=== PATIENT | female | born 1995 | race Caucasian/White ===

== ENCOUNTER → 2021-12-09 | Outpatient (CLI) | payer OTHER, SELFPAY ==
--- NOTE | 2021-12-09 15:45 | SEP_PTH ---
PATIENT: AFSHIN CADET LOC: [facility] U#:[id number] AGE/SX: 26/F ROOM: RE12/09/[address]: Dr. Louis Akhtar MD : 1995 BED: DIS: 12/09/2021 SPEC #: [id number] RECD: 12/10/21 14:58 STATUS: TAQUERIA PRAVEEN #: [id number] BAKARI: 12/09/21 15:[address]: Louis Akhtar DEPT: SURGICAL PATHOLOGY RECD BY: Jignesh Hensley ENTERED: 12/11/21 08:29 SP TYPE: SEPTUM OTHR DR: ALEX Tissues: Nasal septum, NOS Procedures: Decalcification bone/plaque Surgery Specimen Level III HEADER OPERATION: Septoplasty PRE-OP DIAGNOSIS: Nasal congestion, deviated nasal septum TISSUE SUBMITTED: Septum MICROSCOPIC DIAGNOSIS Nasal septum, septoplasty: Fragments of hyaline cartilage and bone with reparative and reactive change (clinically deviated septum). AM:jair 12/16/2021 MICROSCOPIC DESCRIPTION Slides are reviewed. GROSS DESCRIPTION Received in fixative is one container labeled with the patient's name and designated septum. The specimen consists of multiple irregular fragments of cartilage and bone that in aggregate measure 2 x 2 x 0.3 cm. The specimen is totally submitted in one cassette after decalcification. / ADRIANA:jair 12/11/2021 TC:5 CPT: 98051, 89025
== END | disposition home or self-care (01) ==
LOC: LABSPEC 12-11 08:48
PROVIDERS: Visit Provider Otolaryngology
DX: R09.81 Nasal congestion (principal); J34.2 Deviated nasal septum
CPT/HCPCS: 88304; 88311

== ENCOUNTER 2024-04-02 13:11 | Emergency (ER) | payer OTHER, BC, SELFPAY ==
[2024-04-02 13:11] VITALS: BP 148/94; PULSE 76; RESP 16; TEMP 36.8; O2SAT 98; BMI 28.4
--- NOTE | 2024-04-02 13:48 | EDS_ITS ---
HPI <PAPO Sim - Last Filed: 04/02/24 15:02> History of Present Illness Chief Complaint: Palpitations Narrative Narrative: Patient presenting today with multiple vague complaints she has had over the past 2 to 3 weeks. She reports she stopped taking spironolactone for acne about 3 weeks ago. Since then she has had intermittent palpitations, brain fog, occasional blurred vision, dizziness, and elevated blood pressure. She does have a history of hypothyroidism and last had her thyroid checked in February and was told it was normal. She is taking her levothyroxine as prescribed. She denies any other chronic medical conditions. She has an IUD and last had her menstrual period about a month ago. She denies fevers, chills, chest pain, abdominal pain, nausea, and vomiting. 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 Seasonal allergies Home Medications ?Medication ?Instructions ?Recorded ?Last Taken ?Type spironolactone 100 mg tablet 100 mg PO QHS 09/05/21 Unknown History levothyroxine 112 mcg tablet 112 mcg PO .QD1/2 every Thursday #90 09/03/23 Unknown Rx tabs Allergy/AdvReac Type Severity Reaction Status Date / Time No Known Allergies Allergy Verified 04/02/24 13:13 Family History Mother Anxiety Depression Thyroid disorder Father Anxiety Alcoholism Depression Hypertension Thyroid disorder Sister Anxiety Depression Thyroid disorder Grandmother Thyroid disorder Grandfather Thyroid disorder Surgical History History of wisdom tooth extraction History of lateral meniscus repair of right knee History of repair of anterior cruciate ligament Social History adopted: No household members: spouse housing: house number of children: 0 current occupational status: employed current occupation: [employer] pets and animals: Yes sexually active: Yes Smoking Status: Never smoker alcohol intake: current alcohol intake frequency: a few times a month Alcohol type: beer substance use type: does not use diet: other well-balanced diet: daily or most days eating out: 1-3 times/week during the past year weight has: decreased > 10 lbs what type of physical activity do you participate in: running and weight training frequency: daily seatbelt use: always do you feel safe at home: Yes additional social history: - Carlos CARABALLO <PAPO Sim - Last Filed: 04/02/24 15:02> ROS ED Constitutional Constitutional ED: Denies chills or fever(s) Eyes Eyes: Reports blurry vision Cardiovascular Cardiovascular: Reports palpitations; Denies chest pain Respiratory/Chest Respiratory/Chest: Denies cough or dyspnea Gastrointestinal Gastrointestinal: Denies abdominal pain, nausea or vomiting Genitourinary Genitourinary ED: Denies dysuria, hematuria or urinary urgency Musculoskeletal Musculoskeletal: Denies arthralgias or myalgias Integumentary Denies rash Neurologic Neurologic: Denies weakness EXAM <PAPO Sim - Last Filed: 04/02/24 15:02> Physical Exam Const Vital Signs: 04/02/24 13:11 04/02/24 13:50 Temperature 98.2 F Temperature Source Oral Pulse Rate 76 Respiratory Rate 16 Respiratory Effort Normal Blood Pressure 148/94 H Blood Pressure Mean 112 Pulse Ox 98 Oxygen Delivery Method Room Air Positive well nourished, well developed and no apparent distress General Appearance ED: well developed HEENT Reports normocephalic, head/scalp atraumatic and TM's clear Tympanic Membrane ED: Yes TM's clear bilateral Mouth ED: Yes moist mucous membranes normal Eyes PERRL and EOMs intact bilaterally Neck full ROM and supple Chest Wall inspection of chest normal Resp normal respiratory effort and clear to auscultation bilaterally Cardio regular rate and regular rhythm Back/Spine normal ROM and normal to inspection Extremity normal to inspection and full ROM Neuro oriented x3, CN's II-XII intact bilaterally, moves all extremities, no focal motor deficits and no sensory deficits noted Sensorium / Orientation: awake and alert Motor Exam: strength 5/5 throughout Psych mental status grossly normal and thought process normal Skin no rashes or lesions noted and no wounds <Dr. Cristobal Ron MD - Last Filed: 04/02/24 14:06> Physical Exam Const Vital Signs: 04/02/24 13:11 04/02/24 13:50 Temperature 98.2 F Temperature Source Oral Pulse Rate 76 Respiratory Rate 16 Respiratory Effort Normal Blood Pressure 148/94 H Blood Pressure Mean 112 Pulse Ox 98 Oxygen Delivery Method Room Air [facility] <PAPO Sim - Last Filed: 04/02/24 15:02> [facility] Narrative Medical decision making narrative: Patient presenting today with multiple vague complaints. She reports palpitations, occasional blurred vision, brain fog, and elevated blood pressure since stopping her spironolactone 3 weeks ago. She was taking this for acne. She has an NIH of 0, her neurological exam here is normal. Labs obtained, her CBC and BMP are unremarkable. Chest x-ray negative for any acute cardiopulmonary abnormality. No arrhythmia observed, equipment monitor phototypesetting, her EKG here shows normal sinus rhythm. Her TSH is 5.64 which is increased from her previous labs according to the patient. I suspect that this is likely causing her symptoms. I did recommend that she call her coin machine assembler on Thursday and discuss possible medication changes, she is to continue taking her levothyroxine until then. Return instructions were discussed and patient discharged home in stable condition. I have personally performed a face to face assessment of the patient and have reviewed the PRITI Note. I performed a substantive portion of the visit including all aspects of the following. My thomas findings include: History is 28-year-old female history of hypothyroidism on thyroid medication. Abruptly stopped spironolactone which she was taking about 3 weeks ago for acne. Has had intermittent palpitations. Denies recent illness. Denies vomiting or diarrhea. Denies melena. Denies fever. No chest pain. No shortness of breath. Exam is [well-appearing 28-year-old female. Vital signs are stable afebrile. Pulse ox 98% on room air no hypoxia. H EENT exam normal. Moist weeks membranes. Neck nontender no JVD. No lymphadenopathy. Lungs clear to auscultation bilaterally. Heart regular rate and rhythm rate about 75 no murmur. Chest wall ribs nontender. Abdomen soft nontender. Moving all 4 extremities. Nontender no edema. 5 of 5 tankage supervisor strength. Dorsi plantarflexion intact. Calves are nontender without edema or cords. Neurologically she is awake alert no focal motor deficits. Back exam nontender. Skin no rashes. Benign exam.] Medical Decision Making [28-year-old with hypothyroidism with palpitations will undergo cardiac workup. And screening labs. She does not need a troponin.] Other additions or changes: [None] Lab Data Labs: Laboratory Results - last 24 hr 04/02/24 13:59 WBC 6.7 RBC 4.46 Hgb 13.5 Hct 38.9 MCV 87.2 MCH 30.3 MCHC 34.7 RDW Std Deviation 39.2 RDW Coeff of Andrae 12.2 Plt Count 311 MPV 9.4 Immature Gran % (Auto) 0.300 Neut % (Auto) 66.0 Lymph % (Auto) 25.7 [place] % (Auto) 6.7 Eos % (Auto) 0.7 Baso % (Auto) 0.6 Absolute Neuts (auto) 4.4 Absolute Lymphs (auto) 1.73 Nucleated RBC % 0 Sodium 138 Potassium 3.7 Chloride 106 Carbon Dioxide 28.0 Anion Gap 4 L BUN 9 Creatinine 0.96 Estim Creat Clear Calc 100.43 Est GFR (MDRD) Af Amer 89 Est GFR (MDRD) Non-Af 74 BUN/Creatinine Ratio 9.3 L Glucose 96 Calcium 9.3 TSH 5.640 H Serum , Qual NEGATIVE EKG Initial EKG: Comments: 71 bpm, normal sinus rhythm, no ST elevation, interpreted by attending ED physician <Dr. Cristobal Ron MD - Last Filed: 04/02/24 14:06> [facility] MDM Narrative Medical decision making narrative: I have personally performed a face to face assessment of the patient and have reviewed the PRITI Note. I performed a substantive portion of the visit including all aspects of the following. My thomas findings include: History is 28-year-old female history of hypothyroidism on thyroid medication. Abruptly stopped spironolactone which she was taking about 3 weeks ago for acne. Has had intermittent palpitations. Denies recent illness. Denies vomiting or diarrhea. Denies melena. Denies fever. No chest pain. No shortness of breath. Exam is [well-appearing 28-year-old female. Vital signs are stable afebrile. Pulse ox 98% on room air no hypoxia. H EENT exam normal. Moist weeks membranes. Neck nontender no JVD. No lymphadenopathy. Lungs clear to auscultation bilaterally. Heart regular rate and rhythm rate about 75 no murmur. Chest wall ribs nontender. Abdomen soft nontender. Moving all 4 extremities. Nontender no edema. 5 of 5 tankage supervisor strength. Dorsi plantarflexion intact. Calves are nontender without edema or cords. Neurologically she is awake alert no focal motor deficits. Back exam nontender. Skin no rashes. Benign exam.] Medical Decision Making [28-year-old with hypothyroidism with palpitations will undergo cardiac workup. And screening labs. She does not need a troponin.] Other additions or changes: [None] History & Record Review Discussion w/independent historian: Patient Lab Data Attestation: I reviewed the patient's lab results. Labs: Laboratory Results - last 24 hr 04/02/24 13:59 WBC 6.7 RBC 4.46 Hgb 13.5 Hct 38.9 MCV 87.2 MCH 30.3 MCHC 34.7 RDW Std Deviation 39.2 RDW Coeff of Andrae 12.2 Plt Count 311 MPV 9.4 Immature Gran % (Auto) 0.300 Neut % (Auto) 66.0 Lymph % (Auto) 25.7 [place] % (Auto) 6.7 Eos % (Auto) 0.7 Baso % (Auto) 0.6 Absolute Neuts (auto) 4.4 Absolute Lymphs (auto) 1.73 Nucleated RBC % 0 Sodium 138 Potassium 3.7 Chloride 106 Carbon Dioxide 28.0 Anion Gap 4 L BUN 9 Creatinine 0.96 Estim Creat Clear Calc 100.43 Est GFR (MDRD) Af Amer 89 Est GFR (MDRD) Non-Af 74 BUN/Creatinine Ratio 9.3 L Glucose 96 Calcium 9.3 TSH 5.640 H Serum , Qual NEGATIVE Discharge Plan Triage Chief Complaint: Palpitations ED Midlevel Provider: Pati Rosales ED Provider: Cristobal Ron Dx/Rx/DC Orders Clinical Impression: Heart palpitations, Hypothyroidism Instructions: ED Hypothyroidism, ED Palpitations Prescriptions: No Action spironolactone 100 mg tablet 100 mg PO QHS levothyroxine 112 mcg tablet 112 mcg PO .QD1/2 every Thursday Qty: 90 3RF Primary Care Provider: Aretha Jacobson Referrals: Aretha Jacobson MD [Primary Care Provider] - 3-5 Days Activity Restrictions/Additional Instructions: Follow-up with your PCP to have your thyroid levels rechecked and possible changes to thyroid medication. Your TSH here was 5.64. Print Language: Bulgarian Disposition Disposition: Home, Self Care
[2024-04-02 14:21] LABS: Absolute Lymphocyte Count 1.73 X10^3/uL (0.83-4.51); Absolute Neutrophil Count 4.4 X10^3/uL (2.0-7.7); Basophil# 0.04 X10^3/uL; Basophil% 0.6 % (0-1); Eosinophil# 0.05 X10^3/uL; Eosinophils% 0.7 % (0-5); Hematocrit 38.9 % (37-47); Hemoglobin 13.5 g/dL (12.0-15.0); Lymphocyte # 1.73 X10^3/ul (0.83-4.51); Lymphocyte % 25.7 % (19-41); Mean Corp Hgb Conc 34.7 g/dL (32-36); Mean Corpuscular Hgb 30.3 pg (27.0-32.0); Mean Corpuscular Volume 87.2 fL (81-99); Mean Platelet Vol. 9.4 fl (6.2-12.0); Monocyte# 0.45 X10^3/uL; Monocyte% 6.7 % (0-10); NRBC Flagged by Analyzer 0 % (0-5); Neutrophil # 4.44 X10^3/uL (2.7-7.7); Platelet Count 311 K/mm3 (150-450); RBC Distribution Width CV 12.2 % (11.6-14.6); RBC Distribution Width SD 39.2 fl (35.1-43.9); Red Blood Count 4.46 M/mm3 (4.2-5.4); White Blood Count 6.7 K/mm3 (4.4-11.0)
[2024-04-02 14:29] LABS: Internal QC Validated? YES +Cl - CLEAR BKGD; Pregnancy, Serum, hCG Quali. NEGATIVE Negative
--- NOTE | 2024-04-02 14:29 | RAD_ITS ---
STUDY: X-RAY CHEST REASON FOR EXAM: Female, 28 years old. Dizziness, palpitations TECHNIQUE: Frontal and lateral views of the chest. COMPARISON: None. FINDINGS: The lungs are clear and expanded. There is no demonstrated pleural abnormality. Normal size heart. Normal mediastinum and radha. Normal visualized pulmonary arteries. Normal visualized aortic arch and descending thoracic aorta. Normal visualized thoracic spine. Normal visualized ribs, clavicles, and shoulders. There is no demonstrated abnormality of the visualized soft tissue structures of the upper abdomen. RAD/Chest PA and Lateral IMPRESSION: Normal x-ray examination of the chest. Electronically Signed: Petey Bermudez MD at 15:16 EST ,
[2024-04-02 14:44] LABS: Anion Gap 4 (5-15); BUN 9 mg/dL (7-18); BUN/Creat Ratio 9.3 RATIO (10-20); Calcium,Total 9.3 mg/dL (8.5-10.1); Chloride 106 mmol/L (98-107); Creatinine, Serum 0.96 mg/dL (0.55-1.02); EST Glomerular Filtration Rate 74 mL/min (>60); Est Glom Filt Rate - Afr Amer 89 mL/min (>60); Estimated Creatinine Clearance 100.43 ml/min; Glucose 96 mg/dL (74-106); Potassium 3.7 mmol/L (3.5-5.1); Sodium Level 138 mmol/L (136-145)
[2024-04-02 15:00] VITALS: BP 118/76; PULSE 69; RESP 16; TEMP 36.6; O2SAT 98
== END 2024-04-02 15:01 | disposition home or self-care (01) ==
PROVIDERS: Physician Assistant; Emergency Provider Emergency Medicine; PCP Family Medicine; Visit Provider Emergency Medicine
DX: R00.2 Palpitations (principal); E03.9 Hypothyroidism, unspecified; Z79.890 Hormone replacement therapy
CPT/HCPCS: 71046; 80048; 84443; 84703; 85025; 93005; 99283; A4216

== ENCOUNTER → 2024-06-09 | Outpatient (CLI) | payer BC, SELFPAY ==
[2024-06-16 10:35] LABS: HPV Reflexed? NOT INDICATED
== END | disposition home or self-care (01) ==
LOC: LABSPEC 16:38
PROVIDERS: PCP Family Medicine; Referring Provider Advanced Practice Midwife; Visit Provider Advanced Practice Midwife
DX: Z12.4 Encounter for screening for malignant neoplasm of cervix (principal)
CPT/HCPCS: 88175; G0145

== ENCOUNTER 2024-08-18 09:25 | Emergency (ER) | payer BC, SELFPAY ==
[2024-08-18 09:27] VITALS: BP 141/80; PULSE 70; RESP 16; TEMP 36.7; O2SAT 100; BMI 28.4
--- NOTE | 2024-08-18 09:30 | ED.VIS.FEGU ---
HPI HPI - Female History of Present Illness Chief Complaint: Vag Bld, Preg Detail of Chief Complaint: Vaginal spotting and pelvic cramping Informant: patient Narrative Narrative: Patient presents to the emergency department with vaginal spotting that started yesterday. Patient states that she had a very active day working out. She had small amount of spotting yesterday. She has had some cramping throughout the night especially on the left side. She spoke with her SLOT MACHINE REPAIRER who advised her to come in and get a ultrasound and labs. Patient's last menstrual period was July 15. Had a positive test yesterday. She is G1, P0. Not anticoagulated. She has had no further vaginal bleeding today. She denies urinary symptoms. 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 Seasonal allergies Home Medications ?Medication ?Instructions ?Recorded ?Last Taken ?Type spironolactone 100 mg tablet 100 mg PO QHS 09/05/21 Unknown History levothyroxine 112 mcg tablet 112 mcg PO .QD1/2 every Thursday #90 09/03/23 Unknown Rx tabs Allergy/AdvReac Type Severity Reaction Status Date / Time No Known Allergies Allergy Verified 08/18/24 09:29 Family History Mother Anxiety Depression Thyroid disorder Father Anxiety Alcoholism Depression Hypertension Thyroid disorder Sister Anxiety Depression Thyroid disorder Grandmother Thyroid disorder Grandfather Thyroid disorder Surgical History History of wisdom tooth extraction History of lateral meniscus repair of right knee History of repair of anterior cruciate ligament Social History adopted: No household members: spouse housing: house number of children: 0 current occupational status: employed current occupation: [employer] pets and animals: Yes sexually active: Yes Smoking Status: Never smoker alcohol intake: current alcohol intake frequency: a few times a month Alcohol type: beer substance use type: does not use diet: other well-balanced diet: daily or most days eating out: 1-3 times/week during the past year weight has: decreased > 10 lbs what type of physical activity do you participate in: running and weight training frequency: daily seatbelt use: always do you feel safe at home: Yes additional social history: - Carlos ROS ROS ED Review of Systems ROS Unobtainable: other Constitutional Constitutional ED: Reports lethargy; Denies chills, fever(s), sweats or weight loss Eyes Eyes: Denies blurry vision, change in vision or diplopia ENT ENT ED: Denies rhinorrhea or sore throat Cardiovascular Cardiovascular: Denies chest pain, orthopnea or racing heartbeat Respiratory/Chest Respiratory/Chest: Denies cough, dyspnea, dyspnea on exertion, orthopnea or sputum Gastrointestinal Gastrointestinal: Denies abdominal pain, diarrhea, nausea or vomiting Genitourinary Genitourinary ED: Reports other Details: Vaginal bleeding, ; Denies dysuria, hematuria or urinary frequency Musculoskeletal Musculoskeletal: Denies arthralgias, back pain, myalgias or neck pain Integumentary Denies abscess, Abrasions or rash Neurologic Neurologic: Denies headache(s) or weakness Psychiatric Psychiatric: Denies anxiety, depression or suicidal thoughts Endocrine Endocrinology: Denies polydipsia, polyphagia or polyuria Hematologic/Lymphatic Hematologic/Lymphatic: Denies easy bleeding, easy bruising or lymphadenopathy Allergic/Immunologic Allergic/Immunologic ED: Denies mouth swelling, tongue swelling or urticaria EXAM Physical Exam Const Vital Signs: 08/18/24 09:27 Temperature 98.1 F Temperature Source Oral Pulse Rate 70 Respiratory Rate 16 Blood Pressure 141/80 H Blood Pressure Mean 100 Pulse Ox 100 Oxygen Delivery Method Room Air Positive well nourished and well developed General Appearance ED: well developed and NAD HEENT Reports TM's clear and moist mucous membranes normocephalic and atraumatic; Negative for trauma or tenderness Tympanic Membrane ED: Yes TM's clear Eyes PERRL and EOMs intact bilaterally General Eye ED: Negative for pale conjunctiva or scleral icterus Neck no lymphadenopathy, supple and no JVD General: Negative for tenderness Chest Wall inspection of chest normal and palpation of chest normal Chest: Negative for tenderness Resp normal respiratory effort and clear to auscultation bilaterally Effort and Inspection: Negative for respiratory distress or pain with movement Auscultation: Negative for rhonchi, wheezes or diminished lung sounds Cardio regular rate, regular rhythm, S1 normal heart sound, S2 normal heart sound and no murmurs Peripheral Pulses: pulses 2+ throughout GI normal to inspection, nondistended, normoactive bowel sounds, soft to palpation, non-tender, non-distended and no masses Back/Spine no CVA tenderness and no thoracic nor lumbar tenderness Extremity normal to inspection General Extremety ED: Negative for edema General Extremity: Negative for edema Neuro oriented x3, CN's II-XII intact bilaterally, no sensory deficits noted and gait normal Sensorium / Orientation: awake, alert, oriented to person, oriented to place and oriented to time Motor Exam: strength 5/5 throughout and strength abnormal Psych mental status grossly normal Skin no rashes or lesions noted and no wounds MDM MDM MDM Narrative Medical decision making narrative: Patient presents the emergency department with early diagnosis of yesterday on home test. Patient states she is no longer bleeding but still having some cramping more so on the left side. Clinically looks well. Vital stable. CBC with differential count of 8.6 with hemoglobin 13.6 and platelet count of 310. hCG quant was only 77. Urinalysis normal. Blood type B+. Pelvic ultrasound obtained showed no evidence of intrauterine or evidence of any ectopic. At this point I suspect likely just early . She will require follow-up quant and follow-up ultrasound. I did discuss case with Dr. Jean who is covering for Dr. Chase. She is advised to call the office for follow-up instructions. Lab Data Attestation: I reviewed the patient's lab results. Labs: Laboratory Results - last 24 hr 08/18/24 08/18/24 09:45 10:12 WBC 8.6 RBC 4.47 Hgb 13.6 Hct 39.4 MCV 88.1 MCH 30.4 MCHC 34.5 RDW Std Deviation 38.9 RDW Coeff of Andrae 12.0 Plt Count 310 MPV 9.4 Immature Gran % (Auto) 0.500 Neut % (Auto) 66.3 Lymph % (Auto) 25.6 [place] % (Auto) 6.2 Eos % (Auto) 0.9 Baso % (Auto) 0.5 Absolute Neuts (auto) 5.7 Absolute Lymphs (auto) 2.19 Nucleated RBC % 0 HCG, Quant 77 H Urine Color Yellow Urine Clarity Clear Urine pH 7.0 Ur Specific [place] 1.005 Urine Protein 15 H Urine Glucose (UA) Normal Urine Ketones Negative Urine Occult Blood Negative Urine Nitrite Negative Urine Bilirubin Negative Urine Urobilinogen Normal Ur Leukocyte Esterase Negative Urine RBC 0 SEEN Urine WBC 0-5 SEEN Ur Squamous Epith Cells 0-5 SEEN Urine Bacteria 0 SEEN Urine Mucus 0 SEEN Blood Type B POSITIVE Radiography Diagnostic Testing: Clinical Impression(s) from Imaging Studies Obstetrics Ultrasound 08/18/24 09:34 IMPRESSION: No intrauterine gestation is seen at this time. Clinical correlation recommended. Reading Location: [place] [id number] Discharge Plan Triage Chief Complaint: Vag Bld, Preg ED Provider: Preston Garrett Dx/Rx/DC Orders Clinical Impression: , threatened, First trimester Instructions: 1st Trimester, Miscarriage Threatened Prescriptions: No Action spironolactone 100 mg tablet 100 mg PO QHS levothyroxine 112 mcg tablet 112 mcg PO .QD1/2 every Thursday Qty: 90 3RF Primary Care Provider: Aretha Jacobson Referrals: Aretha Jacobson MD [Primary Care Provider] - Nina Rivera DO [Med Staff - Active Staff] - 2 Days Print Language: Cameroonian Disposition Disposition: Home, Self Care
--- NOTE | 2024-08-18 09:34 | US_ITS ---
PROCEDURE: TRANSVAGINAL W/PREG US N/A REASON FOR EXAM: CRAMPING, BLEEDING, 4W6D TECHNIQUE: Transvaginal COMPARISON: None LMP: July 15, 2024. FINDINGS: Comments: Number of Gestational Sacs: 0 Gestational Sac Shape: Not visualized Yolk Sac: Not visualized Placenta: Not visualized Uterine Abnormalities: Maternal uterus is unremarkable. Ovaries / Adnexa: Both maternal ovaries are visualized. There is evidence of a 2.6 cm x 2.6 cm x 2.1 cm corpus luteum cyst in the right ovary. US/Transvaginal w/Preg US IMPRESSION: No intrauterine gestation is seen at this time. Clinical correlation recommend ed. Reading Location: [facility]
[2024-08-18 09:56] LABS: Absolute Lymphocyte Count 2.19 X10^3/uL (0.83-4.51); Absolute Neutrophil Count 5.7 X10^3/uL (2.0-7.7); Basophil# 0.04 X10^3/uL; Basophil% 0.5 % (0-1); Eosinophil# 0.08 X10^3/uL; Eosinophils% 0.9 % (0-5); Hematocrit 39.4 % (37-47); Hemoglobin 13.6 g/dL (12.0-15.0); Lymphocyte # 2.19 X10^3/ul (0.83-4.51); Lymphocyte % 25.6 % (19-41); Mean Corp Hgb Conc 34.5 g/dL (32-36); Mean Corpuscular Hgb 30.4 pg (27.0-32.0); Mean Corpuscular Volume 88.1 fL (81-99); Mean Platelet Vol. 9.4 fl (6.2-12.0); Monocyte# 0.53 X10^3/uL; Monocyte% 6.2 % (0-10); NRBC Flagged by Analyzer 0 % (0-5); Neutrophil # 5.67 X10^3/uL (2.7-7.7); Neutrophil % 66.3 % (47-70); Platelet Count 310 K/mm3 (150-450); RBC Distribution Width SD 38.9 fl (35.1-43.9); Red Blood Count 4.47 M/mm3 (4.2-5.4); White Blood Count 8.6 K/mm3 (4.4-11.0)
[2024-08-18 10:20] LABS: Bacteria 0 SEEN /hpf (None Seen); Mucous, Urine 0 SEEN /hpf (<or=2+); Red Blood Cells-Urine 0 SEEN /hpf (0-5)
[2024-08-18 10:21] LABS: hCG Titer Quant., Serum 77 mIU/mL (<9 non-preg)
[2024-08-18 10:29] LABS: Color, Urine Yellow (Yellow); Glucose, Dipstick Normal (Normal); Ketone-Dipstick Negative (Negative); Leukocyte Esterase-Dipstick Negative /ul (Negative); Nitrite-Dipstick Negative (Negative); Occult Blood-Urine Negative /ul (Negative); Protein-Dipstick 15 mg/dl (Negative); Specific Gravity, Urine 1.005 (1.002-1.030); Urine Bilirubin Dipstick Negative (Negative); Urine Clarity Clear (Clear); Urine Urobilinogen Normal (Normal)
[2024-08-18 10:42] LABS: Squamous Epithelial Cells - UA 0-5 SEEN /hpf (5-10); White Blood Cells 0-5 SEEN /hpf (0-5)
== END 2024-08-18 11:52 | disposition home or self-care (01) ==
PROVIDERS: Emergency Provider Emergency Medicine; PCP Family Medicine; Visit Provider Emergency Medicine
DX: O20.0 Threatened abortion (principal); O26.891 Other specified pregnancy related conditions, first trimester; R10.2 Pelvic and perineal pain; O99.281 Endocrine, nutritional and metabolic diseases complicating pregnancy, first trimester; E03.8 Other specified hypothyroidism; Z79.890 Hormone replacement therapy; Z3A.00 Weeks of gestation of pregnancy not specified
CPT/HCPCS: 76817; 81001; 84702; 85025; 86900; 86901; 99283; A4216

== ENCOUNTER → 2024-08-20 | Outpatient (CLI) | payer BC, SELFPAY ==
[2024-08-20 09:24] LABS: hCG Titer Quant., Serum 120 mIU/mL (<9 non-preg)
== END | disposition home or self-care (01) ==
LOC: LAB 07:56
PROVIDERS: PCP Family Medicine; Referring Provider Registered Nurse; Visit Provider Registered Nurse
DX: O26.859 Spotting complicating pregnancy, unspecified trimester (principal); O20.0 Threatened abortion; Z3A.00 Weeks of gestation of pregnancy not specified
CPT/HCPCS: 36415; 84702

== ENCOUNTER → 2024-08-22 | Outpatient (CLI) | payer BC, SELFPAY ==
[2024-08-22 09:33] LABS: hCG Titer Quant., Serum 179 mIU/mL (<9 non-preg)
== END | disposition home or self-care (01) ==
PROVIDERS: PCP Family Medicine; Referring Provider Registered Nurse; Visit Provider Registered Nurse
DX: O26.859 Spotting complicating pregnancy, unspecified trimester (principal); O20.0 Threatened abortion; Z3A.00 Weeks of gestation of pregnancy not specified
CPT/HCPCS: 36415; 84702

== ENCOUNTER → 2024-08-25 | Outpatient (CLI) | payer BC, SELFPAY ==
--- NOTE | 2024-08-25 10:01 | US_ITS ---
PROCEDURE: TRANSVAGINAL W/PREG US 08/25/2024 REASON FOR EXAM: SPOTTING IN TECHNIQUE: Grayscale and color Doppler pelvic ultrasound, transabdominal and transvaginal COMPARISON: None FINDINGS The uterus measures 10.4 x 5.2 x 6.8 cm, endometrium = 1.14 cm. There is no uterine fibroid or mass. There is no visible intrauterine . The right ovary measures 4.78 x 2.58 x 3.14 cm, volume = 20.3 cc. The left ovary measures 3.36 x 1.71 x 2.62 cm, volume = 7.88 cc. The right ovary shows greater than 10 subcentimeter follicles, and meets the criteria for polycystic ovary syndrome. There is a 2.7 x 1.9 cm complex mixed echogenicity lesion in the right ovary, which does not have the typical features of a ectopic . US/Transvaginal w/Preg US IMPRESSION: The right ovary shows greater than 10 subcentimeter follicles, and meets the cr iteria for polycystic ovary syndrome. There is no visible intrauterine . There is a 2.7 x 1.9 cm complex mix ed echogenicity lesion in the right ovary, which does not have the typical features of a ectopic . Correlation with se rial quantitative beta HCG is recommended. Follow-up is recommended which could include MRI of the ovaries with and withou t contrast. Reading Location: [facility]
[2024-08-25 15:39] LABS: Absolute Lymphocyte Count 2.65 X10^3/uL (0.83-4.51); Absolute Neutrophil Count 9.1 X10^3/uL (2.0-7.7); Basophil# 0.06 X10^3/uL; Basophil% 0.5 % (0-1); Eosinophil# 0.07 X10^3/uL; Eosinophils% 0.5 % (0-5); Hemoglobin 14.4 g/dL (12.0-15.0); Lymphocyte # 2.65 X10^3/ul (0.83-4.51); Lymphocyte % 20.8 % (19-41); Mean Corp Hgb Conc 35.1 g/dL (32-36); Mean Corpuscular Hgb 30.6 pg (27.0-32.0); Mean Corpuscular Volume 87.2 fL (81-99); Mean Platelet Vol. 9.1 fl (6.2-12.0); Monocyte% 6.3 % (0-10); NRBC Flagged by Analyzer 0 % (0-5); Neutrophil # 9.11 X10^3/uL (2.7-7.7); Neutrophil % 71.4 % (47-70); Platelet Count 355 K/mm3 (150-450); RBC Distribution Width CV 11.8 % (11.6-14.6); RBC Distribution Width SD 38.2 fl (35.1-43.9); White Blood Count 12.8 K/mm3 (4.4-11.0)
[2024-08-25 16:03] LABS: ALB/GLOB Ratio 1.7 RATIO (0.9-2.4); AST(SGOT) 18 U/L (<=31); Alanine Aminotransfer ALT/SGPT 11 U/L (<=34); Albumin, Serum 4.7 g/dL (3.5-5.0); Alkaline Phosphatase 62 U/L (35-104); Anion Gap 11 (5-15); BUN 9 mg/dL (4-19); BUN/Creat Ratio 10.8 RATIO (10-20); Calcium,Total 9.4 mg/dL (7.6-11.0); Carbon Dioxide 22.1 mmol/L (21.0-32.0); Chloride 104 mmol/L (98-108); Creatinine, Serum 0.82 mg/dL (0.70-1.20); EST Glomerular Filtration Rate 99 (>60); Globulin 2.8 g/dL (2.2-4.2); Glucose 86 mg/dL (70-99); Protein, Total 7.4 g/dL (5.9-8.4); Sodium Level 137 mmol/L (133-145); Total Bilirubin 0.56 mg/dL (0.00-1.30)
[2024-08-25 16:08] LABS: hCG Titer Quant., Serum 448 mIU/mL (<9 non-preg)
== END | disposition home or self-care (01) ==
PROVIDERS: PCP Family Medicine; Referring Provider Obstetrics & Gynecology; Visit Provider Obstetrics & Gynecology
DX: O26.859 Spotting complicating pregnancy, unspecified trimester (principal); Z3A.00 Weeks of gestation of pregnancy not specified
CPT/HCPCS: 36415; 76817; 80053; 84702; 85025

== ENCOUNTER 2024-08-27 16:17 | Emergency (ER) | payer BC, SELFPAY ==
[2024-08-27 16:18] VITALS: BP 120/73; PULSE 69; RESP 16; TEMP 36.8; O2SAT 100; BMI 28.2
--- NOTE | 2024-08-27 16:49 | US_ITS ---
PROCEDURE: TRANSVAGINAL W/PREG US 08/27/2024 REASON FOR EXAM: POSSIBLE ECTOPIC TECHNIQUE: High resolution obstetric ultrasound performed using a 2D transducer. Standard views obtained, including biometry, anatomy survey, and Doppler studies. COMPARISON: None. FINDINGS Single live intrauterine . Small sac favoring a gestational sac measuring 5 weeks and 0 days. No visualized pole. No yolk sac visualized. Uterus measures 8.9 x 6.0 x 4.5 cm. Right ovary measures 5.1 x 2.6 x 2.6 cm and left ovary measures 4.1 x 3.2 x 2.9 cm both with preserved vascular flow. Right ovarian thick-walled lesion favoring a corpus luteum which measures 2.3 x 2.2 x 1.5 cm. Numerous bilateral ovarian follicles. US/Transvaginal w/Preg US IMPRESSION: Probable gestational sac without a visualized pole. Polycystic appearance of the ovaries. Possible right corpus luteum. Reading Location: [id number]
--- NOTE | 2024-08-27 16:58 | ED.VIS.FEGU ---
HPI HPI - Female History of Present Illness Chief Complaint: Informant: patient and spouse/S.O. Narrative Narrative: 29-year-old female presenting to the emergency room with a chief complaint of possible ectopic . Patient follows with Dr. Jeremi Chapman from [facility]. Patient has had positive outpatient test. On 524 her hCG level was 120. 526 her hCG level was 179. On 529 her hCG level jumped to 448 and her hCG level this morning at (5?31) was 493. She notes a pink-tinged mucousy discharge which she describes as being every other day. She denies any significant pain. She has been in contact with obstetrics who asked her to come to emergency for ultrasound. No reported fevers. This is her first . 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 Seasonal allergies Home Medications ?Medication ?Instructions ?Recorded ?Last Taken ?Type levothyroxine 112 mcg tablet 112 mcg PO .QD1/2 every Thursday #90 09/03/23 08/27/24 Rx tabs multivitamin no.47-iron fum 27 1 cap PO DAILY 08/25/24 08/27/24 History mg-folate no.1 1 mg-dha 300 mg capsule (PNV-DHA) Allergy/AdvReac Type Severity Reaction Status Date / Time No Known Allergies Allergy Verified 08/27/24 16:20 Family History Mother Anxiety Depression Thyroid disorder Father Anxiety Alcoholism Depression Hypertension Thyroid disorder Sister Anxiety Depression Thyroid disorder Grandmother Thyroid disorder Grandfather Thyroid disorder Surgical History History of wisdom tooth extraction History of lateral meniscus repair of right knee History of repair of anterior cruciate ligament Social History adopted: No household members: spouse housing: house number of children: 0 current occupational status: employed current occupation: [employer] pets and animals: Yes sexually active: Yes Smoking Status: Never smoker alcohol intake: current alcohol intake frequency: a few times a month Alcohol type: beer substance use type: does not use diet: other well-balanced diet: daily or most days eating out: 1-3 times/week during the past year weight has: decreased > 10 lbs what type of physical activity do you participate in: running and weight training frequency: daily seatbelt use: always do you feel safe at home: Yes additional social history: - Carlos ROS ROS ED Constitutional Constitutional ED: Denies chills, fever(s) or weight loss Eyes Eyes: Denies change in vision or diplopia ENT ENT ED: Denies ear pain, rhinorrhea or sore throat Cardiovascular Cardiovascular: Denies chest pain, orthopnea, palpitations or racing heartbeat Respiratory/Chest Respiratory/Chest: Denies cough, dyspnea or orthopnea Gastrointestinal Gastrointestinal: Denies abdominal pain, diarrhea, nausea or vomiting Genitourinary Genitourinary ED: Reports other Details: See history of present illness ; Denies dysuria, hematuria or urinary frequency Musculoskeletal Musculoskeletal: Denies arthralgias or myalgias Integumentary Denies abscess or rash Neurologic Neurologic: Denies headache(s) or weakness Psychiatric Psychiatric: Denies anxiety, depression, suicidal ideation or suicidal thoughts Endocrine Endocrinology: Denies polydipsia, polyphagia or polyuria Allergic/Immunologic Allergic/Immunologic ED: Denies mouth swelling, tongue swelling or urticaria EXAM Physical Exam Const Vital Signs: 08/27/24 16:18 08/27/24 18:17 Temperature 98.2 F Temperature Source Oral Pulse Rate 69 Respiratory Rate 16 Blood Pressure 120/73 105/64 Blood Pressure Mean 88 77 Pulse Ox 100 100 Oxygen Delivery Method Room Air Room Air Positive well nourished and well developed General Appearance ED: well developed HEENT Reports normocephalic, head/scalp atraumatic and moist mucous membranes Eyes PERRL and EOMs intact bilaterally Neck no lymphadenopathy, supple and no JVD Resp normal respiratory effort and clear to auscultation bilaterally Cardio regular rate, regular rhythm and no murmurs GI normal to inspection, nondistended, normoactive bowel sounds and non-tender Palpation: soft Back/Spine no CVA tenderness and normal ROM Extremity normal to inspection General Extremety ED: Negative for edema General Extremity: Negative for edema Neuro oriented x3 and CN's II-XII intact bilaterally Sensorium / Orientation: alert Motor Exam: strength 5/5 throughout Psych mental status grossly normal Mood & Affect: anxious and tearful Skin no rashes or lesions noted and no wounds MDM MDM MDM Narrative Medical decision making narrative: Differential diagnosis includes but not limited to ectopic blighted ovum miscarriage threatened miscarriage malignancy I reviewed the patient's chart as well as spoke with Dr. Jean statutes prior to the patient's arrival. I reviewed her blood work including CBC CMP 2 days ago as well as her hCG levels. Pelvic ultrasound was obtained I reviewed the images and reviewed the radiology report. I spoke with obstetrics and we reviewed. As there is now a gestational sac we will continue monitoring the patient. Dr. Jean spoke with the patient on the phone. Patient and her are comfortable with this plan. She clinically appears well. History & Record Review Discussion w/independent historian: Patient and Significant other Additional record(s) reviewed:: Prior outpatient record and Prior labs Radiography Diagnostic Testing: Clinical Impression(s) from Imaging Studies Obstetrics Ultrasound 08/27/24 16:49 IMPRESSION: Probable gestational sac without a visualized pole. Polycystic appearance of the ovaries. Possible right corpus luteum. Reading Location: [id number] Management Discussion w/another healthcare provider[facility] (Dr. Jean (obstetrics)) Discharge Plan Triage Chief Complaint: ED Provider: Porter Baeza Dx/Rx/DC Orders Clinical Impression: Spotting in early , Instructions: Bleeding During Early Prescriptions: No Action levothyroxine 112 mcg tablet 112 mcg PO .QD1/2 every Thursday Qty: 90 3RF PNV-DHA 27 mg iron-1 mg -300 mg capsule 1 cap PO DAILY Primary Care Provider: Aretha Jacobson Referrals: Aretha Jacobson MD [Primary Care Provider] - Sangita Jean MD [Med Staff - Active Staff] - (call office on Thursday to schedule follow up) Print Language: Serbian
[2024-08-27] MEDS: Acetaminophen 500 MG Tablet 1000 MG PO (17:53)
[2024-08-27 18:17] VITALS: BP 105/64; O2SAT 100
[2024-08-27 19:53] VITALS: BP 122/77; PULSE 68; RESP 16; TEMP 36.8; O2SAT 100
== END 2024-08-27 19:54 | disposition home or self-care (01) ==
LOC: ED 17:00
PROVIDERS: Emergency Provider Emergency Medicine; PCP Family Medicine; Visit Provider Emergency Medicine
DX: O26.851 Spotting complicating pregnancy, first trimester (principal); E03.8 Other specified hypothyroidism; Z79.890 Hormone replacement therapy; Z3A.00 Weeks of gestation of pregnancy not specified; O99.281 Endocrine, nutritional and metabolic diseases complicating pregnancy, first trimester
CPT/HCPCS: 76817; 99283; A4216

== ENCOUNTER → 2024-08-27 | Outpatient (CLI) | payer BC, SELFPAY ==
[2024-08-27 13:43] LABS: hCG Titer Quant., Serum 493 mIU/mL (<9 non-preg)
== END | disposition home or self-care (01) ==
PROVIDERS: PCP Family Medicine; Referring Provider Obstetrics & Gynecology; Visit Provider Obstetrics & Gynecology
DX: O26.859 Spotting complicating pregnancy, unspecified trimester (principal); O20.0 Threatened abortion; Z3A.00 Weeks of gestation of pregnancy not specified
CPT/HCPCS: 36415; 84702

== ENCOUNTER → 2024-08-29 | Outpatient (CLI) | payer BC, SELFPAY ==
[2024-08-29 15:41] LABS: hCG Titer Quant., Serum 510 mIU/mL (<9 non-preg)
== END | disposition home or self-care (01) ==
LOC: LAB 14:00
PROVIDERS: PCP Family Medicine; Referring Provider Obstetrics & Gynecology; Visit Provider Obstetrics & Gynecology
DX: O20.0 Threatened abortion (principal); O26.859 Spotting complicating pregnancy, unspecified trimester; Z3A.00 Weeks of gestation of pregnancy not specified
CPT/HCPCS: 36415; 84702

== ENCOUNTER → 2024-08-31 | Outpatient (CLI) | payer BC, SELFPAY ==
[2024-08-31 10:42] LABS: hCG Titer Quant., Serum 449 mIU/mL (<9 non-preg)
== END | disposition home or self-care (01) ==
LOC: LAB 08:54
PROVIDERS: PCP Family Medicine; Referring Provider Obstetrics & Gynecology; Visit Provider Obstetrics & Gynecology
DX: O20.0 Threatened abortion (principal); Z3A.00 Weeks of gestation of pregnancy not specified; O99.280 Endocrine, nutritional and metabolic diseases complicating pregnancy, unspecified trimester; E03.9 Hypothyroidism, unspecified
CPT/HCPCS: 36415; 84439; 84443; 84702

== ENCOUNTER → 2024-09-01 | Outpatient (CLI) | payer BC, SELFPAY ==
--- NOTE | 2024-09-01 10:43 | US_ITS ---
EXAM: US Pelvis Transabdominal and Transvaginal, Complete CLINICAL INDICATION: VIABILITY TECHNIQUE: Real-time complete transabdominal and transvaginal pelvic ultrasound with image documentation. Transvaginal imaging was used for better evaluation of the endometrium and adnexa. COMPARISON: No relevant prior studies available. FINDINGS: UTERUS/CERVIX: Multiple cystic lesions in the endometrial cavity. No definite residual reaction. No yolk sac. No CRL. These may be early . Repeat pelvic ultrasound in 10-14 days recommended as well as following serial beta HCG level. No myometrial mass. The uterus measures 11.3 x 6.7 x 5.7 cm. RIGHT OVARY: Unremarkable. Normal blood flow. The right ovary measures 5.0 x 2.4 x 2.5 cm. LEFT OVARY: Unremarkable. Normal blood flow. The left ovary measures 4.5 x 2.3 x 2.4 cm. FREE FLUID: No free fluid. BLADDER: Unremarkable as visualized. Wall is normal thickness for degree of distention. US/Transvaginal w/Preg US IMPRESSION: Multiple cystic lesions in the endometrial cavity. No definite residual reacti on. No yolk sac. No CRL. These may be early . Repeat pelvic ultrasound in 10-14 days recommended as well as follo wing serial beta HCG level. Reading Location: [id number]
--- OUTSIDE RECORDS SUMMARY | 2024-09-01 20:17 | XMS RPT_ITS | CCD ---
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 Palpitations; Translations: [Palpitations] Onset: 05-13-2024 04-10-2024 Episodic Other skin disorders (1 source) Localized swelling, mass and lump, neck; Translations: [Localized swelling, mass and lump, neck] Onset: 03-01-2024 Episodic Residual codes; unclassified (1 source) History of reconstruction of anterior cruciate ligament tear; Translations: [Other specified postprocedural states] Onset: 09-01-2016 09-01-2016 Episodic Sprains and strains (1 source) Complete tear, knee, anterior cruciate ligament; Translations: [Sprain of anterior cruciate ligament of right knee, initial encounter] Onset: 07-10-2016 07-10-2016 Episodic Unclassified (1 source) Problem Unclassified (1 source) Patient encounter status; Translations: [Well child visit] Unclassified (1 source) Well adult female - The patient feels well with no complaints, has good energy level and is sleeping well. The first day of the last menstrual period was : (this past week). The current method of contraception is: contraceptive implants. The patient has a balanced diet and takes supplemental vitamins. The patient exercises every other day. The patient sleeps 8 hours per night. Note for Well adult female: Patient reports that she is feeling well at this time.Continues to follow up with endocrine for hypothyroidism.Berhane girard reports that her anxiety is well controlled with current medication. 05-15-2022 Unclassified (1 source) Diarrhea - The onset of the diarrhea has been gradual and has been occurring in an intermittent pattern for 3 weeks. The course has been recurrent. The stools are watery, foul smelling, mixed with mucus and floating on water. The frequency of bowel movements has been 6 per day (atleast 6 a day). The volume of the stools is normal (varies per pt). The symptoms have been associated with nausea, vomiting (yesterday only) and weakness (muscle weakness), while the symptoms have not been associated with constipation or fever. Note for Diarrhea: fatigue, zoned out, brain fog, dizziness, headache, body aches, chills took Imodium last night and this am-- this did stop it- pt jesusita not had BM since pt had covid 3 weeks ago 09-23-2021 Unclassified (1 source) bloodwork - Pt presents to the office today with a request to have some BW done. She has restarted taking her Lexapro at this time and is going to take it for awhile then try to wean off of it later. She tried weaning off the medication, but her symptoms came back.She would like to have a Thyroid Panel done to check all her levels with it since it has been over a year. Patient was diagnosed with hypothyroidism was she was a teenager.Pt would like to see about getting referred over to an trolley cleaner for her thyroid since she had side effects of synthroid in the past. She reports that she felt her hypothyroid symptoms worsened when she was taking the medication.pt is not currently having any symptoms. she would also like to have her electrolyte levels checked and any vitamin levels that we can check as well. Patient is taking numerous OTC supplements at this time: B complex, iron, vitamin D, zinc, fish oil, cranberry supplement, apple cider vinegar, CBD oil 03-15-2021 Unclassified (1 source) String Check - IUD placed 12/2019. Here fro string check today. 11-28-2020 Unclassified (1 source) Rash - The onset of the rash has been gradual and has been occurring in an intermittent pattern for 2 months. The course has been recurrent. The rash is characterized as red, pustular and raised above the skin. There has been associated drainage and erythema, while there has been no associated itching, pain or edema. There has been no associated chills, fatigue, fever, itching or pain. Note for Rash: Rash is present in bilateral axilla, groin, and in between the patient's thighs. She denies any fever or chills. She reports that she has experienced similar rashes on and off for many years. The last time she had to be treated for it was 2 years ago. 11-21-2020 Unclassified (1 source) Recheck - 0Patient was initially seen 04/26/2020 for UTI symptoms. Had U/A, BV/Yeast/Trich, and Urine culture done--all negative results. Patient called in 05/03/2020 with symptoms and started on 3 day course of Bactrim. Her symptoms went away, but the patient then began to experience symptoms of vaginal and urethral irritation. States that when she urinates, feels like she does not emptying her bladder completely. Some urinary frequency and urgency. Has irritation and pain at the opening of urethra. She states that she will have burning with the start of urination that gets better as urination goes on. She also reports that she had some vaginal itching and irritation before her period started. She denies any discharge, but states that she did have pain with intercourse that felt similar to when she has had yeast infections in the past. She states that these symptoms have improved since her period started, but have not completely gone away.Started Menses about 4 days ago. She has Mirena. Last Menses was several months ago, current Menses is heavier and has clots--will notice when voiding or having bowel movement but otherwise will not have blood on the pad. Patient reports that she does have blood on her tampon when there is no blood on her pads. Is having cramps, at times will be a sharp pain. 05-07-2020 Unclassified (1 source) UTI - Symptoms include dysuria (some discomfort with urinating, been taking ibuprofen 800mg every 8 hours), but do not include urinary frequency, urinary urgency, hematuria, dark urine, malodorous urine, flank pain, abdominal pain or back pain. Onset was 6 day(s) ago (started with burning with urination, urinary frequency, hematuria with mucus on Thursday morning--these have resolved except for some discomfort with urinating. She works at [employer] and was prescribed Macrobid BID for 5 days, finished last night. Took Pyridium for 2 days. Did have nausea and body aches but these have resolved. She increased her fluid intake and taking cranberry capsules also.). The symptoms occur frequently. The patient describes this as improving. Associated symptoms do not include fever, chills, nausea, vomiting or vaginal discharge. Note for UTI: Has had 3 uti's in the past few years. Patient is concerned because she has had UTIs that have not responded to antibiotics in the past. 04-26-2020 Unclassified (1 source) IUD string check - No problems. Occasional spotting. 03-29-2020 Unclassified (1 source) Anxiety/Depression 02-17-2020 Unclassified (1 source) Mirena Insertion 02-15-2020 NEGATED: Highlighted row has not occurred!Residual codes; unclassified (17 sources) Disease Episodic Results Test Name Value Interpretation Reference Range Facility Thyroid Stim Hormone (TSH)on 08-31-2024 TSH 7.510 uIU/mL High 0.300-4.200 [facility] Comment on above: Order Comment: SEND TO Order Date: 08/23/24Order Info: 3016-3 - TSH Performed By: #### L 700.8000 #### [facility] [address] [place], [place], [address] hCG Titer Quant., Serumon HCG QUANT. 449 mIU/mL High <9 non-preg [facility] Comment on above: Result Comment: Gest ational Age 0.2-1 Week: 5-50 mIU/mL 1-2 Weeks: 50-500 mIU/mL 2-3 Weeks: 100-5000 mIU/mL 3-4 Weeks: 500-10,000 mIU/mL 4-5 Weeks:1000-50,000 mIU/mL 5-6 Weeks: 10,000-100,000 mIU/mL 6-8 Weeks: 15,000-200,000 mIU/mL 2-3 Months:10,000-100,000 mIU/mL Performed By: #### L 700.8000 #### [facility] [address] 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 Sangita valencia MD Age/Sex: 29/F Location: [facility] [place] Status: Signed Intake Vital Signs 08/25/24 15:16 08/27/24 16:18 06/02/25 15:51 Height 5 ft 8 in 5 ft 8 in 5 ft 8 in Weight: 186 lb 8 oz BMI 28.3 BP 130/77 H Intake Visit Reasons: ER FU per [employer] Required: No Is patient in pain?: No Allergies No Known Allergies Allergy (Verified 08/29/24 15:54) Medications ???Medication ???Instructions ???Recorded ???Confirmed ???Type levothyroxine 112 mcg tablet 112 mcg PO .QD1/2 every Thursday #90 09/03/23 08/29/24 Rx tabs multivitamin no.47-iron fum 27 1 cap PO DAILY 08/25/24 08/29/24 H istory mg-folate no.1 1 mg-dha 300 mg capsule (PNV-DHA) Is last menstrual period known: Yes Last Menstrual Period: 07/15/24 Post menopausal: No Patient : Yes : No PFSH Medical History Contraceptive management Deviated nasal septum 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 Seasonal allergies Surgical History History of wisdom tooth extraction History of lateral meniscus repair of right knee History of repair of anterior cruciate ligament Family History Mother Anxiety Depression Thyroid disorder Father Anxiety Alcoholism Depression Hypertension Thyroid disorder Sister Anxiety Depression Thyroid disorder Grandmother Thyroid disorder Grandfather Thyroid disorder Social History adopted: No household members: spouse housing: house number of children: 0 current occupational status: employed current occupation: [employer] pets and animals: Yes sexually active: Yes Smoking Status: Never smoker alcohol intake: current alcohol intake frequency: a few times a month Alcohol type: beer substance use type: does not use diet: other well-balanced diet: daily or most days eating out: 1-3 times/week during the past year weight has: decreased > 10 lbs what type of physical activity do you participate in: running and weight training frequency: daily seatbelt use: always do you feel safe at home: Yes additional social history: - [facility] ER FU per Details: XOCHILT CADET is a 29 year old who presents for early follow-up. Patient has had intermittent light bleeding in the beginning of and has had some small cramping but no severe pain. She was seen in the ER twice, has had quants that have been intermittently rising and the last 2 times have only risen a small amount and so there was some suspicion for an ectopic however now with small early gestational sac measuring 5 weeks was seen in the lining, 8 mm sac seen with no pole or yolk sac seen. Right ovarian collapsing cyst seen but no clear adnexal mass no free fluid in the cul-de-sac. Female Reproductive History Last Menstrual Period: 07/15/24 History 1 Elective abortions Hx Para 0 Spontaneous abortions Hx # Term Pregnancies Ectopic pregnancies Hx # Pregnancies Multiple births # of living children ROS Const Constitutional: Reports as per HPI; Denies fever(s) ENT ENT: Reports system reviewed and no additional complaints, except as documented Cardio Card: Reports system reviewed and no additional complaints, except as documented Resp Resp: Reports system reviewed and no additional complaints, except as documented GI GI: Reports as per HPI : Reports as per HPI Musc Musc: Reports system reviewed and no additional complaints, except as documented Skin Skin/Breast: Reports system reviewed and no additional complaints, except as documented Neuro Neuro: Reports system reviewed and no additional complaints, except as documented Endo Endo: Reports system reviewed and no additional complaints, except as documented Exam Const General: healthy appearing, comfortable and no acute distress HENMT Head: normal to inspection and normocephalic Neck Neck: no lymphadenopathy noted Thyroid: thyroid normal Chest Chest palpation inspection: normal inspection of the chest Resp Effort Inspection: normal respiratory effort Cardio Rate: regular rate Rhythm: regular rhythm GI Inspection: normal to inspection Palpation: soft and nontender External Female Exam: normal external appearance Speculum Exam - Vagina: normal appearance of the vagina and vaginal bleeding Bimanual Exam- Vagina U (more content not included)... Normal [facility] Serum human chorionic gonado tropin detection for pregnancyOrdered By: Sangita Jean on 08-29-2024 HCG ( test) Ql 510 mIU/mL High <9 [facility] Comment on above: Gestational Age0.2-1 Week: 5-50 mIU/mL1-2 Weeks: 50-500 mIU/mL2-3 Weeks: 100-5000 mIU/mL3-4 Weeks: 500-10,000 mIU/mL4-5 Weeks:1000-50,000 mIU/mL5-6 Weeks: 10,000-100,000 mIU/mL6-8 Weeks: 15,000-200,000 mIU/mL2-3 Months:10,000-100,000 mIU/mL hCG Titer Quant., Serumon HCG QUANT. 510 mIU/mL High <9 non-preg [facility] Comment on above: Result Comment: Gest ational Age 0.2-1 Week: 5-50 mIU/mL 1-2 Weeks: 50-500 mIU/mL 2-3 Weeks: 100-5000 mIU/mL 3-4 Weeks: 500-10,000 mIU/mL 4-5 Weeks:1000-50,000 mIU/mL 5-6 Weeks: 10,000-100,000 mIU/mL 6-8 Weeks: 15,000-200,000 mIU/mL 2-3 Months:10,000-100,000 mIU/mL Performed By: #### L 700.8000 #### [facility] [address] [place], [address] Emergency Department Summary on 08-27-2024 Emergency Department Summary [facility] Medical Records Department [address] [place] [address] Emergency Department Summary 08/27/24 MR#: [id number] Acct: [id number] Name: XOCHILT CADET Rep #: [id number] : 1995 29 From: Porter Baeza DO PCP: Dr. Aretha Best MD Status:DEP ER Location: ED HPI HPI - Female History of Present Illness Chief Complaint: Informant: patient and spouse/S.O. Narrative Narrative: 29-year-old female presenting to the emergency room with a chief complaint of possible ectopic . Patient follows with Dr. Jeremi Chapman from [facility]. Patient has had positive outpatient test. On 524 her hCG level was 120. 526 her hCG level was 179. On 529 her hCG level jumped to 448 and her hCG level this morning at (5???31) was 493. She notes a pink- tinged mucousy discharge which she describes as being every other day. She denies any significant pain. She has been in contact with obstetrics who asked her to come to emergency for ultrasound. No reported fevers. This is her first . 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 Seasonal allergies Home Medications ???Medication ???Instructions ???Recorded ???Last Taken ???Type levothyroxine 112 mcg tablet 112 mcg PO .QD1/2 every Thursday #90 09/03/23 08/27/24 Rx tabs multivitamin no.47-iron fum 27 1 cap PO DAILY 08/25/24 08/27/24 H istory mg-folate no.1 1 mg-dha 300 mg capsule (PNV-DHA) Allergy/AdvReac Type Severity Reaction Status Date / Time No Known Allergies Allergy Verified 08/27/24 16:20 Family History Mother Anxiety Depression Thyroid disorder Father Anxiety Alcoholism Depression Hypertension Thyroid disorder Sister Anxiety Depression Thyroid disorder Grandmother Thyroid disorder Grandfather Thyroid disorder Surgical History History of wisdom tooth extraction History of lateral meniscus repair of right knee History of repair of anterior cruciate ligament Social History adopted: No household members: spouse housing: house number of children: 0 current occupational status: employed current occupation: [employer] pets and animals: Yes sexually active: Yes Smoking Status: Never smoker alcohol intake: current alcohol intake frequency: a few times a month Alcohol type: beer substance use type: does not use diet: other well-balanced diet: daily or most days eating out: 1-3 times/week during the past year weight has: decreased > 10 lbs what type of physical activity do you participate in: running and weight training frequency: daily seatbelt use: always do you feel safe at home: Yes additional social history: - Carlos ROS ROS ED Constitutional Constitutional ED: Denies chills, fever(s) or weight loss Eyes Eyes: Denies change in vision or diplopia ENT ENT ED: Denies ear pain, rhinorrhea or sore throat Cardiovascular Cardiovascular: Denies chest pain, orthopnea, palpitations or racing heartbeat Respiratory/Chest Respiratory/Chest: Denies cough, dyspnea or orthopnea Gastrointestinal Gastrointestinal: Denies abdominal pain, diarrhea, nausea or vomiting Genitourinary Genitourinary ED: Reports other Details: See history of present illness ; Denies dysuria, hematuria or urinary frequency Musculoskeletal Musculoskeletal: Denies arthralgias or myalgias Integumentary Denies abscess or rash Neurologic Neurologic: Denies headache(s) or weakness Psychiatric Psychiatric: Denies anxiety, depression, suicidal ideation or suicidal thoughts Endocrine Endocrinology: Denies polydipsia, polyphagia or polyuria Allergic/Immunologi c Allergic/Immunologi c ED: Denies mouth swelling, tongue swelling or urticaria EXAM Physical Exam Const Vital Signs: 08/27/24 16:18 08/27/24 18:17 Temperature 98.2 F Temperature Source Oral Pulse Rate 69 Respiratory Rate 16 Blood Pressure 120/73 105/64 Blood Pressure Mean 88 77 Pulse Ox 100 100 Oxygen Delivery Method Room Air Room Air Positive well nourished and well developed General Appearance ED: well developed HEENT Reports normocephalic, head/scalp atraumatic and moist mucous membranes Eyes PERRL and EOMs intact bilaterally Neck no lymphadenopathy, supple and no JVD Resp normal respiratory effort and clear to auscultation bilaterally Cardio regular rate, regular rhythm and no murmurs GI normal to inspection, nondistended, normoactive bowel sounds and non-tender Palpation: soft Back/Spine no CVA tender (more content not included)... Normal [facility] Serum human chorionic gonado tropin detection for pregnancyOrdered By: Sangita Jean on 08-27-2024 HCG ( test) Ql 493 mIU/mL High <9 [facility] Comment on above: Gestational Age0.2-1 Week: 5-50 mIU/mL1-2 Weeks: 50-500 mIU/mL2-3 Weeks: 100-5000 mIU/mL3-4 Weeks: 500-10,000 mIU/mL4-5 Weeks:1000-50,000 mIU/mL5-6 Weeks: 10,000-100,000 mIU/mL6-8 Weeks: 15,000-200,000 mIU/mL2-3 Months:10,000-100,000 mIU/mL Transvaginal w/Preg USon Transvaginal w/Preg US [facility] Imaging Services [address] [place] [address] Transvaginal w/Preg US MR#: [id number] Acct: [id number] Name: XOCHILT CADET Rep #: [id number] : 1995 F 29 From: Rick Blake MD PCP: Dr. Aretha Best MD Status: REG ER Study: Transvaginal w/Preg US Date of Exam: 08/27/24 Exam# [id number] Ordering Dr: Porter Baeza DO PROCEDURE: TRANSVAGINAL W/PREG US 08/27/2024 REASON FOR EXAM: POSSIBLE ECTOPIC TECHNIQUE: High resolution obstetric ultrasound performed using a 2D transducer. Standard views obtained, including biometry, anatomy survey, and Doppler studies. COMPARISON: None. FINDINGS Single live intrauterine . Small sac favoring a gestational sac measuring 5 weeks and 0 days. No visualized pole. No yolk sac visualized. Uterus measures 8.9 x 6.0 x 4.5 cm. Right ovary measures 5.1 x 2.6 x 2.6 cm and left ovary measures 4.1 x 3.2 x 2.9 cm both with preserved vascular flow. Right ovarian thick-walled lesion favoring a corpus luteum which measures 2.3 x 2.2 x 1.5 cm. Numerous bilateral ovarian follicles. US/Transvaginal w/Preg US IMPRESSION: Probable gestational sac without a visualized pole. Polycystic appearance of the ovaries. Possible right corpus luteum. Reading Location: [id number] CC: Dr. Aretha Best MD; Dr. Porter Baeza DO Unit Nurse: Signed Normal [facility] hCG Titer Quant., Serumon HCG QUANT. 493 mIU/mL High <9 non-preg [facility] Comment on above: Result Comment: Gest ational Age 0.2-1 Week: 5-50 mIU/mL 1-2 Weeks: 50-500 mIU/mL 2-3 Weeks: 100-5000 mIU/mL 3-4 Weeks: 500-10,000 mIU/mL 4-5 Weeks:1000-50,000 mIU/mL 5-6 Weeks: 10,000-100,000 mIU/mL 6-8 Weeks: 15,000-200,000 mIU/mL 2-3 Months:10,000-100,000 mIU/mL Performed By: #### L 700.8000 #### [facility] [address] [place], [address] Absolute lymphocyte countOrd ered By: Sangita Jean on 08-25-2024 Lymphocytes Auto (Unsp spec) [#/Vol] 2.65 10*3/uL 0.83-4.51 [facility] Absolute neutrophil countOrd ered By: Sangita Jean on 08-25-2024 Neutrophils (Bld) [#/Vol] 9.1 10*3/uL High 2.0-7.7 [facility] Anion gap in Serum or Plasma Ordered By: Sangita Jean on 08-25-2024 Anion gap [Moles/Vol] 11 mmol/L 5-15 [facility] Automated lymphocyte count a s percentage of total leukocytesOrdered By: Sangita Jean on 08-25-2024 Lymphocytes/100 WBC Auto (Unsp spec) 20.8 % 19-41 [facility] BUN/creatinine ratioOrdered By: Sangita Jean on 08-25-2024 Urea nitrogen/Creatinine [Mass ratio] 10.8 mg/mg 10-20 [facility] Basophil percentageOrdered B y: Sangita Jean on 08-25-2024 Basophils/100 WBC (Bld) 0.5 % 0-1 [facility] Bilirubin, totalOrdered By: Sangita Jean on 08-25-2024 Bilirubin [Mass/Vol] 0.56 mg/dL 0.00-1.30 [facility] CBC W/Diff, Automatedon 07-29 Absolute Lymph 2.65 X10 3/uL Normal 0.83-4.51 [facility] Comment on above: Performed By: #### L 700.8000 #### [facility] [address] [place], [address] Absolute Neut 9.1 X10 3/uL High 2.0-7.7 [facility] Comment on above: Performed By: #### L 700.8000 #### [facility] [address] [place], [address] Basophils/100 WBC (Bld) 0.5 % Normal 0-1 [facility] Comment on above: Performed By: #### L 700.8000 #### [facility] [address] [place], [address] Eosinophils/100 WBC (Bld) 0.5 % Normal 0-5 [facility] Comment on above: Performed By: #### L 700.8000 #### [facility] [address] [place], [address] Erythrocyte distribution width (RBC) [Ratio] 11.8 % Normal 11.6-14.6 [facility] Comment on above: Performed By: #### L 700.8000 #### [facility] [address] [place], [address] Hematocrit (Bld) [Volume fraction] 41.0 % Normal 37-47 [facility] Comment on above: Performed By: #### L 700.8000 #### [facility] [address] [place], [address] Hemoglobin (Bld) [Mass/Vol] 14.4 g/dL Normal 12.0-15.0 [facility] Comment on above: Performed By: #### L 700.8000 #### [facility] [address] [place], [address] IG% 0.500 Normal 0.0-0.9 [facility] Comment on above: Result Comment: IG% - Immature Granulocytes (promyelocytes, myelocytes and metamyelocytes) > 1% indicates that a LEFT SHIFT is Present. Performed By: #### L 700.8000 #### [facility] [address] [place], [address] Lymphocytes/100 WBC (Bld) 20.8 % Normal 19-41 [facility] Comment on above: Performed By: #### L 700.8000 #### [facility] [address] [place], [address] MCH (RBC) [Entitic mass] 30.6 pg Normal 27.0-32.0 [facility] Comment on above: Performed By: #### L 700.8000 #### [facility] [place], [address] MCHC (RBC) [Mass/Vol] 35.1 g/dL Normal 32-36 [facility] Comment on above: Performed By: #### L [id number] #### [facility] [place], [address] MCV (RBC) [Entitic vol] 87.2 fL Normal 81-99 [facility] Comment on above: Performed By: #### L 700.8000 #### [facility] [address], [address] Monocytes/100 WBC (Bld) 6.3 % Normal 0-10 [facility] Comment on above: Performed By: #### L 700.8000 #### [facility] [address] [place], [address] Neutrophils/100 WBC (Bld) 71.4 % High 47-70 [facility] Comment on above: Performed By: #### L 700.8000 #### [facility] [place], [address] Nucleated RBC (Bld) [#/Vol] 0 10*3/uL Normal 0-5 [facility] Comment on above: Performed By: #### L 700.8000 #### [facility] [address] [place], [address] Platelet mean volume (Bld) [Entitic vol] 9.1 fL Normal 6.2-12.0 [facility] Comment on above: Performed By: #### L 700.8000 #### [facility] [address] [place], [address] Platelets (Bld) [#/Vol] 355 10*3/uL Normal 150-450 [facility] Comment on above: Performed By: #### L 700.8000 #### [facility] [address] [place], [address] RBC (Bld) [#/Vol] 4.70 10*6/uL Normal 4.2-5.4 [facility] Comment on above: Performed By: #### L 700.8000 #### [facility] [address] [place], [address] RDW SD 38.2 fl Normal 35.1-43.9 [facility] Comment on above: Performed By: #### L 700.8000 #### [facility] [address] [place], [address] WBC (Bld) [#/Vol] 12.8 10*3/uL High 4.4-11.0 [facility] Comment on above: Performed By: #### L 700.8000 #### [facility] [address] [place], [address] Carbon dioxide, total [Moles /volume] in Central venous bloodOrdered By: Sangita Jean on 08-25-2024 CO2 [Moles/Vol] 22.1 mmol/L 21.0-32.0 [facility] Chloride assayOrdered By: Manjinder Jean on 08-25-2024 Chloride [Moles/Vol] 104 mmol/L 98-108 [facility] Comprehensive Metabolic Prof ilon 08-25-2024 Albumin [Mass/Vol] 4.7 g/dL Normal 3.5-5.0 [facility] Comment on above: Performed By: #### L 700.8000 #### [facility] [address] [place], [address] Albumin/Globulin [Mass ratio] 1.7 {ratio} Normal 0.9-2.4 [facility] Comment on above: Performed By: #### L 700.8000 #### [facility] [address] [place], [address] ALK PHOS 62 U/L Normal 35-104 [facility] Comment on above: Performed By: #### L 700.8000 #### [facility] [address] [place], [address] ALT [Catalytic activity/Vol] 11 U/L Normal <=34 [facility] Comment on above: Performed By: #### L 700.8000 #### [facility] [address] [place], [address] AST [Catalytic activity/Vol] 18 U/L Normal <=31 [facility] Comment on above: Performed By: #### L 700.8000 #### [facility] [address] [place], [address] Bilirubin [Mass/Vol] 0.56 mg/dL Normal 0.00-1.30 [facility] Comment on above: Performed By: #### L 700.8000 #### [facility] [address] [place], [address] BUN/CRE 10.8 RATIO Normal 10-20 [facility] Comment on above: Performed By: #### L 700.8000 #### [facility] [address] [place], [address] Calcium [Mass/Vol] 9.4 mg/dL Normal 7.6-11.0 [facility] Comment on above: Performed By: #### L 700.8000 #### [facility] [address] [place], [address] Chloride [Moles/Vol] 104 mmol/L Normal 98-108 [facility] Comment on above: Performed By: #### L 700.8000 #### [facility] [address] [place], [address] CO2 [Moles/Vol] 22.1 mmol/L Normal 21.0-32.0 [facility] Comment on above: Performed By: #### L 700.8000 #### [facility] [address] [place], [address] Creatinine [Mass/Vol] 0.82 mg/dL Normal 0.70-1.20 [facility] Comment on above: Performed By: #### L 700.8000 #### [facility] [address] [place], [address] GAP 11 Normal 5-15 [facility] Comment on above: Performed By: #### L 700.8000 #### [facility] [address] [place], [address] GFR/1.73 sq M.predicted among non-blacks MDRD (S/P/Bld) [Vol rate/Area] 99 mL/min/{1.73_m2} Normal >60 [facility] Comment on above: Result Comment: mL/m in/1.73m2 CKD-EPI Creatinine Equation (2020) Performed By: #### L 700.8000 #### [facility] [address] [place], [address] Globulin (S) [Mass/Vol] 2.8 g/dL Normal 2.2-4.2 [facility] Comment on above: Performed By: #### L 700.8000 #### [facility] [address] [place], [address] Glucose [Mass/Vol] 86 mg/dL Normal 70-99 [facility] Comment on above: Performed By: #### L 700.8000 #### [facility] [address] [place], [address] Potassium [Moles/Vol] 4.0 mmol/L Normal 3.3-5.1 [facility] Comment on above: Performed By: #### L 700.8000 #### [facility] [address] [place], [address] Sodium [Moles/Vol] 137 mmol/L Normal 133-145 [facility] Comment on above: Performed By: #### L 700.8000 #### [facility] [address] [place], [address] T PROT 7.4 g/dL Normal 5.9-8.4 [facility] Comment on above: Performed By: #### L 700.8000 #### [facility] [address] [place], [address] Urea nitrogen [Mass/Vol] 9 mg/dL Normal 4-19 [facility] Comment on above: Performed By: #### L 700.8000 #### [facility] [address] [place], [address] Eosinophil percentageOrdered By: Sangita Jean on 08-25-2024 Eosinophils/100 WBC (Bld) 0.5 % 0-5 [facility] Erythrocyte distribution wid th ratioOrdered By: Sangita Jean on 08-25-2024 Erythrocyte distribution width (RBC) [Ratio] 11.8 % 11.6-14.6 [facility] Erythrocyte distribution wid th standard deviationOrdered By: Sangita Jean on 08-25-2024 Erythrocyte distribution width (RBC) [Ratio] 38.2 fl 35.1-43.9 [facility] Glomerular filtration rate ( GFR) estimation/1.73 sq m using serum, plasma, or whole bOrdered By: Sangita Jean on 08-25-2024 GFR/1.73 sq M.predicted among non-blacks MDRD (S/P/Bld) [Vol rate/Area] 99 mL/min/{1.73_m2} >60 [facility] Comment on above: mL/min/1.73m2 CKD-EP I Creatinine Equation (2020) Hematocrit Auto (Bld) [Volum e fraction]Ordered By: Sangita Jean on 08-25-2024 Hematocrit (Bld) [Volume fraction] 41.0 % 37-47 [facility] Hemoglobin measurementOrdere d By: Sangita Jean on 08-25-2024 Hemoglobin (Bld) [Mass/Vol] 14.4 g/dL 12.0-15.0 [facility] Immature granulocytes/100 WB C Auto (Bld)Ordered By: Sangita Jean on 08-25-2024 Immature granulocytes/100 WBC (Bld) 0.500 % 0.0-0.9 [facility] Comment on above: IG% - Immature Granu locytes (promyelocytes, myelocytes and metamyelocytes) > 1% indicates that a LEFT SHIFT is Present. Laboratory - Chemistry and C hemistry - challengeOrdered By: Sangita Jean on 08-25-2024 AST [Catalytic activity/Vol] 18 U/L <32 [facility] MCV (mean corpuscular volume ) determinationOrdered By: Sangita Jean on 08-25-2024 MCV (RBC) [Entitic vol] 87.2 fL 81-99 [facility] Mean corpuscular hemoglobin (MCH) determinationOrdered By: Sangita Jean on 08-25-2024 MCH (RBC) [Entitic mass] 30.6 pg 27.0-32.0 [facility] Mean corpuscular hemoglobin concentration (MCHC) determinationOrdered By: Sangita Jean on 08-25-2024 MCHC (RBC) [Mass/Vol] 35.1 g/dL 32-36 [facility] Mean platelet volume determi nationOrdered By: Sangita Jean on 08-25-2024 Platelet mean volume (Bld) [Entitic vol] 9.1 fL 6.2-12.0 [facility] Monocyte percentageOrdered B y: Sangita Jean on 08-25-2024 Monocytes/100 WBC (Bld) 6.3 % 0-10 [facility] Neutrophil percentageOrdered By: Sangita Jean on 08-25-2024 Neutrophils/100 WBC (Bld) 71.4 % High 47-70 [facility] Nucleated red blood cell per centageOrdered By: Sangita Jean on 08-25-2024 Nucleated RBC/100 WBC (Bld) [Ratio] 0 % 0-5 [facility] [employer] Visit Reporton 08-25-2024 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 Sangita valencia MD Age/Sex: 29/F Location: [facility] [place] Status: Signed Intake Vital Signs 08/18/24 09:27 08/25/24 15:16 Height 5 ft 8 in 5 ft 8 in Weight: 186 lb 4 oz BMI 28.3 BP 123/80 H Intake Visit Reasons: fu ER visit, US results [employer] Required: No Is patient in pain?: Yes (light cramping) Allergies No Known Allergies Allergy (Verified 08/25/24 15:30) Medications ???Medication ???Instructions ???Recorded ???Confirmed ???Type levothyroxine 112 mcg tablet 112 mcg PO .QD1/2 every Thursday #90 09/03/23 08/25/24 Rx tabs multivitamin no.47-iron fum 27 1 cap PO DAILY 08/25/24 08/25/24 H istory mg-folate no.1 1 mg-dha 300 mg capsule (PNV-DHA) Is last menstrual period known: Yes Last Menstrual Period: 07/15/24 Post menopausal: No Patient : Yes : No [facility] Medical History (Updated 08/27/24 @ 11:[address] 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 Seasonal allergies Surgical History History of wisdom tooth extraction History of lateral meniscus repair of right knee History of repair of anterior cruciate ligament Family History Mother Anxiety Depression Thyroid disorder Father Anxiety Alcoholism Depression Hypertension Thyroid disorder Sister Anxiety Depression Thyroid disorder Grandmother Thyroid disorder Grandfather Thyroid disorder Social History adopted: No household members: spouse housing: house number of children: 0 current occupational status: employed current occupation: [employer] pets and animals: Yes sexually active: Yes Smoking Status: Never smoker alcohol intake: current alcohol intake frequency: a few times a month Alcohol type: beer substance use type: does not use diet: other well-balanced diet: daily or most days eating out: 1-3 times/week during the past year weight has: decreased > 10 lbs what type of physical activity do you participate in: running and weight training frequency: daily seatbelt use: always do you feel safe at home: Yes additional social history: - [facility] fu ER visit, US results Details: XOCHILT CADET is a 29 year old who presents for early . she has been bleeding on and off for the last week but only light nothing heavy, no significant pain, ultrasound today showed right complext ovarian abnormality but not completley consistent with ectopic. 1 week ago she had a 2.7 cm corpus luteal cyst. Female Reproductive History Last Menstrual Period: 07/15/24 History 1 Elective abortions Hx Para 0 Spontaneous abortions Hx # Term Pregnancies Ectopic pregnancies Hx # Pregnancies Multiple births # of living children ROS Const Constitutional: Reports as per HPI; Denies fever(s) ENT ENT: Reports system reviewed and no additional complaints, except as documented Cardio Card: Reports system reviewed and no additional complaints, except as documented Resp Resp: Reports system reviewed and no additional complaints, except as documented GI GI: Reports as per HPI : Reports as per HPI Musc Musc: Reports system reviewed and no additional complaints, except as documented Skin Skin/Breast: Reports system reviewed and no additional complaints, except as documented Neuro Neuro: Reports system reviewed and no additional complaints, except as documented Endo Endo: Reports system reviewed and no additional complaints, except as documented Exam Const General: healthy appearing, comfortable and no acute distress HENMT Head: normal to inspection and normocephalic Neck Neck: no lymphadenopathy noted Thyroid: thyroid normal Chest Chest palpation inspection: normal inspection of the chest Resp Effort Inspection: normal respiratory effort Cardio Rate: regular rate Rhythm: regular rhythm GI Inspection: normal to inspection Palpation: soft and nontender External Female Exam: normal external appearance Speculum Exam - Vagina: normal appearance of the vagina and vaginal bleeding Bimanual Exam- Vagina Uterus: uterine shape normal and non-tender OB/External Speculum: vaginal bleeding Speculum Exam: vaginal bleeding Skin General: no rashes or lesions noted Neuro General: no focal motor deficits Extrem General: normal to inspection and no pedal edema Psych Appearance: (more content not included)... Normal [facility] Platelet countOrdered By: Manjinder Jean on 08-25-2024 Platelets (Bld) [#/Vol] 355 10*3/uL 150-450 [facility] Potassium measurement (mass/ volume)Ordered By: Sangita Jean on 08-25-2024 Potassium (Unsp spec) [Mass/Vol] 4.0 mmol/L 3.3-5.1 [facility] RBC Auto (Bld) [#/Vol]Ordere d By: Sangita Jean on 08-25-2024 RBC (Bld) [#/Vol] 4.70 10*6/uL 4.2-5.4 [facility] Serum creatinine measurement (mass/volume)Ordered By: Sangita Jean on 08-25-2024 Creatinine [Mass/Vol] 0.82 mg/dL 0.70-1.20 [facility] Serum globulin measurementOr dered By: Sangita Jean on 08-25-2024 Globulin (S) [Mass/Vol] 2.8 g/dL 2.2-4.2 [facility] Serum glucose measurement (m ass/volume)Ordered By: Sangita Jean on 08-25-2024 Glucose [Mass/Vol] 86 mg/dL 70-99 [facility] Serum human chorionic gonado tropin detection for pregnancyOrdered By: Sangita Jean on 08-25-2024 HCG ( test) Ql 448 mIU/mL High <9 [facility] Comment on above: Gestational Age0.2-1 Week: 5-50 mIU/mL1-2 Weeks: 50-500 mIU/mL2-3 Weeks: 100-5000 mIU/mL3-4 Weeks: 500-10,000 mIU/mL4-5 Weeks:1000-50,000 mIU/mL5-6 Weeks: 10,000-100,000 mIU/mL6-8 Weeks: 15,000-200,000 mIU/mL2-3 Months:10,000-100,000 mIU/mL Serum or plasma alanine vázquez otransferase (ALT) measurementOrdered By: Sangita Jean on 08-25-2024 ALT [Catalytic activity/Vol] 11 U/L <35 [facility] Serum or plasma albumin no urement (mass/volume)Ordered By: Sangita Jean on 08-25-2024 Albumin [Mass/Vol] 4.7 g/dL 3.5-5.0 [facility] Serum or plasma albumin/glob ulin mass ratioOrdered By: Sangita Jean on 08-25-2024 Albumin/Globulin [Mass ratio] 1.7 {ratio} 0.9-2.4 [facility] Serum or plasma alkaline deon sphatase measurementOrdered By: Sangita Jean on 08-25-2024 ALP [Catalytic activity/Vol] 62 U/L 35-104 [facility] Serum or plasma calcium no urement (mass/volume)Ordered By: Sangita Jean on 08-25-2024 Calcium [Mass/Vol] 9.4 mg/dL 7.6-11.0 [facility] Serum or plasma urea nitroge n measurement (mass/volume)Ordered By: Sangita Jean on 08-25-2024 Urea nitrogen [Mass/Vol] 9 mg/dL 4-19 [facility] Sodium levelOrdered By: Jamil Jean on 08-25-2024 Sodium [Moles/Vol] 137 mmol/L 133-145 [facility] Total proteinOrdered By: Dion Jean on 08-25-2024 Protein [Mass/Vol] 7.4 g/dL 5.9-8.4 [facility] Transvaginal w/Preg USon Transvaginal w/Preg US [facility] [address] [place], [place] [address] Transvaginal w/Preg MR#: [id number] Acct: [id number] Name: XOCHILT CADET Rep #: [id number] : 1995 F 29 From: Pan Johansen MD PCP: Dr. Aretha Best MD Status: REG CLI Study: Transvaginal w/Preg US Date of Exam: 08/25/24 Exam# [id number] Ordering Dr: Sangita Jean PROCEDURE: TRANSVAGINAL W/PREG US 08/25/2024 REASON FOR EXAM: SPOTTING IN TECHNIQUE: Grayscale and color Doppler pelvic ultrasound, transabdominal and transvaginal COMPARISON: None FINDINGS The uterus measures 10.4 x 5.2 x 6.8 cm, endometrium = 1.14 cm. There is no uterine fibroid or mass. There is no visible intrauterine . The right ovary measures 4.78 x 2.58 x 3.14 cm, volume = 20.3 cc. The left ovary measures 3.36 x 1.71 x 2.62 cm, volume = 7.88 cc. The right ovary shows greater than 10 subcentimeter follicles, and meets the criteria for polycystic ovary syndrome. There is a 2.7 x 1.9 cm complex mixed echogenicity lesion in the right ovary, which does not have the typical features of a ectopic . US/Transvaginal w/Preg US IMPRESSION: The right ovary shows greater than 10 subcentimeter follicles, and meets the criteria for polycystic ovary syndrome. There is no visible intrauterine . There is a 2.7 x 1.9 cm complex mixed echogenicity lesion in the right ovary, which does not have the typical features of a ectopic . Correlation with serial quantitative beta HCG is recommended. Follow-up is recommended which could include MRI of the ovaries with and without contrast. Reading Location: [facility] CC: Dr. Aretha Best MD; Dr. Sangita Jean MD Unit Nurse: Signed Normal [facility] White blood cell (WBC) count Ordered By: Sangita Jean on 08-25-2024 WBC (Bld) [#/Vol] 12.8 10*3/uL High 4.4-11.0 [facility] hCG Titer Quant., Serumon HCG QUANT. 448 mIU/mL High <9 non-preg [facility] Comment on above: Result Comment: Gest ational Age 0.2-1 Week: 5-50 mIU/mL 1-2 Weeks: 50-500 mIU/mL 2-3 Weeks: 100-5000 mIU/mL 3-4 Weeks: 500-10,000 mIU/mL 4-5 Weeks:1000-50,000 mIU/mL 5-6 Weeks: 10,000-100,000 mIU/mL 6-8 Weeks: 15,000-200,000 mIU/mL 2-3 Months:10,000-100,000 mIU/mL Performed By: #### L 700.8000 #### [facility] [address] [place], [address] Serum human chorionic gonado tropin detection for pregnancyOrdered By: Bess Andujar on 08-22-2024 HCG ( test) Ql 179 mIU/mL High <9 [facility] Comment on above: Gestational Age0.2-1 Week: 5-50 mIU/mL1-2 Weeks: 50-500 mIU/mL2-3 Weeks: 100-5000 mIU/mL3-4 Weeks: 500-10,000 mIU/mL4-5 Weeks:1000-50,000 mIU/mL5-6 Weeks: 10,000-100,000 mIU/mL6-8 Weeks: 15,000-200,000 mIU/mL2-3 Months:10,000-100,000 mIU/mL hCG Titer Quant., Serumon HCG QUANT. 179 mIU/mL High <9 non-preg [facility] Comment on above: Result Comment: Gest ational Age 0.2-1 Week: 5-50 mIU/mL 1-2 Weeks: 50-500 mIU/mL 2-3 Weeks: 100-5000 mIU/mL 3-4 Weeks: 500-10,000 mIU/mL 4-5 Weeks:1000-50,000 mIU/mL 5-6 Weeks: 10,000-100,000 mIU/mL 6-8 Weeks: 15,000-200,000 mIU/mL 2-3 Months:10,000-100,000 mIU/mL Performed By: #### L 700.8000 #### [facility] [address] [facility] [place], [address] Serum human chorionic gonado tropin detection for pregnancyOrdered By: Bess Andujar on 08-20-2024 HCG ( test) Ql 120 mIU/mL High <9 [facility] Comment on above: Gestational Age0.2-1 Week: 5-50 mIU/mL1-2 Weeks: 50-500 mIU/mL2-3 Weeks: 100-5000 mIU/mL3-4 Weeks: 500-10,000 mIU/mL4-5 Weeks:1000-50,000 mIU/mL5-6 Weeks: 10,000-100,000 mIU/mL6-8 Weeks: 15,000-200,000 mIU/mL2-3 Months:10,000-100,000 mIU/mL hCG Titer Quant., Serumon HCG QUANT. 120 mIU/mL High <9 non-preg [facility] Comment on above: Result Comment: Gest ational Age 0.2-1 Week: 5-50 mIU/mL 1-2 Weeks: 50-500 mIU/mL 2-3 Weeks: 100-5000 mIU/mL 3-4 Weeks: 500-10,000 mIU/mL 4-5 Weeks:1000-50,000 mIU/mL 5-6 Weeks: 10,000-100,000 mIU/mL 6-8 Weeks: 15,000-200,000 mIU/mL 2-3 Months:10,000-100,000 mIU/mL Performed By: #### L 700.8000, L100.0100, B882-1 #### [facility] [address] [place], [place], [address] Absolute lymphocyte countOrd ered By: Preston Garrett on 08-18-2024 Lymphocytes Auto (Unsp spec) [#/Vol] 2.19 10*3/uL 0.83-4.51 [facility] Absolute neutrophil countOrd ered By: Preston Garrett on 08-18-2024 Neutrophils (Bld) [#/Vol] 5.7 10*3/uL 2.0-7.7 [facility] Automated lymphocyte count a s percentage of total leukocytesOrdered By: Preston Garrett on 08-18-2024 Lymphocytes/100 WBC Auto (Unsp spec) 25.6 % 19-41 [facility] [id number] 08-18-2024 ABO and Rh group Nom (Bld) Blood group B Rh(D) positive Normal [facility] Comment on above: Performed By: #### L 700.8000, L100.0100, B882-1 #### [facility] [address] [place], [address] Basophil percentageOrdered B y: Preston Garrett on 08-18-2024 Basophils/100 WBC (Bld) 0.5 % 0-1 [facility] Bilirubin Test strip Ql (U)O rdered By: Preston Garrett on 08-18-2024 Bilirubin Ql (U) Negative Negative [facility] CBC W/Diff, Automatedon 07-29 Absolute Lymph 2.19 X10 3/uL Normal 0.83-4.51 [facility] Comment on above: Performed By: #### L 700.8000, L100.0100, B882-1 #### [facility] [address] [place], [address] Absolute Neut 5.7 X10 3/uL Normal 2.0-7.7 [facility] Comment on above: Performed By: #### L 700.8000, L100.0100, B882-1 #### [facility] [address] [place], [address] Basophils/100 WBC (Bld) 0.5 % Normal 0-1 [facility] Comment on above: Performed By: #### L 700.8000, L100.0100, B882-1 #### [facility] [address] [place], [address] Eosinophils/100 WBC (Bld) 0.9 % Normal 0-5 [facility] Comment on above: Performed By: #### L 700.8000, L100.0100, B882-1 #### [facility] [address] [place], [address] Erythrocyte distribution width (RBC) [Ratio] 12.0 % Normal 11.6-14.6 [facility] Comment on above: Performed By: #### L 700.8000, L100.0100, B882-1 #### [facility] [address] [place], [address] Hematocrit (Bld) [Volume fraction] 39.4 % Normal 37-47 [facility] Comment on above: Performed By: #### L 700.8000, L100.0100, B882-1 #### [facility] [address] [place], [address] Hemoglobin (Bld) [Mass/Vol] 13.6 g/dL Normal 12.0-15.0 [facility] Comment on above: Performed By: #### L 700.8000, L100.0100, B882-1 #### [facility] [address] [place], [address] IG% 0.500 Normal 0.0-0.9 [facility] Comment on above: Result Comment: IG% - Immature Granulocytes (promyelocytes, myelocytes and metamyelocytes) > 1% indicates that a LEFT SHIFT is Present. Performed By: #### L 700.8000, L100.0100, B882-1 #### [facility] [address] [place], [address] Lymphocytes/100 WBC (Bld) 25.6 % Normal 19-41 [facility] Comment on above: Performed By: #### L 700.8000, L100.0100, B882-1 #### [facility] [address] [place], [address] MCH (RBC) [Entitic mass] 30.4 pg Normal 27.0-32.0 [facility] Comment on above: Performed By: #### L 700.8000, L100.0100, B882-1 #### [facility] [address] [place], [address] MCHC (RBC) [Mass/Vol] 34.5 g/dL Normal 32-36 [facility] Comment on above: Performed By: #### L 700.8000, L100.0100, B882-1 #### [facility] [address] [place], [address] MCV (RBC) [Entitic vol] 88.1 fL Normal 81-99 [facility] Comment on above: Performed By: #### L 700.8000, L100.0100, B882-1 #### [facility] [address] [place], [address] Monocytes/100 WBC (Bld) 6.2 % Normal 0-10 [facility] Comment on above: Performed By: #### L 700.8000, L100.0100, B882-1 #### [facility] [address] [place], [address] Neutrophils/100 WBC (Bld) 66.3 % Normal 47-70 [facility] Comment on above: Performed By: #### L 700.8000, L100.0100, B882-1 #### [facility] [address] [place], [address] Nucleated RBC (Bld) [#/Vol] 0 10*3/uL Normal 0-5 [facility] Comment on above: Performed By: #### L 700.8000, L100.0100, B882-1 #### [facility] [address] [place], [address] Platelet mean volume (Bld) [Entitic vol] 9.4 fL Normal 6.2-12.0 [facility] Comment on above: Performed By: #### L 700.8000, L100.0100, B882-1 #### [facility] [address] [place], [address] Platelets (Bld) [#/Vol] 310 10*3/uL Normal 150-450 [facility] Comment on above: Performed By: #### L 700.8000, L100.0100, B882-1 #### [facility] [address] [place], [address] RBC (Bld) [#/Vol] 4.47 10*6/uL Normal 4.2-5.4 [facility] Comment on above: Performed By: #### L 700.8000, L100.0100, B882-1 #### [facility] [address] [place], [address] RDW SD 38.9 fl Normal 35.1-43.9 [facility] Comment on above: Performed By: #### L 700.8000, L100.0100, B882-1 #### [facility] [address] [place], [address] WBC (Bld) [#/Vol] 8.6 10*3/uL Normal 4.4-11.0 [facility] Comment on above: Performed By: #### L 700.8000, L100.0100, B882-1 #### [facility] [address] [place], [address] Emergency Department Summary on 08-18-2024 Emergency Department Summary [facility] Medical Records Department [address] [place] [address] Emergency Department Summary 08/18/24 MR#: [id number] Acct: [id number] Name: XOCHILT CADET Rep #: [id number] : 1995 29 From: Preston Garrett DO PCP: Dr. Aretha Best MD Status:DEP ER Location: ED HPI HPI - Female History of Present Illness Chief Complaint: Vag Bld, Preg Detail of Chief Complaint: Vaginal spotting and pelvic cramping Informant: patient Narrative Narrative: Patient presents to the emergency department with vaginal spotting that started yesterday. Patient states that she had a very active day working out. She had small amount of spotting yesterday. She has had some cramping throughout the night especially on the left side. She spoke with her FINANCIAL OPERATIONS ANALYST who advised her to come in and get a ultrasound and labs. Patient's last menstrual period was July 15. Had a positive test yesterday. She is G1, P0. Not anticoagulated. She has had no further vaginal bleeding today. She denies urinary symptoms. 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 Seasonal allergies Home Medications ???Medication ???Instructions ???Recorded ???Last Taken ???Type spironolactone 100 mg tablet 100 mg PO QHS 09/05/21 Unknown His tory levothyroxine 112 mcg tablet 112 mcg PO .QD1/2 every Thursday #90 09/03/23 Unknown Rx tabs Allergy/AdvReac Type Severity Reaction Status Date / Time No Known Allergies Allergy Verified 08/18/24 09:29 Family History Mother Anxiety Depression Thyroid disorder Father Anxiety Alcoholism Depression Hypertension Thyroid disorder Sister Anxiety Depression Thyroid disorder Grandmother Thyroid disorder Grandfather Thyroid disorder Surgical History History of wisdom tooth extraction History of lateral meniscus repair of right knee History of repair of anterior cruciate ligament Social History adopted: No household members: spouse housing: house number of children: 0 current occupational status: employed 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 [employer] pets and animals: Yes sexually active: Yes Smoking Status: Never smoker alcohol intake: current alcohol intake frequency: a few times a month Alcohol type: beer substance use type: does not use diet: other well-balanced diet: daily or most days eating out: 1-3 times/week during the past year weight has: decreased > 10 lbs what type of physical activity do you participate in: running and weight training frequency: daily seatbelt use: always do you feel safe at home: Yes additional social history: - Carlos ROS ROS ED Review of Systems ROS Unobtainable: other Constitutional Constitutional ED: Reports lethargy; Denies chills, fever(s), sweats or weight loss Eyes Eyes: Denies blurry vision, change in vision or diplopia ENT ENT ED: Denies rhinorrhea or sore throat Cardiovascular Cardiovascular: Denies chest pain, orthopnea or racing heartbeat Respiratory/Chest Respiratory/Chest: Denies cough, dyspnea, dyspnea on exertion, orthopnea or sputum Gastrointestinal Gastrointestinal: Denies abdominal pain, diarrhea, nausea or vomiting Genitourinary Genitourinary ED: Reports other Details: Vaginal bleeding, ; Denies dysuria, hematuria or urinary frequency Musculoskeletal Musculoskeletal: Denies arthralgias, back pain, myalgias or neck pain Integumentary Denies abscess, Abrasions or rash Neurologic Neurologic: Denies headache(s) or weakness Psychiatric Psychiatric: Denies anxiety, depression or suicidal thoughts Endocrine Endocrinology: Denies polydipsia, polyphagia or polyuria Hematologic/Lymphat ic Hematologic/Lymphat ic: Denies easy bleeding, easy bruising or lymphadenopathy Allergic/Immunologi c Allergic/Immunologi c ED: Denies mouth swelling, tongue swelling or urticaria EXAM Physical Exam Const Vital Signs: 08/18/24 09:27 Temperature 98.1 F Temperature Source Oral Pulse Rate 70 Respiratory Rate 16 Blood Pressure 141/80 H Blood Pressure Mean 100 Pulse Ox 100 Oxygen Delivery Method Room Air Positive well nourished and well developed General Appearance ED: well developed and NAD HEENT Reports TM's clear and moist mucous membranes normocephalic and atraumatic; Negative for trauma or tenderness Tympanic Membrane ED: Yes TM's clear Eyes PERRL and EOMs intact bilaterally General Eye ED: Negative for pale conjunctiva or scleral icterus Neck no lymphadenopathy, supple and no JVD General: Negative for tenderness Chest Wall inspection of (more content not included)... Normal [facility] Eosinophil percentageOrdered By: Preston Garrett on 08-18-2024 Eosinophils/100 WBC (Bld) 0.9 % 0-5 [facility] Erythrocyte distribution wid th ratioOrdered By: Preston Garrett on 08-18-2024 Erythrocyte distribution width (RBC) [Ratio] 12.0 % 11.6-14.6 [facility] Erythrocyte distribution wid th standard deviationOrdered By: Preston Garrett on 08-18-2024 Erythrocyte distribution width (RBC) [Ratio] 38.9 fl 35.1-43.9 [facility] Hematocrit Auto (Bld) [Volum e fraction]Ordered By: Preston Garrett on 08-18-2024 Hematocrit (Bld) [Volume fraction] 39.4 % 37-47 [facility] Hemoglobin measurementOrdere d By: Preston Garrett on 08-18-2024 Hemoglobin (Bld) [Mass/Vol] 13.6 g/dL 12.0-15.0 [facility] Immature granulocytes/100 WB C Auto (Bld)Ordered By: Preston Garrett 08-18-2024 Immature granulocytes/100 WBC (Bld) 0.500 % 0.0-0.9 [facility] Comment on above: IG% - Immature Granu locytes (promyelocytes, myelocytes and metamyelocytes) > 1% indicates that a LEFT SHIFT is Present. Ketones Test strip Ql (U)Ord ered By: Preston Garrett on 08-18-2024 Ketones Ql (U) Negative Negative [facility] MCV (mean corpuscular volume ) determinationOrdered By: Preston Garrett 08-18-2024 MCV (RBC) [Entitic vol] 88.1 fL 81-99 [facility] Mean corpuscular hemoglobin (MCH) determinationOrdered By: Preston Garrett 08-18-2024 MCH (RBC) [Entitic mass] 30.4 pg 27.0-32.0 [facility] Mean corpuscular hemoglobin concentration (MCHC) determinationOrdered By: Preston Garrett 08-18-2024 MCHC (RBC) [Mass/Vol] 34.5 g/dL 32-36 [facility] Mean platelet volume determi nationOrdered By: Preston Garrett 08-18-2024 Platelet mean volume (Bld) [Entitic vol] 9.4 fL 6.2-12.0 [facility] Microscopic analysis of urin e for red blood cells (RBC)Ordered By: Preston Garrett on 08-18-2024 Microscopic analysis of urine for red blood cells (RBC) 0 SEEN /hpf 0-5 [facility] Monocyte percentageOrdered B y: Preston Garrett on 08-18-2024 Monocytes/100 WBC (Bld) 6.2 % 0-10 [facility] Mucus LM Ql (Urine sed)Order ed By: Preston Garrett on 08-18-2024 Mucus Ql (Urine sed) 0 SEEN /hpf [facility] Neutrophil percentageOrdered By: Preston Garrett on 08-18-2024 Neutrophils/100 WBC (Bld) 66.3 % 47-70 [facility] Nitrite Test strip Ql (U)Ord ered By: Preston Garrett on 08-18-2024 Nitrite Ql (U) Negative Negative [facility] Nucleated red blood cell per centageOrdered By: Preston Garrett on 08-18-2024 Nucleated RBC/100 WBC (Bld) [Ratio] 0 % 0-5 [facility] Platelet countOrdered By: Acacia Garrett on 08-18-2024 Platelets (Bld) [#/Vol] 310 10*3/uL 150-450 [facility] Protein Test strip Ql (U)Ord ered By: Preston Garrett on 08-18-2024 Protein Ql (U) 15 mg/dl High Negative [facility] RBC Auto (Bld) [#/Vol]Ordere d By: Preston Garrett on 08-18-2024 RBC (Bld) [#/Vol] 4.47 10*6/uL 4.2-5.4 [facility] Serum human chorionic gonado tropin detection for pregnancyOrdered By: Preston Garrett on 08-18-2024 HCG ( test) Ql 77 mIU/mL High <9 [facility] Comment on above: Gestational Age0.2-1 Week: 5-50 mIU/mL1-2 Weeks: 50-500 mIU/mL2-3 Weeks: 100-5000 mIU/mL3-4 Weeks: 500-10,000 mIU/mL4-5 Weeks:1000-50,000 mIU/mL5-6 Weeks: 10,000-100,000 mIU/mL6-8 Weeks: 15,000-200,000 mIU/mL2-3 Months:10,000-100,000 mIU/mL Squamous epithelial cells de tection in urine sediment by light microscopyOrdered By: Preston Garrett on 08-18-2024 Epithelial cells.squamous LM Ql (Urine sed) 0-5 SEEN /hpf 5-10 [facility] Transvaginal w/Preg USon Transvaginal w/Preg US [facility] Imaging Services [address] [place] [address] Transvaginal w/Preg US MR#: [id number] Acct: [id number] Name: XOCHILT CADET Rep #: [id number] : 1995 F 29 From: Sergei langford MD PCP: Dr. Aretha Best MD Status: REG ER Study: Transvaginal w/Preg US Date of Exam: 08/18/24 Exam# [id number] Ordering Dr: Preston Garrett DO PROCEDURE: TRANSVAGINAL W/PREG US N/A REASON FOR EXAM: CRAMPING, BLEEDING, 4W6D TECHNIQUE: Transvaginal COMPARISON: None LMP: July 15, 2024. FINDINGS: Comments: Number of Gestational Sacs: 0 Gestational Sac Shape: Not visualized Yolk Sac: Not visualized Placenta: Not visualized Uterine Abnormalities: Maternal uterus is unremarkable. Ovaries / Adnexa: Both maternal ovaries are visualized. There is evidence of a 2.6 cm x 2.6 cm x 2.1 cm corpus luteum cyst in the right ovary. US/Transvaginal w/Preg US IMPRESSION: No intrauterine gestation is seen at this time. Clinical correlation recommended. Reading Location: [facility] CC: Dr. Aretha Best MD; Dr. Preston Garrett DO Unit Nurse: Signed Normal [facility] Urinalysis, Completeon 08-18 EPI,SQUAMOUS 0-5 SEEN Normal 5-10 [facility] Comment on above: Order Comment: CLEAN CATCH Performed By: #### L 700.8000 #### [facility] [address] [place], [address] WBC 0-5 SEEN Normal 0-5 [facility] Comment on above: Order Comment: CLEAN CATCH Performed By: #### L 700.8000 #### [facility] [address] [place], [address] BACTERIA 0 SEEN Normal None Seen [facility] Comment on above: Order Comment: CLEAN CATCH Performed By: #### L 700.8000 #### [facility] [address] [place], [address] Mucus Ql (Urine sed) 0 SEEN Normal [facility] Comment on above: Order Comment: CLEAN CATCH Performed By: #### L 700.8000 #### [facility] [address] [place], [address] RBC 0 SEEN Normal 0-5 [facility] Comment on above: Order Comment: CLEAN CATCH Performed By: #### L 700.8000 #### [facility] [address] [place], [address] Urine clarityOrdered By: Luma Garrett on 08-18-2024 Clarity (U) Clear Clear [facility] Urine color determinationOrd ered By: Preston Garrett on 08-18-2024 Color (U) Yellow Yellow [facility] Urine glucose detectionOrder ed By: Preston Garrett on 08-18-2024 Glucose Ql (U) Normal mg/dl Normal [facility] Urine leukocyte esterase det ection by dipstickOrdered By: Preston Garrett on 08-18-2024 Leukocyte esterase Test strip Ql (U) Negative Negative [facility] Urine pHOrdered By: Preston minor on 08-18-2024 pH (U) 7.0 [pH] 5.0 - 8.0 [facility] Urine sediment bacteria coun t by microscopy (number/high power field)Ordered By: Preston Garrett on 08-18-2024 Bacteria LM.HPF (Urine sed) [#/Area] 0 /[HPF] None Seen [facility] Urine specific gravity measu rementOrdered By: Preston Garrett on 08-18-2024 Specific gravity (U) [Rel density] 1.005 1.002-1.030 [facility] Urine urobilinogen measureme ntOrdered By: Preston Garrett on 08-18-2024 Urobilinogen Ql (U) Normal mg/dl Normal [facility] White blood cell (WBC) count Ordered By: Preston Garrett on 08-18-2024 WBC (Bld) [#/Vol] 8.6 10*3/uL 4.4-11.0 [facility] White blood cell countOrdere d By: Preston Garrett on 08-18-2024 White blood cell count 0-5 SEEN /hpf 0-5 [facility] hCG Titer Quant., Serumon HCG QUANT. 77 mIU/mL High <9 non-preg [facility] Comment on above: Result Comment: Gest ational Age 0.2-1 Week: 5-50 mIU/mL 1-2 Weeks: 50-500 mIU/mL 2-3 Weeks: 100-5000 mIU/mL 3-4 Weeks: 500-10,000 mIU/mL 4-5 Weeks:1000-50,000 mIU/mL 5-6 Weeks: 10,000-100,000 mIU/mL 6-8 Weeks: 15,000-200,000 mIU/mL 2-3 Months:10,000-100,000 mIU/mL Performed By: #### L 700.8000, L100.0100, B882-1 #### [facility] [address] [place], [place], [id number] BREAST BILAT COMPLETEon 0 06-23-2024 BREAST BILAT COMPLETE [place] [address] Patient: XOCHILT CADET Phone#: : 1995 Age: 28 Gender: F Pt. Type: Out Account: [id number] Location: Ordering: NICHOLAS POLLARD Exam Date: 06/23/2024/15:07 Family Phys: Charge Code: [id number] Physician: Beltrami Order #: [id number] Dose#: PROCEDURE: ULTRASOUND BREAST BILAT COMPARISON: None. INDICATIONS: Left breast lump TECHNIQUE: Breast ultrasound was performed, with evaluation focusing on all four quadrants. FINDINGS: DIAGNOSTIC CATEGORY 3--PROBABLY BENIGN: FINDING(S) HAS A HIGH PROBABILITY OF A BENIGN; RIGHT BREAST: No significant suspicious finding. RIGHT BREAST: Typical-appearing lymph node at the 10 o'clock position. LEFT BREAST: Solid appearing mass with likely benign morphology, hypoechoic echotexture, anterior depth, 6 o'clock position, and 5x4x6 mm size. The finding correlates with the palpable finding. Masses immediately adjacent to the skin. No tract to the skin surface identified. There is a small amount of blood flow seen within the lesion. RECOMMENDATIONS: SHORT TERM FOLLOW-UP ULTRASOUND LEFT BREAST IN 6 MONTHS. PLEASE NOTE: A NORMAL MAMMOGRAM DOES NOT EXCLUDE THE POSSIBILITY OF BREAST CANCER. A CLINICALLY SUSPICIOUS PALPABLE LUMP SHOULD BE BIOPSIED. Dictated by: Ara Ochoa MD on 06/23/2024 at 19:48 Approved by: Ara Ochoa MD on 06/23/2024 at 19:51 Normal [facility] FT4on 06-20-2024 Free T4 [Mass/Vol] 1.50 ng/dL Normal 0.89-1.76 [facility] Comment on above: Result Comment: No te - New Reference Range in effect 19 Performed By: #### F T4 #### [address] [address] #### TSH #### [address] [address] TSHon 06-20-2024 TSH Qn 3.30 m[IU]/L Normal 0.36-3.74 [facility] Comment on above: Performed By: #### F T4 #### [address] [address] #### TSH #### [address] [address] PAP I-G w/rfx hrHPV-Aptimaon 06-14-2024 ADEQ Comment Normal . [facility] Comment on above: Order Comment: Speci men Comment: [id number] Specimen Comment: Source.............Cervix;Endocervix Specimen Comment: No. of containers..01 ThinPrep Vial Result Comment: Sati sfactory for evaluation. Endocervical and/or squamous metaplastic cells (endocervical component) are present. Performed By: #### L 7400.0353 #### [facility] [address] [place], [place], [id number] COMM . Normal . [facility] Comment on above: Order Comment: Speci men Comment: [id number] Specimen Comment: Source.............Cervix;Endocervix Specimen Comment: No. of containers..01 ThinPrep Vial Performed By: #### L 7400.0353 #### [facility] [address] [place], [place], [address] COMMENT Comment Normal . [facility] Comment on above: Order Comment: Speci men Comment: [id number] Specimen Comment: Source.............Cervix;Endocervix Specimen Comment: No. of containers..01 ThinPrep Vial Result Comment: This liquid based ThinPrep(R) pap test was screened with the use of an image guided system. Performed By: #### L 7400.0353 #### [facility] [address] [place], [place], [address] DIAG Comment Normal . [facility] Comment on above: Order Comment: Speci men Comment: [id number] Specimen Comment: Source.............Cervix;Endocervix Specimen Comment: No. of containers..01 ThinPrep Vial Result Comment: NEGA TIVE FOR INTRAEPITHELIAL LESION OR MALIGNANCY. Performed By: #### L 7400.0353 #### [facility] [address] [place], [place], [address] HPV RFLX Comment Normal . [facility] Comment on above: Order Comment: Speci men Comment: [id number] Specimen Comment: Source.............Cervix;Endocervix Specimen Comment: No. of containers..01 ThinPrep Vial Result Comment: The HPV DNA reflex criteria were not met with this specimen result therefore, no HPV testing was performed. Performed at: [address] [id number] [place]: Zuleyma Damon MD, Phone: [phone] Performed By: #### L 7400.0353 #### [facility] [address] [place], [address] PAPSMR Comment Normal . [facility] Comment on above: Order Comment: Speci men Comment: [id number] Specimen Comment: Source.............Cervix;Endocervix Specimen Comment: No. of containers..01 ThinPrep Vial Result Comment: The Pap smear is a screening test designed to aid in the detection of premalignant and malignant conditions of the uterine cervix. It is not a diagnostic procedure and should not be used as the sole means of detecting cervical cancer. Both false-positive and false-negative reports do occur. Performed By: #### L 7400.0353 #### [facility] [address] [place], [place], [address] PERFORM Comment Normal . [facility] Comment on above: Order Comment: Speci men Comment: [id number] Specimen Comment: Source.............Cervix;Endocervix Specimen Comment: No. of containers..01 ThinPrep Vial Result Comment: Michelle Fairbanks, Compliance Counsel (ASCP) Performed By: #### L 7400.0353 #### [facility] [address] [place], [address] Cervical or vagninal specime n microscopic examination by cytology stain (reported asOrdered By: Jeny Garcia on 06-09-2024 Cytology report Cyto stain Doc (Cvx/Vag) Comment . [facility] Comment on above: The Pap smear is a s creening test designed to aid in thedetection of premalignant and malignant conditions of theuterine cervix. It is not a diagnostic procedure andshould not be used as the sole means of detecting cervicalcancer. Both false-positive and false-negative reports dooccur. Extern Cyto stain Nom (C vx/Vag) [ID]Ordered By: Jeny Garcia on 06-09-2024 Pap Smear Performed By Comment . [facility] Comment on above: Michelle Fairbanks, Cyto technologist (ASCP) Cytology report Cyto stain D oc (Cvx/Vag)Ordered By: Jeny Garcia on 06-09-2024 Thin Prep Pap Smear Comment . [facility] Comment on above: The Pap smear is a s creening test designed to aid in thedetection of premalignant and malignant conditions of theuterine cervix. It is not a diagnostic procedure andshould not be used as the sole means of detecting cervicalcancer. Both false-positive and false-negative reports dooccur. Image-guided ThinPrep PapOrd ered By: Jeny Garcia on 06-09-2024 Pap Smear Note Comment . [facility] Comment on above: This liquid based Th inPrep(R) pap test was screened withthe use of an image guided system. Image-guided liquid-based Pa pOrdered By: Jeny Garcia on 06-09-2024 Pap Smear Diagnosis Comment . [facility] Comment on above: NEGATIVE FOR INTRAEP ITHELIAL LESION OR MALIGNANCY. Image-guided liquid-based ce rvical Pap w high-risk HPV+reflex to HPV 16+18Ordered By: Jeny Garcia on 06-09-2024 Human Papillomavirus Screen Comment . [facility] Comment on above: The HPV DNA reflex alissa ro were not met with this specimenresult therefore, no HPV testing was performed.Performed at: [facility] [id number] Director: Zuleyma Damon MD, Phone: [phone] Laboratory - CytologyOrdered By: Jeny Garcia on 06-09-2024 Extern Cyto stain Nom (Cvx/Vag) [ID] Comment . [facility] Comment on above: Michelle Fairbanks, Cyto technologist (ASCP) Laboratory - Miscellaneous t estsOrdered By: Jeny Garcia on 06-09-2024 Service comment (Unsp spec) [Interp] . . [facility] No Panel InformationOrdered By: Jeny Garcia on 06-09-2024 Pap Smear Specimen Adequacy Comment . [facility] Comment on above: Satisfactory for ara luation. Endocervical and/or squamous metaplasticcells (endocervical component) are present. Electrician Sound Office Visit Reporton 06-09-2024 Electrician Sound Office Visit Report [facility] [address], [address] [place] [address] OFFICE VISIT Date of Service: 06/09/24 MR#: [id number] Acct: [id number] Name: XOCHILT CADET Rep #: [id number] : 1995 Provider: IRIS Martin ams Age/Sex: 28/F Location: [facility] [place] Status: Signed with Addenda ADDENDUM by IRIS Garcia on 06/15/24 at 0918 Assessment and Plan Assessment and Plan Orders: Orders IUD Removal 06/09/24 Z30.432 - Encounter for removal of intrauterine contraceptive device PAP I-G w/rfx hrHPV-Aptima 06/09/24 Z12.4 - Encounter for screening for malignant neoplasm of cervix CGM Procedure CGM Procedure Informed Consent Signed: Yes Removal: IUD removed without difficulty and patient tolerated procedure well. Contraception plans: none If desiring conception-reviewed pre-conception guidelines including folic acid supplementation, optimal timing of intercourse, avoidance of smoking, alcohol, exposure to environmental chemicals and need for evaluation if not within 12 months. 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 Is patient in pain?: No Allergies No Known Allergies Allergy (Verified 06/09/24 15:44) Medications ???Medication ???Instructions ???Recorded ???Confirmed ???Type spironolactone 100 mg tablet 100 mg PO QHS 09/05/21 06/09/24 Hi story levothyroxine 112 mcg tablet 112 mcg PO .QD1/2 every Thursday #90 09/03/23 06/09/24 Rx tabs Is last menstrual period known: No Post menopausal: No Patient : No : No PFSH Medical History Contraceptive management Deviated nasal septum 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 Seasonal allergies Surgical History History of wisdom tooth extraction History of lateral meniscus repair of right knee History of repair of anterior cruciate ligament Family History Mother Anxiety Depression Thyroid disorder Father Anxiety Alcoholism Depression Hypertension Thyroid disorder Sister Anxiety Depression Thyroid disorder Grandmother Thyroid disorder Grandfather Thyroid disorder Social History adopted: No household members: spouse housing: house number of children: 0 current occupational status: employed current occupation: [employer] pets and animals: Yes sexually active: Yes Smoking Status: Never smoker alcohol intake: current alcohol intake frequency: a few times a month Alcohol type: beer substance use type: does not use diet: other well-balanced diet: daily or most days eating out: 1-3 times/week during the past year weight has: decreased > 10 lbs what type of physical activity do you participate in: running and weight training frequency: daily seatbelt use: always do you feel safe at home: Yes additional social history: - Carlos [facility] Encounter for routine gynecological examination Details: XOCHILT CADET is a 28 year old who presents for annual exam. Requesting IUD to be removed would like to TTC Last PAP: 2020 History of abnormal PAP: no Last mammogram: Age 41 History of abnormal mammogram: na Colon cancer screening: age 46 Other preventative health care screenings: PCP ROS Const Constitutional: Reports system reviewed and no additional complaints, except as documented Cardio Card: Reports system reviewed and no additional complaints, except as documented Resp Resp: Reports system reviewed and no additional complaints, except as documented GI GI: Reports system reviewed and no additional complaints, except as documented : Reports system reviewed and no additional complaints, except as documented; Denies difficulty voiding, dysuria or urinary frequency Skin Skin/Breast: Reports system reviewed and no additional complaints, except as documented Neuro Neuro: Reports system reviewed and no additional complaints, except as documented Psych Psych: Reports system reviewed and no additional complaints, except as documented; Denies anhedonia, anxiety or depression Exam Const General: cooperative, healthy appearing, comfortable and no acute distress Orientation: alert, awake and oriented x3 Neck Neck: normal visual inspection and full ROM Thyroid: thyroid normal Chest Breast inspection: normal inspection of the breasts and normal inspection of the axillae (more content not included)... Normal [facility] Service comment (Unsp spec) [Interp]Ordered By: Jeny Garcia on 06-09-2024 Pap Smear Comment (3) . . [facility] FT4on 05-13-2024 Free T4 [Mass/Vol] 1.26 ng/dL Normal 0.76-1.46 [facility] Comment on above: Performed By: #### F T4 #### [facility] [address] [place] [address] #### TSH #### [address] [address] LABORATORYOrdered By: SYSTEM SYSTEM on 05-13-2024 Free T4 [Mass/Vol] 1.26 ng/dL Normal 0.76 - 1. 46 ng/dL AO ADM SS T4 [Mass/Vol] 9.6 ug/dL Normal 4.5 - 10.9 mcg/dL ADM SS Comment on above: Interpretive Data: * *Note - New Reference Range in effect 19 TSH Qn 0.74 m[IU]/L Normal 0.36 - 3.74 mcIU/mL AO ADM SS T4on 05-13-2024 T4 [Mass/Vol] 9.6 ug/dL Normal 4.5-10.9 [facility] Comment on above: Result Comment: No te - New Reference Range in effect 19 Performed By: #### F T4 #### [address] [address] #### TSH #### [address] [place], [place] [address] TSHon 05-13-2024 TSH Qn 0.74 m[IU]/L Normal 0.36-3.74 [facility] Comment on above: Performed By: #### F T4 #### [address] [address] #### TSH #### [address] [place], [place] [address] Absolute neutrophil countOrd ered By: Pati Rosales on 04-02-2024 Neutrophils (Bld) [#/Vol] 4.4 10*3/uL 2.0-7.7 [facility] Basic Metabolic Profile (BMP )on 04-02-2024 BUN/CRE 9.3 RATIO Low 10-20 [facility] Comment on above: Performed By: #### L 500.2500, L700.6800, L501.9520, L100.0100 #### [facility] [address] [place], [address] CA,Total 9.3 mg/dL Normal 8.5-10.1 [facility] Comment on above: Performed By: #### L 500.2500, L700.6800, L501.9520, L100.0100 #### [facility] [address] [place], [address] Chloride [Moles/Vol] 106 mmol/L Normal 98-107 [facility] Comment on above: Performed By: #### L 500.2500, L700.6800, L501.9520, L100.0100 #### [facility] [address] [place], [address] CO2 [Moles/Vol] 28.0 mmol/L Normal 21.0-32.0 [facility] Comment on above: Performed By: #### L 500.2500, L700.6800, L501.9520, L100.0100 #### [facility] [address] [place], [address] Creatinine [Mass/Vol] 0.96 mg/dL Normal 0.55-1.02 [facility] Comment on above: Result Comment: The validity of the calculated GFR GFRAA in patients over 70 years has not been determined. Clinical correlation is essential. Performed By: #### L 500.2500, L700.6800, L501.9520, L100.0100 #### [facility] [address] [place], [address] ECRCL 100.43 ml/min Normal [facility] Comment on above: Performed By: #### L 500.2500, L700.6800, L501.9520, L100.0100 #### [facility] [address] [place], [address] EST GFR - AA 89 mL/min Normal >60 [facility] Comment on above: Result Comment: Afri can [place] GFR Calc Performed By: #### L 500.2500, L700.6800, L501.9520, L100.0100 #### [facility] [address] [place], [address] GAP 4 Low 5-15 [facility] Comment on above: Performed By: #### L 500.2500, L700.6800, L501.9520, L100.0100 #### [facility] [address] [place], [address] GFR/1.73 sq M.predicted among non-blacks MDRD (S/P/Bld) [Vol rate/Area] 74 mL/min/{1.73_m2} Normal >60 [facility] Comment on above: Result Comment: Non- GFR Calc Performed By: #### L 500.2500, L700.6800, L501.9520, L100.0100 #### [facility] [address] [place], [address] Glucose [Mass/Vol] 96 mg/dL Normal 74-106 [facility] Comment on above: Performed By: #### L 500.2500, L700.6800, L501.9520, L100.0100 #### [facility] [address] [place], [address] Potassium [Moles/Vol] 3.7 mmol/L Normal 3.5-5.1 [facility] Comment on above: Performed By: #### L 500.2500, L700.6800, L501.9520, L100.0100 #### [facility] [address] [place], [address] Sodium [Moles/Vol] 138 mmol/L Normal 136-145 [facility] Comment on above: Performed By: #### L 500.2500, L700.6800, L501.9520, L100.0100 #### [facility] [address] [place], [address] Urea nitrogen [Mass/Vol] 9 mg/dL Normal 7-18 [facility] Comment on above: Performed By: #### L 500.2500, L700.6800, L501.9520, L100.0100 #### [facility] [address] [place], [address] Basophil percentageOrdered B y: Pati Rosales on 04-02-2024 Basophils/100 WBC (Bld) 0.6 % 0-1 [facility] Beta HCG ( test) Ql Ordered By: Pati Rosales on 04-02-2024 Serum Test, Qualitative Negative [facility] Blood urea nitrogen (BUN)/cr eatinine ratioOrdered By: Pati Rosales on 04-02-2024 Urea nitrogen/Creatinine [Mass ratio] 9.3 mg/mg Low 10-20 [facility] CBC W/Diff, Automatedon 01-0 4-2024 Absolute Lymph 1.73 X10 3/uL Normal 0.83-4.51 [facility] Comment on above: Performed By: #### L 500.2500, L700.6800, L501.9520, L100.0100 #### [facility] [address] [place], [address] Absolute Neut 4.4 X10 3/uL Normal 2.0-7.7 [facility] Comment on above: Performed By: #### L 500.2500, L700.6800, L501.9520, L100.0100 #### [facility] [address] [place], [address] Basophils/100 WBC (Bld) 0.6 % Normal 0-1 [facility] Comment on above: Performed By: #### L 500.2500, L700.6800, L501.9520, L100.0100 #### [facility] [address] [place], [address] Eosinophils/100 WBC (Bld) 0.7 % Normal 0-5 [facility] Comment on above: Performed By: #### L 500.2500, L700.6800, L501.9520, L100.0100 #### [facility] [address] [place], [address] Erythrocyte distribution width (RBC) [Ratio] 12.2 % Normal 11.6-14.6 [facility] Comment on above: Performed By: #### L 500.2500, L700.6800, L501.9520, L100.0100 #### [facility] [address] [place], [address] Hematocrit (Bld) [Volume fraction] 38.9 % Normal 37-47 [facility] Comment on above: Performed By: #### L 500.2500, L700.6800, L501.9520, L100.0100 #### [facility] [address] [place], [address] Hemoglobin (Bld) [Mass/Vol] 13.5 g/dL Normal 12.0-15.0 [facility] Comment on above: Performed By: #### L 500.2500, L700.6800, L501.9520, L100.0100 #### [facility] [address] [place], [address] IG% 0.300 Normal 0.0-0.9 [facility] Comment on above: Result Comment: IG% - Immature Granulocytes (promyelocytes, myelocytes and metamyelocytes) > 1% indicates that a LEFT SHIFT is Present. Performed By: #### L 500.2500, L700.6800, L501.9520, L100.0100 #### [facility] [address] [place], [address] Lymphocytes/100 WBC (Bld) 25.7 % Normal 19-41 [facility] Comment on above: Performed By: #### L 500.2500, L700.6800, L501.9520, L100.0100 #### [facility] [address] [place], [address] MCH (RBC) [Entitic mass] 30.3 pg Normal 27.0-32.0 [facility] Comment on above: Performed By: #### L 500.2500, L700.6800, L501.9520, L100.0100 #### [facility] [address] [place], [address] MCHC (RBC) [Mass/Vol] 34.7 g/dL Normal 32-36 [facility] Comment on above: Performed By: #### L 500.2500, L700.6800, L501.9520, L100.0100 #### [facility] [address] [place], [address] MCV (RBC) [Entitic vol] 87.2 fL Normal 81-99 [facility] Comment on above: Performed By: #### L 500.2500, L700.6800, L501.9520, L100.0100 #### [facility] [address] [place], [address] Monocytes/100 WBC (Bld) 6.7 % Normal 0-10 [facility] Comment on above: Performed By: #### L 500.2500, L700.6800, L501.9520, L100.0100 #### [facility] [address] [place], [address] Neutrophils/100 WBC (Bld) 66.0 % Normal 47-70 [facility] Comment on above: Performed By: #### L 500.2500, L700.6800, L501.9520, L100.0100 #### [facility] [address] [place], [address] Nucleated RBC (Bld) [#/Vol] 0 10*3/uL Normal 0-5 [facility] Comment on above: Performed By: #### L 500.2500, L700.6800, L501.9520, L100.0100 #### [facility] [address] [place], [address] Platelet mean volume (Bld) [Entitic vol] 9.4 fL Normal 6.2-12.0 [facility] Comment on above: Performed By: #### L 500.2500, L700.6800, L501.9520, L100.0100 #### [facility] [address] [place], [address] Platelets (Bld) [#/Vol] 311 10*3/uL Normal 150-450 [facility] Comment on above: Performed By: #### L 500.2500, L700.6800, L501.9520, L100.0100 #### [facility] [address] [place], [address] RBC (Bld) [#/Vol] 4.46 10*6/uL Normal 4.2-5.4 [facility] Comment on above: Performed By: #### L 500.2500, L700.6800, L501.9520, L100.0100 #### [facility] [address] [place], [address] RDW SD 39.2 fl Normal 35.1-43.9 [facility] Comment on above: Performed By: #### L 500.2500, L700.6800, L501.9520, L100.0100 #### [facility] [address] [place], [address] WBC (Bld) [#/Vol] 6.7 10*3/uL Normal 4.4-11.0 [facility] Comment on above: Performed By: #### L 500.2500, L700.6800, L501.9520, L100.0100 #### [facility] [address] [place], [address] Carbon dioxide measurementOr dered By: Pati Rosales on 04-02-2024 CO2 [Moles/Vol] 28.0 mmol/L 21.0-32.0 [facility] Chest PA and Lateralon 04-02 Chest PA and Lateral [facility] Imaging Services [address] [address] Chest PA and Lateral MR#: [id number] Acct: [id number] Name: XOCHILT CADET Rep #: [id number] : 1995 F 28 From: Petey Bermudez MD PCP: Dr. Aretha Best MD Status: DEP ER Study: Chest PA and Lateral Date of Exam: 04/02/24 Exam# [id number] Ordering Dr: Pati Rosales -[id number] STUDY: X-RAY CHEST REASON FOR EXAM: Female, 28 years old. Dizziness, palpitations TECHNIQUE: Frontal and lateral views of the chest. COMPARISON: None. FINDINGS: The lungs are clear and expanded. There is no demonstrated pleural abnormality. Normal size heart. Normal mediastinum and radha. Normal visualized pulmonary arteries. Normal visualized aortic arch and descending thoracic aorta. Normal visualized thoracic spine. Normal visualized ribs, clavicles, and shoulders. There is no demonstrated abnormality of the visualized soft tissue structures of the upper abdomen. RAD/Chest PA and Lateral IMPRESSION: Normal x-ray examination of the chest. Electronically Signed: Petey Bermudez MD at 15:16 EST , CC: Dr. Aretha Best MD; PAPO Sim Unit Nurse: Signed Normal [facility] Chloride measurementOrdered By: Pati Rosales on 04-02-2024 Chloride [Moles/Vol] 106 mmol/L 98-107 [facility] Emergency Department Summary on 04-02-2024 Emergency Department Summary [facility] Medical Records Department [address] [place] [address] Emergency Department Summary 04/02/24 MR#: [id number] Acct: [id number] Name: XOCHILT CADET Rep #: [id number] : 1995 28 From: Cristobal Ron MD PCP: Dr. Aretha Best MD Status:DEP ER Location: ED HPI History of Present Illness Chief Complaint: Palpitations Narrative Narrative: Patient presenting today with multiple vague complaints she has had over the past 2 to 3 weeks. She reports she stopped taking spironolactone for acne about 3 weeks ago. Since then she has had intermittent palpitations, brain fog, occasional blurred vision, dizziness, and elevated blood pressure. She does have a history of hypothyroidism and last had her thyroid checked in February and was told it was normal. She is taking her levothyroxine as prescribed. She denies any other chronic medical conditions. She has an IUD and last had her menstrual period about a month ago. She denies fevers, chills, chest pain, abdominal pain, nausea, and vomiting. 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 Seasonal allergies Home Medications ???Medication ???Instructions ???Recorded ???Last Taken ???Type spironolactone 100 mg tablet 100 mg PO QHS 09/05/21 Unknown History levothyroxine 112 mcg tablet 112 mcg PO .QD1/2 every Thursday #90 09/03/23 Unknown Rx tabs Allergy/AdvReac Type Severity Reaction Status Date / Time No Known Allergies Allergy Verified 04/02/24 13:13 Family History Mother Anxiety Depression Thyroid disorder Father Anxiety Alcoholism Depression Hypertension Thyroid disorder Sister Anxiety Depression Thyroid disorder Grandmother Thyroid disorder Grandfather Thyroid disorder Surgical History History of wisdom tooth extraction History of lateral meniscus repair of right knee History of repair of anterior cruciate ligament Social History adopted: No household members: spouse housing: house number of children: 0 current occupational status: employed current occupation: [employer] pets and animals: Yes sexually active: Yes Smoking Status: Never smoker alcohol intake: current alcohol intake frequency: a few times a month Alcohol type: beer substance use type: does not use diet: other well-balanced diet: daily or most days eating out: 1-3 times/week during the past year weight has: decreased > 10 lbs what type of physical activity do you participate in: running and weight training frequency: daily seatbelt use: always do you feel safe at home: Yes additional social history: - Carlos CARABALLO ROS ED Constitutional Constitutional ED: Denies chills or fever(s) Eyes Eyes: Reports blurry vision Cardiovascular Cardiovascular: Reports palpitations; Denies chest pain Respiratory/Chest Respiratory/Chest: Denies cough or dyspnea Gastrointestinal Gastrointestinal: Denies abdominal pain, nausea or vomiting Genitourinary Genitourinary ED: Denies dysuria, hematuria or urinary urgency Musculoskeletal Musculoskeletal: Denies arthralgias or myalgias Integumentary Denies rash Neurologic Neurologic: Denies weakness EXAM Physical Exam Const Vital Signs: 04/02/24 13:11 04/02/24 13:50 Temperature 98.2 F Temperature Source Oral Pulse Rate 76 Respiratory Rate 16 Respiratory Effort Normal Blood Pressure 148/94 H Blood Pressure Mean 112 Pulse Ox 98 Oxygen Delivery Method Room Air Positive well nourished, well developed and no apparent distress General Appearance ED: well developed HEENT Reports normocephalic, head/scalp atraumatic and TM's clear Tympanic Membrane ED: Yes TM's clear bilateral Mouth ED: Yes moist mucous membranes normal Eyes PERRL and EOMs intact bilaterally Neck full ROM and supple Chest Wall inspection of chest normal Resp normal respiratory effort and clear to auscultation bilaterally Cardio regular rate and regular rhythm Back/Spine normal ROM and normal to inspection Extremity normal to inspection and full ROM Neuro oriented x3, CN's II-XII intact bilaterally, moves all extremities, no focal motor deficits and no sensory deficits noted Sensorium / Orientation: awake and alert Motor Exam: strength 5/5 throughout Psych mental status grossly normal and thought process normal Skin no rashes or lesions noted and no wounds Physical Exam Const Vital Signs: 04/02/24 13:11 04/02/24 13:50 Temperature 98.2 F Temperature Source Oral (more content not included)... Normal [facility] Eosinophil percentageOrdered By: Pati Rosales on 04-02-2024 Eosinophils/100 WBC (Bld) 0.7 % 0-5 [facility] Erythrocyte distribution wid th ratioOrdered By: Pati Rosales on 04-02-2024 Erythrocyte distribution width (RBC) [Ratio] 12.2 % 11.6-14.6 [facility] Erythrocyte distribution wid th standard deviationOrdered By: Pati Rosales on 04-02-2024 Erythrocyte distribution width (RBC) [Entitic vol] 39.2 fL 35.1-43.9 [facility] Estimated glomerular filtrat ion rate (GFR) AmericanOrdered By: Pati Rosales on 04-02-2024 Estimated GFR (MDRD) Amer 89 mL/min >60 [facility] Comment on above: GFR Calc Estimation of creatinine anaya aranceOrdered By: Pati Rosales on 04-02-2024 Estimated Creatinine Clearance Calc 100.43 ml/min [facility] Glomerular filtration rate ( GFR) estimationOrdered By: Pati Rosaels on 04-02-2024 Estimated GFR (MDRD) Non-Af Amer 74 mL/min >60 [facility] Comment on above: Non- GFR Calc Glucose measurementOrdered B y: Pati Rosales on 04-02-2024 Glucose [Mass/Vol] 96 mg/dL 74-106 [facility] Hematocrit Auto (Bld) [Volum e fraction]Ordered By: Pati Rosales on 04-02-2024 Hematocrit (Bld) [Volume fraction] 38.9 % 37-47 [facility] Hemoglobin measurementOrdere d By: Pati Rosales on 04-02-2024 Hemoglobin (Bld) [Mass/Vol] 13.5 g/dL 12.0-15.0 [facility] Immature granulocytes/100 WB C Auto (Bld)Ordered By: Pati Rosales on 04-02-2024 Immature granulocytes/100 WBC (Bld) 0.300 % 0.0-0.9 [facility] Comment on above: IG% - Immature Granu locytes (promyelocytes, myelocytes and metamyelocytes) > 1% indicates that a LEFT SHIFT is Present. Lymphocytes Auto (Unsp spec) [#/Vol]Ordered By: Pati Rosales on 04-02-2024 Lymphocytes (Bld) [#/Vol] 1.73 10*3/uL 0.83-4.51 [facility] Lymphocytes/100 WBC Auto (Un sp spec)Ordered By: Pati Rosales on 04-02-2024 Lymphocytes/100 WBC (Bld) 25.7 % 19-41 [facility] MCV (mean corpuscular volume ) determinationOrdered By: Pati Rosales on 04-02-2024 MCV (RBC) [Entitic vol] 87.2 fL 81-99 [facility] Mean corpuscular hemoglobin (MCH) determinationOrdered By: Pati Rosales on 04-02-2024 MCH (RBC) [Entitic mass] 30.3 pg 27.0-32.0 [facility] Mean corpuscular hemoglobin concentration (MCHC) determinationOrdered By: Pati Rosales on 04-02-2024 MCHC (RBC) [Mass/Vol] 34.7 g/dL 32-36 [facility] Mean platelet volume determi nationOrdered By: Pati Rosales on 04-02-2024 Platelet mean volume (Bld) [Entitic vol] 9.4 fL 6.2-12.0 [facility] Monocyte percentageOrdered B y: Pati Rosales on 04-02-2024 Monocytes/100 WBC (Bld) 6.7 % 0-10 [facility] Neutrophil percentageOrdered By: Pati Rosales on 04-02-2024 Neutrophils/100 WBC (Bld) 66.0 % 47-70 [facility] Nucleated red blood cell per centageOrdered By: Pati Rosales on 04-02-2024 Nucleated RBC/100 WBC (Bld) [Ratio] 0 % 0-5 [facility] Platelet countOrdered By: Maria Elena Rosales on 04-02-2024 Platelets (Bld) [#/Vol] 311 10*3/uL 150-450 [facility] Potassium measurementOrdered By: Pati Rosales on 04-02-2024 Potassium [Moles/Vol] 3.7 mmol/L 3.5-5.1 [facility] ,Serum,hCG Quali.on 04-02-2024 HCG, SERUM QUAL Negative Normal [facility] Comment on above: Performed By: #### L 500.2500, L700.6800, L501.9520, L100.0100 #### [facility] [address] [place], [address] RBC Auto (Bld) [#/Vol]Ordere d By: Pati Rosales on 04-02-2024 RBC (Bld) [#/Vol] 4.46 10*6/uL 4.2-5.4 [facility] Serum anion gap measurementO rdered By: Pati Rosales on 04-02-2024 Anion gap [Moles/Vol] 4 mmol/L Low 5-15 [facility] Serum or plasma calcium no urement (mass/volume)Ordered By: Pati Rosales on 04-02-2024 Calcium [Mass/Vol] 9.3 mg/dL 8.5-10.1 [facility] Serum or plasma creatinine m easurement (mass/volume)Ordered By: Pati Rosales on 04-02-2024 Creatinine [Mass/Vol] 0.96 mg/dL 0.55-1.02 [facility] Comment on above: The validity of the calculated GFR & GFRAA in patients over 70 years has not been determined. Clinical correlation is essential. Serum or plasma urea nitroge n measurement (mass/volume)Ordered By: Pati Rosales on 04-02-2024 Urea nitrogen [Mass/Vol] 9 mg/dL 7-18 [facility] Sodium levelOrdered By: Maik Rosales on 04-02-2024 Sodium [Moles/Vol] 138 mmol/L 136-145 [facility] TSH QnOrdered By: Pati Rosales on 04-02-2024 Thyroid Stimulating Hormone (TSH) 5.640 uIU/mL High 0.358-3.740 [facility] Thyroid Stim Hormone (TSH)on 04-02-2024 TSH 5.640 uIU/mL High 0.358-3.740 [facility] Comment on above: Performed By: #### L 500.2500, L700.6800, L501.9520, L100.0100 #### [facility] [address] [place], [place], [id number] White blood cell (WBC) count Ordered By: Pati Rosales on 04-02-2024 WBC (Bld) [#/Vol] 6.7 10*3/uL 4.4-11.0 [facility] .Auto Diffon 03-07-2024 Basophil, Absolute 0.0 10 3/mcL Normal 0.0-0.2 [facility] Comment on above: Performed By: #### G FR, VIDH, ADIFF, CBC, ANEU, TSH, CMP #### [address] [address] Basophils/100 WBC (Bld) 0.6 % Normal 0.0-2.5 [facility] Comment on above: Performed By: #### G FR, VIDH, ADIFF, CBC, ANEU, TSH, CMP #### [address] [address] Eosinophil, Absolute 0.1 10 3/mcL Normal 0.0-0.7 [facility] Comment on above: Performed By: #### G FR, VIDH, ADIFF, CBC, ANEU, TSH, CMP #### [address] [address] Eosinophils/100 WBC (Bld) 0.8 % Normal 0.0-7.0 [facility] Comment on above: Performed By: #### G FR, VIDH, ADIFF, CBC, ANEU, TSH, CMP #### [address] [address] Lymphocyte, Absolute 2.7 10 3/mcL Normal 0.9-4.3 [facility] Comment on above: Performed By: #### G FR, VIDH, ADIFF, CBC, ANEU, TSH, CMP #### [address] [address] Lymphocytes/100 WBC (Bld) 36.8 % Normal 20.0-40.0 [facility] Comment on above: Performed By: #### G FR, VIDH, ADIFF, CBC, ANEU, TSH, CMP #### [address] [address] Monocyte, Absolute 0.5 10 3/mcL Normal 0.1-1.4 [facility] Comment on above: Performed By: #### G FR, VIDH, ADIFF, CBC, ANEU, TSH, CMP #### [address] [address] Monocytes/100 WBC (Bld) 6.7 % Normal 2.0-13.0 [facility] Comment on above: Performed By: #### G FR, VIDH, ADIFF, CBC, ANEU, TSH, CMP #### [address] [place], [place] [address] Neutrophils/100 WBC (Bld) 55.1 % Normal 50.0-75.0 [facility] Comment on above: Performed By: #### G FR, VIDH, ADIFF, CBC, ANEU, TSH, CMP #### [address] [place], [place] [address] .GFRon 03-07-2024 GFR 87 ml/min/1.73sqm Normal [facility] Comment on above: Result Comment: GFR Population mean for , Non- Americans Ages 20-29 = 116 mL/min/1.73 sq.m. Ages 30-39 = 107 mL/min/1.73 sq.m. Ages 40-49 = 99 mL/min/1.73 sq.m. Ages 50-59 = 93 mL/min/1.73 sq.m. Ages 60-69 = 85 mL/min/1.73 sq.m. Ages 70+ = 75 mL/min/1.73 sq.m. Chronic Kidney Disease: Less than 60 mL/min/1.73 square meters End Stage Renal Disease: Less than 15 mL/min/1.73 square meters Performed By: #### G FR, VIDH, ADIFF, CBC, ANEU, TSH, CMP #### [address] [place], [place] [address] GFR Non- 71 ml/min/1.73sqm Normal [facility] Comment on above: Result Comment: GFR Population mean for , Non- Americans Ages 20-29 = 116 mL/min/1.73 sq.m. Ages 30-39 = 107 mL/min/1.73 sq.m. Ages 40-49 = 99 mL/min/1.73 sq.m. Ages 50-59 = 93 mL/min/1.73 sq.m. Ages 60-69 = 85 mL/min/1.73 sq.m. Ages 70+ = 75 mL/min/1.73 sq.m. Chronic Kidney Disease: Less than 60 mL/min/1.73 square meters End Stage Renal Disease: Less than 15 mL/min/1.73 square meters Performed By: #### G FR, VIDH, ADIFF, CBC, ANEU, TSH, CMP #### [address] [address] .NEUABSon 03-07-2024 Neutrophil, Absolute 4.1 10 3/mcL Normal 2.3-8.1 [facility] Comment on above: Performed By: #### G FR, VIDH, ADIFF, CBC, ANEU, TSH, CMP #### [place] [address] CBCon 03-07-2024 Erythrocyte distribution width (RBC) [Ratio] 12.7 % Normal 11.5-15.5 [facility] Comment on above: Performed By: #### G FR, VIDH, ADIFF, CBC, ANEU, TSH, CMP #### [address] [address] Hematocrit (Bld) [Volume fraction] 38.5 % Normal 34.0-46.0 [facility] Comment on above: Performed By: #### G FR, VIDH, ADIFF, CBC, ANEU, TSH, CMP #### [address] [address] Hgb 13.1 G/dL Normal 12.0-16.0 [facility] Comment on above: Performed By: #### G FR, VIDH, ADIFF, CBC, ANEU, TSH, CMP #### [address] [address] MCH (RBC) [Entitic mass] 31.0 pg Normal 27.0-33.0 [facility] Comment on above: Performed By: #### G FR, VIDH, ADIFF, CBC, ANEU, TSH, CMP #### [address] [address] MCHC 34.1 G/dL Normal 32.0-36.0 [facility] Comment on above: Performed By: #### G FR, VIDH, ADIFF, CBC, ANEU, TSH, CMP #### [address] [address] MCV (RBC) [Entitic vol] 90.8 fL Normal 80.0-99.0 [facility] Comment on above: Performed By: #### G FR, VIDH, ADIFF, CBC, ANEU, TSH, CMP #### [address] [address] Platelet 326 10 3/mcL Normal 150-450 [facility] Comment on above: Performed By: #### G FR, VIDH, ADIFF, CBC, ANEU, TSH, CMP #### [address] [address] Platelet mean volume (Bld) [Entitic vol] 7.7 fL Normal 6.6-10.5 [facility] Comment on above: Performed By: #### G FR, VIDH, ADIFF, CBC, ANEU, TSH, CMP #### [address] [address] RBC 4.23 10 6/mcL Normal 4.10-5.30 [facility] Comment on above: Performed By: #### G FR, VIDH, ADIFF, CBC, ANEU, TSH, CMP #### [address] [address] WBC 7.4 10 3/mcL Normal 4.5-10.8 [facility] Comment on above: Performed By: #### G FR, VIDH, ADIFF, CBC, ANEU, TSH, CMP #### [address] [address] CMPon 03-07-2024 Albumin Level 4.2 G/dL Normal 3.5-5.0 [facility] Comment on above: Performed By: #### G FR, VIDH, ADIFF, CBC, ANEU, TSH, CMP #### [address] [address] Albumin/Globulin [Mass ratio] 1.4 {ratio} Normal 1.1-2.5 [facility] Comment on above: Performed By: #### G FR, VIDH, ADIFF, CBC, ANEU, TSH, CMP #### [place] [address] ALP [Catalytic activity/Vol] 61 U/L Normal 40-135 [facility] Comment on above: Performed By: #### G FR, VIDH, ADIFF, CBC, ANEU, TSH, CMP #### [place] [address] ALT [Catalytic activity/Vol] 18 U/L Normal 14-59 [facility] Comment on above: Performed By: #### G FR, VIDH, ADIFF, CBC, ANEU, TSH, CMP #### [place] [address] AST [Catalytic activity/Vol] 14 U/L Normal 10-40 [facility] Comment on above: Performed By: #### G FR, VIDH, ADIFF, CBC, ANEU, TSH, CMP #### [place] [address] Bili Total 0.6 mg/dL Normal 0.2-1.0 [facility] Comment on above: Result Comment: Use of this assay is not recommended for patients undergoing treatment with eltrombopag due to the potential for falsely elevated results. Performed By: #### G FR, VIDH, ADIFF, CBC, ANEU, TSH, CMP #### [place] [address] BUN/Creatinine Ratio 7 ratio Normal 7-27 [facility] Comment on above: Performed By: #### G FR, VIDH, ADIFF, CBC, ANEU, TSH, CMP #### [place] [address] Calcium [Mass/Vol] 9.3 mg/dL Normal 8.4-10.2 [facility] Comment on above: Performed By: #### G FR, VIDH, ADIFF, CBC, ANEU, TSH, CMP #### [address] [address] Chloride [Moles/Vol] 101 mmol/L Normal 98-107 [facility] Comment on above: Performed By: #### G FR, VIDH, ADIFF, CBC, ANEU, TSH, CMP #### [place] [address] CO2 [Moles/Vol] 25 mmol/L Normal 22-29 [facility] Comment on above: Performed By: #### G FR, VIDH, ADIFF, CBC, ANEU, TSH, CMP #### [address] [address] Creatinine [Mass/Vol] 0.94 mg/dL Normal 0.55-1.02 [facility] Comment on above: Result Comment: Test ing performed on [employer] Dimension EXL analyzer using a modified kinetic Sarah technique. Performed By: #### G FR, VIDH, ADIFF, CBC, ANEU, TSH, CMP #### [place] [address] Electrolyte Balance 10.0 mEq/L Normal 4.0-15.0 [facility] Comment on above: Performed By: #### G FR, VIDH, ADIFF, CBC, ANEU, TSH, CMP #### [place] [address] Globulin 2.9 G/dL Normal [facility] Comment on above: Performed By: #### G FR, VIDH, ADIFF, CBC, ANEU, TSH, CMP #### [address] [address] Glucose [Mass/Vol] 88 mg/dL Normal 70-105 [facility] Comment on above: Performed By: #### G FR, VIDH, ADIFF, CBC, ANEU, TSH, CMP #### [place] [id number] Potassium [Moles/Vol] 4.0 mmol/L Normal 3.5-5.1 [facility] Comment on above: Performed By: #### G FR, VIDH, ADIFF, CBC, ANEU, TSH, CMP #### [place] [address] [place], [place] [address] Sodium [Moles/Vol] 136 mmol/L Normal 136-145 [facility] Comment on above: Performed By: #### G FR, VIDH, ADIFF, CBC, ANEU, TSH, CMP #### [place] [address] [place], [place] [address] Total Protein 7.1 G/dL Normal 6.4-8.2 [facility] Comment on above: Performed By: #### G FR, VIDH, ADIFF, CBC, ANEU, TSH, CMP #### [place] [address] [place], [place] [address] Urea nitrogen [Mass/Vol] 7 mg/dL Normal 7-18 [facility] Comment on above: Performed By: #### G FR, VIDH, ADIFF, CBC, ANEU, TSH, CMP #### [address] [address] LABORATORYOrdered By: SYSTEM SYSTEM on 03-07-2024 25-hydroxyvitamin D3 [Mass/Vol] 40.7 ng/mL Invalid Interpretation Code AO ADM SS Comment on above: Interpretive Data: I nterpretive Values Based on Total 25(OH) Vitamin D: Deficient <20 ng/mL Insufficient 20 - <30 ng/mL Sufficient 30-100 ng/mL Albumin BCP dye [Mass/Vol] 4.2 G/dL Normal 3.5 - 5.0 G/dL AO ADM SS Albumin/Globulin [Mass ratio] 1.4 {ratio} Normal 1.1 - 2.5 ratio AO ADM SS ALP [Catalytic activity/Vol] 61 U/L Normal 40 - 135 U/L AO ADM SS ALT With P-5'-P [Catalytic activity/Vol] 18 U/L Normal 14 - 59 U/L AO ADM SS AST With P-5'-P [Catalytic activity/Vol] 14 U/L Normal 10 - 40 U/L AO ADM SS Basophils (Bld) [#/Vol] 0.0 103/mcL Normal 0.0 - 0.2 10^3/mcL AO Workflow SS Basophils/100 WBC (Bld) 0.6 % Normal 0.0 - 2.5 % AO Workflow SS Bilirubin [Mass/Vol] 0.6 mg/dL Normal 0.2 - 1 .0 mg/dL AO ADM SS Comment on above: Interpretive Data: U se of this assay is not recommended for patients undergoing treatment with eltrombopag due to the potential for falsely elevated results. Calcium [Mass/Vol] 9.3 mg/dL Normal 8.4 - 10. 2 mg/dL AO ADM SS Chloride [Moles/Vol] 101 mmol/L Normal 98 - 10 7 mmol/L AO ADM SS CO2 [Moles/Vol] 25 mmol/L Normal 22 - 29 mmol/L AO ADM SS Creatinine [Mass/Vol] 0.94 mg/dL Normal 0.55 - 1.02 mg/dL AO ADM SS Comment on above: Interpretive Data: T esting performed on [employer] Dimension EXL analyzer using a modified kinetic Sarah technique. Electrolyte Balance 10.0 mEq/L Normal 4.0 - 15 .0 mEq/L AO ADM SS Eosinophil, Absolute 0.1 103/mcL Normal 0.0 - 0 .7 10^3/mcL AO Workflow SS Eosinophils/100 WBC (Bld) 0.8 % Normal 0.0 - 7.0 % AO Workflow SS Erythrocyte distribution width (RBC) [Ratio] 12.7 % Normal 11.5 - 15.5 % AO Workflow SS GFR/1.73 sq M.predicted among blacks MDRD (S/P/Bld) [Vol rate/Area] 87 ml/min/1.73sqm Invalid Interpretation Code AO Chemistry S Comment on above: Interpretive Data: GFR Population mean for , Non- Americans Ages 20-29 = 116 mL/min/1.73 sq.m. Ages 30-39 = 107 mL/min/1.73 sq.m. Ages 40-49 = 99 mL/min/1.73 sq.m. Ages 50-59 = 93 mL/min/1.73 sq.m. Ages 60-69 = 85 mL/min/1.73 sq.m. Ages 70+ = 75 mL/min/1.73 sq.m. Chronic Kidney Disease: Less than 60 mL/min/1.73 square meters End Stage Renal Disease: Less than 15 mL/min/1.73 square meters GFR/1.73 sq M.predicted among non-blacks MDRD (S/P/Bld) [Vol rate/Area] 71 ml/min/1.73sqm Invalid Interpretation Code AO Chemistry S Comment on above: Interpretive Data: GFR Population mean for , Non- Americans Ages 20-29 = 116 mL/min/1.73 sq.m. Ages 30-39 = 107 mL/min/1.73 sq.m. Ages 40-49 = 99 mL/min/1.73 sq.m. Ages 50-59 = 93 mL/min/1.73 sq.m. Ages 60-69 = 85 mL/min/1.73 sq.m. Ages 70+ = 75 mL/min/1.73 sq.m. Chronic Kidney Disease: Less than 60 mL/min/1.73 square meters End Stage Renal Disease: Less than 15 mL/min/1.73 square meters Globulin 2.9 G/dL Invalid Interpretation Code AO ADM SS Glucose [Mass/Vol] 88 mg/dL Normal 70 - 105 mg/dL AO ADM SS Hematocrit (Bld) [Volume fraction] 38.5 % Normal 34.0 - 46.0 % AO Workflow SS Hemoglobin (Bld) [Mass/Vol] 13.1 G/dL Normal 12.0 - 16.0 G/dL AO Workflow SS Lymphocytes (Bld) [#/Vol] 2.7 103/mcL Normal 0.9 - 4.3 10^3/mcL AO Workflow SS Lymphocytes/100 WBC (Bld) 36.8 % Normal 20.0 - 40.0 % AO Workflow SS MCH (RBC) [Entitic mass] 31.0 pg Normal 27.0 - 33.0 pg AO Workflow SS MCHC 34.1 G/dL Normal 32.0 - 36.0 G/dL AO Workflow SS MCV (RBC) [Entitic vol] 90.8 fL Normal 80.0 - 99.0 fL AO Workflow SS Monocytes (Bld) [#/Vol] 0.5 103/mcL Normal 0.1 - 1.4 10^3/mcL AO Workflow SS Monocytes/100 WBC (Bld) 6.7 % Normal 2.0 - 13.0 % AO Workflow SS Neutrophils (Bld) [#/Vol] 4.1 103/mcL Normal 2.3 - 8.1 10^3/mcL AO Workflow SS Neutrophils/100 WBC (Bld) 55.1 % Normal 50.0 - 75.0 % AO Workflow SS Platelet mean volume (Bld) [Entitic vol] 7.7 fL Normal 6.6 - 10.5 fL AO Workflow SS Platelets (Bld) [#/Vol] 326 103/mcL Normal 150 - 450 10^3/mcL AO Workflow SS Potassium [Moles/Vol] 4.0 mmol/L Normal 3.5 - 5.1 mmol/L AO ADM SS Protein [Mass/Vol] 7.1 G/dL Normal 6.4 - 8.2 G/dL AO ADM SS RBC (Bld) [#/Vol] 4.23 106/mcL Normal 4.10 - 5.3 0 10^6/mcL AO Workflow SS Sodium [Moles/Vol] 136 mmol/L Normal 136 - 145 mmol/L AO ADM SS TSH Qn 1.84 m[IU]/L Normal 0.36 - 3.74 mcIU/mL AO ADM SS Urea nitrogen [Mass/Vol] 7 mg/dL Normal 7 - 18 mg/dL AO ADM SS Urea nitrogen/Creatinine [Mass ratio] 7 ratio Normal 7 - 27 ratio AO ADM SS WBC (Bld) [#/Vol] 7.4 103/mcL Normal 4.5 - 10.8 10^3/mcL AO Workflow SS TSHon 03-07-2024 TSH Qn 1.84 m[IU]/L Normal 0.36-3.74 [facility] Comment on above: Performed By: #### G FR, VIDH, ADIFF, CBC, ANEU, TSH, CMP #### [address] [address] VIon 03-07-2024 Vit. D 25-Hydroxy 40.7 ng/mL Normal [facility] Comment on above: Result Comment: Inte rpretive Values Based on Total 25(OH) Vitamin D: Deficient <20 ng/mL Insufficient 20 - <30 ng/mL Sufficient 30-100 ng/mL Performed By: #### G FR, VIDH, ADIFF, CBC, ANEU, TSH, CMP #### [address] [address] [address] SOFT TISSUE NECK W/ CONTR Gr[employer] 03-04-2024 CT SOFT TISSUE NECK W/ CONTRAST ORIGINAL EXAMINATION: CT OF THE NECK SOFT TISSUE WITH CONTRAST 03/03/2024 TECHNIQUE: CT of the neck was performed with the administration of intravenous contrast. Multiplanar reformatted images are provided for review. Automated exposure control, iterative reconstruction, and/or weight based adjustment of the mA/kV was utilized to reduce the radiation dose to as low as reasonably achievable. COMPARISON: Ultrasound neck 02/01/2024. HISTORY: ORDERING SYSTEM PROVIDED HISTORY: Reason for Exam: LUMP ON NECK 90 sec after injection completed FINDINGS: PHARYNX/LARYNX: The tonsillar pillars are normal in appearance. The tongue is normal in appearance. The valleculae, epiglottis, aryepiglottic folds and pyriform sinuses appear unremarkable. The true and false vocal cords are normal in appearance. No mass or abscess is seen. SALIVARY GLANDS/THYROID: The parotid and submandibular glands appear unremarkable. The thyroid gland appears unremarkable. LYMPH NODES: Small bilateral submandibular lymph nodes are present as well as borderline lymph nodes along the internal jugular chains left greater than right. There is an 8 mm x 14 mm left jugulodigastric lymph node. SOFT TISSUES: No appreciable soft tissue swelling or mass is seen. BRAIN/ORBITS/SINUSE S: The visualized portion of the intracranial contents appear unremarkable. The visualized portion of the orbits, paranasal sinuses and mastoid air cells demonstrate no acute abnormality. LUNG APICES/SUPERIOR MEDIASTINUM: No focal consolidation is seen within the visualized lung apices. No superior mediastinal lymphadenopathy or mass. The visualized portion of the trachea appears unremarkable. BONES: No aggressive appearing lytic or blastic bony lesion. IMPRESSION: Mild lymphadenopathy. No evidence of abscess or mass. Interpreted by: Elia Dash Preliminary Report By: Elia Dash Electronically signed By Elia Dash Dictated Date: 03/04/2024 6:26:20 AM Prelim Date: 03/04/2024 6:29:16 AM Sign Date: 03/04/2024 6:29:16 AM Ordering Provider: ARETHA Sebastian [facility] US SOFT TISSUE MASS OF NECKo n 02-03-2024 US SOFT TISSUE MASS OF NECK ORIGINAL EXAMINATION: ULTRASOUND OF THE SOFT TISSUES OF THE HEAD AND NECK02/01/2024 9:04 pm COMPARISON: None TECHNIQUE: 2 areas of concern and palpable abnormality is scanned in the left submandibular region and posterior neck slightly to the right of midline HISTORY: ORDERING SYSTEM PROVIDED HISTORY: Reason for Exam: LUMP ON NECK, patient complains of 2 lumps in the neck. FINDINGS: Scanning of the left submandibular region shows normal appearing submandibular gland. There are multiple lymph nodes in this region that are subcentimeter short axis with a prominent fatty hilum therefore believed to be benign/reactive. The largest of these are 9 x 4 x 8 mm and 9 x 4 x 9 mm. Comparison images of the right side show no similar abnormality. A 2nd lump is scanned in the posterior neck close to the hairline. This is an ovoid hypoechoic presumably solid nodule of 14 x 3 x 8 mm. There is no significant vascularity within this. Some images suggest an echogenic hilum within the nodule. IMPRESSION: Left submandibular palpable abnormality seems to be from benign reactive lymph nodes. The palpable lump in the posterior neck region may be a benign reactive lymph node also. Interpreted by: Finesse Velez MD Preliminary Report By: Finesse Velez MD Electronically signed By Finesse Velez MD Dictated Date: 02/03/2024 8:59:48 AM Prelim Date: 02/03/2024 9:03:41 AM Sign Date: 02/03/2024 9:03:41 AM Ordering Provider: ARETHA Sebastian [facility] FT4on 12-02-2023 Free T4 [Mass/Vol] 1.23 ng/dL Normal 0.76-1.46 [facility] ([place]) Comment on above: Performed By: #### F T4, TSH #### [address] [address] TSHon 12-02-2023 TSH Qn 3.54 m[IU]/L Normal 0.36-3.74 [facility] ([place]) Comment on above: Performed By: #### F T4, TSH #### [facility] [address] [place], [place] [address] GLUon 10-08-2023 Glucose [Mass/Vol] 85 mg/dL Normal 70-110 [facility] ([place] Comment on above: Performed By: #### G TEN, LIPID #### [facility] [address] [place] [address] LIPIDon 10-08-2023 Cholesterol [Mass/Vol] 192 mg/dL Normal 50-199 [facility] ([place]) Comment on above: Result Comment: Chol esterol Reference Interval: Less than 200 Desirable 200-239 Borderline high risk 240 and above High risk Performed By: #### Nadine CAAL, LIPID #### [address] [address] Cholesterol in HDL [Mass/Vol] 74 mg/dL High 40-59 [facility] ([place]) Comment on above: Performed By: #### Nadine CAAL, LIPID #### [address] [address] Cholesterol in LDL [Mass/Vol] 106 mg/dL Normal 0-129 [facility] ([place]) Comment on above: Performed By: #### Nadine CAAL, LIPID #### [address] [address] Triglyceride [Mass/Vol] 58 mg/dL Normal 3-149 A [facility] ([place]) Comment on above: Performed By: #### Nadine CAAL, LIPID #### [address] [address] FT4on 09-07-2023 Free T4 [Mass/Vol] 1.23 ng/dL Normal 0.76-1.46 [facility] ([place]) Comment on above: Performed By: #### T MANJINDER, FT4 #### [place] [address] [address] LABORATORYOrdered By: SYSTEM SYSTEM on 09-07-2023 Free T4 [Mass/Vol] 1.23 ng/dL Normal 0.76 - 1. 46 ng/dL AO ADM SS TSH Qn 0.07 m[IU]/L Low 0.36 - 3.74 mcIU/mL AO ADM SS TSHon 09-07-2023 TSH Qn 0.07 m[IU]/L Low 0.36-3.74 [facility] ([place]) Comment on above: Performed By: #### T MANJINDER, FT4 #### [place] [address] [place], [place] [address] Endocrinology Visit Reporton 09-03-2023 Endocrinology Visit Report [facility] [address] [place] [address]. [address] [place], [place] [address] OFFICE VISIT Date of Service: 09/03/23 MR#: [id number] Acct: [id number] Name: XOCHILT CADET Rep #: [id number] : 1995 Provider: Angus Trevino Age/Sex: 28/F [place] [facility] [place]: Signed Intake Vital Signs 09/04/22 14:40 06/08/23 10:09 09/03/23 08:14 Height 5 ft 8.5 in 5 ft 8.5 in 5 ft 8 in Weight: 181 lb 4 oz BMI 27.5 BP 100/69 Blood Pressure Location Rt brachial Position Sitting Pulse 69 Pulse Source Monitor Temp 97.2 F L Temp Source Temporal Pulse Oximetry (%) 96 Oxygen Delivery Method room air Intake Visit Reasons: 1 Y FU Chief Complaint: Hypothyroidism [employer] Required: No Accompanied by: Self Is patient in pain?: No Allergies No Known Allergies Allergy (Verified 09/03/23 08:14) PFSH Medical History Contraceptive management Deviated nasal septum 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 Seasonal allergies Surgical History History of wisdom tooth extraction History of lateral meniscus repair of right knee History of repair of anterior cruciate ligament Family History Mother Anxiety Depression Thyroid disorder Father Anxiety Alcoholism Depression Hypertension Thyroid disorder Sister Anxiety Depression Thyroid disorder Grandmother Thyroid disorder Grandfather Thyroid disorder Social History adopted: No household members: spouse housing: house number of children: 0 current occupational status: employed current occupation: [employer] pets and animals: Yes sexually active: Yes Smoking Status: Never smoker alcohol intake: current alcohol intake frequency: a few times a month Alcohol type: beer substance use type: does not use diet: other well-balanced diet: daily or most days eating out: 1-3 times/week during the past year weight has: decreased > 10 lbs what type of physical activity do you participate in: running and weight training frequency: daily seatbelt use: always do you feel safe at home: Yes additional social history: - Carlos HPI HPI Chief Complaint: Hypothyroidism Details: XOCHILT CADET, is a 28 F who presents to the office today for follow up. She has hypothyroidism and is taking levothyroxine 112 mcg 1/2 on Sundays. Exam Const General: cooperative, healthy appearing, comfortable, no acute distress, well developed and not cushingoid Nutritional Appearance: well nourished Orientation: alert, awake and oriented x3 HENMT Head: normal to inspection Ears: hearing grossly normal bilaterally Nose: external nose normal Mouth: oral mucosae normal Eyes General: appearance normal, both eyes and all related structures Alignment and Position: alignment normal Periorbital: periorbital findings normal Eyelids: eyelids normal Conjunctivae: conjunctivae normal Neck Neck: normal visual inspection Neck mass: No Thyroid: thyroid normal Lymphatic: no lymphadenopathy noted Chest Chest palpation inspection: normal inspection of the chest Resp Effort Inspection: normal respiratory effort, able to speak in complete sentences, symmetric chest movement, no audible wheezes and no cough Auscultation: Bilateral: Clear to Auscultation Cardio Rate: regular rate Rhythm: regular rhythm GI Inspection: normal to inspection Skin General: no rashes or lesions noted Neuro General: patient alert, patient awake and patient oriented x3 Cranial Nerves: CN's II-XI intact bilaterally Cognition: normal cognition Speech: speech normal Gait: normal gait Motor: muscle tone normal throughout Extrem General: no edema Psych Appearance: grossly normal Mental Status: mental status grossly normal Mood: congruent mood Affect: normal affect Speech and Movement: speech and movement normal Attitude: cooperative Thought Process: normal Thought Content: normal Judgment: judgment good Coding Level of Care Code Off vis,est,level 3 Diagnoses 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 Then wait 30-60 minutes before consuming any other food or beverage, especially coffee. Separate levothyroxine from vitamins by at least 4 hours. Stop taking any biotin supplement 4 days prior to having labs drawn. Check levels. Orders: Orders T4 Free Direct 09/03/23 E03.8 - Other specified hypothy (more content not included)... Normal [facility] LABORATORYOrdered By: SYSTEM SYSTEM on 02-06-2023 T4 [Mass/Vol] 12.5 ug/dL Invalid Interpretation Code 4.5 - 10.9 mcg/dL AH ADM SS Comment on above: Interpretive Data: * *Note - New Reference Range in effect 19 TSH Qn 0.23 m[IU]/L Invalid Interpretation Code 0.36 - 3.74 mcIU/mL AO ADM SS T4on 02-06-2023 T4 [Mass/Vol] 12.5 ug/dL High 4.5-10.9 [facility] ([place]) Comment on above: Result Comment: No te - New Reference Range in effect 19 Performed By: #### T SH #### [address] [address] #### T4 #### [address] [address] TSHon 02-06-2023 TSH Qn 0.23 m[IU]/L Low 0.36-3.74 [facility] ([place]) Comment on above: Performed By: #### T SH #### [address] [address] #### T4 #### [place] [address] HIV 1+2 Ab IA Qlon 3 HIV 1 and 2 Ab IA.rapid Nom Normal [facility] Comment on above: Order Comment: Speci men Type: BLOOD SPECIMEN Ordering Facility: [facility] Address: [address] [place] [address] Result Comment: Test not indicated. Performed By: #### 3 1201-7 #### [facility] CLIA [id number] [address] [place] [address] [place] HIV 1+2 Ab+HIV1 p24 Ag IA Ql Non-Reactive Normal Nonreactive [facility] Comment on above: Order Comment: Speci men Type: BLOOD SPECIMEN Ordering Facility: [facility] Address: [address] [place] [address] Performed By: #### 3 1201-7 #### [facility] CLIA [id number] [address] [place] [address] [place] HIVINT Normal [facility] Comment on above: Order Comment: Specbree patel Type: BLOOD SPECIMEN Ordering Facility: [facility] Address: [address] [place] [address] Result Comment: No e vidence of HIV-1 or HIV-2 infection. Should recent infection be suspected, repeat testing may be considered 2-3 weeks after this draw. [place] Rev. Code 3701.243(E): This information has been disclosed to you from confidential records protected from disclosure by state law. ???You shall make no further disclosure of this information without the specific, written, and informed release of the individual to whom it pertains or as otherwise permitted by state law. A general authorization for the release of medical or other information is not sufficient for the purpose of the release of HIV test results or diagnoses. Performed By: #### 3 1201-7 #### [facility] CLIA [id number] [address] [place] [address] [place] HBV surface Ab Ql (S)on HBV surface Ab Qn (S) 191.08 mIU/mL Normal >=12.00 [facility] Comment on above: Order Comment: Marcos patel Type: BLOOD SPECIMEN Ordering Facility: [facility] Address: [address] [place] [address] Performed By: #### 5 195-3, 24944-2, 24740-6 #### [facility] CLIA [id number] [address] [place] [address] [place] HBV surface Ab Ser Qlon HBV surface Ab Ql (S) Positive Normal Positive [facility] Comment on above: Order Comment: Marcos patel Type: BLOOD SPECIMEN Ordering Facility: [facility] Address: [address] [place] [address] Result Comment: Thes e results are consistent with previous exposure and/or immunity to the hepatitis B virus antigen. Performed By: #### 5 195-3, 31359-0, 86047-2 #### [facility] CLIA [id number] [facility] [place] [address] [place] HBV surface Ag Ser Qlon 05-0 HBV surface Ag Ql (S) Negative Normal Negative [facility] Comment on above: Order Comment: Speci men Type: BLOOD SPECIMEN Ordering Facility: [facility] Address: [address] [place] [address] Performed By: #### 5 195-3, 28334-9, 76612-3 #### [facility] CLIA [id number] [address] [place] [address] [place] HCV Ab Ser Qlon 07-28-2022 HCV Ab Ql (S) Negative Normal Negative [facility] Comment on above: Order Comment: Speci men Type: BLOOD SPECIMEN Ordering Facility: [facility] Address: [address] [place] [address] Result Comment: The result suggests no evidence of active infection with Hepatitis C virus. Should recent infection be suspected, repeat testing may be considered 4-6 weeks after this draw. Performed By: #### 5 195-3, 82784-9, 81750-0 #### [facility] CLIA [id number] [address] [place] [address] [place] HBV surface Ab IA Ql (S)on 0 10-16-2021 HBV surface Ag Ql (S) Negative Normal Negative [facility] Comment on above: Order Comment: Speci men Type: BLOOD SPECIMEN Ordering Facility: [facility] Address: [address] [place] [address] Performed By: #### 1 6935-9, 59472-1, 50243-3 #### [facility] CLIA [id number] [address] [place] [address] [place] HBV surface Ab Ser-aCncon HBV surface Ab Qn (S) 166.68 mIU/mL Normal >=12.00 [facility] Comment on above: Order Comment: Speci men Type: BLOOD SPECIMEN Ordering Facility: [facility] Address: [address] [place] [address], [place] [id number] Result Comment: Thes e results are consistent with previous exposure and/or immunity to the hepatitis B virus antigen. Performed By: #### 1 6935-9, 01273-7, 48118-4 #### [facility] CLIA [id number] [address] [place] [address] [place] HCV Ab Ser Qlon 10-16-2021 HCV Ab Ql (S) Negative Normal Negative [facility] Comment on above: Order Comment: Speci men Type: BLOOD SPECIMEN Ordering Facility: [facility] Address: [address] [place] [address] Result Comment: The result suggests no evidence of active infection with Hepatitis C virus. Should recent infection be suspected, repeat testing may be considered 4-6 weeks after this draw. Performed By: #### 1 6935-9, 25594-5, 64272-1 #### [facility] CLIA [id number] [address] [place] [address] [place] CBC (INCLUDES DIFF/PLT)on Basophils (Bld) [#/Vol] 0.031 10*3/uL Normal 0-200 [facility] Comment on above: Performed By: #### 6 399, 17530 #### [facility] [address], [address] [place], [place] [id number] Swatch Checker: Sreekanth Kunz MD Basophils/100 WBC (Bld) 0.4 % Normal [facility] Comment on above: Performed By: #### 6 399, 99732 #### [facility] [address] , [address] [place], [place] [address] Swatch Checker: Sreekanth Kunz MD Eosinophils (Bld) [#/Vol] 0.133 10*3/uL Normal 15-500 [facility] Comment on above: Performed By: #### 6 399, 35185 #### [facility] [address], [address] [place], [place] [address] Swatch Checker: Sreekanth Kunz MD Eosinophils/100 WBC (Bld) 1.7 % Normal [facility] Comment on above: Performed By: #### 6 399, 90775 #### [facility] of [place] [address] Swatch Checker: Sreekanth Kunz MD Erythrocyte distribution width (RBC) [Ratio] 11.8 % Normal 11.0-15.0 [facility] Comment on above: Performed By: #### 6 399, 31728 #### [facility] of [place] [address] Swatch Checker: Sreekanth Kunz MD Hematocrit (Bld) [Volume fraction] 38.5 % Normal 35.0-45.0 [facility] Comment on above: Performed By: #### 6 399, 76719 #### [facility] of [place] [address] Swatch Checker: Sreekanth Kunz MD Hemoglobin (Bld) [Mass/Vol] 12.9 g/dL Normal 11.7-15.5 [facility] Comment on above: Performed By: #### 6 399, 35951 #### [facility] of [place] [address] Swatch Checker: Sreekanth Kunz MD Lymphocytes (Bld) [#/Vol] 2.457 10*3/uL Normal 850-3900 [facility] Comment on above: Performed By: #### 6 399, 76821 #### [facility] of [place] [address] Swatch Checker: Sreekanth Kunz MD Lymphocytes/100 WBC (Bld) 31.5 % Normal [facility] Comment on above: Performed By: #### 6 399, 58937 #### [facility] of [place] [address] Swatch Checker: Sreekanth Kunz MD MCH (RBC) [Entitic mass] 30.2 pg Normal 27.0-33.0 [facility] Comment on above: Performed By: #### 6 399, 88435 #### [facility] of [address], [address] [place] [address] Swatch Checker: Sreekanth Kunz MD MCHC (RBC) [Mass/Vol] 33.5 g/dL Normal 32.0-36.[address] [facility] Comment on above: Performed By: #### 6 399, 41691 #### [facility] of [place] [address] Swatch Checker: Sreekanth Kunz MD MCV (RBC) [Entitic vol] 90.2 fL Normal 80.0-100.0 [facility] Comment on above: Performed By: #### 6 399, 45664 #### [facility] of [place] [address] Swatch Checker: Sreekanth Kunz MD Monocytes (Bld) [#/Vol] 0.476 10*3/uL Normal 200-950 [facility] Comment on above: Performed By: #### 6 399, 43981 #### [facility] of [address], [address] [place] [address] Swatch Checker: Sreekanth Kunz MD Monocytes/100 WBC (Bld) 6.1 % Normal [facility] Comment on above: Performed By: #### 6 399, 95824 #### [facility] of [place] [address] Swatch Checker: Sreekanth Kunz MD Neutrophils (Bld) [#/Vol] 4.703 10*3/uL Normal 4931-0495 [facility] Comment on above: Performed By: #### 6 399, 08420 #### [facility] of [place] [address] Swatch Checker: Sreekanth Kunz MD Neutrophils/100 WBC (Bld) 60.3 % Normal [facility] Comment on above: Performed By: #### 6 399, 00611 #### [facility] of [place] [address] Swatch Checker: Sreekanth Kunz MD Platelet mean volume (Bld) [Entitic vol] 9.9 fL Normal 7.5-12.5 [facility] Comment on above: Performed By: #### 6 399, 83184 #### [facility] of [place] [address] Swatch Checker: Sreekanth Kunz MD Platelets (Bld) [#/Vol] 359 10*3/uL Normal 140-400 [facility] Comment on above: Performed By: #### 6 399, 60773 #### [facility] of [place] [address] Swatch Checker: Sreekanth Kunz MD RBC (Bld) [#/Vol] 4.27 10*6/uL Normal 3.80-5.10 [facility] Comment on above: Performed By: #### 6 399, 53986 #### [facility] of [place] [address] Swatch Checker: Sreekanth Kunz MD WBC (Bld) [#/Vol] 7.8 10*3/uL Normal 3.8-10.8 [facility] Comment on above: Performed By: #### 6 399, 49477 #### [facility] of [place] [address] Swatch Checker: Sreekanth Kunz MD [facility]ABOL[facility] 09-24-2021 Albumin [Mass/Vol] 4.1 g/dL Normal 3.6-5.1 [facility] Comment on above: Performed By: #### 6 399, 61793 #### [facility] of [place] [address] Swatch Checker: Sreekanth Kunz MD Albumin/Globulin [Mass ratio] 1.7 {ratio} Normal 1.0-2.5 [facility] Comment on above: Performed By: #### 6 399, 21883 #### [facility] of [place] [address] Swatch Checker: Sreekanth Kunz MD ALP [Catalytic activity/Vol] 56 U/L Normal 31-125 [facility] Comment on above: Performed By: #### 6 399, 81171 #### [facility] of [address], [address] [place] [address] Swatch Checker: Sreekanth Kunz MD ALT [Catalytic activity/Vol] 12 U/L Normal 6-29 [facility] Comment on above: Performed By: #### 6 399, 70613 #### [facility] of [address], [address] [place] [address] Swatch Checker: Sreekanth Kunz MD AST [Catalytic activity/Vol] 17 U/L Normal 10-30 [facility] Comment on above: Performed By: #### 6 399, 87316 #### [facility] of [place] [address] Swatch Checker: Sreekanth Kunz MD Bilirubin [Mass/Vol] 0.6 mg/dL Normal 0.2-1.2 [facility] Comment on above: Performed By: #### 6 399, 33846 #### [facility] of [place] [address] Swatch Checker: Sreekanth Kunz MD BUN/CREATININE RATIO NOT APPLICABLE Normal 6-22 [facility] Comment on above: Performed By: #### 6 399, 85895 #### [facility] of [place] [address] Swatch Checker: Sreekanth Kunz MD Calcium [Mass/Vol] 9.2 mg/dL Normal 8.6-10.2 [facility] Comment on above: Performed By: #### 6 399, 60695 #### [facility] of [place] [address] Swatch Checker: Sreekanth Kunz MD Chloride [Moles/Vol] 104 mmol/L Normal 98-110 [facility] Comment on above: Performed By: #### 6 399, 97271 #### [facility] of [place] [address] Swatch Checker: Sreekanth Kunz MD CO2 [Moles/Vol] 29 mmol/L Normal 20-32 [facility] Comment on above: Performed By: #### 6 399, 95001 #### [facility] [address], [address] [place] [address] Swatch Checker: Sreekanth Kunz MD Creatinine [Mass/Vol] 0.93 mg/dL Normal 0.50-1.[address] [facility] Comment on above: Performed By: #### 6 399, 96172 #### [facility] [place] [address] Swatch Checker: Sreekanth Kunz MD eGFR NON-AFR. MALDIVIAN 85 mL/min/1.73m2 Normal > OR = 60 [facility] Comment on above: Performed By: #### 6 399, 34699 #### [facility] [place] [address] Swatch Checker: Sreekanth Kunz MD GFR/1.73 sq M.predicted among blacks MDRD (S/P/Bld) [Vol rate/Area] 99 mL/min/{1.73_m2} Normal > OR = 60 [facility] Comment on above: Performed By: #### 6 399, 06528 #### [facility] [place] [address] Swatch Checker: Sreekanth Kunz MD Globulin (S) [Mass/Vol] 2.4 g/dL Normal 1.9-3.7 [facility] Comment on above: Performed By: #### 6 399, 94479 #### [facility] [place] [address] Swatch Checker: Sreekanth Kunz MD Glucose [Mass/Vol] 87 mg/dL Normal 65-99 [facility] Comment on above: Result Comment: Fasting reference interval Performed By: #### 6 399, 77249 #### [facility] [place] [address] Swatch Checker: Sreekanth Kunz MD Potassium [Moles/Vol] 4.5 mmol/L Normal 3.5-5.[address] [facility] Comment on above: Performed By: #### 6 399, 48073 #### [facility] of [address], [address] [place] [address] Swatch Checker: Sreekanth Kunz MD Protein [Mass/Vol] 6.5 g/dL Normal 6.1-8.1 [facility] Comment on above: Performed By: #### 6 399, 85798 #### [facility] of [address], [address] [place] [address] Swatch Checker: Sreekanth Kunz MD Sodium [Moles/Vol] 138 mmol/L Normal 135-146 [facility] Comment on above: Performed By: #### 6 399, 05601 #### [facility] of [address], [address] [place] [address] Swatch Checker: Sreekanth Kunz MD Urea nitrogen [Mass/Vol] 8 mg/dL Normal 7-25 [facility] Comment on above: Performed By: #### 6 399, 51023 #### [facility] of [address], [address] [place] [address] Swatch Checker: Sreekanth Kunz MD T3Free [facility] 09-25-19 22 Free T3 [Mass/Vol] 5.2 pg/mL High 2.3-4.1 [facility] Comment on above: Order Comment: Speci men Type: BLOOD SPECIMEN Ordering Facility: [facility]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 for: abdominal pain, constipation, diarrhea, nausea and vomiting; change in bowel habits, hematochezia, melena, rectal pain and stool incontinence GENITOURINARY: Negative for: cloudy urine, dysuria, frequency, hematuria, strong smelling urine, urgency, vaginal bleeding and vaginal discharge; amenorrhea, dyspareunia, urine output decreased and urine output increased MUSCULOSKELETAL: Negative for: back pain, joint pain, neck pain, pain, sensory deficits, stiffness and weakness INTEGUMENTARY: Negative for: abrasions, dryness, hives, itching, jaundice, lesions and lumps; mole changes, petechiae, pruritus, rash and thin skin NEUROLOGICAL: Negative for: altered mental status, dizziness, gait abnormality, headache, loss of consciousness, loss of function and low extremity numbness; memory impairment, neck stiffness, sensory deficits, upper extremity numbness and vertigo PSYCHIATRIC: Negative for: anxiety, depression, hallucinations, insomnia, memory changes and mood swings ENDOCRINE: Negative for: change in weight, cold/heat tolerance, diabetes, hot flashes, polydipsia, polyuria and thyroid trouble HEME/LYMPH: Negative for: anemia, easy bleeding, easy bruising, jaundice, night sweats, past transfusion and swollen lymph nodes ALLERGIC/IMMUNOLOGI C: Negative for: rash PHYSICAL EXAM CONSTITUTIONAL: Well appearing, well nourished, awake, alert, oriented to person, place, time/situation and in no apparent distress. HENMT: Airway patent, ears with clear tympanic membranes bilaterally. Nasal mucosa clear. Mouth with normal mucosa. Throat has no vesicles, no oropharyngeal exudates and uvula is midline. Face with no lymph node enlargement. EYES: Clear bilaterally, pupils equal, round and reactive to light. CARDIOVASCULAR: Normal rate, regular rhythm. Heart sounds S1, S2. No murmurs, rubs or gallops. PMI non-displaced. RESPIRATORY: Breath sounds clear and equal bilaterally. GASTROINTESTINAL: Abdomen soft, non-distended, no rebound, no guarding. Bowel sounds normal in all 4 quadrants. MUSCULOSKELETAL: Spine appears normal, range of motion is not limited, no muscle or joint tenderness. NEUROLOGICAL: Alert and oriented, no focal deficits, no motor or sensory deficits. SKIN: Skin normal color for race, warm, dry and intact. No evidence of trauma. PSYCHIATRIC: Alert and oriented to person, place, time/situation. normal mood and affect. No apparent risk to self or others. HEME/LYMPH: No adenopathy or splenomegaly. No cervical, supraclavicular or inguinal lymphadenopathy. RESULTS/VITAL SIGNS VITAL SIGNS: T PRBP SpO2O2(LPM) %FiO2 Method 20-Feb-2019 19:59:[id number] 96 room air, no respiratory support MEDICAL DECISION MAKING/ED COURSE MDM/ED COURSE: upon assessment patient was a healthy non-toxic appearing female in no apparent distress. Her assessment was completely benign. I noted no trauma to her right ring finger. I noted no drainage, excessive warmth or redness. Physical exam concerning for needlestick injury. Due to prior history and current physical exam, I deemed no basic laboratory or radiologic studies are necessary at this time. Patient was offered no medication while in the ED. Patient was educated on prophylactic postexposure treatment and ultimately refused at this time due to the side effects. She was given needlestick paperwork by the RN. Patient remained hemodynamically stable throughout ED visit. Previous consult/ED visit notes were reviewed. Findings were discussed with patient and patient agreeable for plan to discharge home with primary care provider as needed and to follow-up with [facility] for further management. Return precautions discussed and patient acknowledged understanding. All questions and concerns answered prior to discharge. This patient was staffed with ED Attending Dr. Shahid to review the plan of care during ED course. *Please note that portions of this note may have been completed with a voice recognition program. Efforts were made to edit the dictations but occasionally, words are mis-transcribed. Discussed Findings with: patient Data Reviewed: old records, vital signs and nurses notes CLINICAL IMPRESSION Diagnosis/Annotatio n: ED Dx Name:Hypodermic needlestick injury of finger Code:S61.239A Name:Exposure to blood or body fluid Code:Z77.21 Dispostion: discharged Type: home ATTESTATION Attestation: This is a shared visit. I have reviewed the LIPs encounter note, approve the LIPs documentation and provide the following additional information from my personal encounter. Shared Visit Documentation: See comments/additional findings below Comments/Additional Findings: I have personally performed a face to face diagnostic evaluation on this patient. I have reviewed and agree with the care plan. History and Exam by me shows: 23 yo F with no known PMHx presents to the ED for needle stick and exposure to sputum while at work. 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 While working with a different patient the patient was exposed to trach sputum that landed in her oral cavity. She denies any other symptoms. No bleeding from puncture site. On exam vitals stable. NAD. EOMI. Cardiac exam showed S1 and S2 without rubs or murmurs. Lungs were clear bilaterally without wheezing or rales. Abdomen was soft, without rebound or guarding. Moves all extremities. No rash. There is a small puncture wound on the R 4th finger that is hemostatic. CRITICAL CARE TIME Is this a critically ill patient: no Electronic Signatures: Ivory Kenney (PASSENGER INTERLINE CLERK-MACHINE PACKAGING TECHNICIAN) (Signed 20-Feb-2019 20:51) Authored: Provider Note - ED v2 Tamara Shahid) (Signed 23-Feb-2019 00:22) Authored: Provider Note - ED v2 Co-Signer: Provider Note - ED v2 Last Updated: 23-Feb-2019 00:22 by Tamara Shahid) References: 1. Data Referenced From Triage - ED 20-Feb-2019 19:[address] [facility] Triage - EDon 02-20-2019 Triage - ED Quick Triage: The patient and/or guardian verbally acknowledges placement for services into the following (when Urgent Care Service hours are operating):urgent care services Are You no Have You Given In The Last 6 Weeksno Are You Currently Breastfeedingno Chart Review: CHIEF COMPLAINT XOCHILT CORONA is a Female patient with a chief complaint of needle stick. Other Complaints: pt reports was stuck in R ring finger with heparin needle as well as had trach spit land on lip Triage Date/Time: 20-Feb-2019 19:59 Pain Rating (0-10): 0 = None Vital Signs: Temperature: 97.1F ( 36.2C) taken temporal Blood Pressure: 118/77 Mean: Heart Rate: 89 Respiratory Rate: 20 Pulse Oximetry: 96% on room air, no respiratory support. Height: 5 feet 9.00 inches. 175.2 CM Weight: 180.0 pounds. Calculated 81.6 kg. (stated) Calculated BMI (kg/m2): 26.584 Calculated BSA (m2) 1.99 Christian Coma Scale: Best Eye Response: (E4) spontaneous Best Motor Response: (M6) obeys commands Best Verbal Response: (V5) oriented Randolph Score: 15 Cough lasting greater than 3 weeks: no Travel outside of [facility]: no Allergies: no Patient has homicidal thoughts: no ESTEFANIA: 3V Symptoms Are Negative For: abdominal pain, body aches, chills, cough, diaphoresis, diarrhea, fever, headache, rash and vomiting. Risk Screens Suicide Risk Screen In the Past Month: Have you wished you were or wished you could go to sleep and not wake up no In the Past Month: Have you had any actual thoughts of killing yourself no In Your Lifetime: Have you ever done anything, started to do anything, or prepared to do anything to end your life no Cruz Fall Scale Screening Has the patient fallen before (or is the patient in the ED as a result of a fall) has not had a fall Does the patient have an impaired gait does not have impaired gait Is the patient cognitively impaired not cognitively impaired PAIN Pain Scale Used: DEBORA Pain Rating (0-10): 0 = None Past Medical History: Past Medical History Reviewedyes Electronic Signatures: Carole Rhoades (MADY) (Signed 20-Feb-2019 20:02) Authored: Triage, Past Medical History Last Updated: 20-Feb-2019 20:02 by Carole Rhoades (MADY) Normal [facility] Complete Urinalysison 2018 Bacteria LM.HPF (Urine sed) [#/Area] Many (51-100) Normal Negative [facility] Comment on above: Performed By: #### C UA2, HCGUR #### [address] [address] Non-Squamous Epithelial Negative Normal Negative [facility] Comment on above: Performed By: #### C UA2, HCGUR #### [id number] [place] [address] RBC LM.HPF (Urine sed) [#/Area] /[HPF] Normal 0-2 [facility] Comment on above: Performed By: #### C UA2, HCGUR #### [address] [place] [address] Squamous Epithelial 6 - 10 Normal 3-5 [facility] Comment on above: Performed By: #### C UA2, HCGUR #### [address] [place] [address] WBC LM.HPF (Urine sed) [#/Area] /[HPF] Normal 0-5 [facility] Comment on above: Performed By: #### C UA2, HCGUR #### [address] [place] [address] Yeast LM Ql (Urine sed) Few (1-5) Normal Negative S [facility] Comment on above: Performed By: #### C UA2, HCGUR #### [address] [place] [address] Appearance (U) Turbid Normal Clear [facility] Comment on above: Performed By: #### C UA2, HCGUR #### [address] [place] [address] Bilirubin,Urine Negative Normal Negative [facility] Comment on above: Performed By: #### C UA2, HCGUR #### [address] [place] [address] Color (U) LIGHT ORANGE Normal Lt. Yellow [facility] Comment on above: Performed By: #### C UA2, HCGUR #### [address] [place] [address] Glucose Ql (U) Normal Normal Normal (<70) [facility] Comment on above: Performed By: #### C UA2, HCGUR #### [address] [place] [address] Ketone,Urine 10 mg/dL Normal Negative [facility] Comment on above: Performed By: #### C UA2, HCGUR #### [address] [place] [address] Leukocytes,Urine 500 Chalo/uL Normal Negative [facility] Comment on above: Performed By: #### C UA2, HCGUR #### [address] [place] [address] Nitrites,Urine Negative Normal Negative [facility] Comment on above: Performed By: #### C UA2, HCGUR #### [address] [address] Occult Blood,Urine 1.0 mg/dL Normal Negative [facility] Comment on above: Performed By: #### C UA2, HCGUR #### [address] [address] pH (U) 6.0 Normal 5.0-8.0 [facility] Comment on above: Performed By: #### C UA2, HCGUR #### [address] [address] Protein (U) [Mass/Vol] 300 mg/dL Normal Negative [facility] Comment on above: Performed By: #### C UA2, HCGUR #### [address] [address] Specific [place],Urine > 1.030 Normal 1.005-1.030 [facility] Comment on above: Performed By: #### C UA2, HCGUR #### [address] [address] Urobilinogen,Urine Normal Normal Normal (0-1) [facility] Comment on above: Performed By: #### C UA2, HCGUR #### [address] [address] HCG,Urine Qualon 02-19-2019 Beta HCG ( test) Ql (U) Negative Normal Negative [facility] Comment on above: Result Comment: Preg jaye is the most common reason for HCG in urine, although choriocarcinoma, hydatidiform mole, and certain nontropho- blastic malignancies also result in detectable urinary HCG levels. Sensitivity = 20mIU/mL. Performed By: #### C UA2, HCGUR #### [address] [address] HGC Urine Qual [place] 2018 Beta HCG ( test) Ql (U) Negative Negative [facility], [place] Comment on above: is the mos t common reason for HCG in urine, although choriocarcinoma, hydatidiform mole, and certain nontropho- blastic malignancies also result in detectable urinary HCG levels. Sensitivity = 20mIU/mL. Test Performed by [facility], [address] [place] [id number] [place], [place] Urinalysison 02-18-2019 Appearance (U) Turbid Clear NA [place], [place] Bacteria, UA Many (51-100) Negative /[HPF] [place], [place] Bilirubin Urine Negative Negative mg/dL [place], [place] Color (U) LIGHT ORANGE Lt. Yellow NA [place], [place] Glucose, Ur Normal Normal (<70) mg/dL [place] Ketones Ql (U) 10 mg/dL Negative [place], [place] LEUKOCYTES, UA 500 Negative Chalo/uL [place] Nitrite, Urine Negative Negative [place] Non-Squamous Epithelial Negative Nega tive /[HPF] [place], [place] Occult Blood,Urine 1.0 mg/dL Negative [place], [place] pH (U) 6.0 [pH] [place], [place] Protein (U) [Mass/Vol] 300 mg/dL Negative [place], [place] RBC (U) [#/Vol] /uL 0 - 2 /[HPF] [place], [place] Specific [place], Urine >1.030 M [place], [place] Squam Epithel, UA 6-10 3 - 5 /[HPF] [place], [place] Urobilinogen, Urine Normal Normal ( 0-1) mg/dL [place], [place] WBC, UA >100 0 - 5 /[HPF] [place], [place] Yeast, Urine Few (1-5) Negative /[HPF] [place], [place] Test Performed by [facility], [address] [place] [id number] [place], [place] Provider Note - ED v2on 12-28 Provider Note - ED v2 Provider Note - ED v2: Chart Review: ED NOTES ED NOTES: Source of information: Patient, Review of nursing notes History limitation: none Chief concern: blood exposure History of present illness: 23-year-old female with no prior medical history presenting to the ED after blood pathogen exposure. 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 She notes she's had an open wound on her right thumb for a few days and when they were switching over the chest tube collection system, she felt like there were bodily fluids that may have gotten onto her hands. She did not notice any actual blood on her hands. She states that the patient does not have any known HIV or hepatitis. She is nervous about the exposure. She is currently asymptomatic. 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 Neuro: Normal speech and comprehension. Moving all 4 extremities. No focal deificits Extremities: no musculoskeletal deformities. Skin: Warm, dry, no cyanosis, no rash. There is a small, 1mm old appearing laceration over her R thumb, just medial to her nail that is healing well Psych: Appropriate affect, fluent/organized speech, well groomed Hospital Course/Medical decision makin-year-old healthy female presenting after exposure to patient's bodily fluids while she was working in the setting of a small open wound on her right hand. She did not actually see any blood. She was not injecting anything did not get stuck with any needles. The exposure was overall very low risk. We discussed the possibility of post exposure prophylaxis and this is not recommended at this time. The patient is comfortable with that. Paperwork was done with nursing. She will be discharged home with the plan to follow up with the lab tomorrow. Patient was informed to come back with any concerns or worsening of condition and was agreeable to the plan as discussed above. Diagnoses: Bodily fluids exposure Disposition: Home, self-care in stable condition D/w Dr. Vida Thompson MD Emergency Medicine - PGY3 HISTORY OF PRESENTING ILLNESS XOCHILT is a 23 year old Female and was seen by me at 07-Jan-2019 00:29. Triage Information: Most recent Vital Sign Value Date Temp (F): 96.8 01-07-2019 00:21 Temp (C): 36 01-07-2019 00:21 Heart Rate (beats/min): 84 01-07-2019 00:21 Respirations (breaths/min): 16 01-07-2019 00:21 SpO2 (%): 99 01-07-2019 00:21 BP Systolic (mm Hg): 130 01-07-2019 00:21 BP Diastolic (mm Hg): 86 01-07-2019 00:21 PAST MEDICAL HISTORY ATTESTATION: I have reviewed and confirmed nurse's/medic's notes for patient's medications, allergies, medical history, and surgical history ALLERGIES/INTOLERAN HÉCTOR: Allergy Allergen: doxycycline Type: Drug Reaction: Hives/Urticaria Intolerance Allergen: codeine Type: Drug Reaction: GI Upset HEALTH HISTORY: No documented data. OUTPATIENT MEDICATIONS: Home Medications Review Status for Reconciliation: N/A Med Status: Patient Currently Takes Medications Drug Name: Synthroid Instructions: orally Drug Name: spironolactone Instructions: orally Drug Name: Sprintec 0.25 mg-35 mcg oral tablet Instructions: 1 tab(s) orally once a day Drug Name: oxyCODONE-acetamino phen 5 mg-325 mg oral tablet Instructions: 1 tab(s) orally every 4 hours as needed for pain SIGNIFICANT EVENTS: Clinical Events Description:Surgica l Procedure Additional Notes:tonsillectomy Past Medical History Description:Hypothy roid Description:torn ACL right side Past Surgical History Description:wisdom teeth pulled. 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 I personally obtained the thomas and critical portions of the history and physical exam or was physically present for thomas and critical portions performed by the resident/fellow. I reviewed the resident/fellows documentation and discussed the patient with the resident/fellow. I agree with the resident/fellows medical decision making as documented in the residents note CRITICAL CARE TIME Is this a critically ill patient: no Electronic Signatures: Luz Thompson ( (Resident)) (Signed 08-Jan-2019 00:00) Authored: Provider Note - ED v2 Dyllan Mcpherson (DO) (Signed 13-Jan-2019 16:13) Authored: Provider Note - ED v2 Co-Signer: Provider Note - ED v2 Last Updated: 13-Jan-2019 16:13 by Dyllan Mcpherson () Normal [facility] Triage - EDon 01-07-2019 Triage - ED Quick Triage: Are You no Have You Given In The Last 6 Weeksno Are You Currently Breastfeedingno Chart Review: CHIEF COMPLAINT XOCHILT CORONA is a Female patient with a chief complaint of blood borne pathogen exposure. Other Complaints: changing a chest tube and got fluid with blood in it on her hand. Patient has a cut on her hand. patient washed the effected area at the time of exposure. Patient states exposure happened last night. Triage Date/Time: 07-Jan-2019 00:21 Pain Rating (0-10): 0 = None Vital Signs: Temperature: 96.8F ( 36.0C) taken temporal Blood Pressure: 130/86 Mean: Heart Rate: 84 Respiratory Rate: 16 Pulse Oximetry: 99% on room air, no respiratory support. Height: 5 feet 9.00 inches. 175.2 CM Weight: 185.0 pounds. Calculated 83.9 kg. Calculated BMI (kg/m2): 27.333 Calculated BSA (m2) 2.02 Christian Coma Scale: Best Eye Response: (E4) spontaneous Best Motor Response: (M6) obeys commands Best Verbal Response: (V5) oriented Christian Score: 15 Allergies: yes Last menstrual period: 17-Dec-2018 Patient has homicidal thoughts: no ESTEFANIA: 3V Symptoms Are Negative For: abdominal pain, body aches, chills, cough, diaphoresis, diarrhea, fever, headache, rash and vomiting. Risk Screens Suicide Risk Screen In the Past Month: Have you wished you were or wished you could go to sleep and not wake up no In the Past Month: Have you had any actual thoughts of killing yourself no In Your Lifetime: Have you ever done anything, started to do anything, or prepared to do anything to end your life no Cruz Fall Scale Screening Has the patient fallen before (or is the patient in the ED as a result of a fall) has not had a fall Does the patient have an impaired gait does not have impaired gait Is the patient cognitively impaired not cognitively impaired PAIN Pain Scale Used: DEBORA Pain Rating (0-10): 0 = None Past Medical History: Past Medical History Reviewedyes Electronic Signatures: Pamella Johnson (MADY) (Signed 07-Jan-2019 00:23) Authored: Triage, Past Medical History Last Updated: 07-Jan-2019 00:23 by Pamella Johnson (MADY) Normal [facility] BREAST ULTRASOUNDon 12-01-19 19 BREAST ULTRASOUND Patient Name: XOCHILT CORONA STUDY: BREAST ULTRASOUND; 11/30/2018 11:15 am ACCESSION NUMBER(S): [id number] ORDERING CLINICIAN: MICHELLE PRIETO INDICATION: nodule under left nipple. Palpable left breast lump for 2 years without associated pain. There is intermittent left nipple inversion. COMPARISON: None. FINDINGS: A targeted ultrasound was performed the site of the left palpable lump at 6 o'clock subareolar region. There is a 6 x 4 x 6 mm simple cyst located very superficially, just deep to the dermis. The adjacent nipple in remaining subareolar tissues are unremarkable. IMPRESSION: 6 mm simple cyst corresponding to the palpable lump. Clinical follow-up is recommended. BI-RADS CATEGORY: Category: 2 - Benign. Recommendation: Clinical follow-up For any future breast imaging appointments, please call [phone] ([phone]). Electronically signed by: CHADD PATIÑO MD Normal [facility] Clinical Summary: HMSPatient IDon 11-26-2018 [facility] Work Phone: 19-49 Yearson 11-24-2018 19-49 Years Diagnoses/Problems Health Maintenance/Risks Encounter for preventive health examination (V70.0) (Z00.00) Assessed Hypothyroidism (244.9) (E03.9) Added by Problem List Migration; 2013-03-06 Lump, breast (611.72) (N63.0)1 1 Amended By: Michelle Prieto; Nov 24 2018 10:38 AM ESTOrders Health Maintenance 1 1 Hypothyroidism Renew: Synthroid 175 MCG Oral Tablet (Levothyroxine Sodium); TAKE 1 TABLET EVERY DAY Rx By: Michelle Prieto; Dispense: 0 Days ; #:90 Tablet; Refill: 1;For: Hypothyroidism; EFREM = Y; Verified Transmission to [facility][id number]; Last Updated By: [email or web address]; 11/24/2018 10:24:56 AM1 Lump, breast Mamm - Ultrasound of Breast; Status:Hold For - Scheduling; Requested for:[id number]; 1 Perform:[facility]; Due:22Feb2019;Order ed; For:Lump, breast; Ordered By:Michelle Prieto M1 Radiologist to Determine Optimal Study : Y What are the patient's signs and symptoms? : nodule under left nipple1 Menstrual irregularity Renew: Sprintec 28 0.25-35 MG-MCG Oral Tablet; TAKE 1 TABLET BY MOUTH EVERY DAY Rx By: Michelle Prieto; Dispense: 84 Days ; #:84 Tablet; Refill: 3;For: Menstrual irregularity; EFREM = N; Verified Transmission to [facility][id number]; Last Updated By: [email or web address]; 11/24/2018 10:25:03 AM1 Unlinked Stop: Finacea 15 % External Foam Dispense: 30 Days ; #:50; Refill: 0; EFREM = N; Record; Last Updated By: Michelle Prieto; 11/24/2018 10:23:59 AM1 1 Amended By: Michelle Prieto; Nov 24 2018 10:38 AM ESTProvider Impressions call w issues diet and exercise and fu [address] Baker for tingle in leg check US call w issues1 1 Amended By: Michelle Prieto; Nov 24 2018 10:38 AM ESTChief Complaint Yearly CPE and PAP History of Present Illness The last health maintenance visit was year(s) ago. The patient's health since the last visit is described as good. There are no interval changes in the patient's PMH, PSH, and current medications. She has regular dental visits. She denies hearing loss. Immunizations status:. glasses. Lifestyle: She consumes a diverse and healthy diet. She has weight concerns. She exercises regularly. She does not use tobacco. She denies alcohol use. harder to lose weight. Reproductive health: the patient is premenopausal. reg. History: 0. tingle in right leg sp knee surgery tingle in leg now and tngkes when runs Review of Systems Constitutional: feeling tired, but no chills, no fever and no night sweats . tired a lot. Eyes: no blurred vision and no eyesight problems. ENT: no hearing loss, no nasal congestion, no nasal discharge, no hoarseness and no sore throat. Cardiovascular: no chest pain, no intermittent leg claudication, no lower extremity edema, no palpitations and no syncope. Respiratory: no cough, no shortness of breath during exertion, no shortness of breath at rest and no wheezing. Gastrointestinal: no abdominal pain, no blood in stools, no constipation, no diarrhea, no melena, no nausea, no rectal pain and no vomiting. Genitourinary: no dysuria, no change in urinary frequency, no urinary hesitancy, no feelings of urinary urgency and no vaginal discharge. Musculoskeletal: limb pain, but no arthralgias, no back pain, no localized joint pain, no joint redness, no joint stiffness, no joint swelling and no myalgias. Integumentary: no new skin lesions and no rashes. Neurological: no difficulty walking, no headache, no limb weakness, no numbness and no tingling. Psychiatric: no anxiety, no depression, no anhedonia and no substance use disorders. Endocrine: no recent weight gain and no recent weight loss. Hematologic/Lymphat ic: no tendency for easy bruising and no swollen glands. All other systems have been reviewed and are negative for complaint. 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 5 oz. born by secondary to breech position following a normal . History of concussion (V15.52) (Z87.820) 08/23/[address] Muhammad's care Left otitis media (382.9) (H66.92) Resolved Date: 03 Aug 2016 History of Left ulnar fracture (813.82) (S52.202A) April 2011 History of Nasal fracture (802.0) (S02.2XXA) 2 instances of nasal fracture 2011 and 2012 History of Septic joint of right ankle and foot (711.07) (M00.9) Right septic ankle July [address] Nicholas Santos History of Sore throat (462) (J02.9) Resolved Date: 06 Nov 2015 Strep throat (034.0) (J02.0) Resolved Date: 04 Nov 2014 History of Thyroid trouble (246.9) (E07.9) History of Walking pneumonia (486) (J18.9) Resolved Date: 06 Nov 2015 Surgical History Problems History of Ankle Surgery History of Oral Surgery Gum graft 2015Wisdom teeth 2013 Family History Mother Family history of hypothyroidism (V18.19) (Z83.49) Family history of migraine headaches (V17.2) (Z82.0) Family history of thyroid disease (V18.19) (Z83.49) FHx: allergies (V19.6) (Z84.89) Family history of Seasonal allergies Father Family history of hypothyroidism (V18.19) (Z83.49) Family history of migraine headaches (V17.2) (Z82.0) Family history of thyroid disease (V18.19) (Z83.49) Sister Family history of hypothyroidism (V18.19) (Z83.49) FHx: allergies (V19.6) (Z84.89) Family history of Seasonal allergies Grandparent Family history of thyroid disease (V18.19) (Z83.49) Grandmother Family history of migraine headaches (V17.2) (Z82.0) Maternal Grandmother Family history of migraine headaches (V17.2) (Z82.0) 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 Lives with parents (domestic partners,) Never smoker Pets/Animals: Dog Sibling Christina ( sister) Erlinda ( sister) Younger siblings Allergies Medication Doxycycline Monohydrate CAPS Recorded By: Carine Starr; 06/04/2015 10:22:36 AM NonMedication No Known Environmental Allergies Recorded By: Janny Lemus; 03/18/2016 10:16:01 AM Current Meds Medication NameInstruction Finacea 15 % External Foam NuvaRing 0.12-0.015 MG/24HR Vaginal RingINSERT 1 RING VAGINALLY EVERY MONTH, LEAVE IN PLACE FOR 3 WEEKS, REMOVE FOR 1 WEEK Sprintec 28 0.25-35 MG-MCG Oral TabletTAKE 1 TABLET BY MOUTH EVERY DAY Synthroid 175 MCG Oral TabletTAKE 1 TABLET EVERY DAY Vitals Vital Signs Recorded: [id number] 10:04AM Hxvijkegyrv27.7 F Heart Rate63 Wibjgdhr608 Japdafszh88 Height5 ft 9 in Quoxvq486 lb BMI Vblawypvgx15.65 BSA Calculated2.04 O2 Znbxacxxzl39 Physical Exam Constitutional: Alert and in no acute distress. Well developed, well nourished. Eyes: Normal external exam. Pupils were equal in size, round, reactive to light (PERRL) with normal accommodation and extraocular movements intact (EOMI). Ears, Nose, Mouth, and Throat: External inspection of ears and nose: Normal. Hearing: Normal. Nasal mucosa, septum, and turbinates: Normal. Lips, teeth, and gums: Normal. Oropharynx: Normal. Neck: No neck mass was observed. Supple. Thyroid not enlarged and there were no palpable thyroid nodules. Cardiovascular: Heart rate and rhythm were normal, normal S1 and S2, no gallops, no murmurs and no pericardial rub. Pedal pulses: Normal. No peripheral edema. Pulmonary: No respiratory distress. Clear bilateral breath sounds. Chest:1 1,2 . Breasts: Abnormal. 2 . Cyst left near nipple2 . Chest: Normal.1 . Abdomen: Soft nontender; no abdominal mass palpated. No organomegaly. Genitourinary:1 . External genitalia and vagina: Normal.1 . Cervix: Normal.1 . Uterus: Normal.1 . Adnexa/parametria: Normal.1 . Musculoskeletal: No joint swelling seen, normal movements of all extremities. Range of motion: Normal. Muscle strength/tone: Normal. Skin: Normal skin color and pigmentation, normal skin turgor, and no rash. Psychiatric: Judgment and insight: Intact. Mood and affect: Normal. Lymphatic: No cervical lymphadenopathy. Constitutional - Well developed, well nourished, well hydrated and no acute distress. Vital signs reviewed. Head and Face - Normocephalic, atraumatic. Eyes - No redness, edema or visible abnormality of conjunctiva or lids. Neck - Full range of motion. No significant adenopathy. Pulmonary - Lungs clear. No rales or wheezing. Good air exchange. Cardiovascular - Regular rate and rhythm. No significant murmur. Skin - No significant rash or lesions. Psychiatric - Judgment and insight: Intact. Mood and affect: Normal. 1 Amended By: Michelle Prieto; Nov 24 2018 10:24 AM EST 2 Amended By: Michelle Prieto; Nov 24 2018 10:38 AM ESTSignatures Electronically signed by : Michelle Prieto MD; Nov 24 2018 10:24AM EST (Author) Normal [employer] THYROXINE,FREEon 11-23-2018 THYROXINE,FREE 1.32 ng/dL Normal 0.78 - 1.48 [facility] Comment on above: Result Comment: Thyr oxine Free testing is performed using different testing methodology at [facility] than at other [facility]. Direct result comparisons should only be made within the same method. . Patients receiving more than 5 mg/day of biotin may have interference in test results. A sample should be taken no sooner than eight hours after previous dose. Contact [phone] for additional information. Performed By: #### T 4FRE #### [facility] [address] [place] [address] TRIIODOTHYRONINEon 9 TRIIODOTHYRONINE 97 ng/dL Normal 60 - 200 [facility] Comment on above: Performed By: #### T 3 #### [facility] [address] [place] [id number] TSHon 11-23-2018 TSH Qn 1.52 m[IU]/L Normal 0.44 - 3.98 [facility] Comment on above: Result Comment: TSH testing is performed using different testing methodology at [facility] than at other [facility]. Direct result comparisons should only be made within the same method. . Patients receiving more than 5 mg/day of biotin may have interference in test results. A sample should be taken no sooner than eight hours after previous dose. Contact [phone] for additional information. Performed By: #### T SH2 #### [facility] [address] [place] [address] Vital Signs Date Time Vital Sign Value Performing Clinician Facility 08-29-2024 15:51-0400 Body height 172.72 cm Aretha Best MD Work Phone: [facility] 08-29-2024 15:51-0400 Body mass index (BMI) [Ratio] 28.3 kg/m2 Aretha Best MD Work Phone: [facility] 08-29-2024 15:51-0400 Body weight 84.59 kg Aretha Best MD Work Phone: [facility] 08-29-2024 15:51-0400 Diastolic blood pressure 77 mm[Hg] Aretha Best MD Work Phone: [facility] 08-29-2024 15:51-0400 Systolic blood pressure 130 mm[Hg] Aretha Best MD Work Phone: [facility] 08-27-2024 19:53-0400 Body temperature 98.3 [degF] Aretha Best MD Work Phone: [facility] 08-27-2024 19:53-0400 Diastolic blood pressure 77 mm[Hg] Aretha Best MD Work Phone: [facility] 08-27-2024 19:53-0400 Heart rate 68 /min Aretha Best MD Work Phone: [facility] 08-27-2024 19:53-0400 Respiratory rate 16 /min Aretha Best MD Work Phone: [facility] 08-27-2024 19:53-0400 SaO2% (BldA) [Mass fraction] 100 % Aretha Best MD Work Phone: [facility] 08-27-2024 19:53-0400 Systolic blood pressure 122 mm[Hg] Aretha Best MD Work Phone: [facility] 08-27-2024 16:18-0400 Body height 172.72 cm Aretha Best MD Work Phone: [facility] 08-27-2024 16:18-0400 Body mass index (BMI) [Ratio] 28.2 kg/m2 Aretha Best MD Work Phone: [facility] 08-27-2024 16:18-0400 Body weight 84.18 kg Aretha Best MD Work Phone: [facility] 08-25-2024 15:16-0400 Body height 172.72 cm Aretha Best MD Work Phone: [facility] 08-25-2024 15:16-0400 Body mass index (BMI) [Ratio] 28.3 kg/m2 Aretha Best MD Work Phone: [facility] 08-25-2024 15:16-0400 Body weight 84.48 kg Aretha Best MD Work Phone: [facility] 08-25-2024 15:16-0400 Diastolic blood pressure 80 mm[Hg] Aretha Best MD Work Phone: [facility] 08-25-2024 15:16-0400 Systolic blood pressure 123 mm[Hg] Aretha Best MD Work Phone: [facility] 08-18-2024 09:27-0400 Body height 172.72 cm Aretha Best MD Work Phone: [facility] 08-18-2024 09:27-0400 Body mass index (BMI) [Ratio] 28.4 kg/m2 Aretha Best MD Work Phone: [facility] 08-18-2024 09:27-0400 Body temperature 98.1 [degF] Aretha Best MD Work Phone: 4(116)284-016323 [place] [address] 08-18-2024 09:27-0400 Body weight 84.91 kg Aretha Best MD Work Phone: [facility] 08-18-2024 09:27-0400 Diastolic blood pressure 80 mm[Hg] Aretha Best MD Work Phone: 8(732)779-441749 [address] 08-18-2024 09:27-0400 Heart rate 70 /min Aretha Best MD Work Phone: 2(229)425-563111 [place] [address] 08-18-2024 09:27-0400 Respiratory rate 16 /min Aretha Best MD Work Phone: 2(388)041-663849 [address] 08-18-2024 09:27-0400 SaO2% (BldA) [Mass fraction] 100 % Aretha Best MD Work Phone: [facility] 08-18-2024 09:27-0400 Systolic blood pressure 141 mm[Hg] Aretha Best MD Work Phone: 4(075)329-909011 [place] [address] 06-09-2024 15:49-0400 Body height 172.72 cm Aretha Best MD Work Phone: 4(265)031-977623 [place] [address] 06-09-2024 15:47-0400 Body mass index (BMI) [Ratio] 28 kg/m2 Aretha Best MD Work Phone: 2(921)918-497423 [place] [address] 06-09-2024 15:47-0400 Body weight 83.63 kg Aretha Best MD Work Phone: [facility] 06-09-2024 15:47-0400 Diastolic blood pressure 77 mm[Hg] Aretha Best MD Work Phone: [facility] 06-09-2024 15:47-0400 Systolic blood pressure 113 mm[Hg] Aretha Best MD Work Phone: [facility] 04-02-2024 15:00-0500 Body temperature 97.8 [degF] Aretha Best MD Work Phone: [facility] 04-02-2024 15:00-0500 Diastolic blood pressure 76 mm[Hg] Aretha Best MD Work Phone: [facility] 04-02-2024 15:00-0500 Heart rate 69 /min Aretha Best MD Work Phone: [facility] 04-02-2024 15:00-0500 Respiratory rate 16 /min Aretha Best MD Work Phone: [facility] 04-02-2024 15:00-0500 SaO2% (BldA) [Mass fraction] 98 % Aretha Best MD Work Phone: [facility] 04-02-2024 15:00-0500 Systolic blood pressure 118 mm[Hg] Aretha Best MD Work Phone: [facility] 04-02-2024 13:11-0500 Body mass index (BMI) [Ratio] 28.4 kg/m2 Aertha Best MD Work Phone: [facility] 04-02-2024 13:11-0500 Body weight 84.82 kg Aretha Bets MD Work Phone: [facility] 03-11-2023 13:09-0500 Body height 175.26 cm Ya Sheth MA [facility], [facility]. 03-11-2023 13:09-0500 Body mass index (BMI) [Ratio] 26.73 kg/m2 Ya Sheth MA [facility], [facility]. 03-11-2023 13:09-0500 Body surface area Derived from formula 1.98 m2 Ya Sheth MA [facility], [facility].; [facility], [facility]. 03-11-2023 13:09-0500 Body weight 82.1 kg Ya Sheth [facility] [employer]. 03-11-2023 13:09-0500 Diastolic blood pressure 80 mm[Hg] Ya Sheth [facility] [employer]. Comment on above: Patient Position: Si tting; Cuff Location: Left Arm; Cuff Size: Standard 03-11-2023 13:09-0500 Heart rate 65 /min Ya Sheth MA [facility] [employer]. Comment on above: Pattern: Regular 03-11-2023 13:09-0500 Systolic blood pressure 125 mm[Hg] Ya Sheth MA [employer]. Comment on above: Patient Position: Si tting; Cuff Location: Left Arm; Cuff Size: Standard 05-15-2022 14:06-0500 Body height 175.26 cm Ya Sheth MA [facility] [employer]. 05-15-2022 14:06-0500 Body mass index (BMI) [Ratio] 31.01 kg/m2 Ya Sheth MA [facility].; [employer], [employer]. 05-15-2022 14:06-0500 Body surface area Derived from formula 2.11 m2 Ya [facility]th [facility].; [employer], [employer]. 05-15-2022 14:06-0500 Body weight 95.26 kg Ya Sheth MA [facility].; [employer]. 05-15-2022 14:06-0500 Diastolic blood pressure 68 mm[Hg] Ya Sheth MA [employer] [facility].; [employer]. Comment on above: Patient Position: Si tting; Cuff Location: Left Arm; Cuff Size: Standard 05-15-2022 14:06-0500 Heart rate 66 /min Ya Sheth MA [employer].; [employer]. Comment on above: Pattern: Regular 05-15-2022 14:06-0500 Systolic blood pressure 103 mm[Hg] Ya Sheth MA [employer].; [employer]. Comment on above: Patient Position: Si tting; Cuff Location: Left Arm; Cuff Size: Standard 02-10-2022 12:27-0500 Body height 175.26 cm Janny Zuñiga RN [facility].; [employer]. 02-10-2022 12:27-0500 Body mass index (BMI) [Ratio] 30.27 kg/m2 Janny Zuñiga RN [facility] [employer]. 02-10-2022 12:27-0500 Body surface area Derived from formula 2.09 m2 Janny Zuñiga RN [employer].; [employer]. 02-10-2022 12:27-0500 Body weight 92.99 kg Janny Zuñiga RN [employer].; [employer]. 02-10-2022 12:27-0500 Diastolic blood pressure 61 mm[Hg] Janny Zuñiga RN [employer].; [employer]. Comment on above: Patient Position: Si tting; Cuff Location: Left Arm; Cuff Size: Standard 02-10-2022 12:27-0500 Heart rate 64 /min Janny Zuñiga RN [employer].; [employer]. Comment on above: Pattern: Regular 02-10-2022 12:27-0500 Systolic blood pressure 94 mm[Hg] Janny Zuñiga RN [facility].; [employer]. Comment on above: Patient Position: Si tting; Cuff Location: Left Arm; Cuff Size: Standard 09-23-2021 14:58-0400 Body height 175.26 cm Tamara Phipps LPN [facility].; [employer]. 09-23-2021 14:58-0400 Body mass index (BMI) [Ratio] 29.98 kg/m2 Tamara Phipps LPN [facility].; [employer]. 09-23-2021 14:58-0400 Body surface area Derived from formula 2.08 m2 Tamara Phipps LPN [employer].; [employer]. 09-23-2021 14:58-0400 Body temperature 98.5 [degF] Tamara Phipps LPN [facility].; [facility]. Comment on above: Method: Tympanic 09-23-2021 14:58-0400 Body weight 92.08 kg Tamara Phipps LPN [facility], [facility].; [facility]. 09-23-2021 14:58-0400 Diastolic blood pressure 66 mm[Hg] Tamara Phipps LPN [facility].; [facility]. Comment on above: Patient Position: Si tting; Cuff Location: Left Arm; Cuff Size: Standard 09-23-2021 14:58-0400 Heart rate 78 /min Tamara Phipps LPN [facility].; [facility]. Comment on above: Pattern: Regular 09-23-2021 14:58-0400 Systolic blood pressure 99 mm[Hg] Tamara Phipps LPN [facility].; [facility]. Comment on above: Patient Position: Si tting; Cuff Location: Left Arm; Cuff Size: Standard 09-05-2021 15:18-0400 Body height 173.[address] Baldomero Troncoso Work Phone: [facility] Work Phone: 09-05-2021 15:18-0400 Body mass index (BMI) [Ratio] 30.4 kg/m2 Dr. Baldomero Troncoso Work Phone: [facility] Work Phone: 09-05-2021 15:18-0400 Body temperature 98 [degF] Dr. Baldomero Troncoso Work Phone: [facility] Work Phone: 09-05-2021 15:18-0400 Body weight 92.[address] Baldomero Troncoso Work Phone: [facility] Work Phone: 09-05-2021 15:18-0400 Diastolic blood pressure 62 mm[Hg] Dr. Baldomero Troncoso Work Phone: [facility] Work Phone: 09-05-2021 15:18-0400 Heart rate 78 /min Dr. Baldomero Troncoso Work Phone: [facility] Work Phone: 09-05-2021 15:18-0400 Respiratory rate 16 /min Dr. Baldomero Troncoso Work Phone: [facility] Work Phone: 09-05-2021 15:18-0400 SaO2% (BldA) [Mass fraction] 99 % Dr. Baldomero Troncoso Work Phone: [facility] Work Phone: 09-05-2021 15:18-0400 Systolic blood pressure 106 mm[Hg] Dr. Baldomero Troncoso Work Phone: [facility] Work Phone: 03-15-2021 09:02-0500 Body height 175.26 cm [facility], [facility].; [employer] [facility]. 03-15-2021 09:02-0500 Body mass index (BMI) [Ratio] 30.13 kg/m2 Lisandra Olson [facility], [facility].; [employer] [facility]. 03-15-2021 09:02-0500 Body surface area Derived from formula 2.08 m2 Lisandra Olson [employer] [facility], [facility].; [facility]. 03-15-2021 09:02-0500 Body weight 92.53 kg Lisandra Olson [facility], [facility].; [employer]. 03-15-2021 09:02-0500 Diastolic blood pressure 64 mm[Hg] Lisandra Olson [facility], [facility].; [employer]. Comment on above: Patient Position: Si tting; Cuff Location: Left Arm; Cuff Size: Standard 03-15-2021 09:02-0500 Heart rate 68 /min Lisandra Olson LPN [facility], [facility].; [employer] [facility]. Comment on above: Pattern: Regular 03-15-2021 09:02-0500 Systolic blood pressure 104 mm[Hg] Lisandra Olson LPN [facility], [facility].; [facility], [facility]. Comment on above: Patient Position: Si tting; Cuff Location: Left Arm; Cuff Size: Standard 11-28-2020 16:41-0400 Body height 175.26 cm Karla Burns LPN [facility], [facility].; [facility], [facility]. 11-28-2020 16:41-0400 Body mass index (BMI) [Ratio] 28.94 kg/m2 Karla Katy [facility].; [facility]. 11-28-2020 16:41-0400 Body surface area Derived from formula 2.05 m2 Karla Burns [facility], [facility].; [facility], [facility]. 11-28-2020 16:41-0400 Body weight 88.91 kg Karla Burns LPN [facility], [facility].; [facility]. 11-28-2020 16:41-0400 Diastolic blood pressure 77 mm[Hg] Karla Katy [facility].; [facility], [facility]. Comment on above: Patient Position: Si tting; Cuff Location: Left Arm; Cuff Size: Standard 11-28-2020 16:41-0400 Heart rate 70 /min Karla Katy ZAMBRANO [facility], [facility].; [facility], [employer]. Comment on above: Pattern: Regular 11-28-2020 16:41-0400 Systolic blood pressure 119 mm[Hg] Karla Katy ZAMBRANO [facility], [facility].; [facility], [facility]. Comment on above: Patient Position: Si tting; Cuff Location: Left Arm; Cuff Size: Standard 11-21-2020 15:130400 Body height 175.26 cm Lisandra Olson LPN [facility], [facility].; [facility], [facility]. 11-21-2020 15:13-0400 Body mass index (BMI) [Ratio] 29.53 kg/m2 Lisandra Olson LPN [facility], [facility].; [facility], [facility]. 11-21-2020 15:130400 Body surface area Derived from formula 2.07 m2 Lisandra Olson LPN [facility], [facility].; [employer] [facility]. 11-21-2020 15:130400 Body weight 90.72 kg Lisandra Olson LPN [facility], [facility].; [facility] [facility], [facility]. 11-21-2020 15:13-0400 Diastolic blood pressure 77 mm[Hg] Lisandra Olson LPN [facility], [facility].; [employer] [facility], [employer]. Comment on above: Patient Position: Si tting; Cuff Location: Right Arm; Cuff Size: Standard 11-21-2020 15:13-0400 Heart rate 78 /min Lisandra Olson LPN [facility], [facility].; [employer] [facility], [employer]. Comment on above: Pattern: Regular 11-21-2020 15:13-0400 Systolic blood pressure 110 mm[Hg] Lisandra Olson LPN [facility], [facility].; [employer]. Comment on above: Patient Position: Si tting; Cuff Location: Right Arm; Cuff Size: Standard 05-07-2020 10:57-0500 Body height 175.26 cm Janny Zuñiga RN [facility], [facility].; [employer] [facility]. 05-07-2020 10:57-0500 Body mass index (BMI) [Ratio] 29.53 kg/m2 Janny Zuñiga RN [facility], [facility].; [employer], [employer]. 05-07-2020 10:57-0500 Body surface area Derived from formula 2.07 m2 Janny Zuñiga RN [facility], [facility].; [employer] [facility]. 05-07-2020 10:57-0500 Body temperature 99.1 [degF] Janny Zuñiga RN [facility].; [employer]. Comment on above: Method: Tympanic 05-07-2020 10:57-0500 Body weight 90.72 kg Janny Zuñiga RN [facility], [facility].; [employer]. 05-07-2020 10:57-0500 Diastolic blood pressure 64 mm[Hg] Janny Zuñiga RN [facility].; [employer]. Comment on above: Patient Position: Si tting; Cuff Location: Left Arm; Cuff Size: Standard 05-07-2020 10:57-0500 Heart rate 67 /min Janny Zuñiga RN [facility].; [facility] [employer]. Comment on above: Pattern: Regular 05-07-2020 10:57-0500 Systolic blood pressure 98 mm[Hg] Janny Zuñiga RN [facility] [employer].; [employer]. Comment on above: Patient Position: Si tting; Cuff Location: Left Arm; Cuff Size: Standard 04-26-2020 08:33-0500 Body temperature 97.7 [degF] Erlinda Mike Lopez PA-C Work Phone: [facility] [employer].; [employer]. Comment on above: Method: Tympanic 04-26-2020 08:33-0500 Body weight 92.53 kg Erlinda J Lopez PA-C Work Phone: [facility] [employer].; [employer]. 04-26-2020 08:33-0500 Diastolic blood pressure 64 mm[Hg] Erlinda J Lopez PA-C Work Phone: [employer].; [employer]. Comment on above: Patient Position: Si tting; Cuff Location: Left Arm; Cuff Size: Standard 04-26-2020 08:33-0500 Heart rate 77 /min Erlinda Mike Lopez PA-C Work Phone: [facility] [employer].; [employer]. Comment on above: Pattern: Regular 04-26-2020 08:33-0500 Systolic blood pressure 111 mm[Hg] Erlinda J Lopez PA-C Work Phone: [employer].; [employer]. Comment on above: Patient Position: Si tting; Cuff Location: Left Arm; Cuff Size: Standard 03-29-2020 13:43-0500 Body height 175.26 cm [facility] Work Phone: [employer]; [employer] Work Phone: 03-29-2020 13:43-0500 Body mass index (BMI) [Ratio] 29.09 kg/m2 Ni Erazo [employer] Work Phone: [facility].; [employer]. Work Phone: 03-29-2020 13:43-0500 Body surface area Derived from formula 2.05 m2 Ni Erazo [facility] Work Phone: [facility] [employer].; [employer]. Work Phone: 03-29-2020 13:43-0500 Body weight 89.36 kg Ni Erazo [employer] Work Phone: [facility] [employer].; [employer]. Work Phone: 03-29-2020 13:43-0500 Diastolic blood pressure 74 mm[Hg] Ni Erazo [employer] Work Phone: [employer].; [employer]. Work Phone: Comment on above: Patient Position: Si tting; Cuff Location: Left Arm; Cuff Size: Standard 03-29-2020 13:43-0500 Heart rate 79 /min Ni Erazo [employer] Work Phone: [employer].; [employer]. Work Phone: Comment on above: Pattern: Regular 03-29-2020 13:43-0500 Systolic blood pressure 110 mm[Hg] Ni Erazo LPN Work Phone: [employer].; [employer]. Work Phone: Comment on above: Patient Position: Si tting; Cuff Location: Left Arm; Cuff Size: Standard 03-02-2020 13:10-0500 Body weight 89.36 kg Karla Zaugg [employer].; [employer] 03-02-2020 13:10-0500 Diastolic blood pressure 76 mm[Hg] Karla Zaugg [employer] [facility].; [facility]. Comment on above: Patient Position: Si tting; Cuff Location: Left Arm; Cuff Size: Standard 03-02-2020 13:10-0500 Heart rate 73 /min Karla Burns JUAN MANUEL [facility].; [facility] [employer] [facility], [facility]. Comment on above: Pattern: Regular 03-02-2020 13:10-0500 Systolic blood pressure 115 mm[Hg] Karla [facility], [facility]. Comment on above: Patient Position: Si tting; Cuff Location: Left Arm; Cuff Size: Standard 02-15-2020 14:51-0500 Body height 175.26 cm Erlinda Lopez PA-C Work Phone: [facility].; [employer]. 02-15-2020 14:51-0500 Body mass index (BMI) [Ratio] 28.8 kg/m2 Erlinda Lopez PA-C Work Phone: [facility] [place] [facility], [facility]. 02-15-2020 14:51-0500 Body surface area Derived from formula 2.04 m2 Erlinda Lopez PA-C Work Phone: [facility], [employer] [place] [employer] [facility], [facility]. 02-15-2020 14:51-0500 Body weight 88.45 kg Erlinda Lopez PA-C Work Phone: [facility] [place] [facility]. 02-15-2020 14:51-0500 Diastolic blood pressure 82 mm[Hg] Erlinda Lopez PA-C Work Phone: [facility].; [employer]. Comment on above: Patient Position: Si tting; Cuff Location: Left Arm; Cuff Size: Standard 02-15-2020 14:51-0500 Heart rate 82 /min Erlinda Lopez PA-C Work Phone: [facility] [employer]. Comment on above: Pattern: Regular 02-15-2020 14:51-0500 Systolic blood pressure 121 mm[Hg] Erlinda Lopez PA-C Work Phone: [facility] [employer]. Comment on above: Patient Position: Si tting; Cuff Location: Left Arm; Cuff Size: Standard 11-15-2019 08:28-0400 Body height 175.26 cm Janny Zuñiga RN [facility] [employer] [facility] 11-15-2019 08:28-0400 Body mass index (BMI) [Ratio] 28.8 kg/m2 Janny Zuñiga RN [place] [facility] [employer]. 11-15-2019 08:28-0400 Body surface area Derived from formula 2.04 m2 Janny Zuñiga RN [place] [facility] [employer]. 11-15-2019 08:28-0400 Body weight 88.45 kg Janny Zuñiga RN [place] [facility] [employer]. 11-15-2019 08:28-0400 Diastolic blood pressure 75 mm[Hg] Janny Zuñiga RN [employer] [facility] [employer]. Comment on above: Patient Position: Si tting; Cuff Location: Right Arm; Cuff Size: Standard 11-15-2019 08:28-0400 Heart rate 70 /min Janny Zuñiga RN [place] [employer] [employer]. Comment on above: Pattern: Regular 11-15-2019 08:28-0400 Systolic blood pressure 108 mm[Hg] Janny Zuñiga RN [employer]. Comment on above: Patient Position: Si tting; Cuff Location: Right Arm; Cuff Size: Standard 06-22-2019 13:01-0400 Body Temperature 98.6 [degF] [facility] Work Phone: 06-22-2019 13:01-0400 Body weight 83.92 kg [facility] Work Phone: 06-22-2019 13:01-0400 BP Diastolic 70 mm[Hg] [facility] Work Phone: 06-22-2019 13:01-0400 BP Systolic 102 mm[Hg] [facility] Work Phone: 06-22-2019 13:01-0400 Pulse (Heart Rate) 68 /min [facility] Work Phone: 03-03-2019 22:49-0500 BMI (Body Mass Index) 26.58 kg/m2 [facility], [place] 03-03-2019 22:49-0500 Body Temperature 98.29 [degF] [facility], [place] 03-03-2019 22:49-0500 Body weight 81.65 kg [facility] , [place] 03-03-2019 22:49-0500 BP Diastolic 81 mm[Hg] [facility] , [place] 03-03-2019 22:49-0500 BP Systolic 134 mm[Hg] [facility] , [place] 03-03-2019 22:49-0500 Height 175.3 cm [facility] , [place] 03-03-2019 22:49-0500 Pulse (Heart Rate) 81 /min [facility], [place] 03-03-2019 22:49-0500 Pulse Oximetry 97 % [facility] , [place] 03-03-2019 22:49-0500 Respiratory Rate 18 /min [facility] 02-18-2019 23:06-0500 BP Diastolic 78 mm[Hg] [facility] , [place] 02-18-2019 23:06-0500 BP Systolic 127 mm[Hg] [facility] , [place] 02-18-2019 23:06-0500 Pulse (Heart Rate) 83 /min [facility], [place] 02-18-2019 23:06-0500 Pulse Oximetry 100 % [facility] , [place] 02-18-2019 23:06-0500 Respiratory Rate 16 /min [facility], [place] 02-18-2019 22:00-0500 BMI (Body Mass Index) 26.58 kg/m2 [facility], [place] 02-18-2019 22:00-0500 Body Temperature 98.6 [degF] [facility] [place] 02-18-2019 22:00-0500 Body weight 81.65 kg C[facility]ar [facility] , [place] 02-18-2019 22:00-0500 Height 175.3 cm C[facility]ar [facility] , [place] NEGATED: Highlighted [id number] 10:52-0400 BMI (Body Mass Index) 28.9 kg/m2 Isabella Julissa At [facility] Work Phone: NEGATED: Highlighted [id number] 10:52-0400 Body weight 88.45 kg Isabella Julissa At [facility] Work Phone: NEGATED: Highlighted [id number] 10:52-0400 Body weight 89 kg Isabella Julissa At [facility] Work Phone: NEGATED: Highlighted [id number] 10:52-0400 BP Diastolic 70 mm[Hg] Isabella Julissa At [facility] Work Phone: NEGATED: Highlighted [id number] 10:52-0400 BP Systolic 102 mm[Hg] Isabella Julissa At [facility] Work Phone: NEGATED: Highlighted [id number] 10:52-0400 Heart rate 2+ Isabella Julissa At [facility] Work Phone: NEGATED: Highlighted [id number] 10:52-0400 Height 175.26 cm Isabella Julissa At [facility] Work Phone: NEGATED: Highlighted [id number] 10:52-0400 Height 175 cm Isabella Julissa At [facility] Work Phone: NEGATED: Highlighted [id number] 10:52-0400 Pulse (Heart Rate) 73 /min Isabella Costa At [facility] Work Phone: Encounters Encounter Date Encounter Type Care Provider Facility Start: 09-01-2024 [facility] Start: 08-31-2024 ambulatory Sangita Fox lity:[facility] Start: 08-29-2024 End: 08-29-[address] Sangita Jean MD -[facility] Work Phone: Start: 08-29-2024 End: 08-29-2024 ambulatory Aretha Best MD Work Phone: [place] [employer] Work Phone: Start: 08-29-[address] Sangita Jean MD -Laboratory Work Phone: Start: 08-29-2024 [facility] Start: 08-27-2024 End: 08-27-2024 Emergency department patient visit Aretha Best MD Work Phone: -Emergency Department Work Phone: Start: 08-27-[address] Sangita Jean MD -Laboratory Work Phone: Start: 08-27-2024 [facility] Start: 08-25-2024 End: 08-25-[address] Sangita Jean MD -[facility] Work Phone: Start: 08-25-2024 End: 08-25-2024 ambulatory Aretha Best MD Work Phone: [place] [employer] Work Phone: Start: 08-25-[address] Sangita Jean MD -Ultrasound [facility] Work Phone: Start: 08-25-2024 End: 08-25-2024 ambulatory Aretha Best Facility:[facility] Start: 08-22-2024 End: 08-22-2024 ambulatory Aretha Best MD Work Phone: [facility] Work Phone: Start: 08-22-2024 End: 08-22-2024 Patient encounter procedure Bess Andujar CNM -Laboratory Work Phone: Start: 08-22-2024 End: 08-22-2024 ambulatory Aretha Best Facility:[facility] Start: 08-20-2024 End: 08-20-2024 ambulatory Aretha Best MD Work Phone: [facility] Work Phone: Start: 08-20-2024 End: 08-20-2024 Patient encounter procedure Bess Andujar CNM -Laboratory Work Phone: Start: 08-20-2024 End: 08-20-2024 ambulatory Aretha Best Facility:[facility] Start: 08-18-2024 End: 08-18-2024 Emergency department patient visit Dr. Preston Garrett DO -Emergency Department Work Phone: Start: 06-23-2024 End: 06-23-2024 ambulatory NICHOLAS POLLARD [facility] Start: 06-20-2024 End: 06-20-2024 ambulatory ARETHA BEST MD Facility:[facility] Start: 06-17-2024 ambulatory Aretha Best Facility:[facility] Start: 06-09-2024 End: 06-09-2024 ambulatory Aretha Best MD Work Phone: [facility] Work Phone: Start: 06-09-2024 End: 06-09-2024 Patient encounter procedure Jney Garcia CNM -Laboratory, Specimen Work Phone: Start: 06-09-2024 Encounter for gynecological examination (general) (routine) without abnormal findings Jeny Garcia [facility] Start: 06-09-2024 End: 06-09-2024 Patient encounter procedure Jeny Garcia CNM -[facility] Work Phone: Start: 06-09-2024 End: 06-09-2024 Patient encounter status Jeny Jose CNAngus [facility] Start: 06-09-2024 End: 06-09-2024 ambulatory Aretha Best Facility:[facility] Start: 06-09-2024 End: 06-09-2024 ambulatory Aretha Best Facility:[facility] Start: 05-13-2024 End: 05-13-2024 ambulatory BALDOMERO TRONCOSO MD [facility] Start: 05-13-2024 End: 05-13-2024 Patient encounter procedure BALDOMERO TRONCOSO MD [facility] Start: 04-02-2024 End: 04-02-2024 Emergency department patient visit Dr. Cristobal Ron MD -Emergency Department Work Phone: Start: 03-19-2024 ambulatory Aretha Best Facility:[facility] Start: 03-07-2024 End: 03-07-2024 ambulatory ARETHA BEST MD [facility] Start: 03-07-2024 End: 03-07-2024 Patient encounter procedure ARETHA BEST MD [facility] Start: 03-03-2024 End: 03-03-2024 ambulatory ARETHA BEST MD [facility] Start: 03-03-2024 End: 03-03-2024 Patient encounter procedure ARETHA BEST MD [facility] Start: 03-01-2024 ambulatory ARETHA BEST MD Facility :D Start: 02-01-2024 End: 02-01-2024 ambulatory ARETHA BEST MD [facility] Start: 02-01-2024 End: 02-01-2024 Patient encounter procedure ARETHA BEST MD [facility] Start: 12-01-2023 End: 12-01-2023 ambulatory BALDOMERO TRONCOSO MD Facility:[facility] Start: 12-01-2023 End: 12-01-2023 Patient encounter procedure BALDOMERO TRONCOSO MD [facility] Start: 09-07-2023 End: 09-07-2023 ambulatory ERLINDA J LOPEZ PA-C Facility:[facility] Start: 09-07-2023 End: 09-07-2023 Patient encounter procedure BALDOMERO TRONCOSO MD [facility] Start: 09-03-2023 End: 09-03-2023 ambulatory Melissa Angus Oliver Facility:[facility] Start: 06-16-2023 Patient encounter procedure Aretha Best MD Work Phone: [facility] Start: 03-11-2023 End: 03-11-2023 Office outpatient visit 15 minutes Erlinda Lopez PA-C Work Phone: [employer] Start: 02-06-2023 End: 02-06-2023 ambulatory STACEY DAVIS V BLOCK SAW OPERATOR-C Facility:[facility] Start: 02-06-2023 End: 02-06-2023 Patient encounter procedure STACEY DAVIS V BLOCK SAW OPERATOR-C [facility] Start: 05-15-2022 End: 05-15-2022 Periodic preventive med est patient 18-39 yrs Erlinda Lopez PA-C Work Phone: [employer]. Start: 05-15-2022 End: 05-15-2022 Physical examination Erlinda Lopez PA-C Work Phone: [employer]; [employer]. Start: 02-10-2022 End: 02-10-2022 Office outpatient visit 15 minutes Erlinda Lopez PA-C Work Phone: [employer]. Start: 12-09-2021 End: 12-09-[address] Baldomero Troncoso Work Phone: [facility] Work Phone: Start: 12-09-2021 End: 12-09-[address] Baldomero Troncoso Work Phone: [facility]-Laboratory, Specimen Start: 09-23-2021 End: 09-23-2021 Office outpatient visit 15 minutes Erlinda Lopez PA-C Work Phone: [employer] Start: 09-05-2021 End: 09-05-[address] Baldomero Troncoso Work Phone: [facility] Start: 08-14-2021 End: 08-14-2021 Orders Erlinda Lopez PA-C Work Phone: [employer] Start: 07-18-2021 End: 07-18-2021 Medication Erlinda Lopez PA-C Work Phone: [employer] Start: 07-03-2021 End: 07-03-2021 Medication Erlinda Lopez PA-C Work Phone: [employer] Start: 07-01-2021 End: 07-01-2021 Patient encounter procedure Erlinda Lopez PA-C Work Phone: [employer] Start: 06-12-2021 End: 06-12-2021 Medication Erlinda Lopez PA-C Work Phone: [employer] Start: 03-15-2021 End: 03-15-2021 Office outpatient visit 25 minutes Erlinda Lopez PA-C Work Phone: [employer] Start: 12-05-2020 End: 12-05-2020 Orders Erlinda Lopez PA-C Work Phone: [employer] Start: 11-28-2020 End: 11-28-2020 Office outpatient visit 5 minutes Erlinda Lopez PA-C Work Phone: [employer] Start: 11-21-2020 End: 11-21-2020 Office outpatient visit 15 minutes Erlinda Lopez PA-C Work Phone: [employer] Start: 05-07-2020 End: 05-07-2020 Office outpatient visit 15 minutes Erlinda Lopez PA-C Work Phone: [employer]. Start: 05-03-2020 End: 05-03-2020 Medication Erlinda Lopez PA-C Work Phone: [employer]. Start: 04-26-2020 End: 04-26-2020 Office outpatient visit 15 minutes Erlinda Lopez PA-C Work Phone: [employer] Start: 04-17-2020 End: 04-17-2020 Medication Erlinda Lopez PA-C Work Phone: [employer] Start: 03-29-2020 End: 03-29-2020 Patient encounter procedure Erlinda Lopez PA-C Work Phone: [employer] Start: 03-28-2020 End: 03-28-2020 Historical Summary Erlinda Lopez PA-C Work Phone: [employer] Start: 03-02-2020 End: 03-02-2020 Office outpatient visit 15 minutes Erlinda Lopez PA-C Work Phone: [employer] Start: 02-17-2020 End: 02-17-2020 Medication Erlinda Loepz PA-C Work Phone: [employer]. Start: 02-15-2020 End: 02-15-2020 Procedure Erlinda Lopez PA-C Work Phone: [employer] Start: 12-02-2019 End: 12-02-2019 Medication Erlinda Lopez PA-C Work Phone: [employer] Start: 11-18-2019 End: 11-18-2019 Orders Erlinda Lopez PA-C Work Phone: [employer] Start: 11-15-2019 End: 11-15-2019 Initial preventive medicine new pt age 18-39yrs Erlinda Lopez PA-C Work Phone: [employer] Start: 11-15-2019 End: 11-15-2019 Patient encounter status Erlinda Lopez PA-C Work Phone: [employer] Start: 09-05-2019 Patient encounter procedure Michelle Prieto MD -[facility] Work Phone: Start: 06-22-2019 Patient encounter procedure [facility] Work Phone: Start: 06-02-2019 Patient encounter procedure [facility] [employer] Work Phone: Start: 05-10-2019 Patient encounter procedure [facility] [employer] [facility] Work Phone: Start: 05-06-2019 Patient encounter procedure [facility] [employer] Work Phone: Start: 04-08-2019 Patient encounter procedure [facility] [employer] Work Phone: Start: 03-03-2019 End: 03-03-2019 Emergency department patient visit [facility] [place] Work Phone: [facility] Comment on above: Acute cystitis with hematuria (Primary Dx) Start: 03-01-2019 Patient encounter procedure [facility] [employer] Work Phone: Start: 02-18-2019 End: 02-18-2019 Emergency department patient visit [facility] [place] Work Phone: [facility] Comment on above: UTI (urinary tract i nfection), uncomplicated (Primary Dx) Start: 11-26-2018 End: 11-26-2018 Patient encounter procedure Jeremi Baker MD Work Phone: [facility] Work Phone: Start: 11-24-2018 Patient encounter procedure [facility] Work Phone: Start: 10-09-2017 Patient encounter procedure [facility] Work Phone: Start: 08-12-2017 Patient encounter procedure [facility] Work Phone: Patient encounter status Michelle Prieto MD [facility] Work Phone: Physical examination Ya Sheth MA [facility] Procedures Date Procedure Procedure Detail Performing Clinician Start: 08-27-2024 Transvaginal obstetr ic ultrasonography Aretha Best MD Work Phone: Start: 08-25-2024 Transvaginal obstetr ic ultrasonography Aretha Best MD Work Phone: Start: 08-18-2024 Urnls dip stick/tabl et reagent auto microscopy Aretha Best MD Work Phone: Start: 08-18-2024 Transvaginal obstetr ic ultrasonography Aretha Best MD Work Phone: Start: 06-09-2024 Liquid based cervica l cytology screening Aretha Best MD Work Phone: Comment on above: NEGATIVE FOR INTRAEP ITHELIAL LESION OR MALIGNANCY. This liquid based Th inPrep(R) pap test was screened withthe use of an image guided system. The HPV DNA reflex c riteria were not met with this specimenresult therefore, no HPV testing was performed.Performed at: [address] [id number] Director: Zuleyma Damon MD, Phone: [phone] Start: 04-02-2024 X-ray of chest, PA a nd lateral views Aretha Best MD Work Phone: Start: 12-05-2020 End: 12-07-2020 Us pelvic nonobstetric image dcmtn limited/f/u Crystal K Uptain [facility]Angus Work Phone: Comment on above: ensure IUD in place Start: 02-15-2020 End: 02-15-2020 Insertion intrauterine device iud Crystal K Uptain [facility] Work Phone: Start: 11-15-2019 End: 11-15-2019 Depression screening Erlinda Lopez PA-C Work Phone: Start: 11-15-2019 End: 11-15-2019 Scr dep neg, no plan reqd Erlinda Lopez PA-C Work Phone: Start: 09-05-2019 Follow-up visit Start: 06-22-2019 Follow-up visit Start: 06-02-2019 Follow-up visit Start: 05-10-2019 Follow-up visit Start: 05-06-2019 Follow-up visit Start: 03-03-2019 Urine test visual color cmprsn meths César A [facility] Work Phone: Start: 03-03-2019 Urnls dip stick/tabl et rgnt auto w/o microscopy César A [employer] Work Phone: Start: 02-18-2019 Urine test visual color cmprsn meths César A [employer] Work Phone: Start: 02-18-2019 Urnls dip stick/tabl et rgnt auto w/o microscopy César A [employer] Work Phone: Start: 11-26-2018 End: 11-26-2018 Blood pressure within normal parameters - no follow-up required Jeremi Bkaer MD Work Phone: Start: 11-26-2018 End: 11-26-2018 BMI documented as above normal parameters - follow-up documented Jeremi Baker MD Work Phone: Start: 11-26-2018 End: 11-26-2018 Documentation of current medications Jeremi Baker MD Work Phone: Start: 11-26-2018 End: 11-26-2018 Pain assessment documented as positive - follow-up documented Jeremi Baker MD Work Phone: Start: 11-26-2018 End: 11-26-2018 Tobacco non-user Jeremi Baker MD Work Phone: Start: 03-30-2016 End: 03-30-2016 ACL repair Ya Sheth MA Comment on above: [facility] Start: 03-30-2016 End: 03-30-2016 Tonsillectomy Ya Sheth MA Comment on above: [facility] Ya Manzano Comment on above: Septic Ankle Drained -[facility] 2003 History of Ankle Surgery Juvenal Prieto History of Oral Surgery Hailey Prieto Oral Surgery Ya Sheth MA Comment on above: Gum Graft 2015, Wisd om Teeth 2013 NEGATED: Highlighted rowStart: 11-26-2018 End: 11-26-2018 Documentation of current medications Isabella Costa At Plan of Treatment Date Care Activity Detail Author Start: 08-27-2024 [facility] Start: 04-02-2024 End: 04-02-2024 [facility] Start: 05-15-2022 Lipid panel LIPID PANEL ([id number]) Start: 15-May-2022 14:16-05:00 Request [employer]; [employer] Start: 05-15-2022 Comprehensive metabo lic panel CMP w/ GFR* ([id number]) Start: 15-May-2022 14:15-05:00 Request [employer]; [employer] Start: 09-23-2021 Ova&parasites direct smears concentration & id OVA & PARASITES ([id number]) Start: 23-Sep-2021 15:14-04:00 Request [employer]; [employer] Work Phone: Start: 09-23-2021 Iaad ia mult step me thod nos each organism Clostridium difficile Toxin/GDH with Reflex to PCR ([id number]) Start: 23-Sep-2021 15:13-04:00 Request [employer]; [employer] Start: 09-23-2021 Cul bact stool aerob ic addl pathogens&id ea Yersina Culture Start: 23-Sep-2021 15:13-04:00 Request [employer]; [employer] Start: 09-23-2021 Cul bact stool aerob ic isol salmonella&shigell [facility] CULTURE-STOOL Start: 23-Sep-2021 15:13-04:00 Request [employer]; [employer] Start: 09-23-2021 Iaad ia giardia Giardia Antige n Start: 23-Sep-2021 15:13-04:00 [facility] Start: 11-28-2018 Influenza vaccination Flu vaccine (# 1) [place], [place] Start: 11-26-2018 End: 11-26-2018 Appointment Appointment [facility] Work Phone: Start: 1996 Creatinine monitoring Creatinine mon itoring [place], [place] Start: 1996 Potassium monitoring Potassium monit oring [place], [place] End: 03-03-2019 Bacteria identified Cx Nom (U) Urine Culture Microbiology STAT One Time for 1 Occurrences starting 03/03/2019 until 03/03/2019 [place], [place] Comment on above: One Time for 1 Occur rences starting 03/03/2019 until 03/03/2019 Bacteria identified Cx Nom (U) Urine Culture Microbiology STAT 03/03/2019 10:57 PM EST [place], [place] Choriogonadotropin ( test) [Presence] in Serum or Plasma [facility] Choriogonadotropin ( test) [Presence] in Serum or Plasma [facility] Patient Education [facility] Work Phone: Patient referral [facility] Work Phone: T4 free measurement [facility] Work Phone: Thyroid stimulating hormone measurement [facility] Work Phone: Transvaginal obstetr ic ultrasonography [facility] Triiodothyronine, fr ee measurement [facility] Work Phone: [facility] Immunizations Immunization Date Immunization Notes Care Provider Fa windyty 12-28-2021 influenza, injectabl e, quadrivalent, contains preservative Erlinda Lopez PA-C Work Phone: [facility] Comment on above: given at workplace 10-18-2014 meningococcal polysaccharide (groups A, C, Y and W-135) diphtheria toxoid conjugate vaccine (MCV4P); Translations: [Meningo (Menactra)] [facility]; [facility] 01-20-2014 influenza virus vacc ine, live, attenuated, for intranasal use; Translations: [FluMist LIQD] [facility] Work Phone: 08-31-2013 tetanus toxoid, redu rajiv diphtheria toxoid, and acellular pertussis vaccine, adsorbed [facility] 08-31-2013 typhoid vaccine, lv e, oral Erlinda Ariel PA-C Work Phone: [facility]; [facility] 08-31-2013 typhoid capsular polysaccharide vaccine [facility] Work Phone: 01-01-2013 influenza, live, intranasal, quadrivalent [facility] Work Phone: 02-06-2012 influenza, live, intranasal, quadrivalent [facility] Work Phone: 12-14-2010 influenza, live, intranasal, quadrivalent [facility] Work Phone: 03-01-2010 influenza, live, intranasal, quadrivalent [facility] Work Phone: 12-30-2008 influenza, live, intranasal, quadrivalent [facility] Work Phone: 05-12-2008 hepatitis A vaccine, pediatric/adolescent dosage, 2 dose schedule [facility]; [facility] 05-12-2008 human papilloma viru s vaccine, quadrivalent [facility] Work Phone: 05-12-2008 Human Papillomavirus 9-valent vaccine Erlinda Lopez PA-C Work Phone: [facility] 05-12-2008 varicella virus vaccine [facility]; [facility] 01-05-2008 human papilloma viru s vaccine, quadrivalent [facility] Work Phone: 01-05-2008 Human Papillomavirus 9-valent vaccine Erlinda Lopez PA-C Work Phone: [facility]; [facility] 10-14-2007 hepatitis A vaccine, pediatric/adolescent dosage, 2 dose schedule [facility]; [facility] 10-14-2007 human papilloma viru s vaccine, quadrivalent [facility] Work Phone: 10-14-2007 Human Papillomavirus 9-valent vaccine Erlinda Lopez PA-C Work Phone: [facility]; [facility] 10-14-2007 meningococcal polysaccharide (groups A, C, Y and W-135) diphtheria toxoid conjugate vaccine (MCV4P) [facility]; [facility] 10-14-2007 tetanus toxoid, redu rajiv diphtheria toxoid, and acellular pertussis vaccine, adsorbed [facility]; [facility] 08-11-2001 measles, mumps and rubella virus vaccine [facility].; [facility] 08-11-2001 poliovirus vaccine, inactivated [facility]; [facility] 08-08-2001 diphtheria, tetanus toxoids and acellular pertussis vaccine Erlinda Lopez PA-C Work Phone: [facility]; [facility] 08-08-2001 diphtheria, tetanus toxoids and pertussis vaccine [facility] Work Phone: 02-09-1998 diphtheria, tetanus toxoids and acellular pertussis vaccine Erlinda Lopez PA-C Work Phone: [facility]; [facility] 02-09-1998 diphtheria, tetanus toxoids and pertussis vaccine [facility] Work Phone: 11-10-1997 measles, mumps and rubella virus vaccine [facility].; [facility] 08-09-1997 poliovirus vaccine, inactivated [facility].; [facility] 08-09-1997 varicella virus vaccine [facility] 05-23-1997 hepatitis B vaccine, pediatric or pediatric/adolescent dosage [facility].; [facility] 03-06-1997 diphtheria, tetanus toxoids and acellular pertussis vaccine Erlinda Lopez PA-C Work Phone: [facility]; [facility] 03-06-1997 diphtheria, tetanus toxoids and pertussis vaccine [facility] [employer] Work Phone: 01-02-1997 diphtheria, tetanus toxoids and acellular pertussis vaccine Erlinda Lopez PA-C Work Phone: [facility]; [facility] 01-02-1997 diphtheria, tetanus toxoids and pertussis vaccine [facility] Work Phone: 01-02-1997 poliovirus vaccine, inactivated [facility].; [facility] 1996 diphtheria, tetanus toxoids and acellular pertussis vaccine Erlinda Lopez PA-C Work Phone: [facility] 1996 diphtheria, tetanus toxoids and pertussis vaccine [facility] Work Phone: 1996 poliovirus vaccine, inactivated [facility] 1996 hepatitis B vaccine, pediatric or pediatric/adolescent dosage [facility].; [facility] 1996 hepatitis B vaccine, pediatric or pediatric/adolescent dosage [facility].; [facility] Payers Date Payer Category Payer Unknown [id number] 2024 Unknown [id number] 2023 Self-pay [id number] 2022 Unknown [id number] 1996 Unknown [id number] 2.16.8 40.1.381057.3.579.2. 1996 Unknown [id number] 2.16.8 40.1.785546.3.579.2. 1996 Unknown [id number] 2.16.8 40.1.381977.3.579.2. 1996 Unknown [id number] 2.16.8 40.1.067279.3.579.2. 1996 Unknown [id number] 2.16.8 40.1.123676.3.579.2. 1996 Unknown [id number] 2.16.8 40.1.888630.3.579.2. 1996 Unknown [id number] 2.16.8 40.1.028620.3.579.2. 1996 Unknown [id number] 2.16.8 40.1.711410.3.579.2. 1996 Unknown [id number] 2.16.8 40.1.887756.3.579.2. 1996 Unknown [id number] 2.16.8 40.1.399232.3.579.2. 1996 Unknown [id number] 2.16.8 40.1.385344.3.579.2.651 Private Health Insurance [id number] Unknown [employer] Unknown [id number] 2.16.8 40.1.221461.3.579.2.462 Unknown [id number] 2.16.8 40.1.817682.3.579.2.462 Unknown [id number] 2.16.8 40.1.770114.3.579.2.462 Unknown [id number] 2.16.8 40.1.863584.3.579.2.462 Unknown [id number] 2.16.8 40.1.985408.3.579.2.462 Unknown [id number] 2.16.8 40.1.353485.3.579.2.462 Unknown [id number] 2.16.8 40.1.864184.3.579.2.462 Unknown [id number] 2.16.8 40.1.493322.3.579.2.462 Unknown [id number] 2.16.8 40.1.287808.3.579.2.462 Unknown [id number] 2.16.8 40.1.542203.3.579.2.462 Unknown [id number] 2.16.8 40.1.915349.3.579.2.462 Unknown [id number] 2.16.8 40.1.653128.3.579.2.462 Unknown [id number] 2.16.8 40.1.337851.3.579.2.462 Unknown [id number] 2.16.8 40.1.093867.3.579.2.462 Unknown [id number] 2.16.8 40.1.881766.3.579.2.462 Unknown [id number] 2.16.8 40.1.392819.3.579.2.462 Unknown [id number] 2.16.8 40.1.801219.3.579.2.462 Social History Date Type Detail Facility Start: 02-18-2019 End: 08-27-2024 Tobacco smoking status NCIS Never smoker [facility] Sex Assigned At Not on file [place], [place] Start: 11-26-2018 End: 11-26-2018 Assertion Unknown if ever smoked [facility] Work Phone: Start: 1995 Sex Assigned At Female [facility] Tobacco smoking status [facility] Alcohol Use Alcohol Use [facility].; [facility] Tobacco Use: Tobacco Use: ; N ever smoker. [facility].; [facility] Start: 02-06-2023 End: 06-20-2024 Sex Female (finding) [facility] Patient currentl y [facility] NEGATED: Highlighted rowStart: 11-26-2018 End: 11-26-2018 How many days of moderate to strenuous exercise, like a brisk walk, did you do in the last 7 days? How many days of moderate to strenuous exercise, like a brisk walk, did you do in the last 7 days? [facility] Work Phone: NEGATED: Highlighted row - - [facility] [employer] [facility] Work Phone: Functional Status Date Assessment Result Facility NEGATED: Highlighted row Functional performance Functional status health issues are not documented Disease [facility] Work Phone: Mental Status Date Assessment Result Facility 04-02-2024 Cognitive function Voice/Name [facility] Work Phone: NEGATED: Highlighted row Cognitive function [Interpretation] Cognitive status health issues are not documented Disease [facility] Work Phone: Clinical Notes 12-01-2023 to 08-27-2024 Note Date & Type Note Facility 08-27-2024 Radiology Diagnostic study note [facility] Imaging Services [address] [place], [place] [address] Transvaginal w/Preg US MR#: [id number] Acct: [id number] Name: XOCHILT CADET Rep #: [id number] 130 : 1995 F 29 From: Tom Blake MD PCP: Dr. Aretha Best MD Status: REG ER Study:Transvaginal w/Preg US Date of Exam: 08/27/24 Exam# [id number] Ordering Dr: Anuja Baeza DO PROCEDURE: TRANSVAGINAL W/PREG US 08/27/2024 REASON FOR EXAM: POSSIBLE ECTOPIC TECHNIQUE: High resolution obstetric ultrasound performed using a 2D transducer. Standard views obtained, including biometry, anatomy survey, and Doppler studies. COMPARISON: None. FINDINGS Single live intrauterine . Small sac favoring a gestational sac measuring 5 weeks and 0 days. No visualized pole. No yolk sac visualized. Uterus measures 8.9 x 6.0 x 4.5 cm. Right ovary measures 5.1 x 2.6 x 2.6 cm and left ovary measures 4.1 x 3.2 x 2.9 cm both with preserved vascular flow. Right ovarian thick-walled lesion favoring a corpus luteum which measures 2.3 x 2.2 x 1.5 cm. Numerous bilateral ovarian follicles. US/Transvaginal w/Preg US IMPRESSION: Probable gestational sac without a visualized pole. Polycystic appearance of the ovaries. Possible right corpus luteum. Reading Location: [id number] CC: Dr. Aretha Best MD; Dr. Porter Baeza DO ~ Unit Nurse: Signed [facility] 06-09-2024 Note [facility] Pap Smear Specimen Adequacy June 09, 2024 11:59pm Comment . Satisfactory for evaluation. Endocervical and/or squamous metaplasticcells (endocervical component) are present. Comment on above: Satisfactory for ara luation. Endocervical and/or squamous metaplasticcells (endocervical component) are present. 06-09-2024 Evaluation note Diagnosis Onset Date Resolution Encounter for routine gynecological examination noneactive June 09, 2024 3:37pm [facility] Work Phone: 1(436) 145-842003-13-2025 Evaluation note* Diagnosis Onset Date Resolution Status Admit Date Encounter for routine gynecological examination noneactive June 09, 2024 3:37pm , threatened acute August 25, 2024 3:14pm [facility] Work Phone: 1(924) 685-964209-03-2024 Evaluation + Plan note Diagnostic Tests Pending * Free T4 12/01/23 * Thyroid Stimulating Hormone 12/01/23 [facility] Evaluation + Plan note No data available for this section [facility] Evaluation note* Diagnosis Onset Date Resolution Status 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 [facility] Work Phone: Hospital Discharge instructions No data available for this section [facility] Instructions* Name Dates Details Instructions not documented -[facility] Work Phone: Progress note No data available for this section [facility] Reason for referral (narrative)No reason for referral information [facility] Work Phone: Summary Purpose Family History No Family History Records Found Grandmother Name Dates Details Family history of migraine h eadaches(V17.2, Z82.0) Status:Active Grandparent Name Dates Details Family history of thyroid di sease(V18.19, Z83.49) Status:Active Grandmother Name Dates Details Family history of migraine h eadaches(V17.2, Z82.0) Status:Active Mother Name Dates Details FHx: allergies(V19.6, Z84.89 ) Status:Active Family history of thyroid di sease(V18.19, Z83.49) Status:Active Family history of hypothyroi dism(V18.19, Z83.49) Status:Active Family history of migraine h eadaches(V17.2, Z82.0) Status:Active Family history of Seasonal a llergies(477.9, J30.2) Status:Active Father Name Dates Details Family history of thyroid di sease(V18.19, Z83.49) Status:Active Family history of hypothyroi dism(V18.19, Z83.49) Status:Active Family history of migraine h eadaches(V17.2, Z82.0) Status:Active Sister Name Dates Details FHx: allergies(V19.6, Z84.89 ) Status:Active Family history of hypothyroi dism(V18.19, Z83.49) Status:Active Family history of Seasonal a llergies(477.9, J30.2) Status:Active Grandmother Name Dates Details Family history of migraine h eadaches(V17.2, Z82.0) Status:Active Grandparent Name Dates Details Family history of thyroid di sease(V18.19, Z83.49) Status:Active Grandmother Name Dates Details Family history of migraine h eadaches(V17.2, Z82.0) Status:Active Mother Name Dates Details FHx: allergies(V19.6, Z84.89 ) Status:Active Family history of thyroid di sease(V18.19, Z83.49) Status:Active Family history of migraine h eadaches(V17.2, Z82.0) Status:Active Family history of hypothyroi dism(V18.19, Z83.49) Status:Active Family history of Seasonal a llergies(477.9, J30.2) Status:Active Father Name Dates Details Family history of thyroid di sease(V18.19, Z83.49) Status:Active Family history of migraine h eadaches(V17.2, Z82.0) Status:Active Family history of hypothyroi dism(V18.19, Z83.49) Status:Active Sister Name Dates Details FHx: allergies(V19.6, Z84.89 ) Status:Active Family history of hypothyroi dism(V18.19, Z83.49) Status:Active Family history of Seasonal a llergies(477.9, J30.2) Status:Active Relationship Condition Age at Onset Recorded Date/T christiano mother Anxiety Unknown Depression Unknown Disorder of thyroid Unknown father Anxiety Unknown Alcoholism Unknown Hypertension Unknown sister Anxiety Unknown grandmother Disorder of thyroid Unknown grandfather Disorder of thyroid Unknown Heart Disease Status:Active Comments:Grandfa ther Hypothyroidism Status:Active Comments:Mother. Father. Grandparents Advance Directives No Advanced Directives Records Found Advance Directive Response Recorded Date/ Time Living Will No April 02 2:50pm Do you have a Healthcare Power of City Administrator? No April 02, 2024 2:50pm Advance Directive Response Recorded Date/ Time Do you have a Healthcare Power of City Administrator? No August 18, 2024 9:32am Advance Directive Response Recorded Date/ Time Do you have a Healthcare Power of City Administrator? No August 18, 2024 9:32am Do you have a Healthcare Power of City Administrator? No August 27, 2024 4:30pm Hospital Course * Marilin Curry RN - 02/18/2019 11:06 PM EST Dc instructions and Rx given. Side effects of meds explained to pt. She verbalized comprehension. She ambulated out of the ed with no distress noted, accompanied by her mother. documented in this encounter Discharge Instructions * Attachments The following attachments cannot be sent through Care Everywhere. * UTI (Urinary Tract Infection): Female ([place]) documented in this encounter* Attachments The following attachments cannot be sent through Care Everywhere. * UTI (Urinary Tract Infection): Female ([place]itt[place]) documented in this encounter Assessments Diagnosis UTI (urinary tract infection), uncomplicated- Primary Urinary tract infection, site not specified Diagnosis Acute cystitis with hematuria- Primary Acute cystitis Chief Complaint Chief Complaint Description Start Date right knee pain Preliminary chief co mplaint data, not yet signed by the author as of Instructions Instruction Description Start Date CompletedPatient advised to follow-up with Primary Care Physician for BMI management. Name Dates Details Instructions not documented Review of System There may be information available, but it has not been provided by the sender. History of Present Illness There may be information available, but it has not been provided by the sender. 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, 2024 3:3 7pm vag August 18, 2024 9:25a m INT LAB ORDERS August 20, 2024 7:55a m E ORDER August 22, 2024 8:11a m SPOTTING IN EARLY August 25 9:55am fu ER visit, US results August 25, 2024 3 :14pm Chief Complaint Admit Date 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, 2024 3:3 7pm vag August 18, 2024 9:25a m INT LAB ORDERS August 20, 2024 7:55a m E ORDER August 22, 2024 8:11a m SPOTTING IN EARLY August 25 9:55am fu ER visit, US results August 25, 2024 3 :14pm HCG LEVEL August 27, 2024 12:31 pm August 27, 2024 4:17p m Reason for Visit Admit Date Encounter for routine gynecological exam ination June 09, 2024 3:37pm , threatened August 25, 2024 3:14 pm Chief Complaint Admit Date 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 DATE CREATED AUTHOR AUTHOR'S ORGANIZ ATION 03/07/2019 [facility] DATE CREATED AUTHOR AUTHOR'S ORGANIZ ATION 09/05/2019 [facility] DATE CREATED AUTHOR AUTHOR'S ORGANIZ ATION 09/05/2019 [employer] DATE CREATED AUTHOR AUTHOR'S ORGANIZ ATION 02/28/2020 [facility] DATE CREATED AUTHOR AUTHOR'S ORGANIZ ATION 05/11/2020 [facility] DATE CREATED AUTHOR AUTHOR'S ORGANIZ ATION 09/24/2021 [facility] DATE CREATED AUTHOR AUTHOR'S ORGANIZ ATION 09/21/2022 [facility] DATE CREATED AUTHOR AUTHOR'S ORGANIZ ATION 12/03/2023 [facility] ([place]) DATE CREATED AUTHOR AUTHOR'S ORGANIZ ATION 03/03/2024 [facility] DATE CREATED AUTHOR AUTHOR'S ORGANIZ ATION 06/21/2024 [facility] DATE CREATED AUTHOR AUTHOR'S ORGANIZ ATION 06/25/2024 [facility] DATE CREATED AUTHOR AUTHOR'S ORGANIZ ATION 08/31/2024 [facility] Reason for Visit (unrecogniz ed section and content) Reason Comments Dysuria Urinary Frequency Urinary Tract Infection Reason Comments Urinary Tract Infection Reason For Visit Description Start Date Follow-up by complaint Preliminary reason f or visit data, not yet signed by the author as of right knee pain Goals (unrecognized section and content) Goals may be documented in a n alternate section No data available for this section No data available for this section No data available for this section No data available for this section No data available for this section No data available for this section No data available for this sectionGoals may be documented in an alternate sectionGoals may be documented in an alternate sectionGoals may be documented in an alternate sectionGoals may be documented in an alternate sectionGoals may be documented in an alternate sectionGoals may be documented in an alternate section Patient Care team informatio n (unrecognized section and content) Team Status: Active Member Role Status Jasvir Best MD Primary Care Provider Active Team Status: Inactive Member Role Status Dates Aretha Best MD Primary Care Provider Active St art: April 02, 2024 End: April 02, 2024 Dr. Cristobal Ron MD Attending Provider Active S tart: April 02, 2024 End: April 02, 2024 Dr. Cristobal Ron MD Emergency Provider Active S tart: April 02, 2024 End: April 02, 2024 Team Status: Inactive Member Role Status Jasvir Garcia CNM Attending Provider Active S tart: June 09, 2024 End: June 09, 2024 Aretha Best MD Primary Care Provider Active St art: June 09, 2024 End: June 09, 2024 Aretha Best MD Referring Provider Active Start : June 09, 2024 End: June 09, 2024 Team Status: Inactive Member Role Status Jasvir Best MD Primary Care Provider Active St art: June 09, 2024 End: June 09, 2024 Jeny Garcia CNM Attending Provider Active S tart: June 09, 2024 End: June 09, 2024 Jeny Garcia CNM Referring Provider Active S tart: June 09, 2024 End: June 09, 2024 Team Status: Inactive Member Role Status Jasvir Best MD Primary Care Provider Active St art: August 18, 2024 End: August 18, 2024 Dr. Preston Garrett , Attending Provider Active S tart: August 18, 2024 End: August 18, 2024 Dr. Preston Garrett , Emergency Provider Active S tart: August 18, 2024 End: August 18, 2024 Team Status: Inactive Member Role Status Jasvir Best MD Primary Care Provider Active St art: August 20, 2024 End: August 20, 2024 Bess Andujar CNM Attending Provider Active Start: August 20, 2024 End: August 20, 2024 Bess Andujar CNM Referring Provider Active Start: August 20, 2024 End: August 20, 2024 Team Status: Active Member Role Status Jasvir Best MD Primary Care Provider Active St art: August 22, 2024 Bess Andujar CNM Attending Provider Active Start: August 22, 2024 Bess Andujar CNM Referring Provider Active Start: August 22, 2024 Team Status: Inactive Member Role Status Jasvir Best MD Primary Care Provider Active St art: August 22, 2024 End: August 22, 2024 Bess Andujar CNM Attending Provider Active Start: August 22, 2024 End: August 22, 2024 Bess Andujar CNM Referring Provider Active Start: August 22, 2024 End: August 22, 2024 Team Status: Active Member Role Status Jasvir Best MD Primary Care Provider Active St art: August 25, 2024 Dr. Sangita Jean MD Attending Provider Active Start: August 25, 2024 Dr. Sangita Jean MD Referring Provider Active Start: August 25, 2024 Team Status: Inactive Member Role Status Jasvir Best MD Primary Care Provider Active St art: August 25, 2024 End: August 25, 2024 Aretha Best MD Referring Provider Active Start : August 25, 2024 End: August 25, 2024 Dr. Sangita Jean MD Attending Provider Active Start: August 25, 2024 End: August 25, 2024 Team Status: Active Member Role Status Jasvir Best MD Primary Care Provider Active St art: August 27, 2024 Dr. Sangita Jean MD Attending Provider Active Start: August 27, 2024 Dr. Sangita Jean MD Referring Provider Active Start: August 27, 2024 Team Status: Inactive Member Role Status Jasvir Best MD Primary Care Provider Active St art: August 27, 2024 End: August 27, 2024 Dr. Porter Baeza DO Emergency Provider Active Start: August 27, 2024 End: August 27, 2024 Team Status: Active Member Role Status Jasvir Best MD Primary Care Provider Active St art: August 29, 2024 Dr. Sangita Jean MD Attending Provider Active Start: August 29, 2024 Dr. Sangita Jean MD Referring Provider Active Start: August 29, 2024 Team Status: Inactive Member Role Status Jasvir Best MD Primary Care Provider Active St art: August 29, 2024 End: August 29, 2024 Aretha Best MD Referring Provider Active Start : August 29, 2024 End: August 29, 2024 Dr. Sangita Jean MD Attending Provider Active Start: August 29, 2024 End: August 29, 2024 FOR RECORDS PERTAINING TO PATIENTS WHO ARE OR HAVE BEEN ENROLLED IN A CHEMICAL DEPENDENCY/SUBSTANCEABUSE PROGRAM, SOME INFORMATION MAY BE OMITTED. This clinical summary was aggregated from multiple sources. Caution should be exercised in using it in the provision of clinical care. This summary normalizes information from multiple sources, and as a consequence, information in this document may materially change the coding, format and clinical context of patient data. In addition, data may be omitted in some cases. CLINICAL DECISIONS SHOULD BE BASED ON THE PRIMARY CLINICAL RECORDS. [facility] [employer] [facility]. provides no warranty or guarantee of the accuracy or completeness of information in this document.
== END | disposition home or self-care (01) ==
PROVIDERS: PCP Family Medicine; Referring Provider Obstetrics & Gynecology; Visit Provider Obstetrics & Gynecology
DX: O20.0 Threatened abortion (principal); Z3A.00 Weeks of gestation of pregnancy not specified
CPT/HCPCS: 76817

== ENCOUNTER → 2024-09-12 | Outpatient (CLI) | payer BC, SELFPAY ==
[2024-09-12 16:13] LABS: hCG Titer Quant., Serum 5 mIU/mL (<9 non-preg)
== END | disposition home or self-care (01) ==
PROVIDERS: PCP Family Medicine; Referring Provider Obstetrics & Gynecology; Visit Provider Obstetrics & Gynecology
DX: O02.1 Missed abortion (principal)
CPT/HCPCS: 36415; 84702

== ENCOUNTER → 2024-10-03 | Outpatient (CLI) | payer BC, SELFPAY | END | disposition home or self-care (01) | PROVIDERS: PCP Family Medicine; Referring Provider Obstetrics & Gynecology; Visit Provider Obstetrics & Gynecology | DX: O03.9 Complete or unspecified spontaneous abortion without complication (principal); E03.9 Hypothyroidism, unspecified | CPT/HCPCS: 36415; 82627; 83498; 84402; 84403; 84443; 82626 ==

== ENCOUNTER → 2024-11-08 | Outpatient (CLI) | payer BC, SELFPAY | END | disposition home or self-care (01) | LOC: LAB 08:36 | PROVIDERS: PCP Family Medicine; Referring Provider Family Medicine; Visit Provider Family Medicine | DX: E03.9 Hypothyroidism, unspecified (principal) | CPT/HCPCS: 36415; 84443 ==

== ENCOUNTER → 2024-12-06 | Outpatient (CLI) | payer BC, SELFPAY ==
[2024-12-06 13:11] LABS: hCG Titer Quant., Serum 814 mIU/mL (<9 non-preg)
== END | disposition home or self-care (01) ==
PROVIDERS: PCP Family Medicine; Referring Provider Obstetrics & Gynecology; Visit Provider Obstetrics & Gynecology
DX: O26.859 Spotting complicating pregnancy, unspecified trimester (principal); Z3A.00 Weeks of gestation of pregnancy not specified
CPT/HCPCS: 36415; 84702

== ENCOUNTER → 2024-12-08 | Outpatient (CLI) | payer BC, SELFPAY ==
[2024-12-08 11:30] LABS: hCG Titer Quant., Serum 1658 mIU/mL (<9 non-preg)
== END | disposition home or self-care (01) ==
LOC: BWCLAB 09:07
PROVIDERS: PCP Family Medicine; Referring Provider Obstetrics & Gynecology; Visit Provider Obstetrics & Gynecology
DX: O26.859 Spotting complicating pregnancy, unspecified trimester (principal); E03.9 Hypothyroidism, unspecified; Z3A.00 Weeks of gestation of pregnancy not specified; O99.280 Endocrine, nutritional and metabolic diseases complicating pregnancy, unspecified trimester
CPT/HCPCS: 36415; 84439; 84443; 84702

== ENCOUNTER → 2024-12-19 | Outpatient (CLI) | payer BC, SELFPAY ==
--- OUTSIDE RECORDS SUMMARY | 2024-12-19 18:21 | XMS RPT_ITS | CCD ---
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 COMPLETED ON A PREVIOUS DATE Performed By: #### L 500.4050, L100.0100 ####[facility] [address] [place], [address] WBC Normal 4.4-11.0 [facility] Comment on above: Order Comment: Order Date: 03/04/24Order Info: 0184-1 - CBCD Result Comment: PT A LREADY HAD COMPLETED ON A PREVIOUS DATE Performed By: #### L 500.4050, L100.0100 ####[facility] [address] [place], [address] Comprehensive Metabolic Prof ilon 10-03-2024 ALB Normal 3.5-5.0 [facility] Comment on above: Order Comment: Order Date: 03/04/24Order Info: 785-1 - CMPOrder Info: 3016-3 - TSH Result Comment: PT A LREADY HAD COMPLETED ON A PREVIOUS DATE Performed By: #### L 500.4050, L100.0100 ####[facility] [address] [place], [address] ALK PHOS Normal 35-104 [facility] Comment on above: Order Comment: Order Date: 03/04/24Order Info: 86-1 - CMPOrder Info: 3016-3 - TSH Result Comment: PT A LREADY HAD COMPLETED ON A PREVIOUS DATE Performed By: #### L 500.4050, L100.0100 ####[facility] [address] [place], [address] ALT Normal <=34 [facility] Comment on above: Order Comment: Order Date: 03/04/24Order Info: 785-1 - CMPOrder Info: 3016-3 - TSH Result Comment: PT A LREADY HAD COMPLETED ON A PREVIOUS DATE Performed By: #### L 500.4050, L100.0100 ####[facility] [address] [place], [address] AST Normal <=31 [facility] Comment on above: Order Comment: Order Date: 03/04/24Order Info: 785-1 - CMPOrder Info: 3016-3 - TSH Result Comment: PT A LREADY HAD COMPLETED ON A PREVIOUS DATE Performed By: #### L 500.4050, L100.0100 ####[facility] [address] [place], [address] BUN Normal 4-19 [facility] Comment on above: Order Comment: Order Date: 03/04/24Order Info: 785-1 - CMPOrder Info: 3016-3 - TSH Result Comment: PT A LREADY HAD COMPLETED ON A PREVIOUS DATE Performed By: #### L 500.4050, L100.0100 ####[facility] [address] [place], [address] BUN/CRE Normal 10-20 [facility] Comment on above: Order Comment: Order Date: 03/04/24Order Info: 0786-1 - CMPOrder Info: 3016-3 - TSH Result Comment: PT A LREADY HAD COMPLETED ON A PREVIOUS DATE Performed By: #### L 500.4050, L100.0100 ####[facility] [address] [place], [address] Calcium Normal 7.6-11.0 [facility] Comment on above: Order Comment: Order Date: 03/04/24Order Info: 86-1 - CMPOrder Info: 3016-3 - TSH Result Comment: PT A LREADY HAD COMPLETED ON A PREVIOUS DATE Performed By: #### L 500.4050, L100.0100 ####[facility] [address] [place], [address] CL Normal 98-108 [facility] Comment on above: Order Comment: Order Date: 03/04/24Order Info: 785-1 - CMPOrder Info: 3016-3 - TSH Result Comment: PT A LREADY HAD COMPLETED ON A PREVIOUS DATE Performed By: #### L 500.4050, L100.0100 ####[facility] [address] [place], [address] CO2 Normal 21.0-32.0 [facility] Comment on above: Order Comment: Order Date: 03/04/24Order Info: 86-1 - CMPOrder Info: 3016-3 - TSH Result Comment: PT A LREADY HAD COMPLETED ON A PREVIOUS DATE Performed By: #### L 500.4050, L100.0100 ####[facility] [address] [place], [address] CREAT,SERUM Normal 0.70-1.20 [facility] Comment on above: Order Comment: Order Date: 03/04/24Order Info: 86-1 - CMPOrder Info: 3016-3 - TSH Result Comment: PT A LREADY HAD COMPLETED ON A PREVIOUS DATE Performed By: #### L 500.4050, L100.0100 ####[facility] [address] [place], [address] eGFR Normal >60 [facility] Comment on above: Order Comment: Order Date: 03/04/24Order Info: 86-1 - CMPOrder Info: 3016-3 - TSH Result Comment: PT A LREADY HAD COMPLETED ON A PREVIOUS DATE Performed By: #### L 500.4050, L100.0100 ####[facility] [address] [place], [address] GAP Normal 5-15 [facility] Comment on above: Order Comment: Order Date: 03/04/24Order Info: 785-1 - CMPOrder Info: 3016-3 - TSH Result Comment: PT A LREADY HAD COMPLETED ON A PREVIOUS DATE Performed By: #### L 500.4050, L100.0100 ####[facility] [address] [place], [address] GLU Normal 70-99 [facility] Comment on above: Order Comment: Order Date: 03/04/24Order Info: 785-1 - CMPOrder Info: 3016-3 - TSH Result Comment: PT A LREADY HAD COMPLETED ON A PREVIOUS DATE Performed By: #### L 500.4050, L100.0100 ####[facility] [address] [place], [address] Potassium Normal 3.3-5.1 [facility] Comment on above: Order Comment: Order Date: 03/04/24Order Info: 07-1 - CMPOrder Info: 3016-3 - TSH Result Comment: PT A LREADY HAD COMPLETED ON A PREVIOUS DATE Performed By: #### L 500.4050, L100.0100 ####[facility] [address] [place], [address] T BILI Normal 0.00-1.30 [facility] Comment on above: Order Comment: Order Date: 03/04/24Order Info: 0786-1 - CMPOrder Info: 3016-3 - TSH Result Comment: PT A LREADY HAD COMPLETED ON A PREVIOUS DATE Performed By: #### L 500.4050, L100.0100 ####[facility] [address] [place], [address] T PROT Normal 5.9-8.4 [facility] Comment on above: Order Comment: Order Date: 03/04/24Order Info: 0786-1 - CMPOrder Info: 3016-3 - TSH Result Comment: PT A LREADY HAD COMPLETED ON A PREVIOUS DATE Performed By: #### L 500.4050, L100.0100 ####[facility] [address] [place], [address] Comprehensive Metabolic Profil Normal 133-145 [facility] Comment on above: Order Comment: Order Date: 03/04/24Order Info: 0786-1 - CMPOrder Info: 3016-3 - TSH Result Comment: PT A LREADY HAD COMPLETED ON A PREVIOUS DATE Performed By: #### L 500.4050, L100.0100 ####[facility] [address] [place], [address] L509.3001on 10-03-2024 Testosterone [Mass/Vol] 13.00 ng/dL Normal [facility] Comment on above: Performed By: #### L 3400.4800, L3100.9000, L509.3001, L3300.1500 ####[facility] [address] [place], [address] Laboratory - Chemistry and C hemistry - challengeOrdered By: Sangita Jean on 10-03-2024 Testosterone [Mass/Vol] 13.00 ng/dL [facility] Serum or plasma 17-hydroxypr ogesterone measurement (mass/volume)Ordered By: Sangita Jean on 10-03-2024 17-Hydroxyprogesteron e [Mass/Vol] 19 ng/dL . [facility] Comment on above: Adult Female Follicu lar 15 - 70 Luteal 35 - 290Performed at: [facility] [id number] Director: Lauri Nance MD, Phone: [phone] Serum or plasma free testost erone measurement (mass/volume)Ordered By: Sangita Jean on 10-03-2024 Testosterone Free [Mass/Vol] 1.1 pg/mL 0.0-4.2 [facility] Comment on above: Performed at: [address] [id number] Director: Erik Holm PhD, Phone: [phone] at: [facility] [address] [id number] Director: Lauri Nance MD, Phone: [phone] TSH DL <= 0.005 mIU/L QnOrde red By: Aretha Best on 10-03-2024 TSH Qn 0.905 uIU/mL 0.300-4.200 [facility] Thyroid Stim Hormone (TSH)on 10-03-2024 TSH 0.905 uIU/mL Normal 0.300-4.200 [facility] Comment on above: Order Comment: Order Date: 05/31/24Order Info: 3016-3 - TSH Performed By: #### L 501.9520 ####[facility] [address] [place], [address] Resource Conservation Manager Office Visit Reporton 09-12-2024 Resource Conservation Manager Office Visit Report [facility] [address], [address] [place] [address] OFFICE VISIT Date of Service: 09/12/24 MR#: [id number] Acct: [id number] Name: XOCHILT CADET Rep #: [id number] : 1995 Provider: Dr. Sangita valencia MD Age/Sex: 29/F Location: [facility] Status: Signed Intake Vital Signs 09/01/24 11:40 09/12/24 13:02 Height 5 ft 8 in 5 ft 8 in Weight: 181 lb BMI 27.5 BP 120/72 Intake Visit Reasons: 1 wk F/U Hotel Service Supervisor Required: No Is patient in pain?: No Allergies No Known Allergies Allergy (Verified 09/12/24 13:05) Medications ???Medication ???Instructions ???Recorded ???Confirmed ???Type multivitamin no.47-iron fum 27 1 cap PO DAILY 08/25/24 09/12/24 H istory mg-folate no.1 1 mg-dha 300 mg capsule (PNV-DHA) levothyroxine 137 mcg capsule 137 mcg PO QDAY 09/12/24 09/12/24 History Post menopausal: No Patient : No : [...] Yes additional social history: - Carlos HPI 1 wk F/U Details: XOCHILT CADET is a 29 year old who presents for follow up of early miscarriage. repeat ulrasound today shows a 3 mm lining with no retained POC and adnexa appear WNL no significnat changes, just polycystic appearance. thyroid medication was adjusted by pcp. patient had heavy bleeding after cytotec and then it slowed down. History 1 Elective abortions Hx Para 0 Spontaneous abortions 1 Hx # Term Pregnancies Ectopic pregnancies Hx # Pregnancies Multiple births # of living children Past Pregnancies Del. Date Name GA/Weeks Outcome Route Bth Weight Gen Labor Lgth Anesthesia Del [facility] Provider FOB 09/01/24 spontaneous ROS Const Constitutional: Denies fatigue, fever(s), headache(s), increased appetite, poor appetite, weight gain or weight loss Cardio Card: Denies chest pain Resp Resp: Denies cough or dyspnea GI GI: Reports as per HPI; Denies abdominal pain, constipation, nausea or vomiting : Reports as per HPI; Denies difficulty voiding, dysuria, nipple discharge, urinary frequency, urinary incontinence, urinary hesitancy, urinary urgency, vaginal discharge, vaginal dryness, vaginal odor or vaginal pruritus Skin Skin/Breast: Denies change in hair, breast mass, breast pain, breast skin changes or nipple discharge Exam Const General: cooperative, healthy appearing, comfortable, no acute distress and well developed Nutritional Appearance: average body habitus Orientation: alert HENMT Head: normal to inspection and normocephalic Neck Neck: normal visual inspection and trachea midline Thyroid: thyroid normal Resp Effort Inspection: normal respiratory effort GI Inspection: normal to inspection and non-distended Palpation: soft and no hepatosplenomegaly General: bladder normal to palpation External Female Exam: normal external appearance and normal appearance of the urethra Urethra: normal appearance of the urethra, normal palpation and no discharge Speculum Exam - Vagina: normal appearance of the vagina and normal vaginal discharge Speculum Exam - Cervix: normal appearance of the cervix and nontender Bimanual Exam- Vagina Uterus: normal bimanual exam, uterine size normal, bladder normal to palpation, uterine shape normal, No tender, uterine mobility normal, consistency normal, normal palpation and non-tender (more content not included)... Normal [facility] Serum human chorionic gonado tropin detection for pregnancyOrdered By: Sangita Jean on 09-12-2024 HCG ( test) Ql 5 mIU/mL <9 [facility] Comment on above: Gestational Age0.2-1 Week: 5-50 mIU/mL1-2 Weeks: 50-500 mIU/mL2-3 Weeks: 100-5000 mIU/mL3-4 Weeks: 500-10,000 mIU/mL4-5 Weeks:1000-50,000 mIU/mL5-6 Weeks: 10,000-100,000 mIU/mL6-8 Weeks: 15,000-200,000 mIU/mL2-3 Months:10,000-100,000 mIU/mL hCG Titer Quant., Serumon HCG QUANT. 5 mIU/mL Normal <9 non-preg [facility] Comment on above: Result Comment: Gest ational Age 0.2-1 Week: 5-50 mIU/mL 1-2 Weeks: 50-500 mIU/mL 2-3 Weeks: 100-5000 mIU/mL 3-4 Weeks: 500-10,000 mIU/mL 4-5 Weeks:1000-50,000 mIU/mL 5-6 Weeks: 10,000-100,000 mIU/mL 6-8 Weeks: 15,000-200,000 mIU/mL 2-3 Months:10,000-100,000 mIU/mL Performed By: #### L 700.8000 ####[facility] [address] [place], [address] Resource Conservation Manager Office Visit Reporton 09-01-2024 Resource Conservation Manager Office Visit Report [facility] [address], [address] [place] [address] OFFICE VISIT Date of Service: 09/01/24 MR#: [id number] Acct: [id number] Name: XOCHILT CADET Rep #: [id number] : 1995 Provider: Dr. Sangita valencia MD Age/Sex: 29/F Location: [facility] Status: Signed Intake Vital Signs 08/29/24 15:51 09/01/24 11:38 09/01/24 11:40 Height 5 ft 8 in 5 ft 8 in 5 ft 8 in Weight: 186 lb 8 oz 187 lb 4 oz BMI 28.3 28.4 BP 130/77 H 114/74 Intake Visit Reasons: f/u on US, HCG level per Hotel Service Supervisor Required: No Is patient in pain?: No Allergies No Known Allergies Allergy (Verified 09/01/24 11:38) Medications ???Medication ???Instructions ???Recorded ???Confirmed ???Type levothyroxine 112 mcg tablet 112 mcg PO .QD1/2 every Thursday #90 09/03/23 09/01/24 Rx tabs multivitamin no.47-iron fum 27 1 cap PO DAILY 08/25/24 09/01/24 H istory mg-folate no.1 1 mg-dha 300 mg capsule (PNV-DHA) misoprostol 200 mcg tablet 800 mcg (4 x 200 mcg) PO .complex 09/01/24 09/01/24 Rx (Cytotec) #8 tabs naproxen 500 mg tablet 500 mg PO BID PRN pain #30 tabs 09/01/24 Rx oxycodone-acetaminophen 5 mg-325 1 tab PO Q6H 7 days #10 tabs 09/0109/01/24 Rx mg tablet (Percocet) Post menopausal: No Patient : No : No [facility] Medical History (Updated 09/01/24 @ 15:[address] Sangita Jean MD) Contraceptive management [...] Yes additional social history: - Carlos HPI f/u on US, HCG level per SM Details: XOCHILT CADET is a 29 year old who presents for follow up of early . quants are now dropping after rising abnormally and repeat US shows small GS martinez tis not increasing in size cor rectly and no yolk sac or pole is seen. still having some spotting and crmaping no significant pain or fevers. History 1 Elective abortions Hx Para 0 Spontaneous abortions 1 Hx # Term Pregnancies Ectopic pregnancies Hx # Pregnancies Multiple births # of living children ROS Const Constitutional: Denies fatigue, fever(s), headache(s), increased appetite, poor appetite, weight gain or weight loss GI GI: Reports as per HPI; Denies abdominal pain, constipation, nausea or vomiting : Reports as per HPI; Denies difficulty voiding, dysuria, hematuria, pelvic pain, urinary frequency, urinary incontinence, urinary hesitancy, urinary urgency, vaginal discharge, vaginal dryness, vaginal odor, vaginal pruritus or other Exam Const General: cooperative, healthy appearing, comfortable, no acute distress and well developed Orientation: alert HENKY Head: normal to inspection and normocephalic Ears: hearing grossly normal bilaterally and external ears normal Nose: external nose normal and nares normal Face and sinus: normal facial exam Neck Neck: normal visual inspection, no lymphadenopathy and trachea midline Thyroid: thyroid normal Resp Effort Inspection: normal respiratory effort Musc Other: gross motor intact no deficits, full bilateral strength Skin General: no rashes or lesions noted Neuro Motor: muscle tone normal throughout Coding Level of Care Code Off vis,est,level 3 Diagnoses Missed O02.1 Assessment and Plan Assessment and Plan (1) Missed : Status: Acute Comment: dropping quants, GS with no yolk sac seen, reviewed precautions and options, plan cytotec now and repeat scan in a little over a week (more content not included)... Normal [facility] T4 Free Directon 09-01-2024 T4 FREE DIRECT 1.40 ng/dL Normal 0.76-1.46 [facility] Comment on above: Order Comment: ADD O N TO 08/31/24 BLOODWORK Performed By: #### L 506.0400 ####[facility] [address] [place], [address] Transvaginal w/Preg USon Transvaginal w/Preg US [facility] Services [address] [place], [place] [id number] Transvaginal w/Preg US MR#: [id number] Acct: [id number] Name: XOCHILT CADET Rep #: [id number] : 1995 F 29 From: Jeremi Tipton MD PCP: Dr. Aretha Best MD Status: REG CLI Study: Transvaginal w/Preg US Date of Exam: 09/01/24 Exam# [id number] Ordering Dr: Sangita Jean EXAM: US Pelvis Transabdominal and Transvaginal, Complete CLINICAL INDICATION: VIABILITY TECHNIQUE: Real-time complete transabdominal and transvaginal pelvic ultrasound with image documentation. Transvaginal imaging was used for better evaluation of the endometrium and adnexa. COMPARISON: No relevant prior studies available. FINDINGS: UTERUS/CERVIX: Multiple cystic lesions in the endometrial cavity. No definite residual reaction. No yolk sac. No CRL. These may be early . Repeat pelvic ultrasound in 10-14 days recommended as well as following serial beta HCG level. No myometrial mass. The uterus measures 11.3 x 6.7 x 5.7 cm. RIGHT OVARY: Unremarkable. Normal blood flow. The right ovary measures 5.0 x 2.4 x 2.5 cm. LEFT OVARY: Unremarkable. Normal blood flow. The left ovary measures 4.5 x 2.3 x 2.4 cm. FREE FLUID: No free fluid. BLADDER: Unremarkable as visualized. Wall is normal thickness for degree of distention. US/Transvaginal w/Preg US IMPRESSION: Multiple cystic lesions in the endometrial cavity. No definite residual reaction. No yolk sac. No CRL. These may be early . Repeat pelvic ultrasound in 10-14 days recommended as well as following serial beta HCG level. Reading Location: [facility] CC: Dr. Aretha Best MD; Dr. Sangiat Jean MD Supervising Broker: Signed Normal [facility] Serum human chorionic gonado tropin detection for pregnancyOrdered By: Sangita Jean on 08-31-2024 HCG ( test) Ql 449 mIU/mL High <9 [facility] Comment on above: Gestational Age0.2-1 Week: 5-50 mIU/mL1-2 Weeks: 50-500 mIU/mL2-3 Weeks: 100-5000 mIU/mL3-4 Weeks: 500-10,000 mIU/mL4-5 Weeks:1000-50,000 mIU/mL5-6 Weeks: 10,000-100,000 mIU/mL6-8 Weeks: 15,000-200,000 mIU/mL2-3 Months:10,000-100,000 mIU/mL T4 freeOrdered By: Aretha simms on 08-31-2024 Free T4 [Mass/Vol] 1.40 ng/dL 0.76-1.46 [facility] TSH DL <= 0.005 mIU/L QnOrde red By: Aretha Best on 08-31-2024 TSH Qn 7.510 uIU/mL High 0.300-4.200 [facility] Thyroid Stim Hormone (TSH)on 08-31-2024 TSH 7.510 uIU/mL High 0.300-4.200 [facility] Comment on above: Order Comment: SEND TO Order Date: 08/23/24Order Info: 3016-3 - TSH Performed By: #### L 501.9520 ####[facility] [address] [place], [address] hCG Titer Quant., Serumon HCG QUANT. 449 mIU/mL High <9 non-preg [facility] Comment on above: Result Comment: Gest ational Age 0.2-1 Week: 5-50 mIU/mL 1-2 Weeks: 50-500 mIU/mL 2-3 Weeks: 100-5000 mIU/mL 3-4 Weeks: 500-10,000 mIU/mL 4-5 Weeks:1000-50,000 mIU/mL 5-6 Weeks: 10,000-100,000 mIU/mL 6-8 Weeks: 15,000-200,000 mIU/mL 2-3 Months:10,000-100,000 mIU/mL Performed By: #### L 700.8000 ####[facility] [address] [place], [address] Resource Conservation Manager Office Visit Reporton 08-29-2024 Resource Conservation Manager Office Visit Report [facility] [address], [address] [place] [address] OFFICE VISIT Date of Service: 08/29/24 MR#: [id number] Acct: [id number] Name: XOCHILT CADET Rep #: [id number] : 1995 Provider: Dr. Sangita valencia MD Age/Sex: 29/F Location: [facility] Status: Signed Intake Vital Signs 08/25/24 15:16 08/27/24 16:18 08/29/24 15:51 Height 5 ft 8 in 5 ft 8 in 5 ft 8 in Weight: 186 lb 8 oz BMI 28.3 BP 130/77 H Intake Visit Reasons: ER FU per Hotel Service Supervisor Required: No Is patient in pain?: No [...] home: Yes additional social history: - Carlos [facility] ER FU per Details: XOCHILT CADET is [...] Vagina U (more content not included)... Normal [facility] Serum human chorionic gonado tropin detection for pregnancyOrdered By: Sangita Jean on 08-29-2024 HCG ( test) Ql 510 mIU/mL High <9 [facility] Comment on above: Gestational Age0.2-1 Week: 5-50 mIU/mL1-2 Weeks: 50-500 mIU/mL2-3 Weeks: 100-5000 mIU/mL3-4 Weeks: 500-10,000 mIU/mL4-5 Weeks:1000-50,000 mIU/mL5-6 Weeks: 10,000-100,000 mIU/mL6-8 Weeks: 15,000-200,000 mIU/mL2-3 Months:10,000-100,000 mIU/mL hCG Titer Quant., Serumon HCG QUANT. 510 mIU/mL High <9 non-preg [facility] Comment on above: Result Comment: Gest ational Age 0.2-1 Week: 5-50 mIU/mL 1-2 Weeks: 50-500 mIU/mL 2-3 Weeks: 100-5000 mIU/mL 3-4 Weeks: 500-10,000 mIU/mL 4-5 Weeks:1000-50,000 mIU/mL 5-6 Weeks: 10,000-100,000 mIU/mL 6-8 Weeks: 15,000-200,000 mIU/mL 2-3 Months:10,000-100,000 mIU/mL Performed By: #### L 700.8000 ####[facility] [address] [place], [address] Emergency Department Summary on 08-27-2024 Emergency Department Summary [facility] Medical Records Department [address] [place] [address] Emergency Department Summary 08/27/24 MR#: [id number] Acct: [id number] Name: XOCHILT CADET Rep #: [id number] : 1995 29 From: Porter Baeza DO PCP: Dr. Aretha Best MD Status:DEP ER Location: ED HPI HPI - Female History of Present Illness Chief Complaint: Informant: patient and spouse/S.O. Narrative Narrative: 29-year-old female presenting to the emergency room with a chief complaint of possible ectopic . Patient follows with Dr. Jeremi Chapman from [facility]. Patient has had positive outpatient test. [...] reported fevers. This is her first . [facility] Medical History Contraceptive management Deviated nasal septum [...] Endocrine Endocrinology: Denies polydipsia, polyphagia or polyuria Allergic/Immunologic Allergic/Immunologic ED: Denies mouth swelling, tongue swelling or [...] CVA tender (more content not included)... Normal [facility] Serum human chorionic gonado tropin detection for pregnancyOrdered By: Sangita Jean on 08-27-2024 HCG ( test) Ql 493 mIU/mL High <9 [facility] Comment on above: Gestational Age0.2-1 Week: 5-50 mIU/mL1-2 Weeks: 50-500 mIU/mL2-3 Weeks: 100-5000 mIU/mL3-4 Weeks: 500-10,000 mIU/mL4-5 Weeks:1000-50,000 mIU/mL5-6 Weeks: 10,000-100,000 mIU/mL6-8 Weeks: 15,000-200,000 mIU/mL2-3 Months:10,000-100,000 mIU/mL Transvaginal w/Preg USon Transvaginal w/Preg US [facility] [address] [place], [place] [address] Transvaginal w/Preg US MR#: [id number] Acct: [id number] Name: XOCHILT CADET Rep #: [id number] : 1995 F 29 From: Rick Blake MD PCP: Dr. Aretha Best MD Status: [facility] Study: Transvaginal w/Preg US Date of Exam: 08/27/24 Exam# [id number] Ordering Dr: Porter Baeza DO PROCEDURE: TRANSVAGINAL [...] ovaries. Possible right corpus luteum. Reading Location: [place] [address] CC: Dr. Aretha Best MD; Dr. Porter Baeza DO Supervising Broker: Signed Normal [facility] hCG Titer Quant., Serumon HCG QUANT. 493 mIU/mL High <9 non-preg [facility] Comment on above: Result Comment: Gest ational Age 0.2-1 Week: 5-50 mIU/mL 1-2 Weeks: 50-500 mIU/mL 2-3 Weeks: 100-5000 mIU/mL 3-4 Weeks: 500-10,000 mIU/mL 4-5 Weeks:1000-50,000 mIU/mL 5-6 Weeks: 10,000-100,000 mIU/mL 6-8 Weeks: 15,000-200,000 mIU/mL 2-3 Months:10,000-100,000 mIU/mL Performed By: #### L 700.8000 ####[facility] [address] [place], [place], [address] Absolute lymphocyte countOrd ered By: Sangita Jean on 08-25-2024 Lymphocytes Auto (Unsp spec) [#/Vol] 2.65 10*3/uL 0.83-4.51 [facility] Absolute neutrophil countOrd ered By: Sangita Jean on 08-25-2024 Neutrophils (Bld) [#/Vol] 9.1 10*3/uL High 2.0-7.7 [facility] Anion gap in Serum or Plasma Ordered By: Sangita Jean on 08-25-2024 Anion gap [Moles/Vol] 11 mmol/L 5-15 [facility] Automated lymphocyte count a s percentage of total leukocytesOrdered By: Sangita Jean on 08-25-2024 Lymphocytes/100 WBC Auto (Unsp spec) 20.8 % 19-41 [facility] BUN/creatinine ratioOrdered By: Sangita Jean on 08-25-2024 Urea nitrogen/Creatinine [Mass ratio] 10.8 mg/mg 10-20 [facility] Basophil percentageOrdered B y: Sangita Jean on 08-25-2024 Basophils/100 WBC (Bld) 0.5 % 0-1 [facility] Bilirubin, totalOrdered By: Sangita Jean on 08-25-2024 Bilirubin [Mass/Vol] 0.56 mg/dL 0.00-1.30 [facility] CBC W/Diff, Automatedon 07-29 Absolute Lymph 2.65 X10 3/uL Normal 0.83-4.51 [facility] Comment on above: Performed By: #### L 100.0100, L500.4050, L700.8000 ####[facility] [address] [place], [address] Absolute Neut 9.1 X10 3/uL High 2.0-7.7 [facility] Comment on above: Performed By: #### L 100.0100, L500.4050, L700.8000 ####[facility] [address] [place], [address] Basophils/100 WBC (Bld) 0.5 % Normal 0-1 [facility] Comment on above: Performed By: #### L 100.0100, L500.4050, L700.8000 ####[facility] [address] [place], [address] Eosinophils/100 WBC (Bld) 0.5 % Normal 0-5 [facility] Comment on above: Performed By: #### L 100.0100, L500.4050, L700.8000 ####[facility] [address] [place], [address] Erythrocyte distribution width (RBC) [Ratio] 11.8 % Normal 11.6-14.6 [facility] Comment on above: Performed By: #### L 100.0100, L500.4050, L700.8000 ####[facility] [address] [place], [address] Hematocrit (Bld) [Volume fraction] 41.0 % Normal 37-47 [facility] Comment on above: Performed By: #### L 100.0100, L500.4050, L700.8000 ####[facility] [address] [place], [address] Hemoglobin (Bld) [Mass/Vol] 14.4 g/dL Normal 12.0-15.0 [facility] Comment on above: Performed By: #### L 100.0100, L500.4050, L700.8000 ####[facility] [address] [place], [address] IG% 0.500 Normal 0.0-0.9 [facility] Comment on above: Result Comment: IG% - Immature Granulocytes (promyelocytes, myelocytes and metamyelocytes) > 1% indicates that a LEFT SHIFT is Present. Performed By: #### L 100.0100, L500.4050, L700.8000 ####[facility] [address] [place], [address] Lymphocytes/100 WBC (Bld) 20.8 % Normal 19-41 [facility] Comment on above: Performed By: #### L 100.0100, L500.4050, L700.8000 ####[facility] [address] [place], [address] MCH (RBC) [Entitic mass] 30.6 pg Normal 27.0-32.0 [facility] Comment on above: Performed By: #### L 100.0100, L500.4050, L700.8000 ####[facility] [address] [place], [address] MCHC (RBC) [Mass/Vol] 35.1 g/dL Normal 32-36 [facility] Comment on above: Performed By: #### L 100.0100, L500.4050, L700.8000 ####[facility] [address] [place], [address] MCV (RBC) [Entitic vol] 87.2 fL Normal 81-99 [facility] Comment on above: Performed By: #### L 100.0100, L500.4050, L700.8000 ####[facility] [address] [place], [address] Monocytes/100 WBC (Bld) 6.3 % Normal 0-10 [facility] Comment on above: Performed By: #### L 100.0100, L500.4050, L700.8000 ####[facility] [address] [place], [address] Neutrophils/100 WBC (Bld) 71.4 % High 47-70 [facility] Comment on above: Performed By: #### L 100.0100, L500.4050, L700.8000 ####[facility] [address] [place], [address] Nucleated RBC (Bld) [#/Vol] 0 10*3/uL Normal 0-5 [facility] Comment on above: Performed By: #### L 100.0100, L500.4050, L700.8000 ####[facility] [address] [place], [address] Platelet mean volume (Bld) [Entitic vol] 9.1 fL Normal 6.2-12.0 [facility] Comment on above: Performed By: #### L 100.0100, L500.4050, L700.8000 ####[facility] [address] [place], [address] Platelets (Bld) [#/Vol] 355 10*3/uL Normal 150-450 [facility] Comment on above: Performed By: #### L 100.0100, L500.4050, L700.8000 ####[facility] [address] [place], [address] RBC (Bld) [#/Vol] 4.70 10*6/uL Normal 4.2-5.4 [facility] Comment on above: Performed By: #### L 100.0100, L500.4050, L700.8000 ####[facility] [address] [place], [address] RDW SD 38.2 fl Normal 35.1-43.9 [facility] Comment on above: Performed By: #### L 100.0100, L500.4050, L700.8000 ####[facility] [address] [place], [address] WBC (Bld) [#/Vol] 12.8 10*3/uL High 4.4-11.0 [facility] Comment on above: Performed By: #### L 100.0100, L500.4050, L700.8000 ####[facility] [address] [place], [address] Carbon dioxide, total [Moles /volume] in Central venous bloodOrdered By: Sangita Jean on 08-25-2024 CO2 [Moles/Vol] 22.1 mmol/L 21.0-32.0 [facility] Chloride assayOrdered By: Manjinder Jean on 08-25-2024 Chloride [Moles/Vol] 104 mmol/L 98-108 [facility] Comprehensive Metabolic Prof ilon 08-25-2024 Albumin [Mass/Vol] 4.7 g/dL Normal 3.5-5.0 [facility] Comment on above: Performed By: #### L 100.0100, L500.4050, L700.8000 ####[facility] [address] [place], [address] Albumin/Globulin [Mass ratio] 1.7 {ratio} Normal 0.9-2.4 [facility] Comment on above: Performed By: #### L 100.0100, L500.4050, L700.8000 ####[facility] [address] [place], [address] ALK PHOS 62 U/L Normal 35-104 [facility] Comment on above: Performed By: #### L 100.0100, L500.4050, L700.8000 ####[facility] [address] [place], [address] ALT [Catalytic activity/Vol] 11 U/L Normal <=34 [facility] Comment on above: Performed By: #### L 100.0100, L500.4050, L700.8000 ####[facility] [address] [place], [address] AST [Catalytic activity/Vol] 18 U/L Normal <=31 [facility] Comment on above: Performed By: #### L 100.0100, L500.4050, L700.8000 ####[facility] [address] [place], [address] Bilirubin [Mass/Vol] 0.56 mg/dL Normal 0.00-1.30 [facility] Comment on above: Performed By: #### L 100.0100, L500.4050, L700.8000 ####[facility] [address] [place], [address] BUN/CRE 10.8 RATIO Normal 10-20 [facility] Comment on above: Performed By: #### L 100.0100, L500.4050, L700.8000 ####[facility] [address] [place], [address] Calcium [Mass/Vol] 9.4 mg/dL Normal 7.6-11.0 [facility] Comment on above: Performed By: #### L 100.0100, L500.4050, L700.8000 ####[facility] [address] [place], [address] Chloride [Moles/Vol] 104 mmol/L Normal 98-108 [facility] Comment on above: Performed By: #### L 100.0100, L500.4050, L700.8000 ####[facility] [address] [place], [address] CO2 [Moles/Vol] 22.1 mmol/L Normal 21.0-32.0 [facility] Comment on above: Performed By: #### L 100.0100, L500.4050, L700.8000 ####[facility] [address] [place], [address] Creatinine [Mass/Vol] 0.82 mg/dL Normal 0.70-1.20 [facility] Comment on above: Performed By: #### L 100.0100, L500.4050, L700.8000 ####[facility] [address] [place], [address] GAP 11 Normal 5-15 [facility] Comment on above: Performed By: #### L 100.0100, L500.4050, L700.8000 ####[facility] [address] [place], [address] GFR/1.73 sq M.predicted among non-blacks MDRD (S/P/Bld) [Vol rate/Area] 99 mL/min/{1.73_m2} Normal >60 [facility] Comment on above: Result Comment: mL/m in/1.73m2 CKD-EPI Creatinine Equation (2020) Performed By: #### L 100.0100, L500.4050, L700.8000 ####[facility] [address] [place], [address] Globulin (S) [Mass/Vol] 2.8 g/dL Normal 2.2-4.2 [facility] Comment on above: Performed By: #### L 100.0100, L500.4050, L700.8000 ####[facility] [address] [place], [address] Glucose [Mass/Vol] 86 mg/dL Normal 70-99 [facility] Comment on above: Performed By: #### L 100.0100, L500.4050, L700.8000 ####[facility] [address] [place], [address] Potassium [Moles/Vol] 4.0 mmol/L Normal 3.3-5.1 [facility] Comment on above: Performed By: #### L 100.0100, L500.4050, L700.8000 ####[facility] [address] [place], [address] Sodium [Moles/Vol] 137 mmol/L Normal 133-145 [facility] Comment on above: Performed By: #### L 100.0100, L500.4050, L700.8000 ####[facility] [address] [place], [address] T PROT 7.4 g/dL Normal 5.9-8.4 [facility] Comment on above: Performed By: #### L 100.0100, L500.4050, L700.8000 ####[facility] [address] [place], [address] Urea nitrogen [Mass/Vol] 9 mg/dL Normal 4-19 [facility] Comment on above: Performed By: #### L 100.0100, L500.4050, L700.8000 ####[facility] [address] [place], [address] Eosinophil percentageOrdered By: Sangita Jean on 08-25-2024 Eosinophils/100 WBC (Bld) 0.5 % 0-5 [facility] Erythrocyte distribution wid th ratioOrdered By: Sangita Jean on 08-25-2024 Erythrocyte distribution width (RBC) [Ratio] 11.8 % 11.6-14.6 [facility] Erythrocyte distribution wid th standard deviationOrdered By: Sangita Jean on 08-25-2024 Erythrocyte distribution width (RBC) [Ratio] 38.2 fl 35.1-43.9 [facility] Glomerular filtration rate ( GFR) estimation/1.73 sq m using serum, plasma, or whole bOrdered By: Sangita Jean on 08-25-2024 GFR/1.73 sq M.predicted among non-blacks MDRD (S/P/Bld) [Vol rate/Area] 99 mL/min/{1.73_m2} >60 [facility] Comment on above: mL/min/1.73m2 CKD-EP I Creatinine Equation (2020) Hematocrit Auto (Bld) [Volum e fraction]Ordered By: Sangita Jean on 08-25-2024 Hematocrit (Bld) [Volume fraction] 41.0 % 37-47 [facility] Hemoglobin measurementOrdere d By: Sangita Jean on 08-25-2024 Hemoglobin (Bld) [Mass/Vol] 14.4 g/dL 12.0-15.0 [facility] Immature granulocytes/100 WB C Auto (Bld)Ordered By: Sangita Jean on 08-25-2024 Immature granulocytes/100 WBC (Bld) 0.500 % 0.0-0.9 [facility] Comment on above: IG% - Immature Granu locytes (promyelocytes, myelocytes and metamyelocytes) > 1% indicates that a LEFT SHIFT is Present. Laboratory - Chemistry and C hemistry - challengeOrdered By: Sangita Jean on 08-25-2024 AST [Catalytic activity/Vol] 18 U/L <32 [facility] MCV (mean corpuscular volume ) determinationOrdered By: Sangita Jean on 08-25-2024 MCV (RBC) [Entitic vol] 87.2 fL 81-99 [facility] Mean corpuscular hemoglobin (MCH) determinationOrdered By: Sangita Jean on 08-25-2024 MCH (RBC) [Entitic mass] 30.6 pg 27.0-32.0 [facility] Mean corpuscular hemoglobin concentration (MCHC) determinationOrdered By: Sangita Jean on 08-25-2024 MCHC (RBC) [Mass/Vol] 35.1 g/dL 32-36 [facility] Mean platelet volume determi nationOrdered By: Sangita Jean on 08-25-2024 Platelet mean volume (Bld) [Entitic vol] 9.1 fL 6.2-12.0 [facility] Monocyte percentageOrdered B y: Sangita Jean on 08-25-2024 Monocytes/100 WBC (Bld) 6.3 % 0-10 [facility] Neutrophil percentageOrdered By: Sangita Jean on 08-25-2024 Neutrophils/100 WBC (Bld) 71.4 % High 47-70 [facility] Nucleated red blood cell per centageOrdered By: Sangita Jean on 08-25-2024 Nucleated RBC/100 WBC (Bld) [Ratio] 0 % 0-5 [facility] Resource Conservation Manager Office Visit Reporton 08-25-2024 Resource Conservation Manager Office Visit Report [facility] [address], [address] [place] [address] OFFICE VISIT Date of Service: 08/25/24 MR#: [id number] Acct: [id number] Name: XOCHILT CADET Rep #: [id number] : 1995 Provider: Dr. Sangita valencia MD Age/Sex: 29/F Location: [facility] Status: Signed Intake Vital Signs 08/18/24 09:27 08/25/24 15:16 Height 5 ft 8 in 5 ft 8 in Weight: 186 lb 4 oz BMI 28.3 BP 123/80 H Intake Visit Reasons: fu ER visit, [place] results Hotel Service Supervisor Required: No Is patient in pain?: Yes [...] menopausal: No Patient : Yes : No [facility] Medical History (Updated 08/27/24 @ 11:10 by [...] home: Yes additional social history: - [facility] ER visit, [place] results Details: XOCHILT CADET [...] Psych Appearance: (more content not included)... Normal [facility] Platelet countOrdered By: Manjinder Jean on 08-25-2024 Platelets (Bld) [#/Vol] 355 10*3/uL 150-450 [facility] Potassium measurement (mass/ volume)Ordered By: Sangita Jean on 08-25-2024 Potassium (Unsp spec) [Mass/Vol] 4.0 mmol/L 3.3-5.1 [facility] RBC Auto (Bld) [#/Vol]Ordere d By: Sangita Jean on 08-25-2024 RBC (Bld) [#/Vol] 4.70 10*6/uL 4.2-5.4 [facility] Serum creatinine measurement (mass/volume)Ordered By: Sangita Jean on 08-25-2024 Creatinine [Mass/Vol] 0.82 mg/dL 0.70-1.20 [facility] Serum globulin measurementOr dered By: Sangita Jean on 08-25-2024 Globulin (S) [Mass/Vol] 2.8 g/dL 2.2-4.2 [facility] Serum glucose measurement (m ass/volume)Ordered By: Sangita Jean on 08-25-2024 Glucose [Mass/Vol] 86 mg/dL 70-99 [facility] Serum human chorionic gonado tropin detection for pregnancyOrdered By: Sangita Jean on 08-25-2024 HCG ( test) Ql 448 mIU/mL High <9 [facility] Comment on above: Gestational Age0.2-1 Week: 5-50 mIU/mL1-2 Weeks: 50-500 mIU/mL2-3 Weeks: 100-5000 mIU/mL3-4 Weeks: 500-10,000 mIU/mL4-5 Weeks:1000-50,000 mIU/mL5-6 Weeks: 10,000-100,000 mIU/mL6-8 Weeks: 15,000-200,000 mIU/mL2-3 Months:10,000-100,000 mIU/mL Serum or plasma alanine vázquez otransferase (ALT) measurementOrdered By: Sangita Jaen on 08-25-2024 ALT [Catalytic activity/Vol] 11 U/L <35 [facility] Serum or plasma albumin no urement (mass/volume)Ordered By: Sangita Jean on 08-25-2024 Albumin [Mass/Vol] 4.7 g/dL 3.5-5.0 [facility] Serum or plasma albumin/glob ulin mass ratioOrdered By: Sangita Jean on 08-25-2024 Albumin/Globulin [Mass ratio] 1.7 {ratio} 0.9-2.4 [facility] Serum or plasma alkaline deon sphatase measurementOrdered By: Sangita Jean on 08-25-2024 ALP [Catalytic activity/Vol] 62 U/L 35-104 [facility] Serum or plasma calcium no urement (mass/volume)Ordered By: Sangita Jean on 08-25-2024 Calcium [Mass/Vol] 9.4 mg/dL 7.6-11.0 [facility] Serum or plasma urea nitroge n measurement (mass/volume)Ordered By: Sangita Jean on 08-25-2024 Urea nitrogen [Mass/Vol] 9 mg/dL 4-19 [facility] Sodium levelOrdered By: Jamil mackey Ted on 08-25-2024 Sodium [Moles/Vol] 137 mmol/L 133-145 [facility] Total proteinOrdered By: Dion julianna Ted on 08-25-2024 Protein [Mass/Vol] 7.4 g/dL 5.9-8.4 [facility] Transvaginal w/Preg USon Transvaginal w/Preg US [facility] [address] [place], [place] [id number] Transvaginal w/Preg US MR#: [id number] Acct: [id number] Name: XOCHILT CADET Rep #: [id number] : 1995 F 29 From: Pan Johansen MD PCP: Dr. Aretha Best MD Status: [facility] CLI Study: Transvaginal w/Preg US Date of Exam: 08/25/24 Exam# [id number] Ordering Dr: Sangita Jean PROCEDURE: TRANSVAGINAL W/PREG [...] Aretha Best MD; Dr. Sangita Jean MD Supervising Broker: Signed Normal [facility] White blood cell (WBC) count Ordered By: Sangita Jean on 08-25-2024 WBC (Bld) [#/Vol] 12.8 10*3/uL High 4.4-11.0 [facility] hCG Titer Quant., Serumon HCG QUANT. 448 mIU/mL High <9 non-preg [facility] Comment on above: Result Comment: Gest ational Age 0.2-1 Week: 5-50 mIU/mL 1-2 Weeks: 50-500 mIU/mL 2-3 Weeks: 100-5000 mIU/mL 3-4 Weeks: 500-10,000 mIU/mL 4-5 Weeks:1000-50,000 mIU/mL 5-6 Weeks: 10,000-100,000 mIU/mL 6-8 Weeks: 15,000-200,000 mIU/mL 2-3 Months:10,000-100,000 mIU/mL Performed By: #### L 100.0100, L500.4050, L700.8000 ####[facility] [address] [place], [place], [address] Serum human chorionic gonado tropin detection for pregnancyOrdered By: Bess Andujar on 08-22-2024 HCG ( test) Ql 179 mIU/mL High <9 [facility] Comment on above: Gestational Age0.2-1 Week: 5-50 mIU/mL1-2 Weeks: 50-500 mIU/mL2-3 Weeks: 100-5000 mIU/mL3-4 Weeks: 500-10,000 mIU/mL4-5 Weeks:1000-50,000 mIU/mL5-6 Weeks: 10,000-100,000 mIU/mL6-8 Weeks: 15,000-200,000 mIU/mL2-3 Months:10,000-100,000 mIU/mL hCG Titer Quant., Serumon HCG QUANT. 179 mIU/mL High <9 non-preg [facility] Comment on above: Result Comment: Gest ational Age 0.2-1 Week: 5-50 mIU/mL 1-2 Weeks: 50-500 mIU/mL 2-3 Weeks: 100-5000 mIU/mL 3-4 Weeks: 500-10,000 mIU/mL 4-5 Weeks:1000-50,000 mIU/mL 5-6 Weeks: 10,000-100,000 mIU/mL 6-8 Weeks: 15,000-200,000 mIU/mL 2-3 Months:10,000-100,000 mIU/mL Performed By: #### L 700.8000 ####[facility] [address] [place], [address] Serum human chorionic gonado tropin detection for pregnancyOrdered By: Bess Andujar on 08-20-2024 HCG ( test) Ql 120 mIU/mL High <9 [facility] Comment on above: Gestational Age0.2-1 Week: 5-50 mIU/mL1-2 Weeks: 50-500 mIU/mL2-3 Weeks: 100-5000 mIU/mL3-4 Weeks: 500-10,000 mIU/mL4-5 Weeks:1000-50,000 mIU/mL5-6 Weeks: 10,000-100,000 mIU/mL6-8 Weeks: 15,000-200,000 mIU/mL2-3 Months:10,000-100,000 mIU/mL hCG Titer Quant., Serumon HCG QUANT. 120 mIU/mL High <9 non-preg [facility] Comment on above: Result Comment: Gest ational Age 0.2-1 Week: 5-50 mIU/mL 1-2 Weeks: 50-500 mIU/mL 2-3 Weeks: 100-5000 mIU/mL 3-4 Weeks: 500-10,000 mIU/mL 4-5 Weeks:1000-50,000 mIU/mL 5-6 Weeks: 10,000-100,000 mIU/mL 6-8 Weeks: 15,000-200,000 mIU/mL 2-3 Months:10,000-100,000 mIU/mL Performed By: #### L 700.8000 ####[facility] [address] [place], [place], [address] Absolute lymphocyte countOrd ered By: Preston Garrett on 08-18-2024 Lymphocytes Auto (Unsp spec) [#/Vol] 2.19 10*3/uL 0.83-4.51 [facility] Absolute neutrophil countOrd ered By: Preston Garrett on 08-18-2024 Neutrophils (Bld) [#/Vol] 5.7 10*3/uL 2.0-7.7 [facility] Automated lymphocyte count a s percentage of total leukocytesOrdered By: Preston Garrett on 08-18-2024 Lymphocytes/100 WBC Auto (Unsp spec) 25.6 % 19-41 [facility] [id number] 08-18-2024 ABO and Rh group Nom (Bld) Blood group B Rh(D) positive Normal [facility] Comment on above: Performed By: #### B 882-1, L100.0100, L700.8000 ####[facility] [address] [place], [place], [address] Basophil percentageOrdered B y: Preston Garrett on 08-18-2024 Basophils/100 WBC (Bld) 0.5 % 0-1 [facility] Bilirubin Test strip Ql (U)O rdered By: Preston Garrett on 08-18-2024 Bilirubin Ql (U) Negative Negative [facility] CBC W/Diff, Automatedon 07-29 Absolute Lymph 2.19 X10 3/uL Normal 0.83-4.51 [facility] Comment on above: Performed By: #### B 882-1, L100.0100, L700.8000 ####[facility] [address] [place], [address] Absolute Neut 5.7 X10 3/uL Normal 2.0-7.7 [facility] Comment on above: Performed By: #### Elsa 882-1, L100.0100, L700.8000 ####[facility] [address] [place], [address] Basophils/100 WBC (Bld) 0.5 % Normal 0-1 [facility] Comment on above: Performed By: #### Elsa 882-1, L100.0100, L700.8000 ####[facility] [address] [place], [address] Eosinophils/100 WBC (Bld) 0.9 % Normal 0-5 [facility] Comment on above: Performed By: #### Elsa 882-1, L100.0100, L700.8000 ####[facility] [address] [place], [address] Erythrocyte distribution width (RBC) [Ratio] 12.0 % Normal 11.6-14.6 [facility] Comment on above: Performed By: #### Elsa 882-1, L100.0100, L700.8000 ####[facility] [address] [place], [address] Hematocrit (Bld) [Volume fraction] 39.4 % Normal 37-47 [facility] Comment on above: Performed By: #### Elsa 882-1, L100.0100, L700.8000 ####[facility] [address] [place], [address] Hemoglobin (Bld) [Mass/Vol] 13.6 g/dL Normal 12.0-15.0 [facility] Comment on above: Performed By: #### Elsa 882-1, L100.0100, L700.8000 ####[facility] [address] [place], [address] IG% 0.500 Normal 0.0-0.9 [facility] Comment on above: Result Comment: IG% - Immature Granulocytes (promyelocytes, myelocytes and metamyelocytes) > 1% indicates that a LEFT SHIFT is Present. Performed By: #### Elsa 882-1, L100.0100, L700.8000 ####[facility] [address] [place], [address] Lymphocytes/100 WBC (Bld) 25.6 % Normal 19-41 [facility] Comment on above: Performed By: #### Elsa 882-1, L100.0100, L700.8000 ####[facility] [address] [place], [address] MCH (RBC) [Entitic mass] 30.4 pg Normal 27.0-32.0 [facility] Comment on above: Performed By: #### Elsa 882-1, L100.0100, L700.8000 ####[facility] [address] [place], [address] MCHC (RBC) [Mass/Vol] 34.5 g/dL Normal 32-36 [facility] Comment on above: Performed By: #### Elsa 882-1, L100.0100, L700.8000 ####[facility] [address] [place], [address] MCV (RBC) [Entitic vol] 88.1 fL Normal 81-99 [facility] Comment on above: Performed By: #### Elsa 882-1, L100.0100, L700.8000 ####[facility] [address] [place], [address] Monocytes/100 WBC (Bld) 6.2 % Normal 0-10 [facility] Comment on above: Performed By: #### Elsa 882-1, L100.0100, L700.8000 ####[facility] [address] [place], [address] Neutrophils/100 WBC (Bld) 66.3 % Normal 47-70 [facility] Comment on above: Performed By: #### Elsa 882-1, L100.0100, L700.8000 ####[facility] [address] [place], [address] Nucleated RBC (Bld) [#/Vol] 0 10*3/uL Normal 0-5 [facility] Comment on above: Performed By: #### Elsa 882-1, L100.0100, L700.8000 ####[facility] [address] [place], [address] Platelet mean volume (Bld) [Entitic vol] 9.4 fL Normal 6.2-12.0 [facility] Comment on above: Performed By: #### Elsa 882-1, L100.0100, L700.8000 ####[facility] [address] [place], [address] Platelets (Bld) [#/Vol] 310 10*3/uL Normal 150-450 [facility] Comment on above: Performed By: #### Elsa 882-1, L100.0100, L700.8000 ####[facility] [id number] [place], [address] RBC (Bld) [#/Vol] 4.47 10*6/uL Normal 4.2-5.4 [facility] Comment on above: Performed By: #### Elsa 882-1, L100.0100, L700.8000 ####[facility] [id number] [place], [address] RDW SD 38.9 fl Normal 35.1-43.9 [facility] Comment on above: Performed By: #### Elsa 882-1, L100.0100, L700.8000 ####[facility] [address] [place], [address] WBC (Bld) [#/Vol] 8.6 10*3/uL Normal 4.4-11.0 [facility] Comment on above: Performed By: #### B 882-1, L100.0100, L700.8000 ####[facility] [address] [place], [address] Emergency Department Summary on 08-18-2024 Emergency Department Summary [facility] Medical Records Department [address] [place] [address] Emergency Department Summary 08/18/24 MR#: [id number] Acct: [id number] Name: XOCHILT CADET Rep #: [id number] : 1995 29 From: Preston Garrett DO PCP: Dr. Aretha Bets MD Status:DEP ER Location: ED HPI HPI [...] the left side. She spoke with her PRINCIPAL JAVA SOFTWARE ENGINEER who advised her to come in and get a ultrasound and labs. Patient's last menstrual period was July 15. Had a positive test yesterday. She is G1, P0. Not anticoagulated. She has had no further vaginal bleeding today. She denies urinary symptoms. [facility] Medical History Contraceptive management Deviated nasal septum [...] Endocrine Endocrinology: Denies polydipsia, polyphagia or polyuria Hematologic/Lymphatic Hematologic/Lymphatic: Denies easy bleeding, easy bruising or lymphadenopathy Allergic/Immunologic Allergic/Immunologic ED: Denies mouth swelling, tongue swelling or [...] inspection of (more content not included)... Normal [facility] Eosinophil percentageOrdered By: Preston Garrett on 08-18-2024 Eosinophils/100 WBC (Bld) 0.9 % 0-5 [facility] Erythrocyte distribution wid th ratioOrdered By: Preston Garrett on 08-18-2024 Erythrocyte distribution width (RBC) [Ratio] 12.0 % 11.6-14.6 [facility] Erythrocyte distribution wid th standard deviationOrdered By: Preston Garrett on 08-18-2024 Erythrocyte distribution width (RBC) [Ratio] 38.9 fl 35.1-43.9 [facility] Hematocrit Auto (Bld) [Volum e fraction]Ordered By: Preston Garrett on 08-18-2024 Hematocrit (Bld) [Volume fraction] 39.4 % 37-47 [facility] Hemoglobin measurementOrdere d By: Preston Garrett on 08-18-2024 Hemoglobin (Bld) [Mass/Vol] 13.6 g/dL 12.0-15.0 [facility] Immature granulocytes/100 WB C Auto (Bld)Ordered By: [facility] on 08-18-2024 Immature granulocytes/100 WBC (Bld) 0.500 % 0.0-0.9 [facility] Comment on above: IG% - Immature Granu locytes (promyelocytes, myelocytes and metamyelocytes) > 1% indicates that a LEFT SHIFT is Present. Ketones Test strip Ql (U)Ord ered By: Preston Garrett on 08-18-2024 Ketones Ql (U) Negative Negative [facility] MCV (mean corpuscular volume ) determinationOrdered By: Preston Garrett on 08-18-2024 MCV (RBC) [Entitic vol] 88.1 fL 81-99 [facility] Mean corpuscular hemoglobin (MCH) determinationOrdered By: Preston Garrett on 08-18-2024 MCH (RBC) [Entitic mass] 30.4 pg 27.0-32.0 [facility] Mean corpuscular hemoglobin concentration (MCHC) determinationOrdered By: Preston Garrett on 08-18-2024 MCHC (RBC) [Mass/Vol] 34.5 g/dL 32-36 [facility] Mean platelet volume determi nationOrdered By: Preston Garrett on 08-18-2024 Platelet mean volume (Bld) [Entitic vol] 9.4 fL 6.2-12.0 [facility] Microscopic analysis of urin e for red blood cells (RBC)Ordered By: Preston Garrett on 08-18-2024 Microscopic analysis of urine for red blood cells (RBC) 0 SEEN /hpf 0-5 [facility] Monocyte percentageOrdered B y: Preston Garrett on 08-18-2024 Monocytes/100 WBC (Bld) 6.2 % 0-10 [facility] Mucus LM Ql (Urine sed)Order ed By: Preston Garrett on 08-18-2024 Mucus Ql (Urine sed) 0 SEEN /hpf [facility] Neutrophil percentageOrdered By: Preston Garrett on 08-18-2024 Neutrophils/100 WBC (Bld) 66.3 % 47-70 [facility] Nitrite Test strip Ql (U)Ord ered By: Preston Garrett on 08-18-2024 Nitrite Ql (U) Negative Negative [facility] Nucleated red blood cell per centageOrdered By: Preston Garrett on 08-18-2024 Nucleated RBC/100 WBC (Bld) [Ratio] 0 % 0-5 [facility] Platelet countOrdered By: Acacia Garrett on 08-18-2024 Platelets (Bld) [#/Vol] 310 10*3/uL 150-450 [facility] Protein Test strip Ql (U)Ord ered By: Preston Garrett on 08-18-2024 Protein Ql (U) 15 mg/dl High Negative [facility] RBC Auto (Bld) [#/Vol]Ordere d By: Preston Garrett on 08-18-2024 RBC (Bld) [#/Vol] 4.47 10*6/uL 4.2-5.4 [facility] Serum human chorionic gonado tropin detection for pregnancyOrdered By: Preston Garrett on 08-18-2024 HCG ( test) Ql 77 mIU/mL High <9 [facility] Comment on above: Gestational Age0.2-1 Week: 5-50 mIU/mL1-2 Weeks: 50-500 mIU/mL2-3 Weeks: 100-5000 mIU/mL3-4 Weeks: 500-10,000 mIU/mL4-5 Weeks:1000-50,000 mIU/mL5-6 Weeks: 10,000-100,000 mIU/mL6-8 Weeks: 15,000-200,000 mIU/mL2-3 Months:10,000-100,000 mIU/mL Squamous epithelial cells de tection in urine sediment by light microscopyOrdered By: Preston Garrett on 08-18-2024 Epithelial cells.squamous LM Ql (Urine sed) 0-5 SEEN /hpf 5-10 [facility] Transvaginal w/Preg USon Transvaginal w/Preg US [facility] Services [address] [place] [id number] Transvaginal w/Preg US MR#: [id number] Acct: [id number] Name: XOCHILT CADET Rep #: [id number] : 1995 F 29 From: Sergei langford MD PCP: Dr. Aretha Best MD Status: [facility] ER Study: Transvaginal w/Preg US Date of Exam: 08/18/24 Exam# [id number] Ordering Dr: Preston Garrett DO PROCEDURE: TRANSVAGINAL [...] this time. Clinical correlation recommended. Reading Location: [facility] CC: Dr. Aretha Best MD; Dr. Preston Garrett DO Supervising Broker: Signed Normal [facility] Urinalysis, Completeon 08-18 EPI,SQUAMOUS 0-5 SEEN Normal 5-10 [facility] Comment on above: Order Comment: CLEAN CATCH Performed By: #### L 400.0001 ####[facility] [address] [place], [address] WBC 0-5 SEEN Normal 0-5 [facility] Comment on above: Order Comment: CLEAN CATCH Performed By: #### L 400.0001 ####[facility] [address] [place], [address] BACTERIA 0 SEEN Normal None Seen [facility] Comment on above: Order Comment: CLEAN CATCH Performed By: #### L 400.0001 ####[facility] [address] [place], [address] Mucus Ql (Urine sed) 0 SEEN Normal [facility] Comment on above: Order Comment: CLEAN CATCH Performed By: #### L 400.0001 ####[facility] [address] [place], [address] RBC 0 SEEN Normal 0-5 [facility] Comment on above: Order Comment: CLEAN CATCH Performed By: #### L 400.0001 ####[facility] [address] [place], [address] Urine clarityOrdered By: Luma Garrett on 08-18-2024 Clarity (U) Clear Clear [facility] Urine color determinationOrd ered By: Preston Garrett on 08-18-2024 Color (U) Yellow Yellow [facility] Urine glucose detectionOrder ed By: Preston Garrett on 08-18-2024 Glucose Ql (U) Normal mg/dl Normal [facility] Urine leukocyte esterase det ection by dipstickOrdered By: Preston Garrett on 08-18-2024 Leukocyte esterase Test strip Ql (U) Negative Negative [facility] Urine pHOrdered By: Preston Un gur on 08-18-2024 pH (U) 7.0 [pH] 5.0 - 8.0 [facility] Urine sediment bacteria coun t by microscopy (number/high power field)Ordered By: Preston Garrett on 08-18-2024 Bacteria LM.HPF (Urine sed) [#/Area] 0 /[HPF] None Seen [facility] Urine specific gravity measu rementOrdered By: Preston Garrett on 08-18-2024 Specific gravity (U) [Rel density] 1.005 1.002-1.030 [facility] Urine urobilinogen measureme ntOrdered By: Preston Garrett on 08-18-2024 Urobilinogen Ql (U) Normal mg/dl Normal [facility] White blood cell (WBC) count Ordered By: Preston Garrett on 08-18-2024 WBC (Bld) [#/Vol] 8.6 10*3/uL 4.4-11.0 [facility] White blood cell countOrdere d By: Preston Garrett on 08-18-2024 White blood cell count 0-5 SEEN /hpf 0-5 [facility] hCG Titer Quant., Serumon HCG QUANT. 77 mIU/mL High <9 non-preg [facility] Comment on above: Result Comment: Gest ational Age 0.2-1 Week: 5-50 mIU/mL 1-2 Weeks: 50-500 mIU/mL 2-3 Weeks: 100-5000 mIU/mL 3-4 Weeks: 500-10,000 mIU/mL 4-5 Weeks:1000-50,000 mIU/mL 5-6 Weeks: 10,000-100,000 mIU/mL 6-8 Weeks: 15,000-200,000 mIU/mL 2-3 Months:10,000-100,000 mIU/mL Performed By: #### B 882-1, L100.0100, L700.8000 ####[facility] [address] [place], [address] US BREAST BILAT COMPLETEon 0 06-23-2024 US BREAST BILAT COMPLETE [address] [place], [place] [address] Patient: XOCHILT CADET Phone#: : 1995 Age: 28 Gender: F Pt. Type: Out Account: [id number] Location: Ordering: NICHOLAS POLLARD Exam Date: 06/23/2024/15:07 Family Phys: Charge Code: [id number] Physician: [place] Order #: [id number] Dose#: PROCEDURE: ULTRASOUND BREAST BILAT COMPARISON: None. [...] Ochoa MD on 06/23/2024 at 19:51 Normal [facility] FT4on 06-20-2024 Free T4 [Mass/Vol] 1.50 ng/dL Normal 0.89-1.76 [facility] Comment on above: Result Comment: No te - New Reference Range in effect 19 Performed By: #### F T4 #### [address] [address] #### TSH #### [address] [address] TSHon 06-20-2024 TSH Qn 3.30 m[IU]/L Normal 0.36-3.74 [facility] Comment on above: Performed By: #### F T4 #### [address] [address] #### TSH #### [address] [address] PAP I-G w/rfx hrHPV-Aptimaon 06-14-2024 ADEQ Comment Normal . [facility] Comment on above: Order Comment: Speci men Comment: [id number] Comment: Source.............Cervix;EndocervixSpecimen Comment: No. of containers..01 ThinPrep Vial Result Comment: Sati sfactory for evaluation. Endocervical and/or squamous metaplastic cells (endocervical component) are present. Performed By: #### L 7400.0353 ####[facility] [address] [place], [address] COMM [address] Normal [address] [facility] Comment on above: Order Comment: Speci men Comment: [id number] Comment: Source.............Cervix;EndocervixSpecimen Comment: No. of containers..01 ThinPrep Vial Performed By: #### L 7400.0353 ####[facility] [address] [place], [place], [address] COMMENT Comment Normal . [facility] Comment on above: Order Comment: Speci men Comment: [id number] Comment: Source.............Cervix;EndocervixSpecimen Comment: No. of containers..01 ThinPrep Vial Result Comment: This liquid based ThinPrep(R) pap test was screened with the use of an image guided system. Performed By: #### L 7400.0353 ####[facility] [address] [place], [place], [address] DIAG Comment Normal . [facility] Comment on above: Order Comment: Speci men Comment: [id number] Comment: Source.............Cervix;EndocervixSpecimen Comment: No. of containers..01 ThinPrep Vial Result Comment: NEGA TIVE FOR INTRAEPITHELIAL LESION OR MALIGNANCY. Performed By: #### L 7400.0353 ####[facility] [address] [place], [place], [address] HPV RFLX Comment Normal . [facility] Comment on above: Order Comment: Speci men Comment: [id number] Comment: Source.............Cervix;EndocervixSpecimen Comment: No. of containers..01 ThinPrep Vial Result Comment: The HPV DNA reflex criteria were not met with this specimen result therefore, no HPV testing was performed. Performed at: [address] [id number] Legal Associate: Zuleyma Damon MD, Phone: [phone] Performed By: #### L 7400.0353 ####[facility] [address] [place], [place], [address] PAPSMR Comment Normal . [facility] Comment on above: Order Comment: Speci men Comment: [id number] Comment: Source.............Cervix;EndocervixSpecimen Comment: No. of containers..01 ThinPrep Vial Result Comment: The Pap smear is a screening test designed to aid in the detection of premalignant and malignant conditions of the uterine cervix. It is not a diagnostic procedure and should not be used as the sole means of detecting cervical cancer. Both false-positive and false-negative reports do occur. Performed By: #### L 7400.0353 ####[facility] [address] [place], [place], [address] PERFORM Comment Normal . [facility] Comment on above: Order Comment: Speci men Comment: [id number] Comment: Source.............Cervix;EndocervixSpecimen Comment: No. of containers..01 ThinPrep Vial Result Comment: Michelle Fairbanks, Milk Hauler (ASCP) Performed By: #### L 7400.0353 ####[facility] [address] [place], [place], [address] Cervical or vagninal specime n microscopic examination by cytology stain (reported asOrdered By: Jeny Garcia on 06-09-2024 Cytology report Cyto stain Doc (Cvx/Vag) Comment . [facility] Comment on above: The Pap smear is a s creening test designed to aid in thedetection of premalignant and malignant conditions of theuterine cervix. It is not a diagnostic procedure andshould not be used as the sole means of detecting cervicalcancer. Both false-positive and false-negative reports dooccur. Radiological Engineer Cyto stain Nom (C vx/Vag) [ID]Ordered By: Jeny Garcia on 06-09-2024 Pap Smear Performed By Comment . [facility] Comment on above: Michelle Fairbanks, Cyto technologist (ASCP) Cytology report Cyto stain D oc (Cvx/Vag)Ordered By: Jeny Garcia on 06-09-2024 Thin Prep Pap Smear Comment . [facility] Comment on above: The Pap smear is a s creening test designed to aid in thedetection of premalignant and malignant conditions of theuterine cervix. It is not a diagnostic procedure andshould not be used as the sole means of detecting cervicalcancer. Both false-positive and false-negative reports dooccur. Image-guided ThinPrep PapOrd ered By: Jeny Garcia on 06-09-2024 Pap Smear Note Comment . [facility] Comment on above: This liquid based Th inPrep(R) pap test was screened withthe use of an image guided system. Image-guided liquid-based Pa pOrdered By: Jeny Garcia on 06-09-2024 Pap Smear Diagnosis Comment . [facility] Comment on above: NEGATIVE FOR INTRAEP ITHELIAL LESION OR MALIGNANCY. Image-guided liquid-based ce rvical Pap w high-risk HPV+reflex to HPV 16+18Ordered By: Jeny Garcia on 06-09-2024 Human Papillomavirus Screen Comment . [facility] Comment on above: The HPV DNA reflex c riteria were not met with this specimenresult therefore, no HPV testing was performed.Performed at: [address] [id number] Director: Zuleyma Damon MD, Phone: [phone] Laboratory - CytologyOrdered By: Jeny Garcia on 06-09-2024 Radiological Engineer Cyto stain Nom (Cvx/Vag) [ID] Comment . [facility] Comment on above: Michelle Fairbanks, Cyto technologist (ASCP) Laboratory - Miscellaneous t estsOrdered By: Jeny Garcia on 06-09-2024 Service comment (Unsp spec) [Interp] . . [facility] No Panel InformationOrdered By: Jeny Garcia on 06-09-2024 Pap Smear Specimen Adequacy Comment . [facility] Comment on above: Satisfactory for ara luation. Endocervical and/or squamous metaplasticcells (endocervical component) are present. Resource Conservation Manager Office Visit Reporton 06-09-2024 Resource Conservation Manager Office Visit Report [facility] [address], [address] [place] [address] OFFICE VISIT Date of Service: 06/09/24 MR#: [id number] Acct: [id number] Name: XOCHILT CADET Rep #: [id number] : 1995 Provider: IRIS Martin [facility] [address] Age/Sex: 28/F Location: [facility] Status: Signed with Addenda ADDENDUM by IRIS [...] for evaluation if not within 12 months. 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 Normal [facility] Service comment (Unsp spec) [Interp]Ordered By: Jeny Garcia on 06-09-2024 Pap Smear Comment (3) . . [facility] FT4on 05-13-2024 Free T4 [Mass/Vol] 1.26 ng/dL Normal 0.76-1.46 [facility] Comment on above: Performed By: #### F T4 #### [address] [address] #### TSH #### [address] [address] LABORATORYOrdered By: SYSTEM SYSTEM on 05-13-2024 Free T4 [Mass/Vol] 1.26 ng/dL Normal 0.76 - 1. 46 ng/dL AO ADM SS T4 [Mass/Vol] 9.6 ug/dL Normal 4.5 - 10.9 mcg/dL AH ADM SS Comment on above: Interpretive Data: * *Note - New Reference Range in effect 19 TSH Qn 0.74 m[IU]/L Normal 0.36 - 3.74 mcIU/mL AO ADM SS T4on 05-13-2024 T4 [Mass/Vol] 9.6 ug/dL Normal 4.5-10.9 [facility] Comment on above: Result Comment: No te - New Reference Range in effect 19 Performed By: #### F T4 #### [address] [address] #### TSH #### [address] [address] TSHon 05-13-2024 TSH Qn 0.74 m[IU]/L Normal 0.36-3.74 [facility] Comment on above: Performed By: #### F T4 #### [address] [address] #### TSH #### [address] [address] Absolute neutrophil countOrd ered By: Pati Rosales on 04-02-2024 Neutrophils (Bld) [#/Vol] 4.4 10*3/uL 2.0-7.7 [facility] Basic Metabolic Profile (BMP )on 04-02-2024 BUN/CRE 9.3 RATIO Low 01-16 [facility] Comment on above: Performed By: #### L 100.0100, L700.6800, L500.2500, L501.9520 ####[facility] [address] [place], [address] CA,Total 9.3 mg/dL Normal 8.5-10.1 [facility] Comment on above: Performed By: #### L 100.0100, L700.6800, L500.2500, L501.9520 ####[facility] [address] [place], [address] Chloride [Moles/Vol] 106 mmol/L Normal 98-107 [facility] Comment on above: Performed By: #### L 100.0100, L700.6800, L500.2500, L501.9520 ####[facility] [address] [place], [address] CO2 [Moles/Vol] 28.0 mmol/L Normal 21.0-32.0 [facility] Comment on above: Performed By: #### L 100.0100, L700.6800, L500.2500, L501.9520 ####[facility] [address] [place], [address] Creatinine [Mass/Vol] 0.96 mg/dL Normal 0.55-1.02 [facility] Comment on above: Result Comment: The validity of the calculated GFR GFRAA in patients over 70 years has not been determined. Clinical correlation is essential. Performed By: #### L 100.0100, L700.6800, L500.2500, L501.9520 ####[facility] [address] [place], [address] ECRCL 100.43 ml/min Normal [facility] Comment on above: Performed By: #### L 100.0100, L700.6800, L500.2500, L501.9520 ####[facility] [address] [place], [address] EST GFR - AA 89 mL/min Normal >60 [facility] Comment on above: Result Comment: Afri can Ethiopian GFR Calc Performed By: #### L 100.0100, L700.6800, L500.2500, L501.9520 ####[facility] [address] [place], [address] GAP 4 Low 5-15 [facility] Comment on above: Performed By: #### L 100.0100, L700.6800, L500.2500, L501.9520 ####[facility] [address] [place], [address] GFR/1.73 sq M.predicted among non-blacks MDRD (S/P/Bld) [Vol rate/Area] 74 mL/min/{1.73_m2} Normal >60 [facility] Comment on above: Result Comment: Non- GFR Calc Performed By: #### L 100.0100, L700.6800, L500.2500, L501.9520 ####[facility] [address] [place], [address] Glucose [Mass/Vol] 96 mg/dL Normal 74-106 [facility] Comment on above: Performed By: #### L 100.0100, L700.6800, L500.2500, L501.9520 ####[facility] [address] [place], [address] Potassium [Moles/Vol] 3.7 mmol/L Normal 3.5-5.1 [facility] Comment on above: Performed By: #### L 100.0100, L700.6800, L500.2500, L501.9520 ####[facility] [address] [place], [address] Sodium [Moles/Vol] 138 mmol/L Normal 136-145 [facility] Comment on above: Performed By: #### L 100.0100, L700.6800, L500.2500, L501.9520 ####[facility] [address] [place], [address] Urea nitrogen [Mass/Vol] 9 mg/dL Normal 7-18 [facility] Comment on above: Performed By: #### L 100.0100, L700.6800, L500.2500, L501.9520 ####[facility] [address] [place], [address] Basophil percentageOrdered B y: Pati Rosales on 04-02-2024 Basophils/100 WBC (Bld) 0.6 % 0-1 [facility] Beta HCG ( test) Ql Ordered By: Pati Rosales on 04-02-2024 Serum Test, Qualitative Negative [facility] Blood urea nitrogen (BUN)/cr eatinine ratioOrdered By: Pati Rosales on 04-02-2024 Urea nitrogen/Creatinine [Mass ratio] 9.3 mg/mg Low 10-20 [facility] CBC W/Diff, Automatedon Absolute Lymph 1.73 X10 3/uL Normal 0.83-4.51 [facility] Comment on above: Performed By: #### L 100.0100, L700.6800, L500.2500, L501.9520 ####[facility] [address] [place], [address] Absolute Neut 4.4 X10 3/uL Normal 2.0-7.7 [facility] Comment on above: Performed By: #### L 100.0100, L700.6800, L500.2500, L501.9520 ####[facility] [address] [place], [address] Basophils/100 WBC (Bld) 0.6 % Normal 0-1 [facility] Comment on above: Performed By: #### L 100.0100, L700.6800, L500.2500, L501.9520 ####[facility] [address] [place], [address] Eosinophils/100 WBC (Bld) 0.7 % Normal 0-5 [facility] Comment on above: Performed By: #### L 100.0100, L700.6800, L500.2500, L501.9520 ####[facility] [address] [place], [address] Erythrocyte distribution width (RBC) [Ratio] 12.2 % Normal 11.6-14.6 [facility] Comment on above: Performed By: #### L 100.0100, L700.6800, L500.2500, L501.9520 ####[facility] [address] [place], [address] Hematocrit (Bld) [Volume fraction] 38.9 % Normal 37-47 [facility] Comment on above: Performed By: #### L 100.0100, L700.6800, L500.2500, L501.9520 ####[facility] [address] [place], [address] Hemoglobin (Bld) [Mass/Vol] 13.5 g/dL Normal 12.0-15.0 [facility] Comment on above: Performed By: #### L 100.0100, L700.6800, L500.2500, L501.9520 ####[facility] [address] [place], [address] IG% 0.300 Normal 0.0-0.9 [facility] Comment on above: Result Comment: IG% - Immature Granulocytes (promyelocytes, myelocytes and metamyelocytes) > 1% indicates that a LEFT SHIFT is Present. Performed By: #### L 100.0100, L700.6800, L500.2500, L501.9520 ####[facility] [address] [place], [address] Lymphocytes/100 WBC (Bld) 25.7 % Normal 19-41 [facility] Comment on above: Performed By: #### L 100.0100, L700.6800, L500.2500, L501.9520 ####[facility] [address] [place], [address] MCH (RBC) [Entitic mass] 30.3 pg Normal 27.0-32.0 [facility] Comment on above: Performed By: #### L 100.0100, L700.6800, L500.2500, L501.9520 ####[facility] [address] [place], [address] MCHC (RBC) [Mass/Vol] 34.7 g/dL Normal 32-36 [facility] Comment on above: Performed By: #### L 100.0100, L700.6800, L500.2500, L501.9520 ####[facility] [address] [place], [address] MCV (RBC) [Entitic vol] 87.2 fL Normal 81-99 [facility] Comment on above: Performed By: #### L 100.0100, L700.6800, L500.2500, L501.9520 ####[facility] [address] [place], [address] Monocytes/100 WBC (Bld) 6.7 % Normal 0-10 [facility] Comment on above: Performed By: #### L 100.0100, L700.6800, L500.2500, L501.9520 ####[facility] [address] [place], [address] Neutrophils/100 WBC (Bld) 66.0 % Normal 47-70 [facility] Comment on above: Performed By: #### L 100.0100, L700.6800, L500.2500, L501.9520 ####[facility] [address] [place], [address] Nucleated RBC (Bld) [#/Vol] 0 10*3/uL Normal 0-5 [facility] Comment on above: Performed By: #### L 100.0100, L700.6800, L500.2500, L501.9520 ####[facility] [address] [place], [address] Platelet mean volume (Bld) [Entitic vol] 9.4 fL Normal 6.2-12.0 [facility] Comment on above: Performed By: #### L 100.0100, L700.6800, L500.2500, L501.9520 ####[facility] [address] [place], [address] Platelets (Bld) [#/Vol] 311 10*3/uL Normal 150-450 [facility] Comment on above: Performed By: #### L 100.0100, L700.6800, L500.2500, L501.9520 ####[facility] [address] [place], [address] RBC (Bld) [#/Vol] 4.46 10*6/uL Normal 4.2-5.4 [facility] Comment on above: Performed By: #### L 100.0100, L700.6800, L500.2500, L501.9520 ####[facility] [address] [place], [address] RDW SD 39.2 fl Normal 35.1-43.9 [facility] Comment on above: Performed By: #### L 100.0100, L700.6800, L500.2500, L501.9520 ####[facility] [address] [place], [address] WBC (Bld) [#/Vol] 6.7 10*3/uL Normal 4.4-11.0 [facility] Comment on above: Performed By: #### L 100.0100, L700.6800, L500.2500, L501.9520 ####[facility] [address] [place], [address] Carbon dioxide measurementOr dered By: Pati Rosales on 04-02-2024 CO2 [Moles/Vol] 28.0 mmol/L 21.0-32.0 [facility] Chest PA and Lateralon 04-02 Chest PA and Lateral [facility] Imaging Services [address] [place] [address] Chest PA and Lateral MR#: [id number] Acct: [id number] Name: XOCHILT CADET Rep #: [id number] : 1995 F 28 From: Petey Bermudez MD PCP: Dr. Aretha Best MD Status: DEP ER Study: Chest PA and Lateral Date of Exam: 04/02/24 Exam# [id number] Ordering Dr: Pati Rosales [id number] STUDY: X-RAY CHEST REASON FOR EXAM: Female, [...] CC: Dr. Aretha Best MD; PAPO Sim Supervising Broker: Signed Normal [facility] Chloride measurementOrdered By: Pati Rosales on 04-02-2024 Chloride [Moles/Vol] 106 mmol/L 98-107 [facility] Emergency Department Summary on 04-02-2024 Emergency Department Summary [facility] Medical Records Department [address] [place] [address] Emergency Department Summary 04/02/24 MR#: [id number] Acct: [id number] Name: XOCHILT CADET Rep #: [id number] : 1995 28 From: Cristobal Ron MD [...] chest pain, abdominal pain, nausea, and vomiting. [facility] Medical History Contraceptive management Deviated nasal septum [...] ROS ROS ED Constitutional Constitutional ED: Denies chills [...] Source Oral (more content not included)... Normal [facility] Eosinophil percentageOrdered By: Pati Rosales on 04-02-2024 Eosinophils/100 WBC (Bld) 0.7 % 0-5 [facility] Erythrocyte distribution wid th ratioOrdered By: Pati Rosales on 04-02-2024 Erythrocyte distribution width (RBC) [Ratio] 12.2 % 11.6-14.6 [facility] Erythrocyte distribution wid th standard deviationOrdered By: Pati Rosales on 04-02-2024 Erythrocyte distribution width (RBC) [Entitic vol] 39.2 fL 35.1-43.9 [facility] Estimated glomerular filtrat ion rate (GFR) AmericanOrdered By: Pati Rosales on 04-02-2024 Estimated GFR (MDRD) Amer 89 mL/min >60 [facility] Comment on above: GFR Calc Estimation of creatinine anaya aranceOrdered By: Pati Rosales on 04-02-2024 Estimated Creatinine Clearance Calc 100.43 ml/min [facility] Glomerular filtration rate ( GFR) estimationOrdered By: Pati Rosales on 04-02-2024 Estimated GFR (MDRD) Non-Af Amer 74 mL/min >60 [facility] Comment on above: Non- GFR Calc Glucose measurementOrdered B y: Pati Rosales on 04-02-2024 Glucose [Mass/Vol] 96 mg/dL 74-106 [facility] Hematocrit Auto (Bld) [Volum e fraction]Ordered By: Pati Rosales on 04-02-2024 Hematocrit (Bld) [Volume fraction] 38.9 % 37-47 [facility] Hemoglobin measurementOrdere d By: Pati Rosales on 04-02-2024 Hemoglobin (Bld) [Mass/Vol] 13.5 g/dL 12.0-15.0 [facility] Immature granulocytes/100 WB C Auto (Bld)Ordered By: Pati Rosales on 04-02-2024 Immature granulocytes/100 WBC (Bld) 0.300 % 0.0-0.9 [facility] Comment on above: IG% - Immature Granu locytes (promyelocytes, myelocytes and metamyelocytes) > 1% indicates that a LEFT SHIFT is Present. Lymphocytes Auto (Unsp spec) [#/Vol]Ordered By: Pati Rosales on 04-02-2024 Lymphocytes (Bld) [#/Vol] 1.73 10*3/uL 0.83-4.51 [facility] Lymphocytes/100 WBC Auto (Un sp spec)Ordered By: Pati Rosales on 04-02-2024 Lymphocytes/100 WBC (Bld) 25.7 % 19-41 [facility] MCV (mean corpuscular volume ) determinationOrdered By: Pati Rosales on 04-02-2024 MCV (RBC) [Entitic vol] 87.2 fL 81-99 [facility] Mean corpuscular hemoglobin (MCH) determinationOrdered By: Pati Rosales on 04-02-2024 MCH (RBC) [Entitic mass] 30.3 pg 27.0-32.0 [facility] Mean corpuscular hemoglobin concentration (MCHC) determinationOrdered By: Pati Rosales on 04-02-2024 MCHC (RBC) [Mass/Vol] 34.7 g/dL 32-36 [facility] Mean platelet volume determi nationOrdered By: Pati Rosales on 04-02-2024 Platelet mean volume (Bld) [Entitic vol] 9.4 fL 6.2-12.0 [facility] Monocyte percentageOrdered B y: Pati Rosales on 04-02-2024 Monocytes/100 WBC (Bld) 6.7 % 0-10 [facility] Neutrophil percentageOrdered By: Pati Rosales on 04-02-2024 Neutrophils/100 WBC (Bld) 66.0 % 47-70 [facility] Nucleated red blood cell per centageOrdered By: Pati Rosales on 04-02-2024 Nucleated RBC/100 WBC (Bld) [Ratio] 0 % 0-5 [facility] Platelet countOrdered By: Maria Elena Rosales on 04-02-2024 Platelets (Bld) [#/Vol] 311 10*3/uL 150-450 [facility] Potassium measurementOrdered By: Pati Rosales on 04-02-2024 Potassium [Moles/Vol] 3.7 mmol/L 3.5-5.1 [facility] ,Serum,hCG Quali.on 04-02-2024 HCG, SERUM QUAL Negative Normal [facility] Comment on above: Performed By: #### L 100.0100, L700.6800, L500.2500, L501.9520 ####[facility] [address] [place], [address] RBC Auto (Bld) [#/Vol]Ordere d By: Pati Rosales on 04-02-2024 RBC (Bld) [#/Vol] 4.46 10*6/uL 4.2-5.4 [facility] Serum anion gap measurementO rdered By: Pati Rosales on 04-02-2024 Anion gap [Moles/Vol] 4 mmol/L Low 5-15 [facility] Serum or plasma calcium no urement (mass/volume)Ordered By: Pati Rosales on 04-02-2024 Calcium [Mass/Vol] 9.3 mg/dL 8.5-10.1 [facility] Serum or plasma creatinine m easurement (mass/volume)Ordered By: Pati Rosales on 04-02-2024 Creatinine [Mass/Vol] 0.96 mg/dL 0.55-1.02 [facility] Comment on above: The validity of the calculated GFR & GFRAA in patients over 70 years has not been determined. Clinical correlation is essential. Serum or plasma urea nitroge n measurement (mass/volume)Ordered By: Pati Rosales on 04-02-2024 Urea nitrogen [Mass/Vol] 9 mg/dL 7-18 [facility] Sodium levelOrdered By: Maik Rosales on 04-02-2024 Sodium [Moles/Vol] 138 mmol/L 136-145 [facility] TSH QnOrdered By: Pati Rosales on 04-02-2024 Thyroid Stimulating Hormone (TSH) 5.640 uIU/mL High 0.358-3.740 [facility] Thyroid Stim Hormone (TSH)on 04-02-2024 TSH 5.640 uIU/mL High 0.358-3.740 [facility] Comment on above: Performed By: #### L 100.0100, L700.6800, L500.2500, L501.9520 ####[facility] [address] [place], [address] White blood cell (WBC) count Ordered By: Pati Rosales on 04-02-2024 WBC (Bld) [#/Vol] 6.7 10*3/uL 4.4-11.0 [facility] .Auto Diffon 03-07-2024 Basophil, Absolute 0.0 10 3/mcL Normal 0.0-0.2 [facility] Comment on above: Performed By: #### G FR, VIDH, ADIFF, CBC, ANEU, TSH, CMP #### [address] [address] Basophils/100 WBC (Bld) 0.6 % Normal 0.0-2.5 [facility] Comment on above: Performed By: #### G FR, VIDH, ADIFF, CBC, ANEU, TSH, CMP #### [address] [address] Eosinophil, Absolute 0.1 10 3/mcL Normal 0.0-0.7 [facility] Comment on above: Performed By: #### G FR, VIDH, ADIFF, CBC, ANEU, TSH, CMP #### [address] [address] Eosinophils/100 WBC (Bld) 0.8 % Normal 0.0-7.0 [facility] Comment on above: Performed By: #### G FR, VIDH, ADIFF, CBC, ANEU, TSH, CMP #### [address] [address] Lymphocyte, Absolute 2.7 10 3/mcL Normal 0.9-4.3 [facility] Comment on above: Performed By: #### G FR, VIDH, ADIFF, CBC, ANEU, TSH, CMP #### [address] [address] Lymphocytes/100 WBC (Bld) 36.8 % Normal 20.0-40.0 [facility] Comment on above: Performed By: #### G FR, VIDH, ADIFF, CBC, ANEU, TSH, CMP #### [address] [address] Monocyte, Absolute 0.5 10 3/mcL Normal 0.1-1.4 [facility] Comment on above: Performed By: #### G FR, VIDH, ADIFF, CBC, ANEU, TSH, CMP #### [address] [address] Monocytes/100 WBC (Bld) 6.7 % Normal 2.0-13.0 [facility] Comment on above: Performed By: #### G FR, VIDH, ADIFF, CBC, ANEU, TSH, CMP #### [address] [address] Neutrophils/100 WBC (Bld) 55.1 % Normal 50.0-75.0 [facility] Comment on above: Performed By: #### G FR, VIDH, ADIFF, CBC, ANEU, TSH, CMP #### [address] [address] .GFRon 03-07-2024 GFR 87 ml/min/1.73sqm Normal [facility] Comment on above: Result Comment: GFR Population [...] VIDH, ADIFF, CBC, ANEU, TSH, CMP #### [address] [address] GFR Non- 71 ml/min/1.73sqm Normal [facility] Comment on above: Result Comment: GFR Population [...] VIDH, ADIFF, CBC, ANEU, TSH, CMP #### [address] [address] .NEUABSon 03-07-2024 Neutrophil, Absolute 4.1 10 3/mcL Normal 2.3-8.1 [facility] Comment on above: Performed By: #### G FR, VIDH, ADIFF, CBC, ANEU, TSH, CMP #### [address] [address] CBCon 03-07-2024 Erythrocyte distribution width (RBC) [Ratio] 12.7 % Normal 11.5-15.5 [facility] Comment on above: Performed By: #### G FR, VIDH, ADIFF, CBC, ANEU, TSH, CMP #### [address] [address] Hematocrit (Bld) [Volume fraction] 38.5 % Normal 34.0-46.0 [facility] Comment on above: Performed By: #### G FR, VIDH, ADIFF, CBC, ANEU, TSH, CMP #### [place] [address] Hgb 13.1 G/dL Normal 12.0-16.0 [facility] Comment on above: Performed By: #### G FR, VIDH, ADIFF, CBC, ANEU, TSH, CMP #### [place] [address] MCH (RBC) [Entitic mass] 31.0 pg Normal 27.0-33.0 [facility] Comment on above: Performed By: #### G FR, VIDH, ADIFF, CBC, ANEU, TSH, CMP #### [place] [address] MCHC 34.1 G/dL Normal 32.0-36.0 [facility] Comment on above: Performed By: #### G FR, VIDH, ADIFF, CBC, ANEU, TSH, CMP #### [place] [address] MCV (RBC) [Entitic vol] 90.8 fL Normal 80.0-99.0 [facility] Comment on above: Performed By: #### G FR, VIDH, ADIFF, CBC, ANEU, TSH, CMP #### [place] [address] Platelet 326 10 3/mcL Normal 150-450 [facility] Comment on above: Performed By: #### G FR, VIDH, ADIFF, CBC, ANEU, TSH, CMP #### [place] [address] Platelet mean volume (Bld) [Entitic vol] 7.7 fL Normal 6.6-10.5 [facility] Comment on above: Performed By: #### G FR, VIDH, ADIFF, CBC, ANEU, TSH, CMP #### [place] [address] RBC 4.23 10 6/mcL Normal 4.10-5.30 [facility] Comment on above: Performed By: #### G FR, VIDH, ADIFF, CBC, ANEU, TSH, CMP #### [address] [address] WBC 7.4 10 3/mcL Normal 4.5-10.8 [facility] Comment on above: Performed By: #### G FR, VIDH, ADIFF, CBC, ANEU, TSH, CMP #### [address] [address] CMPon 03-07-2024 Albumin Level 4.2 G/dL Normal 3.5-5.0 [facility] Comment on above: Performed By: #### G FR, VIDH, ADIFF, CBC, ANEU, TSH, CMP #### [address] [address] Albumin/Globulin [Mass ratio] 1.4 {ratio} Normal 1.1-2.5 [facility] Comment on above: Performed By: #### G FR, VIDH, ADIFF, CBC, ANEU, TSH, CMP #### [address] [address] ALP [Catalytic activity/Vol] 61 U/L Normal 40-135 [facility] Comment on above: Performed By: #### G FR, VIDH, ADIFF, CBC, ANEU, TSH, CMP #### [address] [address] ALT [Catalytic activity/Vol] 18 U/L Normal 14-59 [facility] Comment on above: Performed By: #### G FR, VIDH, ADIFF, CBC, ANEU, TSH, CMP #### [address] [address] AST [Catalytic activity/Vol] 14 U/L Normal 10-40 [facility] Comment on above: Performed By: #### G FR, VIDH, ADIFF, CBC, ANEU, TSH, CMP #### [address] [address] Bili Total 0.6 mg/dL Normal 0.2-1.0 [facility] Comment on above: Result Comment: Use of this assay is not recommended for patients undergoing treatment with eltrombopag due to the potential for falsely elevated results. Performed By: #### G FR, VIDH, ADIFF, CBC, ANEU, TSH, CMP #### [address] [address] BUN/Creatinine Ratio 7 ratio Normal 7-27 [facility] Comment on above: Performed By: #### G FR, VIDH, ADIFF, CBC, ANEU, TSH, CMP #### [address] [address] Calcium [Mass/Vol] 9.3 mg/dL Normal 8.4-10.2 [facility] Comment on above: Performed By: #### G FR, VIDH, ADIFF, CBC, ANEU, TSH, CMP #### [address] [address] Chloride [Moles/Vol] 101 mmol/L Normal 98-107 [facility] Comment on above: Performed By: #### G FR, VIDH, ADIFF, CBC, ANEU, TSH, CMP #### [address] [address] CO2 [Moles/Vol] 25 mmol/L Normal 22-29 [facility] Comment on above: Performed By: #### G FR, VIDH, ADIFF, CBC, ANEU, TSH, CMP #### [address] [address] Creatinine [Mass/Vol] 0.94 mg/dL Normal 0.55-1.02 [facility] Comment on above: Result Comment: Test ing performed on Siemens Dimension EXL analyzer using a modified kinetic Sarah technique. Performed By: #### G FR, VIDH, ADIFF, CBC, ANEU, TSH, CMP #### [address] [address] Electrolyte Balance 10.0 mEq/L Normal 4.0-15.0 [facility] Comment on above: Performed By: #### G FR, VIDH, ADIFF, CBC, ANEU, TSH, CMP #### [address] [address] Globulin 2.9 G/dL Normal [facility] Comment on above: Performed By: #### G FR, VIDH, ADIFF, CBC, ANEU, TSH, CMP #### [address] [address] Glucose [Mass/Vol] 88 mg/dL Normal 70-105 [facility] Comment on above: Performed By: #### G FR, VIDH, ADIFF, CBC, ANEU, TSH, CMP #### [address] [address] Potassium [Moles/Vol] 4.0 mmol/L Normal 3.5-5.1 [facility] Comment on above: Performed By: #### G FR, VIDH, ADIFF, CBC, ANEU, TSH, CMP #### [address] [address] Sodium [Moles/Vol] 136 mmol/L Normal 136-145 [facility] Comment on above: Performed By: #### G FR, VIDH, ADIFF, CBC, ANEU, TSH, CMP #### [address] [address] Total Protein 7.1 G/dL Normal 6.4-8.2 [facility] Comment on above: Performed By: #### G FR, VIDH, ADIFF, CBC, ANEU, TSH, CMP #### [address] [address] Urea nitrogen [Mass/Vol] 7 mg/dL Normal 7-18 [facility] Comment on above: Performed By: #### G FR, VIDH, ADIFF, CBC, ANEU, TSH, CMP #### [address] [address] LABORATORYOrdered By: SYSTEM SYSTEM on 03-07-2024 25-hydroxyvitamin [...] above: Interpretive Data: T esting performed on Siemens Dimension EXL analyzer using a modified kinetic [...] 03-07-2024 TSH Qn 1.84 m[IU]/L Normal 0.36-3.74 [facility] Comment on above: Performed By: #### G FR, VIDH, ADIFF, CBC, ANEU, TSH, CMP #### [facility] [address] [place], [place] [address] VIDHon 03-07-2024 Vit. D 25-Hydroxy 40.7 ng/mL Normal [facility] Comment on above: Result Comment: Inte rpretive Values Based on Total 25(OH) Vitamin D: Deficient <20 ng/mL Insufficient 20 - <30 ng/mL Sufficient 30-100 ng/mL Performed By: #### G FR, VIDH, ADIFF, CBC, ANEU, TSH, CMP #### [facility] [address] [place], [place] [address] CT SOFT TISSUE NECK W/ CONTR Grupo [...] soft tissue swelling or mass is seen. BRAIN/ORBITS/SINUSES: The visualized portion of the intracranial contents [...] 03/04/2024 6:29:16 AM Ordering Provider: ARETHA Sebastian [facility] US SOFT TISSUE MASS OF NECKo n [...] 02/03/2024 9:03:41 AM Ordering Provider: ARETHA Sebastian [facility] FT4on 12-02-2023 Free T4 [Mass/Vol] 1.23 ng/dL Normal 0.76-1.46 [facility] (ID) Comment on above: Performed By: #### F T4, TSH #### [address] [address] TSHon 12-02-2023 TSH Qn 3.54 m[IU]/L Normal 0.36-3.74 [facility] ([place]) Comment on above: Performed By: #### F T4, TSH #### [address] [address] GLUon 10-08-2023 Glucose [Mass/Vol] 85 mg/dL Normal 70-110 [facility] ([place]) Comment on above: Performed By: #### Nadine CAAL, LIPID #### [address] [address] LIPIDon 10-08-2023 Cholesterol [Mass/Vol] 192 mg/dL Normal 50-199 [facility] ([place]) Comment on above: Result Comment: Chol esterol Reference Interval: Less than 200 Desirable 200-239 Borderline high risk 240 and above High risk Performed By: #### Nadine CAAL, LIPID #### [address] [address] Cholesterol in HDL [Mass/Vol] 74 mg/dL High 40-59 [facility] ([place]) Comment on above: Performed By: #### Nadine CAAL, LIPID #### [address] [address] Cholesterol in LDL [Mass/Vol] 106 mg/dL Normal 0-129 [facility] ([place]) Comment on above: Performed By: #### Nadine CAAL, LIPID #### [address] [address] Triglyceride [Mass/Vol] 58 mg/dL Normal 3-149 [facility] ([place]) Comment on above: Performed By: #### Nadine CAAL, LIPID #### [address] [address] FT4on 09-07-2023 Free T4 [Mass/Vol] 1.23 ng/dL Normal 0.76-1.46 [facility] ([place]) Comment on above: Performed By: #### T SH, FT4 #### [address] [address] LABORATORYOrdered By: SYSTEM SYSTEM on 09-07-2023 Free T4 [Mass/Vol] 1.23 ng/dL Normal 0.76 - 1. 46 ng/dL AO ADM SS TSH Qn 0.07 m[IU]/L Low 0.36 - 3.74 mcIU/mL AO ADM SS TSHon 09-07-2023 TSH Qn 0.07 m[IU]/L Low 0.36-3.74 [facility] ([place]) Comment on above: Performed By: #### T SH, FT4 #### [address] [address] LABORATORYOrdered By: SYSTEM SYSTEM on 02-06-2023 T4 [Mass/Vol] 12.5 ug/dL Invalid Interpretation Code 4.5 - 10.9 mcg/dL AH ADM SS Comment on above: Interpretive Data: * *Note - New Reference Range in effect 19 TSH Qn 0.23 m[IU]/L Invalid Interpretation Code 0.36 - 3.74 mcIU/mL AO ADM SS T4on 02-06-2023 T4 [Mass/Vol] 12.5 ug/dL High 4.5-10.9 [facility] ([place]) Comment on above: Result Comment: No te - New Reference Range in effect 19 Performed By: #### T SH #### [place] [address] #### T4 #### [place] [address] TSHon 02-06-2023 TSH Qn 0.23 m[IU]/L Low 0.36-3.74 [facility] ([place]) Comment on above: Performed By: #### T SH #### [place] [address] #### T4 #### [address] [address] HIV 1+2 Ab IA Qlon 3 HIV 1 and 2 Ab IA.rapid Nom Normal [facility] Comment on above: Order Comment: Speci men Type: BLOOD SPECIMEN Ordering Facility: [facility] Address: [address] [place] [address] Result Comment: Test not indicated. Performed By: #### 3 1201-7 #### [facility] CLIA [id number] [address] [place] [address] [place] HIV 1+2 Ab+HIV1 p24 Ag IA Ql Non-Reactive Normal Nonreactive [facility] Comment on above: Order Comment: Speci men Type: BLOOD SPECIMEN Ordering Facility: [facility] Address: [address] [place] [address] Performed By: #### 3 1201-7 #### [facility] CLIA [id number] [address] [place] [address] [place] HIVINT Normal [facility] Comment on above: Order Comment: Speci men Type: BLOOD SPECIMEN Ordering Facility: [facility] Address: [address] [place] [address] Result Comment: No e vidence of HIV-1 or HIV-2 infection. Should recent infection be suspected, repeat testing may be considered 2-3 weeks after this draw. [place] Rev. Code 3701.243(E): This information has been [...] diagnoses. Performed By: #### 3 1201-7 #### [facility] CLIA [id number] [address] [place] [address] [place] HBV surface Ab Ql (S)on HBV surface Ab Qn (S) 191.08 mIU/mL Normal >=12.00 [facility] Comment on above: Order Comment: Speci men Type: BLOOD SPECIMEN Ordering Facility: [facility] Address: [address] [place] [address] Performed By: #### 5 195-3, 68054-2, 33782-7 #### [facility] CLIA [id number] [address] [place] [address] [place] HBV surface Ab Ser Qlon 05-0 HBV surface Ab Ql (S) Positive Normal Positive [facility] [place] Comment on above: Order Comment: Speci men Type: BLOOD SPECIMEN Ordering Facility: [facility] Address: [address] [place] [address] Result Comment: Thes e results are consistent with previous exposure and/or immunity to the hepatitis B virus antigen. Performed By: #### 5 195-3, 68938-8, 99475-7 #### [facility] CLIA [id number] [address] [place] [address] [place] HBV surface Ag Ser Qlon HBV surface Ag Ql (S) Negative Normal Negative [facility] [place] Comment on above: Order Comment: Speci men Type: BLOOD SPECIMEN Ordering Facility: [facility] Address: [address] [place] [address] Performed By: #### 5 195-3, 43319-5, 59088-7 #### [facility] CLIA [id number] [address] [place] [address] [place] HCV Ab Ser Qlon 07-28-2022 HCV Ab Ql (S) Negative Normal Negative [facility] Comment on above: Order Comment: Speci men Type: BLOOD SPECIMEN Ordering Facility: [facility] Address: [address] [place] [address] Result Comment: The result suggests no evidence of active infection with Hepatitis C virus. Should recent infection be suspected, repeat testing may be considered 4-6 weeks after this draw. Performed By: #### 5 195-3, 11830-3, 53007-3 #### [facility] CLIA [id number] [address] [place] [address] [place] HBV surface Ab IA Ql (S)on 0 10-16-2021 HBV surface Ag Ql (S) Negative Normal Negative [facility] [place] Comment on above: Order Comment: Marcos jorge Type: BLOOD SPECIMEN Ordering Facility: [facility] Address: [address] [place] [address] Performed By: #### 1 6935-9, 53116-3, 16415-5 #### [facility] CLIA [id number] [address] [place] [address] [place] HBV surface Ab Ser-aCncon HBV surface Ab Qn (S) 166.68 mIU/mL Normal >=12.00 [facility] Comment on above: Order Comment: Marcos jorge Type: BLOOD SPECIMEN Ordering Facility: [facility] Address: [address] [place] [address] Result Comment: Thes e results are consistent with previous exposure and/or immunity to the hepatitis B virus antigen. Performed By: #### 1 6935-9, 91768-8, 89651-4 #### [facility] CLIA [id number] [address] [place] [address] [place] [place] HCV Ab Ser Qlon 10-16-2021 HCV Ab Ql (S) Negative Normal Negative [facility] Comment on above: Order Comment: Marcos jorge Type: BLOOD SPECIMEN Ordering Facility: [facility] Address: [address] [place] [address] Result Comment: The result suggests no evidence of active infection with Hepatitis C virus. Should recent infection be suspected, repeat testing may be considered 4-6 weeks after this draw. Performed By: #### 1 6935-9, 21893-5, 88285-6 #### [facility] CLIA [id number] [address] [place] [address] [place] CBC (INCLUDES DIFF/PLT)on Basophils (Bld) [#/Vol] 0.031 10*3/uL Normal 0-200 [facility] Comment on above: Performed By: #### 6 399, 96671 #### [facility] [address], [address] [place] [address] Glacing Machine Tender: Sreekanth Kunz MD Basophils/100 WBC (Bld) 0.4 % Normal [facility] Comment on above: Performed By: #### 6 399, 07428 #### [facility] of [place] [address] [employer] Machine Tender: Sreekanth Kunz MD Eosinophils (Bld) [#/Vol] 0.133 10*3/uL Normal 15-500 [facility] Comment on above: Performed By: #### 6 399, 32020 #### [facility] of [place] [address] [employer] Machine Tender: Sreekanth Kunz MD Eosinophils/100 WBC (Bld) 1.7 % Normal [facility] Comment on above: Performed By: #### 6 399, 08580 #### [facility] of [place] [address] [employer]acing Machine Tender: Sreekanth Kunz MD Erythrocyte distribution width (RBC) [Ratio] 11.8 % Normal 11.0-15.0 [facility] Comment on above: Performed By: #### 6 399, 66537 #### [facility] of [place] [address] Glacing Machine Tender: Sreekanth Kunz MD Hematocrit (Bld) [Volume fraction] 38.5 % Normal 35.0-45.0 [facility] Comment on above: Performed By: #### 6 399, 48254 #### [facility] of [place] [address] [employer]acing Machine Tender: Sreekanth Kunz MD Hemoglobin (Bld) [Mass/Vol] 12.9 g/dL Normal 11.7-15.5 [facility] Comment on above: Performed By: #### 6 399, 99475 #### [facility] of [place] [address] Glacing Machine Tender: Sreekanth Kunz MD Lymphocytes (Bld) [#/Vol] 2.457 10*3/uL Normal 850-3900 [facility] Comment on above: Performed By: #### 6 399, 28870 #### [facility] of [place] [address] Glacing Machine Tender: Sreekanth Kunz MD Lymphocytes/100 WBC (Bld) 31.5 % Normal [facility] Comment on above: Performed By: #### 6 399, 24221 #### [facility] of [place] [address] Glacing Machine Tender: Sreekanth Kunz MD MCH (RBC) [Entitic mass] 30.2 pg Normal 27.0-33.0 [facility] Comment on above: Performed By: #### 6 399, 08914 #### [facility] of [place] [address] Glacing Machine Tender: Sreekanth Kunz MD MCHC (RBC) [Mass/Vol] 33.5 g/dL Normal 32.0-36.[address] [facility] Comment on above: Performed By: #### 6 399, 37453 #### [facility] of [place] [address] Glacing Machine Tender: Sreekanth Kunz MD MCV (RBC) [Entitic vol] 90.2 fL Normal 80.0-100.0 [facility] Comment on above: Performed By: #### 6 399, 77574 #### [facility] of [place] [address] Glacing Machine Tender: Sreekanth Kunz MD Monocytes (Bld) [#/Vol] 0.476 10*3/uL Normal 200-950 [facility] Comment on above: Performed By: #### 6 399, 15191 #### [facility] of [place] [address] Glacing Machine Tender: Sreekanth Kunz MD Monocytes/100 WBC (Bld) 6.1 % Normal [facility] Comment on above: Performed By: #### 6 399, 91136 #### [facility] of [place] [address] Glacing Machine Tender: Sreekanth Kunz MD Neutrophils (Bld) [#/Vol] 4.703 10*3/uL Normal 3559-3302 [facility] Comment on above: Performed By: #### 6 399, 95270 #### [facility] of [place] [address] Glacing Machine Tender: Sreekanth Kunz MD Neutrophils/100 WBC (Bld) 60.3 % Normal [facility] Comment on above: Performed By: #### 6 399, 51043 #### [facility] of [place] [address] Glacing Machine Tender: Sreekanth Kunz MD Platelet mean volume (Bld) [Entitic vol] 9.9 fL Normal 7.5-12.5 [facility] Comment on above: Performed By: #### 6 399, 27526 #### [facility] of [place] [address] Glacing Machine Tender: Sreekanth Kunz MD Platelets (Bld) [#/Vol] 359 10*3/uL Normal 140-400 [facility] Comment on above: Performed By: #### 6 399, 67774 #### [facility] of [place] [address] Glacing Machine Tender: Sreekanth Kunz MD RBC (Bld) [#/Vol] 4.27 10*6/uL Normal 3.80-5.10 [facility] Comment on above: Performed By: #### 6 399, 98495 #### [facility] of [place] [address] Glacing Machine Tender: Sreekanth Kunz MD WBC (Bld) [#/Vol] 7.8 10*3/uL Normal 3.8-10.8 [facility] Comment on above: Performed By: #### 6 399, 61076 #### [facility] of [place] [address] Glacing Machine Tender: Sreekanth Kunz MD [facility] 09-24-2021 Albumin [Mass/Vol] 4.1 g/dL Normal 3.6-5.1 [facility] Comment on above: Performed By: #### 6 399, 24342 #### [facility] of [address], [address] [place] [address] Glacing Machine Tender: Sreekanth Kunz MD Albumin/Globulin [Mass ratio] 1.7 {ratio} Normal 1.0-2.5 [facility] Comment on above: Performed By: #### 6 399, 83009 #### [facility] of [address], [address] [place] [address] Glacing Machine Tender: Sreekanth Kunz MD ALP [Catalytic activity/Vol] 56 U/L Normal 31-125 [facility] Comment on above: Performed By: #### 6 399, 87129 #### [facility] of [place] [address] Glacing Machine Tender: Sreekanth Kunz MD ALT [Catalytic activity/Vol] 12 U/L Normal 6-29 [facility] Comment on above: Performed By: #### 6 399, 64290 #### [facility] of [address], [address] [place] [address] Glacing Machine Tender: Sreekanth Kunz MD AST [Catalytic activity/Vol] 17 U/L Normal 10-30 [facility] Comment on above: Performed By: #### 6 399, 96768 #### [facility] of [place] [address] Glacing Machine Tender: Sreeaknth Kunz MD Bilirubin [Mass/Vol] 0.6 mg/dL Normal 0.2-1.2 [facility] Comment on above: Performed By: #### 6 399, 99384 #### [facility] of [place] [address] Glacing Machine Tender: Sreekanth Kunz MD BUN/CREATININE RATIO NOT APPLICABLE Normal 6-22 [facility] Comment on above: Performed By: #### 6 399, 95316 #### [facility] of [address], [address] [place] [address] [employer] Machine Tender: Sreekanth Kunz MD Calcium [Mass/Vol] 9.2 mg/dL Normal 8.6-10.2 [facility] Comment on above: Performed By: #### 6 399, 50188 #### [facility] of [place] [address] Glacing Machine Tender: Sreekanth Kunz MD Chloride [Moles/Vol] 104 mmol/L Normal 98-110 [facility] Comment on above: Performed By: #### 6 399, 57390 #### [facility] of [place] [address] Glacing Machine Tender: Sreekanth Kunz MD CO2 [Moles/Vol] 29 mmol/L Normal 20-32 [facility] Comment on above: Performed By: #### 6 399, 80591 #### [facility] of [place] [address] Glacing Machine Tender: Sreekanth Kunz MD Creatinine [Mass/Vol] 0.93 mg/dL Normal 0.50-1.[address] [facility] Comment on above: Performed By: #### 6 399, 46005 #### [facility] of [place] [address] Glacing Machine Tender: Sreekanth Kunz MD eGFR NON-AFR. PERUVIAN 85 mL/min/1.73m2 Normal > OR = 60 [facility] Comment on above: Performed By: #### 6 399, 79968 #### [facility] of [place] [address] Glacing Machine Tender: Sreekanth Kunz MD GFR/1.73 sq M.predicted among blacks MDRD (S/P/Bld) [Vol rate/Area] 99 mL/min/{1.73_m2} Normal > OR = 60 [facility] Comment on above: Performed By: #### 6 399, 26929 #### [facility] of [place] [address] Glacing Machine Tender: Sreekanth Kunz MD Globulin (S) [Mass/Vol] 2.4 g/dL Normal 1.9-3.7 [facility] Comment on above: Performed By: #### 6 399, 75086 #### [facility] of [address], [address] [place] [address] Glacing Machine Tender: Sreekanth Kunz MD Glucose [Mass/Vol] 87 mg/dL Normal 65-99 [facility] Comment on above: Result Comment: Fasting reference interval Performed By: #### 6 399, 19517 #### [facility] of [address], [address] [place] [address] Glacing Machine Tender: Sreekanth Kunz MD Potassium [Moles/Vol] 4.5 mmol/L Normal 3.5-5.[address] [facility] Comment on above: Performed By: #### 6 399, 20098 #### [facility] of [address], [address] [place] [address] Glacing Machine Tender: Sreekanth Kunz MD Protein [Mass/Vol] 6.5 g/dL Normal 6.1-8.1 [facility] Comment on above: Performed By: #### 6 399, 73506 #### [facility] of [address], [address] [place] [address] Glacing Machine Tender: Sreekanth Kunz MD Sodium [Moles/Vol] 138 mmol/L Normal 135-146 [facility] Comment on above: Performed By: #### 6 399, 45465 #### [facility] of [place] [address] Glacing Machine Tender: Sreekanth Kunz MD Urea nitrogen [Mass/Vol] 8 mg/dL Normal 7-25 [facility] Comment on above: Performed By: #### 6 399, 10115 #### [facility] of [place] [address] Glacing Machine Tender: Sreekanth Kunz MD [facility]19 22 Free T3 [Mass/Vol] 5.2 pg/mL High 2.3-4.1 [facility] Comment on above: Order Comment: Speci men Type: BLOOD SPECIMEN Ordering Facility: [facility] Address: [address] [place] [address] Performed By: #### 3 051-0 #### [facility] CLIA [id number] [address] [place] [address] [place] Laboratory - Chemistry and C hemistry - challengeon 09-23-2021 Albumin [Mass/Vol] 4.1 g/dL Normal 3.6 - 5.1 g/dL [facility] [employer] Albumin/Globulin [Mass ratio] 1.7 {ratio} Normal 1.0 - 2.5 [facility] [employer] ALP [Catalytic activity/Vol] 56 U/L Normal 31 - 125 U/L [facility] [place] [facility] [facility] ALT [Catalytic activity/Vol] 12 U/L Normal 6 - 29 U/L [place] [facility] [employer] AST [Catalytic activity/Vol] 17 U/L Normal 10 - 30 U/L [place] [facility] [employer] Bilirubin [Mass/Vol] 0.6 mg/dL Normal 0.2 - 1 .2 mg/dL [place] [facility] [employer] Calcium [Mass/Vol] 9.2 mg/dL Normal 8.6 - 10. 2 mg/dL [place] [facility] [employer] Chloride [Moles/Vol] 104 mmol/L Normal 98 - 11 0 mmol/L [facility] [employer] CO2 [Moles/Vol] 29 mmol/L Normal 20 - 32 mmol/L [place] [facility] [employer] Creatinine [Mass/Vol] 0.93 mg/dL Normal 0.50 - 1.10 mg/dL [place] [facility] [employer] GFR/1.73 sq M.predicted among blacks MDRD (S/P/Bld) [Vol rate/Area] 99 mL/min/{1.73_m2} Normal [place] [facility] [employer] Glucose [Mass/Vol] 87 mg/dL Normal 65 - 99 mg/dL [place] [facility] [employer] Potassium [Moles/Vol] 4.5 mmol/L Normal 3.5 - 5.3 mmol/L [facility], [facility] Protein [Mass/Vol] 6.5 g/dL Normal 6.1 - 8.1 g/dL [facility].; [facility], [facility]. Sodium [Moles/Vol] 138 mmol/L Normal 135 - 146 mmol/L [facility].; [facility], [facility] Urea nitrogen [Mass/Vol] 8 mg/dL Normal 7 - 25 mg/dL [facility].; [facility], [facility] Laboratory - Hematology and Cell countson 09-23-2021 Basophils (Bld) [#/Vol] 0.031 10*3/uL Normal 0 - 200 {cells/uL} [facility].; [facility], [facility] Basophils/100 WBC (Bld) 0.4 % Normal [facility].; [facility], [facility] Eosinophils (Bld) [#/Vol] 0.133 10*3/uL Normal 15 - 500 {cells/uL} [facility].; [facility] Eosinophils/100 WBC (Bld) 1.7 % Normal [facility]; [place] [employer] [facility]. Erythrocyte distribution width (RBC) [Ratio] 11.8 % Normal 11.0 - 15.0 % [facility].; [facility], [facility] Hematocrit (Bld) [Volume fraction] 38.5 % Normal 35.0 - 45.0 % [facility].; [facility], [facility]. Hemoglobin (Bld) [Mass/Vol] 12.9 g/dL Normal 11.7 - 15.5 g/dL [facility].; [facility], [facility] Lymphocytes (Bld) [#/Vol] 2.457 10*3/uL Normal 850 - 3900 {cells/uL} [facility].; [facility], [facility]. Lymphocytes/100 WBC (Bld) 31.5 % Normal [facility].; [place] [facility], [facility] MCH (RBC) [Entitic mass] 30.2 pg Normal 27.0 - 33.0 pg [facility].; [place] [employer], [facility]. MCHC (RBC) [Mass/Vol] 33.5 g/dL Normal 32.0 - 36.0 g/dL [facility].; [place] [facility], [facility]. MCV (RBC) [Entitic vol] 90.2 fL Normal 80.0 - 100.0 fL [facility].; [place] [facility], [facility]. Monocytes (Bld) [#/Vol] 0.476 10*3/uL Normal 200 - 950 {cells/uL} [facility].; [place] [employer], [facility]. Monocytes/100 WBC (Bld) 6.1 % Normal [facility].; [place] [facility], [facility]. Neutrophils (Bld) [#/Vol] 4.703 10*3/uL Normal 1500 - 7800 {cells/uL} [facility].; [place] [employer], [employer]. Neutrophils/100 WBC (Bld) 60.3 % Normal [facility].; [place] [employer], [facility]. Platelet mean volume (Bld) [Entitic vol] 9.9 fL Normal 7.5 - 12.5 fL [facility].; [employer], [facility]. Platelets (Bld) [#/Vol] 359 10*3/uL Normal 140 - 400 [facility].; [place] [employer], [facility]. RBC (Bld) [#/Vol] 4.27 10*6/uL Normal 3.80 - 5.1 0 {Million/uL} [place] [facility].; [place] [employer], [employer]. WBC (Bld) [#/Vol] 7.8 10*3/uL Normal 3.8 - 10.8 [place] [employer] [facility].; [employer]. No Panel Informationon 09-23 BUN/CREATININE RATIO NOT APPLICABLE Normal 6 - 22 [place] [facility].; [employer], [facility]. eGFR NON-AFR. PERUVIAN 85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 comparisons should only be made within the same method. . Patients receiving more than 5 mg/day of biotin may have interference in test results. A sample should be taken no sooner than eight hours after previous dose. Contact [phone] for additional information. Performed By: #### T SH2 #### [facility] [address] [place] [address] CULTURE URINEon 03-06-2019 CULTURE URINE 1 Organism Escherich ia coli 10,000-50,000 CFU/ml ------ 1 Organism ------ Antibiotic Result Intrp ------ Amikacin(OBEY) <= 2 S Amoxicillin/Clavulanic Acid(OBEY) = 4 S Ampicillin(OBEY) >= 32 R Ampicillin/Sulbactam(OBEY) = 4 S Aztreonam(OBEY) <= 1 S Cefazolin(OBEY) <= 4 S Cefepime(OBEY) <= 1 S Ceftriaxone(OBEY) <= 1 S Ciprofloxacin(OBEY) <= 0.25 S Ertapenem(OBEY) <= 0.5 S Gentamicin(OBEY) <= 1 S Levofloxacin(OBEY) = 1 S Meropenem(OBEY) <= 0.25 S Nitrofurantoin(OBEY) <= 16 S Pip/Tazobactam(OBEY) <= 4 S Trimeth/Sulfa(OBEY) >= 320 R Normal [facility] Comment on above: Order Comment: Speci men Source Comment:Urine, clean catch Performed By: #### C /UR #### [address] [address] [id number] Complete Urinalysison 2018 RBC LM.HPF (Urine sed) [#/Area] 6 - 10 Normal 0-2 [facility] Comment on above: Performed By: #### H CGMICK, CUA2 #### [address] [address] Squamous Epithelial 0 - 2 Normal 3-5 [facility] Comment on above: Performed By: #### H CGMICK, CUA2 #### [address] [address] WBC LM.HPF (Urine sed) [#/Area] 6 - 10 Normal 0-5 [facility] Comment on above: Performed By: #### H CGMICK, CUA2 #### [address] [address] Appearance (U) Clear Normal Clear [facility] Comment on above: Performed By: #### H CGMICK, CUA2 #### [address] [address] Bilirubin,Urine Negative Normal Negative [facility] Comment on above: Result Comment: Refe rence Range: Negative Performed By: #### H CGUR, CUA2 #### [facility] [address] [address] Color (U) COLORLESS Normal Lt. Yellow [facility] Comment on above: Performed By: #### H CGUR, CUA2 #### [facility] [address] [place] [address] Glucose Ql (U) Normal Normal Normal (<70) [facility] Comment on above: Performed By: #### H CGUR, CUA2 #### [place] [address] [place] [address] Ketone,Urine Negative Normal Negative [facility] Comment on above: Result Comment: Refe rence Range: Negative Performed By: #### H CGUR, CUA2 #### [place] [address] [place] [address] Leukocytes,Urine 75 Chalo/uL Normal Negative [facility] Comment on above: Result Comment: Refe rence Range: Negative Performed By: #### H CGUR, CUA2 #### [address] [place] [address] Nitrites,Urine Negative Normal Negative [facility] Comment on above: Result Comment: Refe rence Range: Negative Performed By: #### H CGUR, CUA2 #### [place] [address] [place] [address] Occult Blood,Urine 1.0 mg/dL Normal Negative [facility] Comment on above: Result Comment: Refe rence Range: Negative Performed By: #### H CGUR, CUA2 #### [place] [address] [place] [address] pH (U) 6.0 Normal 5.0-8.0 [facility] Comment on above: Performed By: #### H CGUR, CUA2 #### [place] [address] [place] [address] Protein (U) [Mass/Vol] Negative Normal Negative [facility] Comment on above: Result Comment: Refe rence Range: Negative Performed By: #### H CGUR, CUA2 #### [facility] [address] [place] [address] Specific [place],Urine < 1.005 Normal 1.005-1.030 [facility] Comment on above: Performed By: #### H CGMICK, CUA2 #### [address] [address] Urobilinogen,Urine Normal Normal Normal (0-1) [facility] Comment on above: Performed By: #### H CGMICK, CUA2 #### [address] [address] HCG,Urine Qualon 03-04-2019 Beta HCG ( test) Ql (U) Negative Normal Negative [facility] Comment on above: Result Comment: Preg jaye is the most common reason for HCG in urine, although choriocarcinoma, hydatidiform mole, and certain nontropho- blastic malignancies also result in detectable urinary HCG levels. Sensitivity = 20mIU/mL. Performed By: #### H CGMICK, CUA2 #### [address] [address] [facility] Urine Qual [place] 2018 Beta HCG ( test) Ql (U) Negative Negative NA [place] Comment on above: is the mos t common reason for HCG in urine, although choriocarcinoma, hydatidiform mole, and certain nontropho- blastic malignancies also result in detectable urinary HCG levels. Sensitivity = 20mIU/mL. Test Performed by [facility], [address] [place] [address] [place] Urinalysison 03-03-2019 Appearance (U) Clear Clear NA [place] Bilirubin Urine Negative Negative mg/dL [place] Comment on above: Reference Range: Neg ative Color (U) COLORLESS Lt. Yellow NA [place] Glucose, Ur Normal Normal (<70) mg/dL [place] Ketones Ql (U) Negative Negative mg/dL [place] Comment on above: Reference Range: Neg ative LEUKOCYTES, UA 75 Negative Chalo/uL [place] Comment on above: Reference Range: Neg ative Nitrite, Urine Negative Negative NA [place] Comment on above: Reference Range: Neg ative Occult Blood,Urine 1.0 mg/dL Negative [place] Comment on above: Reference Range: Neg ative pH (U) 6.0 [pH] [place] Protein (U) [Mass/Vol] Negative Negative mg/dL [place] Comment on above: Reference Range: Neg ative RBC (U) [#/Vol] 6-10 0 - 2 /[HPF] [place] Specific [place], Urine <1.005 [place] Squam Epithel, UA 0-2 3 - 5 /[HPF] [place] Urobilinogen, Urine Normal Normal ( 0-1) mg/dL [place] WBC, UA 6-10 0 - 5 /[HPF] [place] Test Performed by [facility], [address] [place] [id number] [place] [address] Provider Note - ED v2on 01-29 Provider [...] NO: Cigarette/Tobacco, e-Cigarette/Vaping, Alcohol and Street Drugs ALLERGIES/INTOLERANCES: Allergy Allergen: doxycycline Type: Drug Reaction: Hives/Urticaria Intolerance Allergen: codeine Type: Drug Reaction: GI Upset HEALTH HISTORY: No documented data. OUTPATIENT MEDICATIONS: Home Medications Review Status for Reconciliation: N/A Med Status: Patient Currently Takes Medications Drug Name: Synthroid Instructions: orally Drug Name: spironolactone Instructions: orally Drug Name: Sprintec 0.25 mg-35 mcg oral tablet Instructions: 1 tab(s) orally once a day Drug Name: oxyCODONE-acetaminophen 5 mg-325 mg oral tablet Instructions: 1 tab(s) orally every 4 hours as needed for pain SIGNIFICANT EVENTS: Clinical Events Description:Surgical Procedure Additional Notes:tonsillectomy Past Medical History Description:Hypothyroid Description:torn ACL right side Past Surgical History Description:wisdom teeth pulled. 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 Return precautions [...] vital signs and nurses notes CLINICAL IMPRESSION Diagnosis/Annotation: ED Dx Name:Hypodermic needlestick injury of finger [...] ill patient: no Electronic Signatures: Ivory Kenney (ASSOCIATE PROFESSOR OF HISTORY-TOLL BRIDGE ATTENDANT) (Signed 20-Feb-2019 20:51) Authored: Provider Note - ED v2 Tamara Shahid) (Signed 23-Feb-2019 00:22) Authored: Provider Note - ED v2 Co-Signer: Provider Note - ED v2 Last Updated: 23-Feb-2019 00:22 by Tamara Shahid) References: 1. Data Referenced From "Triage - ED" 20-Feb-2019 19:59 Normal [facility] Triage - EDon 02-20-2019 Triage - [...] BMI (kg/m2): 26.584 Calculated BSA (m2) 1.99 [place] Coma Scale: Best Eye Response: (E4) spontaneous Best Motor Response: (M6) obeys commands Best Verbal Response: (V5) oriented Christian Score: 15 Cough lasting greater than 3 weeks: no Travel outside of [facility]: no Allergies: no Patient has homicidal thoughts: no ESTEFANAI: 3V Symptoms Are Negative For: abdominal pain, [...] 20-Feb-2019 20:02 by Carole Rhoades (MADY) Normal [facility] Complete Urinalysison 2018 Bacteria LM.HPF (Urine sed) [#/Area] Many (51-100) Normal Negative [facility] Comment on above: Performed By: #### C UA2, HCGUR #### [facility] [place] [address] Non-Squamous Epithelial Negative Normal Negative [facility] Comment on above: Performed By: #### C UA2, HCGUR #### [address] [place] [address] RBC LM.HPF (Urine sed) [#/Area] /[HPF] Normal 0-2 [facility] Comment on above: Performed By: #### C UA2, HCGUR #### [address] [place] [address] Squamous Epithelial 6 - 10 Normal 3-5 [facility] Comment on above: Performed By: #### C UA2, HCGUR #### [address] [place] [address] WBC LM.HPF (Urine sed) [#/Area] /[HPF] Normal 0-5 [facility] Comment on above: Performed By: #### C UA2, HCGUR #### [address] [place] [address] Yeast LM Ql (Urine sed) Few (1-5) Normal Negative [facility] Comment on above: Performed By: #### C UA2, HCGUR #### [address] [place] [address] Appearance (U) Turbid Normal Clear [facility] Comment on above: Performed By: #### C UA2, HCGUR #### [address] [place] [address] Bilirubin,Urine Negative Normal Negative [facility] Comment on above: Performed By: #### C UA2, HCGUR #### [address] [place] [address] Color (U) LIGHT ORANGE Normal Lt. Yellow [facility] Comment on above: Performed By: #### C UA2, HCGUR #### [address] [place] [address] Glucose Ql (U) Normal Normal Normal (<70) [facility] Comment on above: Performed By: #### C UA2, HCGUR #### [address] [place] [address] Ketone,Urine 10 mg/dL Normal Negative [facility] Comment on above: Performed By: #### C UA2, HCGUR #### [address] [place] [address] Leukocytes,Urine 500 Chalo/uL Normal Negative [facility] Comment on above: Performed By: #### C UA2, HCGUR #### [address] [place] [address] Nitrites,Urine Negative Normal Negative [facility] Comment on above: Performed By: #### C UA2, HCGUR #### [address] [address] Occult Blood,Urine 1.0 mg/dL Normal Negative [facility] Comment on above: Performed By: #### C UA2, HCGUR #### [address] [address] pH (U) 6.0 Normal 5.0-8.0 [facility] Comment on above: Performed By: #### C UA2, HCGUR #### [address] [address] Protein (U) [Mass/Vol] 300 mg/dL Normal Negative [facility] Comment on above: Performed By: #### C UA2, HCGUR #### [address] [address] Specific [place],Urine > 1.030 Normal 1.005-1.030 [facility] Comment on above: Performed By: #### C UA2, HCGUR #### [address] [place] [address] Urobilinogen,Urine Normal Normal Normal (0-1) [facility] Comment on above: Performed By: #### C UA2, HCGUR #### [address] [address] HCG,Urine Qualon 02-19-2019 Beta HCG ( test) Ql (U) Negative Normal Negative [facility] Comment on above: Result Comment: Preg jaye is the most common reason for HCG in urine, although choriocarcinoma, hydatidiform mole, and certain nontropho- blastic malignancies also result in detectable urinary HCG levels. Sensitivity = 20mIU/mL. Performed By: #### C UA2, HCGUR #### [address] [address] [facility] Urine Qual [place] 2018 Beta HCG ( test) Ql (U) Negative Negative NA [place] Comment on above: is the mos t common reason for HCG in urine, although choriocarcinoma, hydatidiform mole, and certain nontropho- blastic malignancies also result in detectable urinary HCG levels. Sensitivity = 20mIU/mL. Test Performed by [facility], [address] [place] [address] [place] Urinalysison 02-18-2019 Appearance (U) Turbid Clear NA [place] Bacteria, UA Many (51-100) Negative /[HPF] [place] Bilirubin Urine Negative Negative mg/dL [place] Color (U) LIGHT ORANGE Lt. Yellow NA [place] Glucose, Ur Normal Normal (<70) mg/dL [place] Ketones Ql (U) 10 mg/dL Negative [place] LEUKOCYTES, UA 500 Negative Chalo/uL [place] Nitrite, Urine Negative Negative NA [place] Non-Squamous Epithelial Negative Negative /[HPF] [place] Occult Blood,Urine 1.0 mg/dL Negative [place] pH (U) 6.0 [pH] [place] Protein (U) [Mass/Vol] 300 mg/dL Negative [place] RBC (U) [#/Vol] /uL 0 - 2 /[HPF] [place] Specific [place], Urine >1.030 [place] Squam Epithel, UA 6-10 3 - 5 /[HPF] [place] Urobilinogen, Urine Normal Normal ( 0-1) mg/dL [place] WBC, UA >100 0 - 5 /[HPF] [place] Yeast, Urine Few (1-5) Negative /[HPF] [place] Test Performed by [facility], [address] [place] [address] [place] Provider Note - ED v2on 12-28 [...] a nurse here ROS: ROS per HPI - Exam: Vitals as documented in the chart [...] Psych: Appropriate affect, fluent/organized speech, well groomed - Hospital Course/Medical decision makin-year-old healthy female presenting [...] medications, allergies, medical history, and surgical history ALLERGIES/INTOLERANCES: Allergy Allergen: doxycycline Type: Drug Reaction: Hives/Urticaria Intolerance Allergen: codeine Type: Drug Reaction: GI Upset HEALTH HISTORY: No documented data. OUTPATIENT MEDICATIONS: Home Medications Review Status for Reconciliation: N/A Med Status: Patient Currently Takes Medications Drug Name: Synthroid Instructions: orally Drug Name: spironolactone Instructions: orally Drug Name: Sprintec 0.25 mg-35 mcg oral tablet Instructions: 1 tab(s) orally once a day Drug Name: oxyCODONE-acetaminophen 5 mg-325 mg oral tablet Instructions: 1 tab(s) orally every 4 hours as needed for pain SIGNIFICANT EVENTS: Clinical Events Description:Surgical Procedure Additional Notes:tonsillectomy Past Medical History Description:Hypothyroid Description:torn ACL right side Past Surgical History Description:wisdom teeth pulled. Description:ankle surgery PRINCIPAL JAVA SOFTWARE ENGINEER: Is : no Is : no RESULTS/VITAL SIGNS VITAL SIGNS: T PRBP SpO2O2(LPM) %FiO2 Method 07-Jan-2019 01:20:[id number] 97 room air, no respiratory support 07-Jan-2019 00:21:[id number]/86 99 room air, no respiratory support CLINICAL IMPRESSION Diagnosis/Annotation: ED Dx Name:History of exposure to hazardous [...] Authored: Provider Note - ED v2 Dyllan Mcpherson) (Signed 13-Jan-2019 16:13) Authored: Provider Note - ED v2 Co-Signer: Provider Note - ED v2 Last Updated: 13-Jan-2019 16:13 by Dyllan Mcpherson () Normal [facility] Triage - EDon 01-07-2019 Triage - [...] obeys commands Best Verbal Response: (V5) oriented [place] Score: 15 Allergies: yes Last menstrual period: [...] 07-Jan-2019 00:23 by Pamella Johnson (MADY) Normal [facility] BREAST ULTRASOUNDon 12-01-19 BREAST ULTRASOUND Patient Name: XOCHILT CORONA STUDY: BREAST ULTRASOUND; 11/30/2018 11:15 am ACCESSION NUMBER(S): [id number] ORDERING CLINICIAN: MICHELLE PRIETO INDICATION: nodule under [...] any future breast imaging appointments, please call [phone] ([phone]). Electronically signed by: CHADD PATIÑO MD Normal [facility] Clinical Summary: HMSPatient IDon 11-26-2018 [facility] Work Phone: 19-49 Yearson 11-24-2018 HM 19-49 Years Diagnoses/Problems Health Maintenance/Risks Encounter for [...] Hypothyroidism; EFREM = Y; Verified Transmission to [facility][id number]; Last Updated By: [email or web address]; 11/24/2018 10:24:56 AM1 Lump, breast Mamm - Ultrasound of Breast; Status:Hold For - Scheduling; Requested for:[id number]; 1 Perform:[facility]iology [facility] Imaging; Due:22Feb2019;Ordered; For:Lump, breast; Ordered By:Michelle Prieto M1 Radiologist to Determine Optimal Study : Y What are the patient's signs and symptoms? : nodule under left nipple1 Menstrual irregularity Renew: Sprintec 28 0.25-35 MG-MCG Oral Tablet; TAKE 1 TABLET BY MOUTH EVERY DAY Rx By: Michelle Prieto; Dispense: 84 Days ; #:84 Tablet; Refill: 3;For: Menstrual irregularity; EFREM = N; Verified Transmission to [facility][id number]; Last Updated By: [email or web address]; 11/24/2018 10:25:03 AM1 Unlinked Stop: Finacea 15 [...] Michelle Prieto; Nov 24 2018 10:38 AM Matty Complaint Yearly CPE and PAP History of [...] weight gain and no recent weight loss. 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 Comment on above: Result Comment: Thyr oxine Free testing is performed using different testing methodology at [facility] than at other [facility]. Direct result comparisons should only be made within the same method. . Patients receiving more than 5 mg/day of biotin may have interference in test results. A sample should be taken no sooner than eight hours after previous dose. Contact [phone] for additional information. Performed By: #### T 4FRE #### [facility] [address] [place] [address] TRIIODOTHYRONINEon 9 TRIIODOTHYRONINE 97 ng/dL Normal 60 - 200 [facility] Comment on above: Performed By: #### T 3 #### [facility] [address] [place] [address] TSHon 11-23-2018 TSH Qn 1.52 m[IU]/L Normal 0.44 - 3.98 [facility] Comment on above: Result Comment: TSH testing is performed using different testing methodology at [facility] than at other [facility]. Direct result comparisons should only be made within the same method. . Patients receiving more than 5 mg/day of biotin may have interference in test results. A sample should be taken no sooner than eight hours after previous dose. Contact [phone] for additional information. Performed By: #### T SH2 #### [facility] [address] [place] [address] Vital Signs Date Time Vital Sign Value Performing Clinician Facility 09-12-2024 13:02-0400 Body height 172.72 cm Aretha Best MD Work Phone: [facility] 09-12-2024 13:02-0400 Body mass index (BMI) [Ratio] 27.5 kg/m2 Aretha Best MD Work Phone: [facility] 09-12-2024 13:02-0400 Body weight 82.1 kg Aretha Best MD Work Phone: [facility] 09-12-2024 13:02-0400 Diastolic blood pressure 72 mm[Hg] Aretha Best MD Work Phone: [facility] 09-12-2024 13:02-0400 Systolic blood pressure 120 mm[Hg] Aretha Best MD Work Phone: [facility] 09-01-2024 11:40-0400 Body height 172.72 cm Aretha Best MD Work Phone: [facility] 09-01-2024 11:38-0400 Body mass index (BMI) [Ratio] 28.4 kg/m2 Aretha Best MD Work Phone: [facility] 09-01-2024 11:38-0400 Body weight 84.93 kg Aretha Best MD Work Phone: [facility] 09-01-2024 11:38-0400 Diastolic blood pressure 74 mm[Hg] Aretha Best MD Work Phone: [facility] 09-01-2024 11:38-0400 Systolic blood pressure 114 mm[Hg] Aretha Best MD Work Phone: [facility] 08-29-2024 15:51-0400 Body height 172.72 cm Aretha Best MD Work Phone: [facility] 08-29-2024 15:51-0400 Body mass index (BMI) [Ratio] 28.3 kg/m2 Aretha Best MD Work Phone: [facility] 08-29-2024 15:51-0400 Body weight 84.59 kg Aretha Best MD Work Phone: [facility] 08-29-2024 15:51-0400 Diastolic blood pressure 77 mm[Hg] Aretha Best MD Work Phone: [facility] 08-29-2024 15:51-0400 Systolic blood pressure 130 mm[Hg] Aretha Best MD Work Phone: [facility] 08-27-2024 19:53-0400 Body temperature 98.3 [degF] Aretha Best MD Work Phone: [facility] 08-27-2024 19:53-0400 Diastolic blood pressure 77 mm[Hg] Aretha Best MD Work Phone: [facility] 08-27-2024 19:53-0400 Heart rate 68 /min Aertha Best MD Work Phone: [facility] 08-27-2024 19:53-0400 Respiratory rate 16 /min Aretha Best MD Work Phone: 5(710)786-423498 [place] [address] 08-27-2024 19:53-0400 SaO2% (BldA) [Mass fraction] 100 % Aretha Best MD Work Phone: 2(612)938-089410 [place] [address] 08-27-2024 19:53-0400 Systolic blood pressure 122 mm[Hg] Aretha Best MD Work Phone: 1(959)897-285010 [place] [address] 08-27-2024 16:18-0400 Body height 172.72 cm Aretha Best MD Work Phone: 9(638)633-929710 [place] [address] 08-27-2024 16:18-0400 Body mass index (BMI) [Ratio] 28.2 kg/m2 Aretha Best MD Work Phone: 4(952)830-359210 [place] [address] 08-27-2024 16:18-0400 Body weight 84.18 kg Aretha Best MD Work Phone: 5(596)354-056410 [place] [address] 08-25-2024 15:16-0400 Body height 172.72 cm Aretha Best MD Work Phone: 7(705)230-539410 [place] [address] 08-25-2024 15:16-0400 Body mass index (BMI) [Ratio] 28.3 kg/m2 Aretha Best MD Work Phone: 4(910)318-249110 [place] [address] 08-25-2024 15:16-0400 Body weight 84.48 kg Aretha Best MD Work Phone: 4(907)451-707110 [place] [address] 08-25-2024 15:16-0400 Diastolic blood pressure 80 mm[Hg] Aretha Best MD Work Phone: 0(925)622-010710 [place] [address] 08-25-2024 15:16-0400 Systolic blood pressure 123 mm[Hg] Aretha Best MD Work Phone: 8(277)393-071710 [place] [address] 08-18-2024 09:27-0400 Body height 172.72 cm Aretha Best MD Work Phone: 4(243)452-432310 [place] [address] 08-18-2024 09:27-0400 Body mass index (BMI) [Ratio] 28.4 kg/m2 Aretha Best MD Work Phone: 0(019)596-611010 [place] [address] 08-18-2024 09:27-0400 Body temperature 98.1 [degF] Aretha Best MD Work Phone: [facility] 08-18-2024 09:27-0400 Body weight 84.91 kg Aretha Best MD Work Phone: 8(347)550-490010 [address] 08-18-2024 09:27-0400 Diastolic blood pressure 80 mm[Hg] Aretha Best MD Work Phone: 8(189)907-684510 [address] 08-18-2024 09:27-0400 Heart rate 70 /min Aretha Best MD Work Phone: 6(026)769-066510 [place] [address] 08-18-2024 09:27-0400 Respiratory rate 16 /min Aretha Best MD Work Phone: 1(509)888-971110 [place] [address] 08-18-2024 09:27-0400 SaO2% (BldA) [Mass fraction] 100 % Aretha Best MD Work Phone: 5(748)547-507610 [address] 08-18-2024 09:27-0400 Systolic blood pressure 141 mm[Hg] Aretha Best MD Work Phone: 5(345)465-466910 [place] [address] 06-09-2024 15:49-0400 Body height 172.72 cm Aretha Best MD Work Phone: 0(163)210-333410 [place] [address] 06-09-2024 15:47-0400 Body mass index (BMI) [Ratio] 28 kg/m2 Aretha Best MD Work Phone: 0(228)976-758810 [place] [address] 06-09-2024 15:47-0400 Body weight 83.63 kg Aretha Best MD Work Phone: 1(751)646-001098 [place] [address] 06-09-2024 15:47-0400 Diastolic blood pressure 77 mm[Hg] Aretha Best MD Work Phone: 9(619)582-087710 [place] [address] 06-09-2024 15:47-0400 Systolic blood pressure 113 mm[Hg] Aretha Best MD Work Phone: 3(027)398-519710 [address] 04-02-2024 15:00-0500 Body temperature 97.8 [degF] Aretha Best MD Work Phone: [facility] 04-02-2024 15:00-0500 Diastolic blood pressure 76 mm[Hg] Aretha Best MD Work Phone: [facility] 04-02-2024 15:00-0500 Heart rate 69 /min Aretha Best MD Work Phone: [facility] 04-02-2024 15:00-0500 Respiratory rate 16 /min Aretha Best MD Work Phone: [facility] 04-02-2024 15:00-0500 SaO2% (BldA) [Mass fraction] 98 % Aretha Best MD Work Phone: [facility] 04-02-2024 15:00-0500 Systolic blood pressure 118 mm[Hg] Aretha Best MD Work Phone: [facility] 04-02-2024 13:11-0500 Body mass index (BMI) [Ratio] 28.4 kg/m2 Aretha Best MD Work Phone: [facility] 04-02-2024 13:11-0500 Body weight 84.82 kg Aretha Best MD Work Phone: [facility] 03-11-2023 13:09-0500 Body height 175.26 cm Ya Sheth MA [facility], [facility]. 03-11-2023 13:09-0500 Body mass index (BMI) [Ratio] 26.73 kg/m2 Ya Sheth MA [facility], [facility]. 03-11-2023 13:09-0500 Body surface area Derived from formula 1.98 m2 Ya Sheth MA [facility], [facility]. 03-11-2023 13:09-0500 Body weight 82.1 kg Ya Sheht MA [facility], [facility]. 03-11-2023 13:09-0500 Diastolic blood pressure 80 mm[Hg] Ya Sheth [facility] Comment on above: Patient Position: Si tting; Cuff Location: Left Arm; Cuff Size: Standard 03-11-2023 13:09-0500 Heart rate 65 /min Ya Sheth [facility] [employer] Comment on above: Pattern: Regular 03-11-2023 13:09-0500 Systolic blood pressure 125 mm[Hg] Ya Sheth [facility] [employer].; [employer]. Comment on above: Patient Position: Si tting; Cuff Location: Left Arm; Cuff Size: Standard 05-15-2022 14:06-0500 Body height 175.26 cm Ya Sheth MA [facility].; [facility]. 05-15-2022 14:06-0500 Body mass index (BMI) [Ratio] 31.01 kg/m2 Ya Sheth MA [facility].; [facility]. 05-15-2022 14:06-0500 Body surface area Derived from formula 2.11 m2 Ya Sheth MA [facility].; [place] [employer] [facility]. 05-15-2022 14:06-0500 Body weight 95.26 kg Ya Sheth MA [facility].; [facility]. 05-15-2022 14:06-0500 Diastolic blood pressure 68 mm[Hg] Ya Sheth MA [facility].; [place] [employer] [facility]. Comment on above: Patient Position: Si tting; Cuff Location: Left Arm; Cuff Size: Standard 05-15-2022 14:06-0500 Heart rate 66 /min Ya Sheth MA [facility] [employer].; [employer]. Comment on above: Pattern: Regular 05-15-2022 14:06-0500 Systolic blood pressure 103 mm[Hg] Ya Sheth MA [facility] [employer].; [employer]. Comment on above: Patient Position: Si tting; Cuff Location: Left Arm; Cuff Size: Standard 02-10-2022 12:27-0500 Body height 175.26 cm Janny Zuñiga RN [facility] [employer].; [employer] [facility]. 02-10-2022 12:27-0500 Body mass index (BMI) [Ratio] 30.27 kg/m2 Janny Zuñiga RN [facility].; [place] [employer] [facility]. 02-10-2022 12:27-0500 Body surface area Derived from formula 2.09 m2 Janny Zuñiga RN [facility].; [employer] [facility]. 02-10-2022 12:27-0500 Body weight 92.99 kg Janny Zuñiga RN [facility].; [employer]. 02-10-2022 12:27-0500 Diastolic blood pressure 61 mm[Hg] Janny Zuñiga RN [place] [employer] [facility].; [employer]. Comment on above: Patient Position: Si tting; Cuff Location: Left Arm; Cuff Size: Standard 02-10-2022 12:27-0500 Heart rate 64 /min Janny Zuñiga RN [place] [employer] [facility].; [employer]. Comment on above: Pattern: Regular 02-10-2022 12:27-0500 Systolic blood pressure 94 mm[Hg] Janny Zuñiga RN [place] [employer] [facility].; [employer]. Comment on above: Patient Position: Si tting; Cuff Location: Left Arm; Cuff Size: Standard 09-23-2021 14:58-0400 Body height 175.26 cm Tamara Phipps LPN [facility].; [employer] [facility]. 09-23-2021 14:58-0400 Body mass index (BMI) [Ratio] 29.98 kg/m2 Tamara Phipps LPN [place] [employer] [facility].; [employer]. 09-23-2021 14:58-0400 Body surface area Derived from formula 2.08 m2 Tamara Phipps LPN [facility].; [employer]. 09-23-2021 14:58-0400 Body temperature 98.5 [degF] Tamara Phipps LPN [facility].; [employer]. Comment on above: Method: Tympanic 09-23-2021 14:58-0400 Body weight 92.08 kg Tamara Phipps LPN [facility], [facility].; [facility]. 09-23-2021 14:58-0400 Diastolic blood pressure 66 mm[Hg] Tamara Phipps LPN [facility], [facility].; [facility]. Comment on above: Patient Position: Si tting; Cuff Location: Left Arm; Cuff Size: Standard 09-23-2021 14:58-0400 Heart rate 78 /min Tamara Phipps LPN [facility], [facility].; [facility]. Comment on above: Pattern: Regular 09-23-2021 14:58-0400 Systolic blood pressure 99 mm[Hg] Tamara Phipps LPN [facility].; [facility]. Comment on above: Patient Position: Si tting; Cuff Location: Left Arm; Cuff Size: Standard 09-05-2021 15:18-0400 Body height 173.[address] Baldomero Troncoso Work Phone: [facility] Work Phone: 09-05-2021 15:18-0400 Body mass index (BMI) [Ratio] 30.4 kg/m2 Dr. Baldomero Troncoso Work Phone: [facility] Work Phone: 09-05-2021 15:18-0400 Body temperature 98 [degF] Dr. Baldomero Troncoso Work Phone: [facility] Work Phone: 09-05-2021 15:18-0400 Body weight 92.[address] Baldomero Troncoso Work Phone: [facility] Work Phone: 09-05-2021 15:18-0400 Diastolic blood pressure 62 mm[Hg] Dr. Baldomero Troncoso Work Phone: [facility] Work Phone: 09-05-2021 15:18-0400 Heart rate 78 /min Dr. Baldomero Troncoso Work Phone: [facility] Work Phone: 09-05-2021 15:18-0400 Respiratory rate 16 /min Dr. Baldomero Troncoso Work Phone: [facility] Work Phone: 09-05-2021 15:18-0400 SaO2% (BldA) [Mass fraction] 99 % Dr. Baldomero Troncoso Work Phone: [facility] Work Phone: 09-05-2021 15:18-0400 Systolic blood pressure 106 mm[Hg] Dr. Baldomero Troncoso Work Phone: [facility] Work Phone: 03-15-2021 09:02-0500 Body height 175.26 cm Lisandra Olson LPN [facility], [facility].; [place] [employer] [facility]. 03-15-2021 09:02-0500 Body mass index (BMI) [Ratio] 30.13 kg/m2 Lisandra [facility].; [place] [employer] [facility]. 03-15-2021 09:02-0500 Body surface area Derived from formula 2.08 m2 Lisandra Olson LPN [facility].; [place] [employer] [facility]. 03-15-2021 09:02-0500 Body weight 92.53 kg Lisandra Olson LPN [facility].; [employer]. 03-15-2021 09:02-0500 Diastolic blood pressure 64 mm[Hg] Lisandra Olson LPN [facility], [facility].; [employer]. Comment on above: Patient Position: Si tting; Cuff Location: Left Arm; Cuff Size: Standard 03-15-2021 09:02-0500 Heart rate 68 /min Lisandra Olson LPN [facility], [facility].; [employer]. Comment on above: Pattern: Regular 03-15-2021 09:02-0500 Systolic blood pressure 104 mm[Hg] Lisandra Olson LPN [facility], [facility].; [employer]. Comment on above: Patient Position: Si tting; Cuff Location: Left Arm; Cuff Size: Standard 11-28-2020 16:41-0400 Body height 175.26 cm Karla Arshadcarmen [facility] [place] [employer] [facility], [facility]. 11-28-2020 16:41-0400 Body mass index (BMI) [Ratio] 28.94 kg/m2 Karla Katy ZAMBRANO [facility].; [employer] 11-28-2020 16:41-0400 Body surface area Derived from formula 2.05 m2 Karla Burns [facility], [facility].; [employer], [facility]. 11-28-2020 16:41-0400 Body weight 88.91 kg Karla Katy [facility], [facility].; [employer], [facility]. 11-28-2020 16:41-0400 Diastolic blood pressure 77 mm[Hg] Karla Arshadcarmen [facility] [facility].; [employer] Comment on above: Patient Position: Si tting; Cuff Location: Left Arm; Cuff Size: Standard 11-28-2020 16:41-0400 Heart rate 70 /min Karla Arshadcarmen [facility] [employer], [employer]. Comment on above: Pattern: Regular 11-28-2020 16:41-0400 Systolic blood pressure 119 mm[Hg] Karla Arshadcarmen [employer] [place] [employer] [facility], [facility].; [employer], [employer]. Comment on above: Patient Position: Si tting; Cuff Location: Left Arm; Cuff Size: Standard 11-21-2020 15:13-0400 Body height 175.26 cm Lisandra Olson LPN [facility], [facility].; [employer], [facility]. 11-21-2020 15:13-0400 Body mass index (BMI) [Ratio] 29.53 kg/m2 Lisandra Olson LPN [place] [employer] [facility].; [employer], [facility]. 11-21-2020 15:13-0400 Body surface area Derived from formula 2.07 m2 Lisandra Olson LPN [facility].; [employer], [facility]. 11-21-2020 15:130400 Body weight 90.72 kg Lisandra Olson LPN [facility], [facility].; [employer] [facility]. 11-21-2020 15:13-0400 Diastolic blood pressure 77 mm[Hg] Lisandra Olson LPN [facility] Hospital[facility].; [employer]. Comment on above: Patient Position: Si tting; Cuff Location: Right Arm; Cuff Size: Standard 11-21-2020 15:13-0400 Heart rate 78 /min Lisandra Olson LPN [facility] Hospital[facility].; [employer]. Comment on above: Pattern: Regular 11-21-2020 15:13-0400 Systolic blood pressure 110 mm[Hg] Lisandra Olson LPN [facility].; [employer]. Comment on above: Patient Position: Si tting; Cuff Location: Right Arm; Cuff Size: Standard 05-07-2020 10:57-0500 Body height 175.26 cm Janny Zuñiga RN [facility].; [employer]. 05-07-2020 10:57-0500 Body mass index (BMI) [Ratio] 29.53 kg/m2 Janny Zuñiga RN [facility] Hospital[facility].; [employer] [facility]. 05-07-2020 10:57-0500 Body surface area Derived from formula 2.07 m2 Janny Zuñiga RN [facility].; [employer]. 05-07-2020 10:57-0500 Body temperature 99.1 [degF] Janny Zuñiga RN [facility] Hospital[facility].; [employer]. Comment on above: Method: Tympanic 05-07-2020 10:57-0500 Body weight 90.72 kg Janny Zuñiga RN [place] [employer] [facility].; [employer]. 05-07-2020 10:57-0500 Diastolic blood pressure 64 mm[Hg] Janny Zuñiga RN [place] [employer] [facility].; [employer]. Comment on above: Patient Position: Si tting; Cuff Location: Left Arm; Cuff Size: Standard 05-07-2020 10:57-0500 Heart rate 67 /min Janny Zuñiga RN [facility]Mad[facility] HospitalMeet[facility]; [facility] Hospital[facility] Comment on above: Pattern: Regular 05-07-2020 10:57-0500 Systolic blood pressure 98 mm[Hg] Janny Zuñiga RN [facility]; [facility] Hospital[facility] Comment on above: Patient Position: Si tting; Cuff Location: Left Arm; Cuff Size: Standard 04-26-2020 08:33-0500 Body temperature 97.7 [degF] Erlinda J Lopez PA-C Work Phone: [facility] [place]; [facility] Hospital[facility] Comment on above: Method: Tympanic 04-26-2020 08:33-0500 Body weight 92.53 kg Erlinda Lopez PA-C Work Phone: [facility] Hospital[facility] [employer]; [facility] [employer] 04-26-2020 08:33-0500 Diastolic blood pressure 64 mm[Hg] Erlinda Mike Lopez PA-C Work Phone: [facility] Hospital[facility]; [place] [employer] Comment on above: Patient Position: Si tting; Cuff Location: Left Arm; Cuff Size: Standard 04-26-2020 08:33-0500 Heart rate 77 /min Erlinda Mike Lopez PA-C Work Phone: [facility] Hospital[facility] [employer]; [facility] [employer] Comment on above: Pattern: Regular 04-26-2020 08:33-0500 Systolic blood pressure 111 mm[Hg] Erlinda Mike Lopez PA-C Work Phone: [facility] Hospital[facility]; [facility] Comment on above: Patient Position: Si tting; Cuff Location: Left Arm; Cuff Size: Standard 03-29-2020 13:43-0500 Body height 175.26 cm [facility] Work Phone: [facility] Hospital[facility] [employer]; [place] [employer] Work Phone: 03-29-2020 13:43-0500 Body mass index (BMI) [Ratio] 29.09 kg/m2 [facility] Work Phone: [employer].; [employer]. Work Phone: 03-29-2020 13:43-0500 Body surface area Derived from formula 2.05 m2 Ni Erazo [employer] Work Phone: [employer].; [employer] Work Phone: 03-29-2020 13:43-0500 Body weight 89.36 kg Ni Erazo [employer] Work Phone: [employer].; [employer] Work Phone: 03-29-2020 13:43-0500 Diastolic blood pressure 74 mm[Hg] Ni Kacey [employer] Work Phone: [employer].; [employer] Work Phone: Comment on above: Patient Position: Si tting; Cuff Location: Left Arm; Cuff Size: Standard 03-29-2020 13:43-0500 Heart rate 79 /min Ni Erazo [employer] Work Phone: [employer]; [employer]. Work Phone: Comment on above: Pattern: Regular 03-29-2020 13:43-0500 Systolic blood pressure 110 mm[Hg] Ni Stevensony [employer] Work Phone: [employer].; [employer]. Work Phone: Comment on above: Patient Position: Si tting; Cuff Location: Left Arm; Cuff Size: Standard 03-02-2020 13:10-0500 Body weight 89.36 kg Karla Zaugg [employer].; [employer] 03-02-2020 13:10-0500 Diastolic blood pressure 76 mm[Hg] Karla Zaugg [employer].; [employer] Comment on above: Patient Position: Si tting; Cuff Location: Left Arm; Cuff Size: Standard 03-02-2020 13:10-0500 Heart rate 73 /min Karla Pavithracarmen ZAMBRANO [facility] [employer].; [employer]. Comment on above: Pattern: Regular 03-02-2020 13:10-0500 Systolic blood pressure 115 mm[Hg] Karla Burns JUAN MANUEL [facility] Hospital[facility].; [employer]. Comment on above: Patient Position: Si tting; Cuff Location: Left Arm; Cuff Size: Standard 02-15-2020 14:51-0500 Body height 175.26 cm Erlinda Lopez PA-C Work Phone: [employer].; [employer]. 02-15-2020 14:51-0500 Body mass index (BMI) [Ratio] 28.8 kg/m2 Erlinda Lopez PA-C Work Phone: [employer].; [employer]. 02-15-2020 14:51-0500 Body surface area Derived from formula 2.04 m2 Erlinda Lopez PA-C Work Phone: [employer].; [employer]. 02-15-2020 14:51-0500 Body weight 88.45 kg Erlinda Lopez PA-C Work Phone: [employer].; [employer]. 02-15-2020 14:51-0500 Diastolic blood pressure 82 mm[Hg] Erlinda Lopez PA-C Work Phone: [employer].; [employer]. Comment on above: Patient Position: Si tting; Cuff Location: Left Arm; Cuff Size: Standard 02-15-2020 14:51-0500 Heart rate 82 /min Erlinda Lopez PA-C Work Phone: [employer].; [employer]. Comment on above: Pattern: Regular 02-15-2020 14:51-0500 Systolic blood pressure 121 mm[Hg] Erlinda Lopez PA-C Work Phone: [employer].; [employer]. Comment on above: Patient Position: Si tting; Cuff Location: Left Arm; Cuff Size: Standard 11-15-2019 08:28-0400 Body height 175.26 cm Janny Zuñiga RN [facility] Hospital[facility].; [place] [employer] [facility]. 11-15-2019 08:28-0400 Body mass index (BMI) [Ratio] 28.8 kg/m2 Janny Zuñiga RN [facility] Hospital[facility].; [place] [employer] [facility]. 11-15-2019 08:28-0400 Body surface area Derived from formula 2.04 m2 Janny Zuñiga RN [facility] Hospital[facility].; [place] [employer] [facility]. 11-15-2019 08:28-0400 Body weight 88.45 kg Janny Zuñiga RN [facility].; [facility]. 11-15-2019 08:28-0400 Diastolic blood pressure 75 mm[Hg] Janny Zuñiga RN [place] [employer] [facility].; [employer]. Comment on above: Patient Position: Si tting; Cuff Location: Right Arm; Cuff Size: Standard 11-15-2019 08:28-0400 Heart rate 70 /min Janny Zuñiga RN [place] [employer] [facility].; [employer]. Comment on above: Pattern: Regular 11-15-2019 08:28-0400 Systolic blood pressure 108 mm[Hg] Janny Zuñiga RN [place] [employer].; [employer]. Comment on above: Patient Position: Si tting; Cuff Location: Right Arm; Cuff Size: Standard 06-22-2019 13:01-0400 Body Temperature 98.6 [degF] [facility] [employer] Work Phone: 06-22-2019 13:01-0400 Body weight 83.92 kg [facility] [employer] Work Phone: 06-22-2019 13:01-0400 BP Diastolic 70 mm[Hg] [facility] [employer] Work Phone: 06-22-2019 13:01-0400 BP Systolic 102 mm[Hg] [facility] [employer] Work Phone: 06-22-2019 13:01-0400 Pulse (Heart Rate) 68 /min [facility] [employer] Work Phone: 03-03-2019 22:49-0500 BMI (Body Mass Index) 26.58 kg/m2 César [facility], [place] 03-03-2019 22:49-0500 Body Temperature 98.29 [degF] César [facility] [place] 03-03-2019 22:49-0500 Body weight 81.65 kg [facility] , [place] 03-03-2019 22:49-0500 BP Diastolic 81 mm[Hg] [facility] , [place] 03-03-2019 22:49-0500 BP Systolic 134 mm[Hg] [facility] , [place] 03-03-2019 22:49-0500 Height 175.3 cm [facility] , [place] 03-03-2019 22:49-0500 Pulse (Heart Rate) 81 /min [facility] 03-03-2019 22:49-0500 Pulse Oximetry 97 % [facility] , [place] 03-03-2019 22:49-0500 Respiratory Rate 18 /min [facility], [place] 02-18-2019 23:06-0500 BP Diastolic 78 mm[Hg] [facility] , [place] 02-18-2019 23:06-0500 BP Systolic 127 mm[Hg] [facility] , [place] 02-18-2019 23:06-0500 Pulse (Heart Rate) 83 /min [facility] 02-18-2019 23:06-0500 Pulse Oximetry 100 % [facility] , [place] 02-18-2019 23:06-0500 Respiratory Rate 16 /min [facility], [place] 02-18-2019 22:00-0500 BMI (Body Mass Index) 26.58 kg/m2 [facility], [place] 02-18-2019 22:00-0500 Body Temperature 98.6 [degF] C[facility]ar [facility] [place] 02-18-2019 22:00-0500 Body weight 81.65 kg César [facility] , [place] 02-18-2019 22:00-0500 Height 175.3 cm César [facility] , [place] NEGATED: Highlighted [id number] 10:52-0400 BMI (Body Mass Index) 28.9 kg/m2 Isabella Julissa At [facility] Work Phone: NEGATED: Highlighted [id number] 10:52-0400 Body weight 88.45 kg Isabella Julissa At [facility] Work Phone: NEGATED: Highlighted [id number] 10:52-0400 Body weight 89 kg Isabella Julissa At [facility] Work Phone: NEGATED: Highlighted [id number] 10:52-0400 BP Diastolic 70 mm[Hg] Isabella Julissa At [facility] Work Phone: NEGATED: Highlighted [id number] 10:52-0400 BP Systolic 102 mm[Hg] Isabella Julissa At [facility] Work Phone: NEGATED: Highlighted [id number] 10:52-0400 Heart rate 2+ Isabella Julissa At [facility] Work Phone: NEGATED: Highlighted [id number] 10:52-0400 Height 175.26 cm Isabella Julissa At [facility] Work Phone: NEGATED: Highlighted [id number] 10:52-0400 Height 175 cm Isabella Julissa At [facility] Work Phone: NEGATED: Highlighted [id number] 10:52-0400 Pulse (Heart Rate) 73 /min Isabella Julissa At [facility] Work Phone: Encounters Encounter Date Encounter Type Care Provider Facility Start: 12-19-2024 ambulatory Aretha Best Facility:[facility] Start: 12-08-2024 ambulatory Sangita Fox lity:[facility] Start: 12-06-2024 ambulatory Sangita Fox lity:[facility] Start: 11-08-2024 End: 11-08-2024 ambulatory Aretha Best MD Work Phone: -Laboratory Start: 11-08-2024 End: 11-08-[address] Aretha Best MD -Laboratory Work Phone: Start: 11-08-2024 End: 11-08-2024 ambulatory Aretha Best Facility:[facility] Start: 10-03-2024 End: 10-03-2024 ambulatory Aretha Best MD Work Phone: -Laboratory Start: 10-03-2024 End: 10-03-[address] Sangita Jean MD -Laboratory Work Phone: Start: 10-03-2024 End: 10-03-2024 ambulatory Sangita Jean Facility:[facility] Start: 09-18-2024 End: 09-22-2024 ambulatory ARETHA BEST MD Facility:A Start: 09-18-2024 End: 09-22-2024 Encounter for other general examination ARETHA BEST MD Facility:A Start: 09-12-2024 End: 09-12-[address] Sangita Jean MD -[facility] Work Phone: Start: 09-12-2024 End: 09-12-2024 ambulatory Aretha Best MD Work Phone: [place] [employer] Work Phone: Start: 09-12-2024 End: 09-12-2024 ambulatory Aretha Best Facility:[facility] Start: 09-01-2024 End: 09-01-2024 ambulatory Aretha Best MD Work Phone: [place] [employer] Work Phone: Start: 09-01-2024 End: 09-01-[address] Sangita Jean MD -[facility] Work Phone: Start: 08-31-2024 End: 09-01-2024 ambulatory Aretha Best MD Work Phone: [facility] Work Phone: Start: 08-31-2024 End: 08-31-[address] Sangtia Jean MD -Laboratory Work Phone: Start: 08-31-2024 End: 08-31-2024 ambulatory Aretha Best Facility:[facility] Start: 08-29-2024 End: 08-29-[address] Sangita Jena MD -[facility] Work Phone: Start: 08-29-2024 End: 08-29-2024 ambulatory Aretha Best MD Work Phone: [facility] Work Phone: Start: 08-29-2024 End: 08-29-2024 ambulatory Aretha Best MD Work Phone: [facility] Work Phone: Start: 08-29-2024 End: 08-29-[address] Sangita Jean MD -Laboratory Work Phone: Start: 08-29-2024 End: 08-29-2024 ambulatory Sangita Jean Facility:[facility] Start: 08-27-2024 End: 08-27-2024 Emergency department patient visit Aretha Best MD Work Phone: -Emergency Department Work Phone: Start: 08-27-2024 End: 08-27-2024 ambulatory Aretha Best MD Work Phone: [facility] Work Phone: Start: 08-27-2024 End: 08-27-[address] Sangita Jean MD -Laboratory Work Phone: Start: 08-27-2024 End: 08-27-2024 ambulatory Sangita Jean Facility:[facility] Start: 08-25-2024 End: 08-25-[address] Sangita Jean MD -[facility] Work Phone: Start: 08-25-2024 End: 08-25-2024 ambulatory Aretha Best MD Work Phone: [facility] Work Phone: Start: 08-25-2024 End: 08-25-2024 ambulatory Aretha Best MD Work Phone: [facility] Work Phone: Start: 08-25-2024 End: 08-25-[address] Sangita Jean MD -Ultrasound [facility] Work Phone: Start: 08-25-2024 End: 08-25-2024 ambulatory Sangita Jean Facility:[facility] Start: 08-22-2024 End: 08-22-2024 ambulatory Aretha Best MD Work Phone: [facility] Work Phone: Start: 08-22-2024 End: 08-22-2024 Patient encounter procedure Bess Andujar CNM -Laboratory Work Phone: Start: 08-22-2024 End: 08-22-20[facility] Start: 08-20-2024 End: 08-20-2024 ambulatory Aretha Best MD Work Phone: [facility] Work Phone: Start: 08-20-2024 End: 08-20-2024 Patient encounter procedure Bess Con CNM -Laboratory Work Phone: Start: 08-20-2024 End: 08-20-2024 ambulatory Bess Andujar Facility:[facility] Start: 08-18-2024 End: 08-18-2024 Emergency department patient visit Dr. Preston Garrett DO -Emergency Department Work Phone: Start: 06-23-2024 End: 06-23-2024 ambulatory NICHOLAS POLLARD [facility] Start: 06-20-2024 End: 06-20-2024 ambulatory ARETHA BEST MD Facility:[facility] Start: 06-17-2024 ambulatory Aretha Best Facility:[facility] Start: 06-09-2024 End: 06-09-2024 ambulatory Aretha Best MD Work Phone: [facility] Work Phone: Start: 06-09-2024 End: 06-09-2024 Patient encounter procedure Jeny Garcia CNM -Laboratory, Specimen Work Phone: Start: 06-09-2024 Encounter for gynecological examination (general) (routine) without abnormal findings Jeny Garcia [facility] Start: 06-09-2024 End: 06-09-2024 Patient encounter procedure Jeny Garcia CNM -[facility] Work Phone: Start: 06-09-2024 End: 06-09-2024 Patient encounter status Jeny Garcia CNM [facility] Start: 06-09-2024 End: 06-09-2024 ambulatory Aretha Best [place] Start: 06-09-2024 End: 06-09-2024 ambulatory Aretha Best Facility:[facility] Start: 05-13-2024 End: 05-13-2024 ambulatory BALDOMERO TRONCOSO MD Facility:[facility] Start: 05-13-2024 End: 05-13-2024 Patient encounter procedure BALDOMERO TRONCOSO MD [facility] Start: 04-02-2024 End: 04-02-2024 Emergency department patient visit Dr. Cristobal Ron MD -Emergency Department Work Phone: Start: 03-19-2024 ambulatory Aretha Best Facility:[facility] Start: 03-07-2024 End: 03-07-2024 ambulatory ARETHA BEST MD Facility:[facility] Start: 03-07-2024 End: 03-07-2024 Patient encounter procedure ARETHA BEST MD [facility] Start: 03-03-2024 End: 03-03-2024 ambulatory ARETHA BEST MD Facility:[facility] Start: 03-03-2024 End: 03-03-2024 Patient encounter procedure ARETHA BEST MD [facility] Start: 03-01-2024 ambulatory ARETHA BEST MD Facility :D Start: 02-01-2024 End: 02-01-2024 ambulatory ARETHA BEST MD Facility:[facility] Start: 02-01-2024 End: 02-01-2024 Patient encounter procedure ARETHA BEST MD [facility] Start: 12-01-2023 End: 12-01-2023 ambulatory BALDOMERO TRONCOSO MD Facility:[facility] Start: 12-01-2023 End: 12-01-2023 Patient encounter procedure BALDOMERO TRONCOSO MD [facility] Start: 09-07-2023 End: 09-07-2023 ambulatory ERLINDA LOPEZ PA-C Facility:[facility] Start: 09-07-2023 End: 09-07-2023 Patient encounter procedure BALDOMERO TRONCOSO MD [facility] Start: 06-16-2023 Patient encounter procedure Aretha Best MD Work Phone: [facility] Start: 03-11-2023 End: 03-11-2023 Office outpatient visit 15 minutes Erlinda Lopez PA-C Work Phone: [facility]. Start: 02-06-2023 End: 02-06-2023 ambulatory STACEY DAVIS [employer]DUCTOR ASSEMBLER-C Facility:[facility] Start: 02-06-2023 End: 02-06-2023 Patient encounter procedure STACEY DAVIS [employer] CONDUCTOR ASSEMBLER-C [facility] Start: 05-15-2022 End: 05-15-2022 Periodic preventive med est patient 18-39 yrs Erlinda Lopez PA-C Work Phone: [facility] Start: 05-15-2022 End: 05-15-2022 Physical examination Erlinda Lopez PA-C Work Phone: [employer]. Start: 02-10-2022 End: 02-10-2022 Office outpatient visit 15 minutes Erlinda Lopez PA-C Work Phone: [facility] Start: 12-09-2021 End: 12-09-[address] Baldomero Troncoso Work Phone: [facility] Work Phone: Start: 12-09-2021 End: 12-09-[address] Baldomero Troncoso Work Phone: [facility]-Laboratory, Specimen Start: 09-23-2021 End: 09-23-2021 Office outpatient visit 15 minutes Erlinda Lopez PA-C [facility] Phone[facility] Start: 09-05-2021 End: 09-05-[address] Baldomero Troncoso Work Phone: [facility] Start: 08-14-2021 End: 08-14-2021 Orders Erlinda Lopez PA-C Work Phone: [employer] Start: 07-18-2021 End: 07-18-2021 Medication Erlinda Lopez PA-C Work Phone: [employer] Start: 07-03-2021 End: 07-03-2021 Medication Erlinda Lopez PA-C Work Phone: [employer] Start: 07-01-2021 End: 07-01-2021 Patient encounter procedure Erlinda Lopez PA-C Work Phone: [employer] Start: 06-12-2021 End: 06-12-2021 Medication Erlinda Lopez PA-C Work Phone: [employer] Start: 03-15-2021 End: 03-15-2021 Office outpatient visit 25 minutes Erlinda Lopez PA-C Work Phone: [employer] Start: 12-05-2020 End: 12-05-2020 Orders Erlinda Lopez PA-C Work Phone: [employer] Start: 11-28-2020 End: 11-28-2020 Office outpatient visit 5 minutes Erlinda Lopez PA-C Work Phone: [employer] Start: 11-21-2020 End: 11-21-2020 Office outpatient visit 15 minutes Erlinda Lopez PA-C Work Phone: [employer] Start: 05-07-2020 End: 05-07-2020 Office outpatient visit 15 minutes Erlinda Lopez PA-C Work Phone: [employer] Start: 05-03-2020 End: 05-03-2020 Medication Erlinda Lopez PA-C Work Phone: [employer] Start: 04-26-2020 End: 04-26-2020 Office outpatient visit 15 minutes Erlinda Lopez PA-C Work Phone: [employer] Start: 04-17-2020 End: 04-17-2020 Medication Erlinda Lopez PA-C Work Phone: [employer] Start: 03-29-2020 End: 03-29-2020 Patient encounter procedure Erlinda Lopez PA-C Work Phone: [employer] Start: 03-28-2020 End: 03-28-2020 Historical Summary Erlinda Lopez PA-C Work Phone: [employer] Start: 03-02-2020 End: 03-02-2020 Office outpatient visit 15 minutes Erlinda Lopez PA-C Work Phone: [employer] Start: 02-17-2020 End: 02-17-2020 Medication Erlinda Lopez PA-C Work Phone: [employer] Start: 02-15-2020 End: 02-15-2020 Procedure Erlinda Lopez PA-C Work Phone: [employer] Start: 12-02-2019 End: 12-02-2019 Medication Erlinda Lopez PA-C Work Phone: [employer] Start: 11-18-2019 End: 11-18-2019 Orders Erlinda Lopez PA-C Work Phone: [employer] Start: 11-15-2019 End: 11-15-2019 Initial preventive medicine new pt age 18-39yrs Erlinda Lopez PA-C Work Phone: [employer] Start: 11-15-2019 End: 11-15-2019 Patient encounter status Erlinda Lopez PA-C Work Phone: [employer]. Start: 09-05-2019 Patient encounter procedure Michelle Prieto MD -[facility] Work Phone: Start: 06-22-2019 Patient encounter procedure [facility] Work Phone: Start: 06-02-2019 Patient encounter procedure [facility] Work Phone: Start: 05-10-2019 Patient encounter procedure [facility] Work Phone: Start: 05-06-2019 Patient encounter procedure [facility] Work Phone: Start: 04-08-2019 Patient encounter procedure [facility] Work Phone: Start: 03-03-2019 End: 03-03-2019 Emergency department patient visit César Escalera Work Phone: [facility] Comment on above: Acute cystitis with hematuria (Primary Dx) Start: 03-01-2019 Patient encounter procedure [facility] Work Phone: Start: 02-18-2019 End: 02-18-2019 Emergency department patient visit César Escalera Work Phone: [facility] Comment on above: UTI (urinary tract i nfection), uncomplicated (Primary Dx) Start: 11-26-2018 End: 11-26-2018 Patient encounter procedure Jeremi Baker MD Work Phone: [facility] Work Phone: Start: 11-24-2018 Patient encounter procedure [facility] [employer] Work Phone: Start: 10-09-2017 Patient encounter procedure [facility] [employer] Work Phone: Start: 08-12-2017 Patient encounter procedure [facility] [employer] Work Phone: Patient encounter status Michelle Prieto MD -[facility] Work Phone: Physical examination Ya Sheth MA [facility], [facility] Procedures Date Procedure Procedure Detail Performing Clinician Start: 10-03-2024 Dehydroepiandrostero ne sulfate level Aretha Best MD Work Phone: Start: 09-01-2024 Transvaginal obstetr ic ultrasonography Aretha Best MD Work Phone: Start: 08-27-2024 Transvaginal obstetr ic ultrasonography Aretha [...] therefore, no HPV testing was performed.Performed at: [address] [id number] Director: Zuleyma Damon MD, Phone: [phone] Start: 04-02-2024 X-ray of chest, PA a nd lateral views Aretha Best MD Work Phone: Start: 12-05-2020 End: 12-07-2020 Us pelvic nonobstetric image dcmtn limited/f/u Crystal K Uptain Peonut Work Phone: Comment on above: ensure IUD in place Start: 02-15-2020 End: 02-15-2020 Insertion intrauterine device iud Crystal K Uptain CNM Work Phone: Start: 11-15-2019 End: 11-15-2019 Depression [...] stick/tabl et rgnt auto w/o microscopy César Escalera Work Phone: Start: 11-26-2018 End: 11-26-2018 Blood pressure within normal parameters - no follow-up required Jeremi Baker MD Work Phone: Start: 11-26-2018 [...] repair Ya Sheth MA Comment on above: [facility] Start: 03-30-2016 End: 03-30-2016 Tonsillectomy Ya Sheth MA Comment on above: [facility] Ya Manzano Comment on above: Septic Ankle Drained -[facility] 2004 History of Ankle Surgery Juvenal Prieto History of Oral Surgery Hailey Prieto Oral Surgery Ya Sheth MA Comment on above: Gum Graft 2015, Wisd om Teeth 2014 NEGATED: Highlighted rowStart: 11-26-2018 End: 11-26-2018 Documentation of current medications Isabella Costa At Plan of Treatment Date Care Activity Detail Author Start: 09-12-2024 Choriogonadotropin ( test) [Presence] in Serum or Plasma [facility] Start: 08-27-2024 [facility] Start: 04-02-2024 End: 04-02-2024 [facility] Start: 05-15-2022 Lipid panel LIPID PANEL (26695) Start: 15-May-2022 14:16-05:00 Request [facility] [employer]. Start: 05-15-2022 Comprehensive metabolic panel CMP w/ GFR* (04598) Start: 15-May-2022 14:15-05:00 Request [employer] [employer]. Start: 09-23-2021 Ova&parasites direct smears concentration & id OVA & PARASITES (04809) Start: 23-Sep-2021 15:14-04:00 Request [employer]; [employer] Work Phone: Start: 09-23-2021 Iaad ia mult step method nos each organism Clostridium difficile Toxin/GDH with Reflex to PCR (88077) Start: 23-Sep-2021 15:13-04:00 Request [employer]; [employer]. Start: 09-23-2021 Cul bact stool aerobic addl pathogens&id ea Yersina Culture Start: 23-Sep-2021 15:13-04:00 Request [employer]; [employer] Start: 09-23-2021 Cul bact stool aerobic isol salmonella&shigell [facility] CULTURE-STOOL Start: 23-Sep-2021 15:13-04:00 Request [employer]; [employer] Start: 09-23-2021 Iaad ia giardia Giardia Antigen Start: 23-Sep-2021 15:13-04:00 Request [employer]; [employer] Start: 11-28-2018 Influenza vaccination Flu vaccine (#1) [place] Start: 11-26-2018 End: 11-26-2018 Appointment Appointment [facility] Work Phone: Start: 1996 Creatinine monitoring Creatinine monitoring [place], [place] Start: 1996 Potassium monitoring Potassium monitoring [place] 17-Hydroxyprogestero ne [Mass/volume] in Serum or Plasma [facility] End: 03-03-2019 Bacteria identified Cx Nom (U) Urine Culture Microbiology STAT One Time for 1 Occurrences starting 03/03/2019 until 03/03/2019 [place] Comment on above: One Time for 1 Occurrences starting 07/2018 until 03/03/2019 Bacteria identified Cx Nom (U) U rine Culture Microbiology STAT 03/03/2019 10:57 PM [place], [place] Choriogonadotropin ( test) [Presence] in Serum or Plasma [facility] Choriogonadotropin ( test) [Presence] in Serum or Plasma [facility] Dehydroepiandrostero ne sulfate (DHEA-S) [Mass/volume] in Serum or Plasma [facility] Patient Education [facility] Work Phone: Patient referral [facility] Work Phone: T4 free measurement [facility] Work Phone: T4 free measurement [facility] Testosterone Free [Mass/volume] in Serum or Plasma [facility] Thyroid stimulating hormone measurement [facility] Work Phone: Transvaginal obstetr ic ultrasonography [facility] Triiodothyronine, fr ee measurement [facility] Work Phone: [facility] Immunizations Immunization Date Immunization Notes Care Provider Silvio bocanegra 12-28-2021 influenza, injectabl e, quadrivalent, contains preservative Erlinda Lopez PA-C Work Phone: [facility]; [facility]. Comment on above: given at workplace 10-18-2014 meningococcal polysaccharide (groups A, C, Y and W-135) diphtheria toxoid conjugate vaccine (MCV4P); Translations: [Meningo (Menactra)] [facility]; [facility] 01-20-2014 influenza virus vacc ine, live, attenuated, for intranasal use; Translations: [FluMist LIQD] [facility] Work Phone: 08-31-2013 tetanus toxoid, redu rajiv diphtheria toxoid, and acellular pertussis vaccine, adsorbed [facility]; [facility] 08-31-2013 typhoid vaccine, lv e, oral Erlinda Lopez PA-C Work Phone: [facility] 08-31-2013 typhoid capsular polysaccharide vaccine [facility] Work Phone: 01-01-2013 influenza, live, intranasal, quadrivalent [facility] Work Phone: 02-06-2012 influenza, live, intranasal, quadrivalent [facility] Work Phone: 12-14-2010 influenza, live, intranasal, quadrivalent [facility] Work Phone: 03-01-2010 influenza, live, intranasal, quadrivalent [facility] Work Phone: 12-30-2008 influenza, live, intranasal, quadrivalent [facility] Work Phone: 05-12-2008 hepatitis A vaccine, pediatric/adolescent dosage, 2 dose schedule On License Of [facility]; [facility] 05-12-2008 human papilloma viru s vaccine, quadrivalent [facility] Work Phone: 05-12-2008 Human Papillomavirus 9-valent vaccine Erlinda Lopez PA-C Work Phone: [facility].; [facility] 05-12-2008 varicella virus vaccine [facility] 01-05-2008 human papilloma viru s vaccine, quadrivalent [facility] Work Phone: 01-05-2008 Human Papillomavirus 9-valent vaccine Erlinda Lopez PA-C Work Phone: [facility].; [facility] 10-14-2007 hepatitis A vaccine, pediatric/adolescent dosage, 2 dose schedule On License Of [facility]; [facility] 10-14-2007 human papilloma viru s vaccine, quadrivalent [facility] Work Phone: 10-14-2007 Human Papillomavirus 9-valent vaccine Erlinda BARROS-C Work Phone: [facility]; [facility] 10-14-2007 meningococcal polysaccharide (groups A, C, Y and W-135) diphtheria toxoid conjugate vaccine (MCV4P) On License Of [facility]; [facility] 10-14-2007 tetanus toxoid, redu rajiv diphtheria toxoid, and acellular pertussis vaccine, adsorbed On License Of [facility]; [facility] 08-11-2001 measles, mumps and rubella virus vaccine On License Of [facility]; [facility] 08-11-2001 poliovirus vaccine, inactivated On License Of [facility]; [facility] 08-08-2001 diphtheria, tetanus toxoids and acellular pertussis vaccine Erlinda BARROS-C Work Phone: [facility]; [facility] 08-08-2001 diphtheria, tetanus toxoids and pertussis vaccine [facility] Work Phone: 02-09-1998 diphtheria, tetanus toxoids and acellular pertussis vaccine Erlinda Ariel BARROS-C Work Phone: [facility]; [facility] 02-09-1998 diphtheria, tetanus toxoids and pertussis vaccine [facility] Work Phone: 11-10-1997 measles, mumps and rubella virus vaccine On License Of [facility]; [facility] 08-09-1997 poliovirus vaccine, inactivated On License Of [facility]; [facility] 08-09-1997 varicella virus vaccine On License Of [facility]; [facility] 05-23-1997 hepatitis B vaccine, pediatric or pediatric/adolescent dosage On License Of [facility]; [facility] 03-06-1997 diphtheria, tetanus toxoids and acellular pertussis vaccine Erlinda Lopez PA-C Work Phone: [facility] 03-06-1997 diphtheria, tetanus toxoids and pertussis vaccine [facility] Work Phone: 01-02-1997 diphtheria, tetanus toxoids and acellular pertussis vaccine Erlinda Lopez PA-C Work Phone: [facility].; [facility] 01-02-1997 diphtheria, tetanus toxoids and pertussis vaccine [facility] Work Phone: 01-02-1997 poliovirus vaccine, inactivated [facility] 1996 diphtheria, tetanus toxoids and acellular pertussis vaccine Erlinda Lopez PA-C Work Phone: [facility].; [facility] 1996 diphtheria, tetanus toxoids and pertussis vaccine [facility] Work Phone: 1996 poliovirus vaccine, inactivated On License Of [facility]; [facility] 1996 hepatitis B vaccine, pediatric or pediatric/adolescent dosage [facility] 1996 hepatitis B vaccine, pediatric or pediatric/adolescent dosage [facility] Payers Date Payer Category Payer Unknown [id number] 2024 Unknown [id number] 2024 Self-pay [id number] 2023 Unknown [id number] 1996 Unknown [id number] 2.16.8 40.1.110345.3.579.2.627 1996 Unknown [id number] 2.16.8 40.1.874547.3.579.2.627 1996 Unknown [id number] 2.16.8 40.1.196206.3.579.2.627 1996 Unknown [id number] 2.16.8 40.1.933541.3.579.2. 1996 Unknown [id number] 2.16.8 40.1.977602.3.579.2. 1996 Unknown [id number] 2.16.8 40.1.692138.3.579.2. 1996 Unknown [id number] 2.16.8 40.1.597293.3.579.2. 1996 Unknown [id number] 2.16.8 40.1.457341.3.579.2. 1996 Unknown [id number] 2.16.8 40.1.151658.3.579.2. 1996 Unknown [id number] 2.16.8 40.1.602716.3.579.2. 1996 Unknown [id number] 2.16.8 40.1.588648.3.579.2.651 1996 Unknown [id number] 2.16. 840.1.437558.3.579.2.627 Private Health Insurance [id number] Unknown [employer] Unknown [id number] 2.16.8 40.1.094710.3.579.2.462 Unknown [id number] 2.16.8 40.1.599850.3.579.2.462 Unknown [id number] 2.16.8 40.1.602219.3.579.2.462 Unknown [id number] 2.16.8 40.1.252348.3.579.2.462 Unknown [id number] 2.16.8 40.1.021311.3.579.2.462 Unknown [id number] 2.16.8 40.1.050924.3.579.2.462 Unknown [id number] 2.16.8 40.1.485613.3.579.2.462 Unknown [id number] 2.16.8 40.1.119041.3.579.2.462 Unknown [id number] 2.16.8 40.1.324877.3.579.2.462 Unknown [id number] 2.16.8 40.1.471107.3.579.2.462 Unknown [id number] 2.16.8 40.1.927715.3.579.2.462 Unknown [id number] 2.16.8 40.1.742810.3.579.2.462 Unknown [id number] 2.16.8 40.1.714664.3.579.2.462 Unknown [id number] 2.16.8 40.1.915297.3.579.2.462 Unknown [id number] 2.16.8 40.1.147146.3.579.2.462 Unknown [id number] 2.16.8 40.1.258949.3.579.2.462 Unknown [id number] 2.16.8 40.1.872854.3.579.2.462 Unknown [id number] 2.16.8 40.1.694338.3.579.2.462 Unknown [id number] 2.16.8 40.1.154483.3.579.2.462 Unknown [id number] 2.16.8 40.1.593929.3.579.2.462 Unknown [id number] 2.16.8 40.1.240682.3.579.2.462 Unknown [id number] 2.16.8 40.1.462182.3.579.2.462 Unknown [id number] 2.16.8 40.1.553703.3.579.2.462 Unknown [id number] 2.16.8 40.1.875322.3.579.2.462 Social History Date Type Detail Facility Start: 02-18-2019 End: 08-27-2024 Tobacco smoking status NHIS Never smoker [facility] Sex Assigned At Not on file [place] Start: 11-26-2018 End: 11-26-2018 Assertion Unknown if ever smoked [facility] Work Phone: Start: 1995 Sex Assigned At Female [facility] Tobacco smoking status [facility] Alcohol Use Alcohol Use [facility] Tobacco Use: Tobacco Use: ; N ever smoker. [employer]; [employer]. Start: 02-06-2023 End: 06-20-2024 Sex Female (finding) [facility] Patient currentl y [facility] NEGATED: Highlighted rowStart: 11-26-2018 End: 11-26-2018 How many days of moderate to strenuous exercise, like a brisk walk, did you do in the last 7 days? How many days of moderate to strenuous exercise, like a brisk walk, did you do in the last 7 days? [facility] Work Phone: NEGATED: Highlighted row - - [facility] [employer] Work Phone: Functional Status Date Assessment Result Facility NEGATED: Highlighted row Functional performance Functional status health issues are not documented Disease [facility] [employer] Work Phone: Mental Status Date Assessment Result Facility 04-02-2024 Cognitive function Voice/Name [facility] Work Phone: NEGATED: Highlighted row Cognitive function [Interpretation] Cognitive status health issues are not documented Disease [facility] [employer] Work Phone: Clinical Notes 12-01-2023 to 09-12-2024 Note Date & Type Note Facility 09-12-2024 Progress note Note Date/Time September 12, 2024 1:22pm [facility]'[address], [address] [place] [address] OFFICE VISIT Date of Service: 09/12/24 MR#: [id number] Acct: [id number] Name: XOCHILT CADET Rep #: [id number] : 1995 Provider: Dr. Jamil Jean MD Age/Sex: 29/F Location: [facility] Status: Signed Intake Vital Signs 09/01/24 11:40 09/12/24 13:02 Height 5 ft 8 in 5 ft 8 in Weight: 181 lb BMI 27.5 BP 120/72 Intake Visit Reasons: 1 wk F/U [employer] Supervisor Required: No Is patient in pain?: No Allergies No Known Allergies Allergy (Verified 09/12/24 13:05) Medications ?Medication ?Instructions ?Recorded ?Confirmed ?Type multivitamin no.47-iron fum 27 1 cap PO DAILY 08/25/24 09/12/24 History mg-folate no.1 1 mg-dha 300 mg capsule (PNV-DHA) levothyroxine 137 mcg capsule 137 mcg PO QDAY 09/12/24 09/12/24 History Post menopausal: No Patient : No : [...] at home: Yes additional social history: - [facility] HPI 1 wk F/U Details: XOCHILT CADET is a 29 year old who presents for follow up of early miscarriage. repeat ulrasound today shows a 3 mm lining with no retained POC and adnexa appear WNL no significnat changes, just polycystic appearance. thyroid medication was adjusted by pcp. patient had heavy bleeding after cytotec and then it slowed down. History 1 Elective abortions Hx Para 0 Spontaneous abortions 1 Hx # Term Pregnancies Ectopic pregnancies Hx # Pregnancies Multiple births # of living children Past Pregnancies Del. Date Name GA/Weeks Outcome Route Bth Weight Gen Labor Lgth Anesthesia Del Locatn Provider FOB 09/01/24 spontaneous ROS Const Constitutional: Denies fatigue, fever(s), headache(s), increased appetite, poor appetite, weight gain or weight loss Cardio Card: Denies chest pain Resp Resp: Denies cough or dyspnea GI GI: Reports as per HPI; Denies abdominal pain, constipation, nausea or vomiting : Reports as per HPI; Denies difficulty voiding, dysuria, nipple discharge, urinary frequency, urinaryincontinence, urinary hesitancy, urinary urgency, vaginal discharge, vaginal dryness, vaginal odor or vaginal pruritus Skin Skin/Breast: Denies change in hair, breast mass, breast pain, breast skin changes or nipple discharge Exam Const General: cooperative, healthy appearing, comfortable, no acute distress and welldeveloped Nutritional Appearance: average body habitus Orientation: alert HENMT Head: normal to inspection and normocephalic Neck Neck: normal visual inspection and trachea midline Thyroid: thyroid normal Resp Effort & Inspection: normal respiratory effort GI Inspection: normal to inspection and non-distended Palpation: soft and no hepatosplenomegaly General: bladder normal to palpation External Female Exam: normal external appearance and normal appearance of the urethra Urethra: normal appearance of the urethra, normal palpation and no discharge Speculum Exam - Vagina: normal appearance of the vagina and normal vaginal discharge Speculum Exam - Cervix: normal appearance of the cervix and nontender Bimanual Exam- Vagina & Uterus: normal bimanual exam, uterine size normal, bladder normal to palpation, uterine shape normal, No tender, uterine mobility normal, consistency normal, normal palpation and non-tender Bimanual Exam- Adnexa, other: normal adnexae, adnexae mobile, no masses and normal Pelvic Support: normal Skin General: no rashes or lesions noted Coding Level of Care Code Off vis,est,level 3 Diagnoses Complete O03.9 Polycystic ovaries E28.2 Assessment and Plan Assessment and Plan (1) Complete : Status: Acute Comment: s.p cytotec. repeat quant 09/12 follow until negative (2) Polycystic ovaries: Status: Acute Comment: seen on US, unclear if post IUD effects of if PCOS, labs ordered for next months Orders: Orders hCG Titer Quant., Serum Today O02.1 - Missed Plan Problem list updated and treatment plans were reviewed with the patient and relevant educational handouts given. See problem list details for specific planinformation. 09/12/24 1322 <Electronically signed by Sangita ramirez MD> Date _ Sangita Jean MD [facility] Signature: Date (if applicable) CC: ~ [place] [employer] Work Phone: 1(976) 657-427106-16-2025 Progress [facility] [address], [address] [place] [address] OFFICE VISIT Date of Service: 09/12/24 MR#: [id number] Acct: [id number] Name: XOCHILT CADET Rep #: [id number] : 1995 Provider: Dr. 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 repeat ulrasound today shows a 3 mm lining with no retained POC and adnexa appear WNL no significnat changes, just polycystic appearance. thyroid medication was adjusted by pcp. patient had heavy bleeding after cytotec and then it slowed down. History 1 Elective abortions Hx Para 0 Spontaneous abortions 1 Hx # Term Pregnancies Ectopic pregnancies Hx # Pregnancies Multiple births # of living children Past Pregnancies Del. Date Name GA/Weeks Outcome Route Bth Weight Gen Labor Lgth Anesthesia Del Locatn Provider FOB 09/01/24 spontaneous ROS Const Constitutional: Denies fatigue, fever(s), headache(s), increased appetite, poor appetite, weight gain or weight loss Cardio Card: Denies chest pain Resp Resp: Denies cough or dyspnea GI GI: Reports as per HPI; Denies abdominal pain, constipation, nausea or vomiting : Reports as per HPI; Denies difficulty voiding, dysuria, nipple discharge, urinary frequency, urinaryincontinence, urinary hesitancy, urinary urgency, vaginal discharge, vaginal dryness, vaginal odor or vaginal pruritus Skin Skin/Breast: Denies change in hair, breast mass, breast pain, breast skin changes or nipple discharge Exam Const General: cooperative, healthy appearing, comfortable, no acute distress and welldeveloped Nutritional Appearance: average body habitus Orientation: alert HENMT Head: normal to inspection and normocephalic Neck Neck: normal visual inspection and trachea midline Thyroid: thyroid normal Resp Effort & Inspection: normal respiratory effort GI Inspection: normal to inspection and non-distended Palpation: soft and no hepatosplenomegaly General: bladder normal to palpation External Female Exam: normal external appearance and normal appearance of the urethra Urethra: normal appearance of the urethra, normal palpation and no discharge Speculum Exam - Vagina: normal appearance of the vagina and normal vaginal discharge Speculum Exam - Cervix: normal appearance of the cervix and nontender Bimanual Exam- Vagina & Uterus: normal bimanual exam, uterine size normal, bladder normal to palpation, uterine shape normal, No tender, uterine mobility normal, consistency normal, normal palpation and non-tender Bimanual Exam- Adnexa, other: normal adnexae, adnexae mobile, no masses and normal Pelvic Support: normal Skin General: no rashes or lesions noted Coding Level of Care Code Off vis,est,level 3 Diagnoses Complete O03.9 Polycystic ovaries E28.2 Assessment and Plan Assessment and Plan (1) Complete : Status: Acute Comment: s.p cytotec. repeat quant 09/12 follow until negative (2) Polycystic ovaries: Status: Acute Comment: seen on US, unclear if post IUD effects of if PCOS, labs ordered for next months Orders: Orders hCG Titer Quant., Serum Today O02.1 - Missed Plan Problem list updated and treatment plans were reviewed with the patient and relevant educational handouts given. See problem list details for specific planinformation. 09/12/24 1322 james GUZMAN> Date _ Sangita Jean MD Cos[employer] Signature: Date (if applicable) CC: ~ [facility]06-05-2025 Radiology Diagnostic study note [facility] Imaging Services [address] [place], [place] [id number] Transvaginal w/Preg US MR#: [id number] Acct: [id number] Name: XOCHILT CADET Rep #: [id number] : 1995 F 29 From: Adela Tiptno MD PCP: Dr. Aretha Best MD Status: REG CL I Study:Transvaginal w/Preg US Date of Exam: 09/01/24 Exam# [id number] Ordering Dr: Sangita Root MD EXAM: US Pelvis Transabdominal and Transvaginal, Complete CLINICAL INDICATION: VIABILITY TECHNIQUE: Real-time complete transabdominal and transvaginal pelvic ultrasoundwith image documentation. Transvaginal imaging was used for better evaluation of the endometrium and adnexa. COMPARISON: No relevant prior studies available. FINDINGS: UTERUS/CERVIX: Multiple cystic lesions in the endometrial cavity. No definite residual reaction. Noyolk sac. No CRL. These may be early . Repeat pelvic ultrasound in 10-14 days recommended as well as following serial beta HCG level. No myometrial mass. The uterus measures 11.3 x 6.7 x 5.7 cm. RIGHT OVARY: Unremarkable. Normal blood flow. The right ovary measures 5.0 x 2.4 x 2.5 cm. LEFT OVARY: Unremarkable. Normal blood flow. The left ovary measures 4.5 x 2.3 x 2.4 cm. FREE FLUID: No free fluid. BLADDER: Unremarkable as visualized. Wall is normal thickness for degree of distention. US/Transvaginal w/Preg US IMPRESSION: Multiple cystic lesions in the endometrial cavity. No definite residual reaction. No yolk sac. No CRL. These may be early . Repeat pelvic ultrasound in 10-14 days recommended as well as following serial beta HCG level. Reading Location: RAD-LE-NL CC: Dr. Aretha Best MD; Dr. Sangita Jean MD ~ Supervising Broker: Signed [facility]05-31-2025 Radiology Diagnostic study note [facility] Imaging Services [address] [place] [address] Transvaginal w/Preg US MR#: [id number] Acct: [id number] Name: XOCHILT CADET Rep #: [id number] : 1995 F 29 From: Tom Blake MD PCP: Dr. Aretha Best MD Status: REG ER Study:Transvaginal w/Preg US Date of Exam: 08/27/24 Exam# [id number] Ordering Dr: Anuja Baeza DO PROCEDURE: TRANSVAGINAL [...] ovaries. Possible right corpus luteum. Reading Location: [id number] CC: Dr. Aretha Best MD; Dr. Porter Craig, DO ~ Supervising Broker: Signed [facility]05-29-2025 Evaluation note* Diagnosis Onset Date Resolution Status Admit Date , threatened resolved August 25, 2024 3:14pm , threatened resolved August 29, 2024 3:42pm Missed acute September 01, 2024 11:17am Complete acute September 122024 12:47pm Polycystic ovaries acute August 282024 12:47pm [facility] Work Phone: 1([phone]) 244-189905-29-2025 Radiology Diagnostic study note [facility] Imaging Services [address] [place] [address] Transvaginal w/Preg US MR#: [id number] Acct: [id number] Name: XOCHILT CADET Rep #: [id number] : 1995 F 29 From: Juan Johansen MD PCP: Dr. Aretha Best MD Status: REG CL I Study:Transvaginal w/Preg US Date of Exam: 08/25/24 Exam# [id number] Ordering Dr: Sangita Root MD PROCEDURE: TRANSVAGINAL W/PREG US 08/25/2024 REASON FOR [...] shows greater than 10 subcentimeter follicles, and meetsthe criteria for polycystic ovary syndrome. There is a 2.7 x 1.9 cm complex mixed echogenicity lesion in the right ovary, whichdoes not have the typical features of a [...] include MRI of the ovaries with and withoutcontrast. Reading [facility] CC: Dr. Aretha Best MD; Dr. Sangita Jean MD ~ Supervising Broker: Signed [facility]03-13-2025 NotePap Smear Specimen AdequacyMarch 2024 11:59pmComment.Satisfactory for evaluation. Endocervical and/or squamous metaplasticcells (endocervical component)are present.[facility] A#[id number] Health HamiltonComment on above:Satisfactory for evaluation. Endocervical and/or squamous metaplasticcells (endocervical component)are present.06-09-2024 Evaluation note* Diagnosis Onset Date Resolution Status Admit Date Encounter for routine gynecological examination noneactive June 09, 2024 3:37pm [facility] Work Phone: 1(900) 555-431403-13-2025 Evaluation note* Diagnosis Onset Date Resolution Status Admit Date Encounter for routine gynecological examination noneactive June 09, 2024 3:37pm , threatened acute August 25, 2024 3:14pm [facility] Work Phone: 1(442) 703-708803-13-2025 Evaluation note* Diagnosis Onset Date Resolution Status Admit Date Encounter for routine gynecological examination noneactive June 09, 2024 3:37pm , threatened acute August 25, 2024 3:14pm , threatened acute August 29, 2024 3:42pm [facility] Work Phone: 1(466) 102-531003-13-2025 Evaluation note* Diagnosis Onset Date Resolution Status Admit Date Encounter for routine gynecological examination noneactive June 09, 2024 3:37pm , threatened resolved August 25, 2024 3:14pm , threatened resolved August 29, 2024 3:42pm Missed acute September 01, 2024 11:17am [facility] Work Phone: 1(349) 273-484403-13-2025 Evaluation note* Diagnosis Onset Date Resolution Status Admit Date Encounter for routine gynecological examination noneactive June 09, 2024 3:37pm , threatened resolved August 25, 2024 3:14pm , threatened resolved August 29, 2024 3:42pm Missed acute September 01, 2024 11:17am Complete acute September 122024 12:47pm Polycystic ovaries acute August 282024 12:47pm [facility] Work Phone: 1(477) 775-698409-03-2024 Evaluation + Plan note Diagnostic Tests Pending * Free T4 12/01/23 * Thyroid Stimulating Hormone 12/01/23 [facility] Evaluation + Plan note No data available for this section [facility] Evaluation note* Diagnosis Onset Date Resolution Status 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 Work Phone: Hospital Discharge instructions No data available for this section [facility] Instructions* Name Dates Details Instructions not documented [facility] Work Phone: Progress note No data available for this section [facility] Reason for referral (narrative)No reason for referral information availableWKettering Health Hamilton Work Phone: Summary Purpose Family History No [...] Do you have a Healthcare Power of Photographer Still? No April 02, 2024 2:50pm Advance Directive Response Recorded Date/ Time Do you have a Healthcare Power of Photographer Still? No August 18, 2024 9:32am Advance Directive Response Recorded Date/ Time Do you have a Healthcare Power of Photographer Still? No August 18, 2024 9:32am Do you have a Healthcare Power of Photographer Still? No August 27, 2024 4:30pm Hospital Course [...] Everywhere. * UTI (Urinary Tract Infection): Female (Malagasy) documented in this encounter* Attachments The following attachments cannot be sent through Care Everywhere. 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, 2024 3:3 7pm vag August 18, 2024 9:25a m INT LAB ORDERS August 20, 2024 7:55a m E ORDER August 22, 2024 8:11a m SPOTTING IN EARLY August 25 9:55am fu ER visit, US results August 25, 2024 3 :14pm Chief Complaint Admit Date 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, 2024 3:3 7pm vag August [...] 3:14 pm Chief Complaint Admit Date 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, 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 3:3 7pm vag August 18, 2024 9:25a m INT LAB ORDERS August 20, 2024 7:55a m E ORDER August 22, 2024 8:11a m SPOTTING IN EARLY August 25 9:55am fu ER visit, US results August 25, 2024 3 :14pm HCG LEVEL August 27, 2024 12:31 pm August 27, 2024 4:17p m ER FU per SM August 29, 2024 3:42p m Chief Complaint Admit Date 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, 2024 3:3 7pm vag August 18, 2024 9:25a m INT LAB ORDERS August 20, 2024 7:55a m E ORDER August 22, 2024 8:11a m SPOTTING IN EARLY August 25 9:55am fu ER visit, US results August 25, 2024 3 :14pm HCG LEVEL August 27, 2024 12:31 pm August 27, 2024 4:17p m ER FU per SM August 29, 2024 3:42p m INT LABS August 31, 2024 8:53a m VIABILITY September 01, 2024 10:39 am f/u on US, HCG level per SM September 01 11:17am Reason for Visit Admit Date Encounter for routine gynecological exam ination June 09, 2024 3:37pm , threatened August 25, 2024 3:14 pm , threatened August 29, 2024 3:42 pm Reason for Visit Admit Date Encounter for routine gynecological exam ination June 09, 2024 3:37pm , threatened August 25, 2024 3:14 pm , threatened August 29, 2024 3:42 pm Missed September 01, 2024 11:17 am Chief Complaint Admit Date 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, 2024 3:3 7pm vag August 18, 2024 9:25a m INT LAB ORDERS August 20, 2024 7:55a m E ORDER August 22, 2024 8:11a m SPOTTING IN EARLY August 25 9:55am fu ER visit, US results August 25, 2024 3 :14pm HCG LEVEL August 27, 2024 12:31 pm August 27, 2024 4:17p m ER FU per SM August 29, 2024 3:42p m INT LABS August 31, 2024 8:53a m VIABILITY September 01, 2024 10:39 am f/u on US, HCG level per SM September 01 11:17am 1 wk F/U September 12, 2024 12:4 7pm Reason for Visit Admit Date Encounter for routine gynecological exam ination June 09, 2024 3:37pm , threatened August 25, 2024 3:14 pm , threatened August 29, 2024 3:42 pm Missed September 01, 2024 11:17 am Complete September 12, 2024 12:4 7pm Polycystic ovaries September 12, 2024 12:4 7pm Chief Complaint Admit Date 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, 2024 3:3 7pm vag August 18, 2024 9:25a m INT LAB ORDERS August 20, 2024 7:55a m E ORDER August 22, 2024 8:11a m SPOTTING IN EARLY August 25 9:55am fu ER visit, US results August 25, 2024 3 :14pm HCG LEVEL August 27, 2024 12:31 pm August 27, 2024 4:17p m ER FU per SM August 29, 2024 3:42p m INT LABS August 31, 2024 8:53a m VIABILITY September 01, 2024 10:39 am f/u on US, HCG level per SM September 01 11:17am 1 wk F/U September 12, 2024 12:4 7pm INT LABS TWO DRS October 03, 2024 8:06a m Chief Complaint Admit Date vag August 18, 2024 9:25a m INT LAB ORDERS August 20, 2024 7:55a m E ORDER August 22, 2024 8:11a m SPOTTING IN EARLY August 25 9:55am fu ER visit, US results August 25, 2024 3 :14pm HCG LEVEL August 27, 2024 12:31 pm August 27, 2024 4:17p m ER FU per SM August 29, 2024 3:42p m INT LABS August 31, 2024 8:53a m VIABILITY September 01, 2024 10:39 am f/u on US, HCG level per SM September 01 11:17am 1 wk F/U September 12, 2024 12:4 7pm INT LABS TWO DRS October 03, 2024 8:06a m EORDER November 08, 2024 8: 35am Reason for Visit Admit Date , threatened August 25, 2024 3:14 pm , threatened August 29, 2024 3:42 pm Missed September 01, 2024 11:17 am Complete September 12, 2024 12:4 7pm Polycystic ovaries September 12, 2024 12:4 7pm Additional Source Comments INFORMATION SOURCE (unrecogn ized section and content) DATE CREATED AUTHOR 01/12/2019 [facility] DATE CREATED AUTHOR AUTHOR'S ORGANIZ ATION 03/07/2019 [facility] DATE CREATED AUTHOR AUTHOR'S ORGANIZ ATION 09/05/2019 [facility] DATE CREATED AUTHOR AUTHOR'S ORGANIZ ATION 09/05/2019 [employer] DATE CREATED AUTHOR AUTHOR'S ORGANIZ ATION 02/28/2020 [facility] DATE CREATED AUTHOR AUTHOR'S ORGANIZ ATION 05/11/2020 [facility] DATE CREATED AUTHOR AUTHOR'S ORGANIZ ATION 09/24/2021 [facility] DATE CREATED AUTHOR AUTHOR'S ORGANIZ ATION 09/21/2022 [facility] DATE CREATED AUTHOR AUTHOR'S ORGANIZ ATION 12/03/2023 [facility] ([place]) DATE CREATED AUTHOR AUTHOR'S ORGANIZ ATION 03/03/2024 [facility] DATE CREATED AUTHOR AUTHOR'S ORGANIZ ATION 06/21/2024 [facility] DATE CREATED AUTHOR AUTHOR'S ORGANIZ ATION 06/25/2024 [facility] DATE CREATED AUTHOR AUTHOR'S ORGANIZ ATION 10/08/2024 [facility] DATE CREATED AUTHOR AUTHOR'S ORGANIZ ATION 12/15/2024 [facility] Reason for Visit (unrecogniz ed section and [...] Active Team Status: Inactive Member Role Status Jasvir [...] End: August 18, 2024 Dr. Preston Garrett DO Attending Provider Active S tart: August 18, 2024 End: August 18, 2024 Dr. Preston Garrett DO Emergency Provider Active S tart: August 18, [...] August 29, 2024 End: August 29, 2024 Team Status: Inactive Member Role Status Jasvir Best MD Primary Care Provider Active St art: August 25, 2024 End: August 25, 2024 Dr. Sangita Jean MD Attending Provider Active Start: August 25, 2024 End: August 25, 2024 Dr. Sangita Jean MD Referring Provider Active Start: August 25, 2024 End: August 25, 2024 Team Status: Inactive Member Role Status Jasvir Best MD Primary Care Provider Active St art: August 27, 2024 End: August 27, 2024 Dr. Porter Baeza DO Attending Provider Active Start: August 27, 2024 End: August 27, 2024 Dr. Porter Baeza DO Emergency Provider Active Start: August 27, 2024 End: August 27, 2024 Team Status: Active Member Role Status Jasvir Best MD Primary Care Provider Active St art: August 31, 2024 Dr. Sangita Jean MD Attending Provider Active Start: August 31, 2024 Dr. Sangita Jean MD Referring Provider Active Start: August 31, 2024 Team Status: Active Member Role Status Jasvir Best MD Primary Care Provider Active St art: September 01, 2024 Dr. Sangita Jean MD Attending Provider Active Start: September 01, 2024 Dr. Sangita Jean MD Referring Provider Active Start: September 01, 2024 Team Status: Inactive Member Role Status Jasvir Best MD Primary Care Provider Active St art: September 01, 2024 End: September 01, 2024 Aretha Best MD Referring Provider Active Start : September 01, 2024 End: September 01, 2024 Dr. Sangita Jean MD Attending Provider Active Start: September 01, 2024 End: September 01, 2024 Team Status: Inactive Member Role Status Jasvir Best MD Primary Care Provider Active St art: August 27, 2024 End: August 27, 2024 Dr. Sangita Jean MD Attending Provider Active Start: August 27, 2024 End: August 27, 2024 Dr. Sangita Jean MD Referring Provider Active Start: August 27, 2024 End: August 27, 2024 Team Status: Inactive Member Role Status Jasvir Best MD Primary Care Provider Active St art: August 29, 2024 End: August 29, 2024 Dr. Sangita Jean MD Attending Provider Active Start: August 29, 2024 End: August 29, 2024 Dr. Sangita Jean MD Referring Provider Active Start: August 29, 2024 End: August 29, 2024 Team Status: Inactive Member Role Status Jasvir Best MD Primary Care Provider Active St art: August 31, 2024 End: August 31, 2024 Dr. Sangita Jean MD Attending Provider Active Start: August 31, 2024 End: August 31, 2024 Dr. Sangita Jean MD Referring Provider Active Start: August 31, 2024 End: August 31, 2024 Team Status: Inactive Member Role Status Jasvir Best MD Primary Care Provider Active St art: September 01, 2024 End: September 01, 2024 Dr. Sangita Jean MD Attending Provider Active Start: September 01, 2024 End: September 01, 2024 Dr. Sangita Jean MD Referring Provider Active Start: September 01, 2024 End: September 01, 2024 Team Status: Inactive Member Role Status Jasvir Best MD Primary Care Provider Active St art: September 12, 2024 End: September 12, 2024 Aretha Best MD Referring Provider Active Start : September 12, 2024 End: September 12, 2024 Dr. Sangita Jean MD Attending Provider Active Start: September 12, 2024 End: September 12, 2024 Team Status: Active Member Role Status Jasvir Best MD Primary Care Provider Active St art: September 12, 2024 Dr. Sangita Jean MD Attending Provider Active Start: September 12, 2024 Dr. Sangita Jean MD Referring Provider Active Start: September 12, 2024 Team Status: Inactive Member Role Status Jasvir Best MD Primary Care Provider Active St art: September 12, 2024 End: September 12, 2024 Dr. Sangita Jean MD Attending Provider Active Start: September 12, 2024 End: September 12, 2024 Dr. Sangita Jean MD Referring Provider Active Start: September 12, 2024 End: September 12, 2024 Team Status: Active Member Role/Relationship Status Jasvir Best MD Primary Care Provider Active Team Status: Inactive Member Role/Relationship Status Jasvir Garcia CNM Attending Provider Active S tart: June 09, 2024 End: June 09, 2024 Aretha Best MD Primary Care Provider Active St art: June 09, 2024 End: June 09, 2024 Aretha Best MD Referring Provider Active Start : June 09, 2024 End: June 09, 2024 Team Status: Inactive Member Role/Relationship Status Jasvir Best MD Primary Care Provider Active St art: June 09, 2024 End: June 09, 2024 Jeny Garcia CNM Attending Provider Active S tart: June 09, 2024 End: June 09, 2024 Jeny Garcia CNM Referring Provider Active S tart: June 09, 2024 End: June 09, 2024 Team Status: Inactive Member Role/Relationship Status Jasvir Best MD Primary Care Provider Active St art: August 18, 2024 End: August 18, 2024 Dr. Preston Garrett , Attending Provider Active S tart: August 18, 2024 End: August 18, 2024 Dr. Preston Garrett , Emergency Provider Active S tart: August 18, 2024 End: August 18, 2024 Team Status: Inactive Member Role/Relationship Status Jasvir Best MD Primary Care Provider Active St art: August 20, 2024 End: August 20, 2024 Bess Andujar CNM Attending Provider Active Start: August 20, 2024 End: August 20, 2024 Bess Andujar CNM Referring Provider Active Start: August 20, 2024 End: August 20, 2024 Team Status: Inactive Member Role/Relationship Status Jasvir Best MD Primary Care Provider Active St art: August 22, 2024 End: August 22, 2024 Bess Andujar CNM Attending Provider Active Start: August 22, 2024 End: August 22, 2024 Bess Andujar CNM Referring Provider Active Start: August 22, 2024 End: August 22, 2024 Team Status: Inactive Member Role/Relationship Status Jasvir Best MD Primary Care Provider Active St art: August 25, 2024 End: August 25, 2024 Dr. Sangita Jean MD Attending Provider Active Start: August 25, 2024 End: August 25, 2024 Dr. Sangita Jean MD Referring Provider Active Start: August 25, 2024 End: August 25, 2024 Team Status: Inactive Member Role/Relationship Status Jasvir Best MD Primary Care Provider Active St art: August 25, 2024 End: August 25, 2024 Aretha Best MD Referring Provider Active Start : August 25, 2024 End: August 25, 2024 Dr. Sangita Jean MD Attending Provider Active Start: August 25, 2024 End: August 25, 2024 Team Status: Inactive Member Role/Relationship Status Jasvir Best MD Primary Care Provider Active St art: August 27, 2024 End: August 27, 2024 Dr. Sangita Jean MD Attending Provider Active Start: August 27, 2024 End: August 27, 2024 Dr. Sangita Jean MD Referring Provider Active Start: August 27, 2024 End: August 27, 2024 Team Status: Inactive Member Role/Relationship Status Jasvir Best MD Primary Care Provider Active St art: August 27, 2024 End: August 27, 2024 Dr. Porter Baeza DO Attending Provider Active Start: August 27, 2024 End: August 27, 2024 Dr. Porter Baeza DO Emergency Provider Active Start: August 27, 2024 End: August 27, 2024 Team Status: Inactive Member Role/Relationship Status Jasvir Best MD Primary Care Provider Active St art: August 29, 2024 End: August 29, 2024 Dr. Sangita Jean MD Attending Provider Active Start: August 29, 2024 End: August 29, 2024 Dr. Sangita Jean MD Referring Provider Active Start: August 29, 2024 End: August 29, 2024 Team Status: Inactive Member Role/Relationship Status Jasvir Best MD Primary Care Provider Active St art: August 29, 2024 End: August 29, 2024 Aretha Best MD Referring Provider Active Start : August 29, 2024 End: August 29, 2024 Dr. Sangita Jean MD Attending Provider Active Start: August 29, 2024 End: August 29, 2024 Team Status: Inactive Member Role/Relationship Status Jasvir Best MD Primary Care Provider Active St art: August 31, 2024 End: August 31, 2024 Dr. Sangita Jean MD Attending Provider Active Start: August 31, 2024 End: August 31, 2024 Dr. Sangita Jean MD Referring Provider Active Start: August 31, 2024 End: August 31, 2024 Team Status: Inactive Member Role/Relationship Status Jasvir Best MD Primary Care Provider Active St art: September 01, 2024 End: September 01, 2024 Dr. Sangita Jean MD Attending Provider Active Start: September 01, 2024 End: September 01, 2024 Dr. Sangita Jean MD Referring Provider Active Start: September 01, 2024 End: September 01, 2024 Team Status: Inactive Member Role/Relationship Status Jasvir Best MD Primary Care Provider Active St art: September 01, 2024 End: September 01, 2024 Aretha Best MD Referring Provider Active Start : September 01, 2024 End: September 01, 2024 Dr. Sangita Jean MD Attending Provider Active Start: September 01, 2024 End: September 01, 2024 Team Status: Inactive Member Role/Relationship Status Jasvir Best MD Primary Care Provider Active St art: September 12, 2024 End: September 12, 2024 Aretha Best MD Referring Provider Active Start : September 12, 2024 End: September 12, 2024 Dr. Sangita Jean MD Attending Provider Active Start: September 12, 2024 End: September 12, 2024 Team Status: Inactive Member Role/Relationship Status Jasvir Best MD Primary Care Provider Active St art: September 12, 2024 End: September 12, 2024 Dr. Sangita Jean MD Attending Provider Active Start: September 12, 2024 End: September 12, 2024 Dr. Sangita Jean MD Referring Provider Active Start: September 12, 2024 End: September 12, 2024 Team Status: Inactive Member Role/Relationship Status Jasvir Best MD Primary Care Provider Active St art: October 03, 2024 End: October 03, 2024 Dr. Sangita Jean MD Attending Provider Active Start: October 03, 2024 End: October 03, 2024 Dr. Sangita Jean MD Referring Provider Active Start: October 03, 2024 End: October 03, 2024 Team Status: Inactive Member Role/Relationship Status Jasvir Best MD Primary Care Provider Active St art: August 18, 2024 End: August 18, 2024 Dr. Preston Garrett , Attending Provider Active S tart: August 18, 2024 End: August 18, 2024 Dr. Preston Garrett , Emergency Provider Active S tart: August 18, 2024 End: August 18, 2024 Team Status: Inactive Member Role/Relationship Status Jasvir Best MD Primary Care Provider Active St art: August 20, 2024 End: August 20, 2024 Bess Andujar CNM Attending Provider Active Start: August 20, 2024 End: August 20, 2024 Bess Andujar CNM Referring Provider Active Start: August 20, 2024 End: August 20, 2024 Team Status: Inactive Member Role/Relationship Status Jasvir Best MD Primary Care Provider Active St art: August 22, 2024 End: August 22, 2024 Bess Andujar CNM Attending Provider Active Start: August 22, 2024 End: August 22, 2024 Bess Andujar CNM Referring Provider Active Start: August 22, 2024 End: August 22, 2024 Team Status: Inactive Member Role/Relationship Status Jasvir Best MD Primary Care Provider Active St art: August 25, 2024 End: August 25, 2024 Dr. Sangita Jean MD Attending Provider Active Start: August 25, 2024 End: August 25, 2024 Dr. Sangita Jean MD Referring Provider Active Start: August 25, 2024 End: August 25, 2024 Team Status: Inactive Member Role/Relationship Status Jasvir Best MD Primary Care Provider Active St art: August 25, 2024 End: August 25, 2024 Aretha Best MD Referring Provider Active Start : August 25, 2024 End: August 25, 2024 Dr. Sangita Jean MD Attending Provider Active Start: August 25, 2024 End: August 25, 2024 Team Status: Inactive Member Role/Relationship Status Jasvir Best MD Primary Care Provider Active St art: August 27, 2024 End: August 27, 2024 Dr. Sangita Jean MD Attending Provider Active Start: August 27, 2024 End: August 27, 2024 Dr. Sangita Jean MD Referring Provider Active Start: August 27, 2024 End: August 27, 2024 Team Status: Inactive Member Role/Relationship Status Jasvir Best MD Primary Care Provider Active St art: August 27, 2024 End: August 27, 2024 Dr. Porter Baeza DO Attending Provider Active Start: August 27, 2024 End: August 27, 2024 Dr. Porter Baeza DO Emergency Provider Active Start: August 27, 2024 End: August 27, 2024 Team Status: Inactive Member Role/Relationship Status Jasvir Best MD Primary Care Provider Active St art: August 29, 2024 End: August 29, 2024 Dr. Sangita Jean MD Attending Provider Active Start: August 29, 2024 End: August 29, 2024 Dr. Sangita Jean MD Referring Provider Active Start: August 29, 2024 End: August 29, 2024 Team Status: Inactive Member Role/Relationship Status Jasvir Best MD Primary Care Provider Active St art: August 29, 2024 End: August 29, 2024 Aretha Best MD Referring Provider Active Start : August 29, 2024 End: August 29, 2024 Dr. Sangita Jean MD Attending Provider Active Start: August 29, 2024 End: August 29, 2024 Team Status: Inactive Member Role/Relationship Status Jasvir Best MD Primary Care Provider Active St art: August 31, 2024 End: August 31, 2024 Dr. Sangita Jean MD Attending Provider Active Start: August 31, 2024 End: August 31, 2024 Dr. Sangita Jean MD Referring Provider Active Start: August 31, 2024 End: August 31, 2024 Team Status: Inactive Member Role/Relationship Status Jasvir Best MD Primary Care Provider Active St art: September 01, 2024 End: September 01, 2024 Dr. Sangita Jean MD Attending Provider Active Start: September 01, 2024 End: September 01, 2024 Dr. Sangita Jean MD Referring Provider Active Start: September 01, 2024 End: September 01, 2024 Team Status: Inactive Member Role/Relationship Status Jasvir Best MD Primary Care Provider Active St art: September 01, 2024 End: September 01, 2024 Aretha Best MD Referring Provider Active Start : September 01, 2024 End: September 01, 2024 Dr. Sangita Jean MD Attending Provider Active Start: September 01, 2024 End: September 01, 2024 Team Status: Inactive Member Role/Relationship Status Jasvir Best MD Primary Care Provider Active St art: September 12, 2024 End: September 12, 2024 Aretha Best MD Referring Provider Active Start : September 12, 2024 End: September 12, 2024 Dr. Sangita Jean MD Attending Provider Active Start: September 12, 2024 End: September 12, 2024 Team Status: Inactive Member Role/Relationship Status Jasvir Best MD Primary Care Provider Active St art: September 12, 2024 End: September 12, 2024 Dr. Sangita Jean MD Attending Provider Active Start: September 12, 2024 End: September 12, 2024 Dr. Sangita Jean MD Referring Provider Active Start: September 12, 2024 End: September 12, 2024 Team Status: Inactive Member Role/Relationship Status Jasvir Best MD Primary Care Provider Active St art: October 03, 2024 End: October 03, 2024 Dr. Sangita Jean MD Attending Provider Active Start: October 03, 2024 End: October 03, 2024 Dr. Sangita Jean MD Referring Provider Active Start: October 03, 2024 End: October 03, 2024 Team Status: Inactive Member Role/Relationship Status Jasvir Best MD Primary Care Provider Active St art: November 08, 2024 End: November 08, 2024 Aretha Best MD Attending Provider Active Start : November 08, 2024 End: November 08, 2024 Aretha Best MD Referring Provider Active Start : November 08, 2024 End: November 08, 2024 FOR RECORDS PERTAINING TO PATIENTS WHO [...] BE BASED ON THE PRIMARY CLINICAL RECORDS. [employer] provides no warranty or guarantee of the accuracy or completeness of information in this document.
[2024-12-22 10:08] LABS: Chlamydia By Nucleic Acid AMP Negative (Negative); Gonococcus By Nucleic Acid AMP Negative (Negative)
== END | disposition home or self-care (01) ==
LOC: LABSPEC 16:01
PROVIDERS: PCP Family Medicine; Referring Provider Nurse Practitioner Women's Health; Visit Provider Nurse Practitioner Women's Health
DX: N89.8 Other specified noninflammatory disorders of vagina (principal)
CPT/HCPCS: 87070; 87205; 87491; 87591

== ENCOUNTER → 2024-12-30 | Outpatient (CLI) | payer BC, SELFPAY ==
[2025-01-02 20:08] LABS: Chlamydia By Nucleic Acid AMP Negative (Negative); Gonococcus By Nucleic Acid AMP Negative (Negative)
== END | disposition home or self-care (01) ==
LOC: LABSPEC 15:18
PROVIDERS: PCP Family Medicine; Referring Provider Obstetrics & Gynecology; Visit Provider Obstetrics & Gynecology
DX: O09.90 Supervision of high risk pregnancy, unspecified, unspecified trimester (principal); Z3A.00 Weeks of gestation of pregnancy not specified
CPT/HCPCS: 87086; 87491; 87591

== ENCOUNTER → 2025-01-11 | Outpatient (CLI) | payer BC, SELFPAY ==
[2025-01-11 09:59] LABS: Hematocrit 38.0 % (37-47); Hemoglobin 13.4 g/dL (12.0-15.0); Immature Granulocytes Count 0.040 X10^3/uL (0.0-0.0); Mean Corp Hgb Conc 35.3 g/dL (32-36); Mean Corpuscular Volume 85.2 fL (81-99); Mean Platelet Vol. 9.7 fl (6.2-12.0); NRBC Flagged by Analyzer 0 % (0-5); Platelet Count 300 K/mm3 (150-450); RBC Distribution Width CV 11.9 % (11.6-14.6); RBC Distribution Width SD 36.9 fl (35.1-43.9); Red Blood Count 4.46 M/mm3 (4.2-5.4); White Blood Count 10.0 K/mm3 (4.4-11.0)
[2025-01-11 10:56] LABS: HIV Nonreactive (Nonreactive); Hepatitis B Surface Antigen Nonreactive (Nonreactive); Hepatitis C Antibody Nonreactive (Nonreactive); Syphilis Antibodies Nonreactive (Nonreactive)
== END | disposition home or self-care (01) ==
PROVIDERS: PCP Family Medicine; Referring Provider Obstetrics & Gynecology; Visit Provider Obstetrics & Gynecology
DX: O09.90 Supervision of high risk pregnancy, unspecified, unspecified trimester (principal); Z3A.00 Weeks of gestation of pregnancy not specified
CPT/HCPCS: 84439; 84443; 85025; 86703; 86762; 86780; 86803; 86850; 86900; 86901; 87340

== ENCOUNTER → 2025-01-16 | Outpatient (CLI) | payer BC, SELFPAY ==
--- NOTE | 2025-01-16 12:55 | US_ITS ---
PROCEDURE: THYROID 01/16/2025 REASON FOR EXAM: ENLARGED TECHNIQUE: Procedure Code: USTHY Modality: US Procedure: THYROID COMPARISON: None FINDINGS: Right thyroid lobe size: 5.1 x 1.5 x 1.9 cm Left thyroid lobe size: 4.8 x 1.9 x 1.6 cm Isthmus: 0.3 cm Background parenchymal echotexture is heterogeneous hypervascular gland without distinct nodule. Nodules: None US/Thyroid IMPRESSION: Enlarged heterogeneous thyroid gland with increased vascularity consistent with thyroiditis No dominant nodule. Reading Location: [facility]
--- NOTE | 2025-01-16 12:55 | US_ITS ---
PROCEDURE: THYROID 01/16/2025 REASON FOR EXAM: ENLARGED TECHNIQUE: Procedure Code: USTHY Modality: US Procedure: THYROID COMPARISON: None FINDINGS: Right thyroid lobe size: 5.1 x 1.5 x 1.9 cm Left thyroid lobe size: 4.8 x 1.9 x 1.6 cm Isthmus: 0.3 cm Background parenchymal echotexture is heterogeneous hypervascular gland without distinct nodule. Nodules: None US/Thyroid IMPRESSION: Enlarged heterogeneous thyroid gland with increased vascularity consistent with thyroiditis No dominant nodule. Reading Location: [facility]
== END | disposition home or self-care (01) ==
LOC: US 12:53
PROVIDERS: PCP Family Medicine; Referring Provider Obstetrics & Gynecology; Visit Provider Obstetrics & Gynecology
DX: E03.9 Hypothyroidism, unspecified (principal); E06.3 Autoimmune thyroiditis
CPT/HCPCS: 76536

== ENCOUNTER → 2025-01-17 | Outpatient (CLI) | payer BC, SELFPAY | END | disposition home or self-care (01) | PROVIDERS: PCP Family Medicine; Referring Provider Obstetrics & Gynecology; Visit Provider Obstetrics & Gynecology | DX: Z34.81 Encounter for supervision of other normal pregnancy, first trimester (principal) | CPT/HCPCS: 36415; 87070; 87205 ==

== ENCOUNTER → 2025-02-09 | Outpatient (CLI) | payer BC, SELFPAY | END | disposition home or self-care (01) | LOC: LAB 13:25 | PROVIDERS: PCP Family Medicine; Referring Provider Internal Medicine Endocrinology, Diabetes & Metabolism; Visit Provider Internal Medicine Endocrinology, Diabetes & Metabolism | DX: E03.8 Other specified hypothyroidism (principal); E06.3 Autoimmune thyroiditis | CPT/HCPCS: 36415; 84443 ==

== ENCOUNTER → 2025-02-10 | Outpatient (CLI) | payer BC, SELFPAY | END | disposition home or self-care (01) | LOC: LABSPEC 16:48 | PROVIDERS: PCP Family Medicine; Referring Provider Advanced Practice Midwife; Visit Provider Advanced Practice Midwife | DX: O20.9 Hemorrhage in early pregnancy, unspecified (principal); Z3A.00 Weeks of gestation of pregnancy not specified | CPT/HCPCS: 87070; 87205 ==

== ENCOUNTER → 2025-03-24 | Outpatient (CLI) | payer BC, SELFPAY ==
--- OUTSIDE RECORDS SUMMARY | 2025-03-24 10:15 | XMS RPT_ITS | CCD ---
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 Weight Infant Gen Labor Lgth Anesthesia Del Locatn Provider FOB 09/01/24 5 spontaneous HPI 12w 4d ob Details: XOCHILT CADET is a 29 year old who presents for routine OB visit. OB Visit EARNEST Calculator Estimated Delivery Date Method Current WG Current Estimate 08/07/25 LMP (Certain) 12w 4d Other Estimates 08/11/25 Ultrasound #1 12w 0d Expected Delivery Route/Plan Labor Preferences- CB/BF classes: [] labor support person: [] labor intervention preferences: [] pain management options preferred: [] cut cord/dad catch: [] : [] PP control planned: [] discussed possible routes of delivery and associated risks: [] special requests: [] Specific Issue/Plans Covid status: [] Flu vaccine: [] Tdap vaccine: [] Rhogam: [] LARC form signed: [] Problem list reviewed and updated with the most current plan of care details and appropriate orders placed. Relevant counseling for the gestational age provided. Continue routine care and follow up unless otherwise noted in visit notes/problem list details Initial Weight: Not Recorded Date -???-???-???-???-???-??? -???-???-???-???-???-??? - EGA Weight BP Urine Prot -???-???-???-???-???-??? -???-???-???-???-???-??? - Glucose FHR FuHt Pres Dilation -???-???-???-???-???-??? -???-???-???-???-???-??? - Effaced St Visit Note 12/30/24 -???-???-???-???-???-??? -???-???-???-???-???-??? - 8w 4d 190 lb 9 oz 104/70 -???-???-???-???-???-??? -???-???-???-???-???-??? - 167 -???-???-???-???-???-??? -???-???-???-???-???-??? - JV- CRL c (more content not included)... Normal [facility] Genital Culture Comprehensiv toby 01-18-2025 VAC Reason for Exam: vag inal bleeding Normal vaginal aime isolated. No yeast, Gardnerella, Neisseria or beta-hemolytic Streptococcus isolated. Normal [facility] Comment on above: Performed By: #### L 293.1847, L567.8510, L500.2500, L100.0100 #### [facility] Laboratory [address] [place], [address] Genital cultureOrdered By: Mike Joshi on 01-17-2025 Source specific culture Neisseria or beta-hemolytic Streptococcus isolated. [facility] Gram Stainon 01-17-2025 GS Reason for Exam: vag inal bleeding Gram Stain 3+ Gram positive rods 2+ Gram variable millicent No Gram negative diplococci Score =3 Interpretation: 0-3 Normal, 4-6 Intermediate, 7-10 Positive BV Normal [facility] Comment on above: Performed By: #### L 700.6800, L501.9520, L500.2500, L100.0100 #### [facility] Laboratory [address] [place], [address] Gram stainOrdered By: Carmel Joshi on 01-17-2025 Microscopic observation Gram stain Nom (Unsp spec) [facility] L3410.9992on 01-17-2025 [facility] Mis. COMMENT Normal . [facility] Comment on above: Order Comment: [id number] 8TSH R AB SERUM FRZ Result Comment: Test Ordered: [id number] TSH Receptor Antibody (TBII) TSH Receptor Antibody (TBII) <0.3 U/L Reference Range: . Reference Range: Antibody Titer: <1.0 U/L = Negative 1.1 - 1.5 U/L = Equivocal >1.5 U/L = Positive Performed at: [facility] [address] [place] [id number] Radiology Nurse: Luis Lee MD, Phone: [phone] Performed at: [facility] [id number] Radiology Nurse: Erik Holm PhD, Phone: [phone] Performed By: #### L 509.4006, L3890.6102, L509.8002, L3890.6006, L506.0400, L3410.9992, BTS, L100.0100, L3890.6301, L501.9520 ####[facility] [address] [place], [address] Laboratory - Chemistry and C hemistry - challengeOrdered By: Nina Joshi on 01-17-2025 Glucose Ql (U) Negative [facility] Laboratory - UrinalysisOrder ed By: Nina Joshi on 01-17-2025 Protein Ql (U) Negative [facility] NATERAon 01-17-2025 NATURA SEE SCANNED REPORT Normal [facility] Comment on above: Order Comment: Comme nts: NIPT with Gender carrierPER PT-JUST KIT TODAY Performed By: #### L 700.6800, L501.9520, L500.2500, L100.0100 #### [facility] [address] [place], [address] Gripper Attacher Office Visit Reporton 01-17-2025 Gripper Attacher Office Visit Report [facility] [address], [address] [place] [address] OFFICE VISIT Date of Service: 01/17/25 MR#: [id number] Acct: [id number] Name: XOCHILT CADET Rep #: [id number] : 1995 Provider: Dr. Nina Weiss DO Age/Sex: 29/F Location: [facility] Status: Signed Intake Vital Signs 12/30/24 13:29 01/17/25 11:03 01/17/25 11:03 Height 5 ft 8 in 5 ft 8 in 5 ft 8 in Weight: 189 lb 5 oz BMI 28.8 BP 128/85 H Intake Visit Reasons: 11w, spotting per SM Fishery Biologist Required: No Is patient in pain?: No Allergies No Known Allergies Allergy (Verified 01/17/25 11:03) Medications ???Medication ???Instructions ???Recorded ???Confirmed ???Type multivitamin no.47-iron fum 27 1 cap PO DAILY 08/25/24 01/17/25 H istory mg-folate no.1 1 mg-dha 300 mg capsule (PNV-DHA) promethazine 12.5 mg tablet 12.5 mg PO Q6H PRN nausea and 06/2101/17/25 Rx vomiting #30 tabs levothyroxine 150 mcg tablet 150 mcg PO QDAY #90 tabs 01/13/25 01/17/25 Rx (Unithroid) metronidazole 0.75 % (37.5 mg/5 1 appful vaginal QDAY 5 days #70 1 01/17/25 Rx gram) vaginal gel grams Last Menstrual Period: 10/31/24 Zika: Zika virus screening: Negative : No PFSH PFSH Medical History Missed Complete Contraceptive management Deviated nasal septum 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 Seasonal allergies Surgical History History of nasal surgery Hx of tonsillectomy History of wisdom tooth extraction History of [...] occupation: [employer] pets and animals: Yes (Avoid litterbox) pets and animals: cat(s) and dog(s) history of recent travel: No sexually active: Yes Smoking Status: Never smoker alcohol intake: current alcohol intake frequency: holidays/special occasions only Alcohol type: beer details: not while substance use type: does not use well-balanced diet: daily or most days caffeine: No eating out: rarely or never during the past year weight has: remained stable what type of physical activity do you participate in: walking frequency: daily duration: 30-45 minutes/day ann/buddhist: Moravian seatbelt use: always do you feel safe at home: Yes 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 Date Name GA/Weeks Outcome Route Bth Weight Infant Gen Labor Lgth Anesthesia Del Locatn Provider FOB 09/01/24 5 spontaneous HPI 11w, spotting per SM Details: XOCHILT CADET is a 29 year old who presents for routine OB visit. OB Visit EARNEST Calculator Estimated Delivery Date Method Current WG Current Estimate 08/07/25 LMP (Certain) 11w 1d Other Estimates 08/11/25 Ultrasound #1 10w 4d Expected Delivery Route/Plan Labor Preferences- CB/BF classes: [] labor support person: [] labor intervention preferences: [] pain management options preferred: [] cut cord/dad catch: [] : [] PP control planned: [] discussed possible routes of delivery and associated risks: [] special requests: [] Specific Issue/Plans Covid status: [] Flu vaccine: [] Tdap vaccine: [] Rhogam: [] LARC form signed: [] Problem list reviewed and updated with the most current plan of care details and appropriate orders placed. Relevant counseling for the gestational age provided. Continue routine care and follow up unless otherwise noted in visit notes/problem list details Initial Weight: Not Recorded Date -???-???-???-???-???-??? -???-???-???-???-???-??? - EGA Weight BP Urine Prot -???-???-???-???-???-??? -???-???-???-???-???-??? - Glucose FHR FuHt Pres Dilation -???-???-???-???-???-??? -???-???-???-???-???-??? - Effaced St Visit Note 12/30/24 -???-???-???-???-???-??? -???-???-???-???-???-??? - 8w 4d 190 lb 9 oz 104/70 -???-???-???-???-???-??? -???-???-???- (more content not included)... Normal [facility] Thyroidon 01-16-2025 Thyroid [facility] Imaging Services [address] [place] [address] Thyroid MR#: [id number] Acct: [id number] Name: XOCHILT CADET Rep #: [id number] : 1995 F 29 From: Louis rangel MD PCP: Dr. Aretha Best MD Status: REG CLI Study: Thyroid Date of Exam: 01/16/25 Exam# [id number] Ordering Dr: Nina Rivera DO PROCEDURE: THYROID 01/16/2025 REASON FOR EXAM: ENLARGED TECHNIQUE: Procedure Code: USTHY Modality: US Procedure: THYROID COMPARISON: None FINDINGS: Right thyroid lobe size: 5.1 x 1.5 x 1.9 cm Left thyroid lobe size: 4.8 x 1.9 x 1.6 cm Isthmus: 0.3 cm Background parenchymal echotexture is heterogeneous hypervascular gland without distinct nodule. Nodules: None US/Thyroid IMPRESSION: Enlarged heterogeneous thyroid gland with increased vascularity consistent with thyroiditis No dominant nodule. Reading Location: [facility] CC: Dr. Aretha Best MD; Dr. Nina Rivera DO American History Teacher: Signed Normal [facility] Absolute lymphocyte countOrd ered By: Sangita Jean on 01-11-2025 Lymphocytes Auto (Unsp spec) [#/Vol] 2.24 10*3/uL 0.83-4.51 [facility] Absolute neutrophil countOrd ered By: Sangita Jean on 01-11-2025 Neutrophils (Bld) [#/Vol] 7.1 10*3/uL 2.0-7.7 [facility] Automated lymphocyte count a s percentage of total leukocytesOrdered By: Sangita Jean on 01-11-2025 Lymphocytes/100 WBC Auto (Unsp spec) 22.4 % 19-41 [facility] Basophil percentageOrdered B y: Sangita Jean on 01-11-2025 Basophils/100 WBC (Bld) 0.3 % 0-1 [facility] CBC W/Diff, Automatedon 12-28 Absolute Lymph 2.24 X10 3/uL Normal 0.83-4.51 [facility] Comment on above: Performed By: #### L 509.4006, L3890.6102, L509.8002, L3890.6006, L506.0400, L3410.9992, BTS, L100.0100, L3890.6301, L501.9520 ####[facility] [address] [place], [address] Absolute Neut 7.1 X10 3/uL Normal 2.0-7.7 [facility] Comment on above: Performed By: #### L 509.4006, L3890.6102, L509.8002, L3890.6006, L506.0400, L3410.9992, BTS, L100.0100, L3890.6301, L501.9520 ####[facility] [address] [place], [address] Basophils/100 WBC (Bld) 0.3 % Normal 0-1 [facility] Comment on above: Performed By: #### L 509.4006, L3890.6102, L509.8002, L3890.6006, L506.0400, L3410.9992, BTS, L100.0100, L3890.6301, L501.9520 ####[facility] [address] [place], [address] Eosinophils/100 WBC (Bld) 0.6 % Normal 0-5 [facility] Comment on above: Performed By: #### L 509.4006, L3890.6102, L509.8002, L3890.6006, L506.0400, L3410.9992, BTS, L100.0100, L3890.6301, L501.9520 ####[facility] [address] [place], [address] Erythrocyte distribution width (RBC) [Ratio] 11.9 % Normal 11.6-14.6 [facility] Comment on above: Performed By: #### L 509.4006, L3890.6102, L509.8002, L3890.6006, L506.0400, L3410.9992, BTS, L100.0100, L3890.6301, L501.9520 ####[facility] [address] [place], [address] Hematocrit (Bld) [Volume fraction] 38.0 % Normal 37-47 [facility] Comment on above: Performed By: #### L 509.4006, L3890.6102, L509.8002, L3890.6006, L506.0400, L3410.9992, BTS, L100.0100, L3890.6301, L501.9520 ####[facility] [address] [place], [address] Hemoglobin (Bld) [Mass/Vol] 13.4 g/dL Normal 12.0-15.0 [facility] Comment on above: Performed By: #### L 509.4006, L3890.6102, L509.8002, L3890.6006, L506.0400, L3410.9992, BTS, L100.0100, L3890.6301, L501.9520 ####[facility] [address] [place], [address] IG% 0.400 Normal 0.0-0.9 [facility] Comment on above: Result Comment: IG% - Immature Granulocytes (promyelocytes, myelocytes and metamyelocytes) > 1% indicates that a LEFT SHIFT is Present. Performed By: #### L 509.4006, L3890.6102, L509.8002, L3890.6006, L506.0400, L3410.9992, BTS, L100.0100, L3890.6301, L501.9520 ####[facility] [address] [place], [address] Lymphocytes/100 WBC (Bld) 22.4 % Normal 19-41 [facility] Comment on above: Performed By: #### L 509.4006, L3890.6102, L509.8002, L3890.6006, L506.0400, L3410.9992, BTS, L100.0100, L3890.6301, L501.9520 ####[facility] [address] [place], [address] MCH (RBC) [Entitic mass] 30.0 pg Normal 27.0-32.0 [facility] Comment on above: Performed By: #### L 509.4006, L3890.6102, L509.8002, L3890.6006, L506.0400, L3410.9992, BTS, L100.0100, L3890.6301, L501.9520 ####[facility] [address], [address] MCHC (RBC) [Mass/Vol] 35.3 g/dL Normal 32-36 [facility] Comment on above: Performed By: #### L 509.4006, L3890.6102, L509.8002, L3890.6006, L506.0400, L3410.9992, BTS, L100.0100, L3890.6301, L501.9520 ####[facility] [address] [place], [address] MCV (RBC) [Entitic vol] 85.2 fL Normal 81-99 [facility] Comment on above: Performed By: #### L 509.4006, L3890.6102, L509.8002, L3890.6006, L506.0400, L3410.9992, BTS, L100.0100, L3890.6301, L501.9520 ####[facility] [address], [address] Monocytes/100 WBC (Bld) 5.7 % Normal 0-10 [facility] Comment on above: Performed By: #### L 509.4006, L3890.6102, L509.8002, L3890.6006, L506.0400, L3410.9992, BTS, L100.0100, L3890.6301, L501.9520 ####[facility] [address], [address] Neutrophils/100 WBC (Bld) 70.6 % High 47-70 [facility] Comment on above: Performed By: #### L 509.4006, L3890.6102, L509.8002, L3890.6006, L506.0400, L3410.9992, BTS, L100.0100, L3890.6301, L501.9520 ####[facility] [address] [place], [address] Nucleated RBC (Bld) [#/Vol] 0 10*3/uL Normal 0-5 [facility] Comment on above: Performed By: #### L 509.4006, L3890.6102, L509.8002, L3890.6006, L506.0400, L3410.9992, BTS, L100.0100, L3890.6301, L501.9520 ####[facility] [address] [facility] [place], [address] Platelet mean volume (Bld) [Entitic vol] 9.7 fL Normal 6.2-12.0 [facility] Comment on above: Performed By: #### L 509.4006, L3890.6102, L509.8002, L3890.6006, L506.0400, L3410.9992, BTS, L100.0100, L3890.6301, L501.9520 ####[facility] [address] [facility] [place], [address] Platelets (Bld) [#/Vol] 300 10*3/uL Normal 150-450 [facility] Comment on above: Performed By: #### L 509.4006, L3890.6102, L509.8002, L3890.6006, L506.0400, L3410.9992, BTS, L100.0100, L3890.6301, L501.9520 ####[facility] [address] [facility] [place], [address] RBC (Bld) [#/Vol] 4.46 10*6/uL Normal 4.2-5.4 [facility] Comment on above: Performed By: #### L 509.4006, L3890.6102, L509.8002, L3890.6006, L506.0400, L3410.9992, BTS, L100.0100, L3890.6301, L501.9520 ####[facility] [address] [facility] [place], [address] RDW SD 36.9 fl Normal 35.1-43.9 [facility] Comment on above: Performed By: #### L 509.4006, L3890.6102, L509.8002, L3890.6006, L506.0400, L3410.9992, BTS, L100.0100, L3890.6301, L501.9520 ####[facility] [address] [facility] [place], [address] WBC (Bld) [#/Vol] 10.0 10*3/uL Normal 4.4-11.0 [facility] Comment on above: Performed By: #### L 509.4006, L3890.6102, L509.8002, L3890.6006, L506.0400, L3410.9992, BTS, L100.0100, L3890.6301, L501.9520 ####[facility] [address] [facility] [place], [address] Eosinophil percentageOrdered By: Sangita Jean on 01-11-2025 Eosinophils/100 WBC (Bld) 0.6 % 0-5 [facility] Erythrocyte distribution wid th ratioOrdered By: Sangita Jean on 01-11-2025 Erythrocyte distribution width (RBC) [Ratio] 11.9 % 11.6-14.6 [facility] Erythrocyte distribution wid th standard deviationOrdered By: Sangita Jean on 01-11-2025 Erythrocyte distribution width (RBC) [Ratio] 36.9 fl 35.1-43.9 [facility] HIVon 01-11-2025 HIV Non-Reactive Normal Nonreactive [facility] Comment on above: Result Comment: Non- Reactive Reactive Repeatedly reactive samples must be confirmed according to CDC recommended confirmatory algorithms. The subresults for either HIVAG or AHIV can be used as an aid in the selection of the confirmation algorithm for reactive samples. Send out specimens with Reactive results to [facility] for confirmation. Order the HIV antibody detection and differentiation: lc#[id number] Performed By: #### L 509.4006, L3890.6102, L509.8002, L3890.6006, L506.0400, L3410.9992, BTS, L100.0100, L3890.6301, L501.9520 ####[facility] [address] [place], [address] Hematocrit Auto (Bld) [Volum e fraction]Ordered By: Sangita Jean on 01-11-2025 Hematocrit (Bld) [Volume fraction] 38.0 % 37-47 [facility] Hemoglobin measurementOrdere d By: Sangita Jean on 01-11-2025 Hemoglobin (Bld) [Mass/Vol] 13.4 g/dL 12.0-15.0 [facility] Hepatitis C Antibodyon 01-11 Hepatitis C Ab Non-Reactive Normal Nonreactive [facility] Comment on above: Result Comment: Reac tive: Presumptive evidence of antibodies to HCV. Follow CDC recommendations for supplemental testing. Non-Reactive: Antibodies to HCV were not detected; does not exclude the possibility of exposure to HCV Reactive Results are presumptive evidence of antibodies to HCV. Follow CDC recommendations for supplemental testing. Order confirmation testing: HCV Quant by PCR testing - HCVPCR #[id number] Non Reactive: < 0.8 Equivocal: >/= 0.8 to < 1.0 Reactive: >/= 1.0 The CDC requires that a reactive/equivocal HCV antibody result be sent out for confirmation. HCV Quant by PCR testing. Performed By: #### L 509.4006, L3890.6102, L509.8002, L3890.6006, L506.0400, L3410.9992, BTS, L100.0100, L3890.6301, L501.9520 ####[facility] [address] [place], [place], [id number] Immature granulocytes/100 WB C Auto (Bld)Ordered By: Sangita Jean on 01-11-2025 Immature granulocytes/100 WBC (Bld) 0.400 % 0.0-0.9 [facility] Comment on above: IG% - Immature Granu locytes (promyelocytes, myelocytes and metamyelocytes) > 1% indicates that a LEFT SHIFT is Present. L3890.6102on 01-11-2025 HEP B Surf Ag Non-Reactive Normal Nonreactive [facility] Comment on above: Result Comment: Reac tive: Presumptive evidence of HBV. Repeatedly reactive samples must be confirmed using a neutralization test ([employer] HBsAg Confirmatory Test) Non-Reactive: HBsAg not detected; does not exclude the possibility of exposure to HBV Performed By: #### L 509.4006, L3890.6102, L509.8002, L3890.6006, L506.0400, L3410.9992, BTS, L100.0100, L3890.6301, L501.9520 ####[facility] [address] [place], [place], [address] L509.4006on 01-11-2025 Rubella IgG REAC Normal Nonreactive [facility] Comment on above: Result Comment: Anti body Result: Interpretation Non-Reactive: Non-Immune Reactive: Immune The following results were obtained with the [employer] Rubella IgG assay. Results from assays of other manufacturers cannot be used interchangeably. Performed By: #### L 509.4006, L3890.6102, L509.8002, L3890.6006, L506.0400, L3410.9992, BTS, L100.0100, L3890.6301, L501.9520 ####[facility] [address] [place], [address] Laboratory - Microbiology an d Antimicrobial susceptibilityOrdered By: Sangita Jean on 01-11-2025 HBV surface Ag Ql (S) Non-Reactive Nonreactive [facility] Comment on above: Reactive: Presumptiv e evidence of HBV. Repeatedly reactive samples must be confirmed using a neutralization test ([email or web address] HBsAg Confirmatory Test)Non-Reactive: HBsAg not detected; does not exclude the possibility of exposure to HBV MCV (mean corpuscular volume ) determinationOrdered By: Sangita Jean on 01-11-2025 MCV (RBC) [Entitic vol] 85.2 fL 81-99 [facility] Mean corpuscular hemoglobin (MCH) determinationOrdered By: Sangita Jean on 01-11-2025 MCH (RBC) [Entitic mass] 30.0 pg 27.0-32.0 [facility] Mean corpuscular hemoglobin concentration (MCHC) determinationOrdered By: Sangita Jean on 01-11-2025 MCHC (RBC) [Mass/Vol] 35.3 g/dL 32-36 [facility] Mean platelet volume determi nationOrdered By: Sangita Jean on 01-11-2025 Platelet mean volume (Bld) [Entitic vol] 9.7 fL 6.2-12.0 [facility] Monocyte percentageOrdered B y: Sangita Jean on 01-11-2025 Monocytes/100 WBC (Bld) 5.7 % 0-10 [facility] Neutrophil percentageOrdered By: Sangita Jean on 01-11-2025 Neutrophils/100 WBC (Bld) 70.6 % High 47-70 [facility] No Panel InformationOrdered By: Sangita Jean on 01-11-2025 HIV (1&2) Antibody Non-Reactive Nonreactive [facility] Comment on above: Non-ReactiveReactive Repeatedly reactive samples must be confirmed according to CDC recommended confirmatory algorithms. The subresults for either HIVAG or AHIV can be used as an aid in the selection of the confirmation algorithm for reactive samples.Send out specimens with Reactive results to [facility] for confirmation.Order the HIV antibody detection and differentiation: #[id number] Nucleated red blood cell per centageOrdered By: Sangita Jean on 01-11-2025 Nucleated RBC/100 WBC (Bld) [Ratio] 0 % 0-5 [facility] Platelet countOrdered By: Manjinder Jean on 01-11-2025 Platelets (Bld) [#/Vol] 300 10*3/uL 150-450 [facility] RBC Auto (Bld) [#/Vol]Ordere d By: Sangita Jean on 01-11-2025 RBC (Bld) [#/Vol] 4.46 10*6/uL 4.2-5.4 [facility] Syphilis Antibodieson 2024 Syphilis Abs Non-Reactive Normal Nonreactive [facility] Comment on above: Performed By: #### L 509.4006, L3890.6102, L509.8002, L3890.6006, L506.0400, L3410.9992, BTS, L100.0100, L3890.6301, L501.9520 ####[facility] [address] [place], [address] T4 Free Directon 01-11-2025 T4 FREE DIRECT 1.30 ng/dL Normal 0.76-1.46 [facility] Comment on above: Performed By: #### L 509.4006, L3890.6102, L509.8002, L3890.6006, L506.0400, L3410.9992, BTS, L100.0100, L3890.6301, L501.9520 ####[facility] [address] [facility] [place], [address] T4 freeOrdered By: Sangita mancera on 01-11-2025 Free T4 [Mass/Vol] 1.30 ng/dL 0.76-1.46 [facility] TSH DL <= 0.005 mIU/L QnOrde red By: Sangita Jean on 01-11-2025 TSH Qn 6.610 uIU/mL High 0.300-4.200 [facility] Thyroid Stim Hormone (TSH)on 01-11-2025 TSH 6.610 uIU/mL High 0.300-4.200 [facility] Comment on above: Performed By: #### L 509.4006, L3890.6102, L509.8002, L3890.6006, L506.0400, L3410.9992, BTS, L100.0100, L3890.6301, L501.9520 ####[facility] [address] [place], [address] Type AND Screenon 01-11-2025 Ab SCREEN GEL Negative Normal [facility] Comment on above: Order Comment: SEND TSH AND FT4 TO DR. WILSON Performed By: #### L 509.4006, L3890.6102, L509.8002, L3890.6006, L506.0400, L3410.9992, BTS, L100.0100, L3890.6301, L501.9520 ####[facility] [address] [place], [place], [id number] White blood cell (WBC) count Ordered By: Sangita Jean on 01-11-2025 WBC (Bld) [#/Vol] 10.0 10*3/uL 4.4-11.0 [facility] Chlamydia/GC BAYLEE aptimaon CHLAMY,NUC ACID Negative Normal Negative [facility] Comment on above: Performed By: #### L 0.1800, ####[facility] [address] [place], [place], [address] GC BY NUC ACID Negative Normal Negative [facility] Comment on above: Result Comment: Perf ormed at: =G - [facility] [address] [id number] Radiology Nurse: Zuleyma Damon MD, Phone: [phone] Performed By: #### L 7000.1800, ####[facility] [address] [place], [address] Urine Cultureon 12-31-2024 URC Culture exhibits no growth. Normal [facility] Comment on above: Performed By: #### L 7000.1800, M100.2200 ####[facility] [address] [place], [address] Urine cultureOrdered By: Dion Jean on 12-31-2024 Bacteria identified Cx Nom (U) Culture exhibits no growth. [facility] Chlamydia trachomatis rRNA d etection by probe and target amplification methodOrdered By: Sangita Jean on 12-30-2024 C. trachomatis rRNA BAYLEE+probe Ql (Unsp spec) Negative Negative [facility] Neisseria gonorrhoeae nuclei c acid detection by amplified probe techniqueOrdered By: Sangita Jean on 12-30-2024 N. gonorrhoeae DNA BAYLEE+probe Ql (Unsp spec) Negative Negative [facility] Comment on above: Performed at: =[address] [id number] Director: Zuleyma Damon MD, Phone: [phone] [facility] Office Visit Reporton 12-30-2024 Gripper Attacher Office Visit Report [facility]'s [address], [address] [place] [address] OFFICE VISIT Date of Service: 12/30/24 MR#: [id number] Acct: [id number] Name: XOCHILT CADET Rep #: [id number] : 1995 Provider: Dr. Nina Weiss, Age/Sex: 29/F Location: [facility] Status: Signed Intake Vital Signs 09/12/24 13:02 12/27/24 10:16 12/30/24 13:25 12/30/24 13:29 Height 5 ft 8 in 5 ft 8 in 5 ft 8 in 5 ft 8 in Weight: 190 lb 9 oz BMI 29.0 BP 104/70 Intake Visit Reasons: *EST* NOB LMP 10/31, EARNEST 08/07 Chief Complaint: NOB Fishery Biologist Required: No Is patient in pain?: No Allergies No Known Allergies Allergy (Verified 12/30/24 13:25) Medications ???Medication ???Instructions ???Recorded ???Confirmed ???Type multivitamin no.47-iron fum 27 1 cap PO DAILY 08/25/24 12/30/24 H istory mg-folate no.1 1 mg-dha 300 mg capsule (PNV-DHA) levothyroxine 137 mcg capsule 137 mcg PO QDAY 09/12/24 12/30/24 History Last Menstrual Period: 10/31/24 Zika: Zika virus screening: Negative : No PFSH PFSH Medical History Missed Complete Contraceptive management Deviated nasal septum 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 Seasonal allergies Surgical History History of nasal surgery Hx of tonsillectomy History of wisdom tooth extraction History of [...] MADY -Ronnell Gambino pets and animals: Yes (Avoid litterbox) pets and animals: cat(s) and dog(s) history of recent travel: No sexually active: Yes Smoking Status: Never smoker alcohol intake: current alcohol intake frequency: holidays/special occasions only Alcohol type: beer details: not while substance use type: does not use well-balanced diet: daily or most days caffeine: No eating out: rarely or never during the past year weight has: remained stable what type of physical activity do you participate in: walking frequency: daily duration: 30-45 minutes/day ann/buddhist: Moravian seatbelt use: always do you feel safe at home: Yes 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 Date Name GA/Weeks Outcome Route Bth Weight Gen Labor [facility] 09/01/24 5 spontaneous HPI *EST* NOB LMP 10/31, EARNEST 08/07 Details: XOCHILT CADET is a 29 year old who presents for New OB visit. OB Visit EARNEST Calculator Estimated Delivery Date Method Current WG Current Estimate 08/07/25 LMP (Certain) 8w 4d Other Estimates 08/11/25 Ultrasound #1 8w 0d Estimated Due Date: 08/07/25 Expected Delivery Route/Plan Labor Preferences- CB/BF classes: [] labor support person: [] labor intervention preferences: [] pain management options preferred: [] cut cord/dad catch: [] : [] PP control planned: [] discussed possible routes of delivery and associated risks: [] special requests: [] Specific Issue/Plans Covid status: [] Flu vaccine: [] Tdap vaccine: [] Rhogam: [] LARC form signed: [] Problem list reviewed and updated with the most current plan of care details and appropriate orders placed. Relevant counseling for the gestational age provided. Continue routine care and follow up unless otherwise noted in visit notes/problem list details Initial Weight: Not Recorded Date -???-???-???-???-???-??? -???-???-???-???-???-??? - EGA Weight BP Urine Prot -???-???-???-???-???-??? -???-???-???-???-???-??? - Glucose FHR FuHt Pres Dilation -???-???-???-???-???-??? -???-???-???-???-???-??? - Effaced St Visit Note 12/30/24 -???-???-???-???-???-??? -???-???-???-???-???-??? - 8w 4d 190 lb 9 oz 104/70 -???-???-???-???-???-??? -???-???-???-???-???-??? - 167 -???-???-???-???-???-??? -???-???-???-???-???-??? - JV- CRL cons istent with LMP. desires nipt. going to [facility] and will do this wh (more content not included)... Normal [facility] Office Visit Reporton 2024 Office Visit Report [facility] [address] [place] [address] OFFICE VISIT Date of Service: 12/27/24 MR#: [id number] Acct: [id number] Patient: XOCHILT CADET Rep #: [id number] : 1995 Provider: Dr. 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 Vitals WNL. PNOB questions completed. Problem list, allergies, and medications updated. First trimester ACOG education completed. Assessment and Plan Assessment and Plan (1) History of miscarriage, currently : Status: Acute (2) Supervision of high-risk : Status: Acute Comment: , EARNEST 08/07/25, Carlos (3) : Status: Acute Comment: elects NIPT with Gender carrier testing (4) Varicose vein of leg: Status: Acute Comment: behind right knee (5) Anxiety and depression: Status: Acute Orders: Orders CBC W/Diff, Automated Today O09.90 - Supervision of high risk , unspecified, unspecified trimester Type Screen Today O09.90 - Supervision of high risk , unspecified, unspecified trimester Rubella IgG Today O09.90 - Supervision of high risk , unspecified, unspecified trimester Hepatitis C Antibody Today O09.90 - Supervision of high risk , unspecified, unspecified trimester Hepatitis B Surface Antigen Today O09.90 - Supervision of high risk , unspecified, unspecified trimester Culture, Urine Today O09.90 - Supervision of high risk , unspecified, unspecified trimester Syphilis Antibodies Today O09.90 - Supervision of high risk , unspecified, unspecified trimester Chlamydia/GC BAYLEE aptima Today O09.90 - Supervision of high risk , unspecified, unspecified trimester HIV Today O09.90 - Supervision of high risk , unspecified, unspecified trimester Thyroid Stim Hormone (TSH) Today O09.90 - Supervision of high risk , unspecified, unspecified trimester Free T4 Today O09.90 - Supervision of high risk , unspecified, unspecified trimester [facility] Misc. Today O09.90 - Supervision of high risk , unspecified, unspecified trimester RACHEL Today O09.90 - Supervision of high risk , unspecified, unspecified trimester 12/27/24 1602 Date Sangita Dove Signature: Date (if applicable) CC: Normal [facility] Chlamydia/GC BAYLEE aptimaon CHLAMY,NUC ACID Negative Normal Negative [facility] Comment on above: Performed By: #### L 700.6800, L501.9520, L500.2500, L100.0100 #### [facility] [address] [place], [place], [address] GC BY NUC ACID Negative Normal Negative [facility] Comment on above: Result Comment: Perf ormed at: =G - [facility] [address] [id number] Radiology Nurse: Zuleyma Damon MD, Phone: [phone] Performed By: #### L 700.6800, L501.9520, L500.2500, L100.0100 #### [facility] [address] [facility]. [place], [place], [address] Genital Culture Comprehensiv toby 12-20-2024 VAC Reason for Exam: vag inal discharge Normal genital aime isolated Normal [facility] Comment on above: Performed By: #### L 700.6800, L501.9520, L500.2500, L100.0100 #### [facility] [address] [facility] [address] [place], [place], [address] Chlamydia trachomatis rRNA d etection by probe and target amplification methodOrdered By: Paty Reynolds on 12-19-2024 C. trachomatis rRNA BAYLEE+probe Ql (Unsp spec) Negative Negative [facility] Genital cultureOrdered By: Angus Reynolds on 12-19-2024 Source specific culture Normal genital aime isolated [facility] Source specific culture Normal genital aime isolated [facility] Gram Stainon 12-19-2024 GS Reason for Exam: vag inal discharge Gram Stain 4+ Gram positive rods Rare White Blood Cells No Gram negative diplococci Score = 0 Interpretation: 0-3 Normal, 4-6 Intermediate, 7-10 Positive BV Normal [facility] Comment on above: Performed By: #### L 700.6800, L501.9520, L500.2500, L100.0100 #### [facility] [address] [place], [address] Gram stainOrdered By: Paty Reynolds on 12-19-2024 Microscopic observation Gram stain Nom (Unsp spec) [facility] Microscopic observation Gram stain Nom (Unsp spec) [facility] Neisseria gonorrhoeae nuclei c acid detection by amplified probe techniqueOrdered By: Paty Reynolds on 12-19-2024 N. gonorrhoeae DNA BAYLEE+probe Ql (Unsp spec) Negative Negative [facility] Comment on above: Performed at: = - L [address] [id number] Director: Zuleyma Damon MD, Phone: [phone] Gripper Attacher Office Visit Reporton 12-19-2024 Gripper Attacher Office Visit Report [facility]'s [address], [address] [place] [address] OFFICE VISIT Date of Service: 12/19/24 MR#: [id number] Acct: [id number] Name: XOCHILT CADET Rep #: [id number] : 1995 Provider: RUPINDER oconnell Age/Sex: 29/F Location: [facility] Status: Signed Intake Vital Signs 09/12/24 13:02 12/13/24 11:04 12/19/24 14:51 Height 5 ft 8 in 5 ft 8 in 5 ft 8 in Weight: 188 lb 6 oz BMI 28.6 BP 103/70 Intake Visit Reasons: OB Yellow/green vaginal discharge Fishery Biologist Required: No Is patient in pain?: No Allergies No Known Allergies Allergy (Verified 12/19/24 14:54) Medications ???Medication ???Instructions ???Recorded ???Confirmed ???Type multivitamin no.47-iron fum 27 1 cap PO DAILY 08/25/24 12/19/24 H istory mg-folate no.1 1 mg-dha 300 mg capsule (PNV-DHA) levothyroxine 137 mcg capsule 137 mcg PO QDAY 09/12/24 12/19/24 History Is last menstrual period known: Yes Last Menstrual Period: 10/31/24 Post menopausal: No Patient : Yes : No Control Method: none [facility] Medical History (Updated 12/19/24 @ 15:58 by Paty Reynolds AUDIO/VISUAL OPERATOR, AUDIO/VISUAL OPERATOR-C) Missed Complete Contraceptive management Deviated nasal septum Hypothyroidism due [...] Yes additional social history: - Carlos HPI OB Yellow/green vaginal discharge Details: XOCHILT CADET is a 29 year old who presents for increased yellow discharge without odor or irritation. She is early , about 7 weeks. NOB appt is 12/30/24. She had spotting a couple of weeks ago and had normal rising quant HCGs. She again had spotting on 12/16/24, small amount. No intercourse. She did have a miscarriage in August 2024 and very nervous about this. Female Reproductive History Last Menstrual Period: 10/31/24 History 1 Elective abortions Hx Para 0 Spontaneous abortions 1 Hx # Term Pregnancies Ectopic pregnancies Hx # Pregnancies Multiple births # of living children Past Pregnancies Del. Date Name GA/Weeks Outcome Route Bth Weight Gen Labor Lgth Anesthesia Del Locatn Provider FOB 09/01/24 spontaneous ROS Const Constitutional: Reports system reviewed and no additional complaints, except as documented Eyes Eyes: Reports system reviewed and no additional complaints, except as documented GI GI: Denies abdominal pain or change in bowel habits : Reports as per HPI Exam Const General: cooperative and no acute distress Orientation: oriented x3 General: bladder normal to palpation External Female Exam: normal external appearance and normal appearance of the urethra Urethra: normal appearance of the urethra Speculum Exam - Vagina: normal appearance of the vagina, abnormal vaginal discharge yellow; not boody, no lesions and nontender Speculum Exam - Cervix: normal appearance of the cervix and closed Bimanual Exam- Vagina Uterus: normal bimanual exam, uterine size normal, bladder normal to palpation, uterine shape normal, uterine mobility normal and non-tender Bimanual Exam- Adnexa, other: normal adnexae, no masses and non-tender Coding Level of Care Code Off vis,est,level 3 Diagnoses Early stage of Z34.90 Vaginal discharge N89.8 Bleeding in early O20.9 Assessment and Plan Assessment and Plan (1) Early stage of : Status: Acute Comment: 6w4d per brief US 12/19/24 (2) Vaginal discharge: Status: Acute Comment: GCC and com vag culture pending (3) Blee (more content not included)... Normal [facility] Serum human chorionic gonado tropin detection for pregnancyOrdered By: Sangita Jean on 12-08-2024 HCG ( test) Ql 1658 mIU/mL High <9 [facility] Comment on above: Gestational Age0.2-1 Week: 5-50 mIU/mL1-2 Weeks: 50-500 mIU/mL2-3 Weeks: 100-5000 mIU/mL3-4 Weeks: 500-10,000 mIU/mL4-5 Weeks:1000-50,000 mIU/mL5-6 Weeks: 10,000-100,000 mIU/mL6-8 Weeks: 15,000-200,000 mIU/mL2-3 Months:10,000-100,000 mIU/mL T4 Free Directon 12-08-2024 T4 FREE DIRECT 1.30 ng/dL Normal 0.76-1.46 [facility] Comment on above: Order Comment: Order Date: 11/08/24Order Info: 3016-3 - TSHOrder Info: 3024-7 - T4F Performed By: #### L 700.6800, L501.9520, L500.2500, L100.0100 #### [facility] [address] [place], [address] T4 freeOrdered By: Aretha simms on 12-08-2024 Free T4 [Mass/Vol] 1.30 ng/dL 0.76-1.46 [facility] TSH DL <= 0.005 mIU/L QnOrde red By: Aretha Best on 12-08-2024 TSH Qn 3.280 uIU/mL 0.300-4.200 [facility] Thyroid Stim Hormone (TSH)on 12-08-2024 TSH 3.280 uIU/mL Normal 0.300-4.200 [facility] Comment on above: Order Comment: Order Date: 11/08/24Order Info: 3016-3 - TSHOrder Info: 3024-7 - T4F Performed By: #### L 700.6800, L501.9520, L500.2500, L100.0100 #### [facility] [address] [place], [place], [id number] hCG Titer Quant., Serumon HCG QUANT. 1658 mIU/mL High <9 non-preg [facility] Comment on above: Result Comment: Gest ational Age 0.2-1 Week: 5-50 mIU/mL 1-2 Weeks: 50-500 mIU/mL 2-3 Weeks: 100-5000 mIU/mL 3-4 Weeks: 500-10,000 mIU/mL 4-5 Weeks:1000-50,000 mIU/mL 5-6 Weeks: 10,000-100,000 mIU/mL 6-8 Weeks: 15,000-200,000 mIU/mL 2-3 Months:10,000-100,000 mIU/mL Performed By: #### L 700.8000 ####[facility] [address] [place], [place], [address] Serum human chorionic gonado tropin detection for pregnancyOrdered By: Sangita Jean on 12-06-2024 HCG ( test) Ql 814 mIU/mL High <9 [facility] Comment on above: Gestational Age0.2-1 Week: 5-50 mIU/mL1-2 Weeks: 50-500 mIU/mL2-3 Weeks: 100-5000 mIU/mL3-4 Weeks: 500-10,000 mIU/mL4-5 Weeks:1000-50,000 mIU/mL5-6 Weeks: 10,000-100,000 mIU/mL6-8 Weeks: 15,000-200,000 mIU/mL2-3 Months:10,000-100,000 mIU/mL hCG Titer Quant., Serumon HCG QUANT. 814 mIU/mL High <9 non-preg [facility] Comment on above: Result Comment: Gest ational Age 0.2-1 Week: 5-50 mIU/mL 1-2 Weeks: 50-500 mIU/mL 2-3 Weeks: 100-5000 mIU/mL 3-4 Weeks: 500-10,000 mIU/mL 4-5 Weeks:1000-50,000 mIU/mL 5-6 Weeks: 10,000-100,000 mIU/mL 6-8 Weeks: 15,000-200,000 mIU/mL 2-3 Months:10,000-100,000 mIU/mL Performed By: #### L 700.6800, L501.9520, L500.2500, L100.0100 #### [facility] [address] [place], [place], [address] TSH DL <= 0.005 mIU/L QnOrde red By: Aretha Best on 11-08-2024 TSH Qn 0.535 uIU/mL 0.300-4.200 [facility] Thyroid Stim Hormone (TSH)on 11-08-2024 TSH 0.535 uIU/mL Normal 0.300-4.200 [facility] Comment on above: Order Comment: Order Date: 10/07/24Order Info: 3016-3 - TSH Performed By: #### L 700.6800, L501.9520, L500.2500, L100.0100 #### [facility] [address] [place], [place], [address] 17-Hydroxyprogesteroneon 17ALPHA [place]-PROG 19 ng/dL Normal . [facility] Comment on above: Order Comment: Test( s) 937187-52-RO Progesterone LCMSwas developed and its performance characteristicsdetermined by [facility]. It has not been cleared or approvedby the Food and Drug Administration.N Result Comment: Adul t Female Follicular 15 - 70 Luteal 35 - 290 Performed at: [address] [id number] Radiology Nurse: Lauri Nance MD, Phone: [phone] Performed By: #### L 700.6800, L501.9520, L500.2500, L100.0100 #### [facility] [address] [place], [place], [address] DHEA Sulfateon 10-05-2024 DHEA SULFATE 131.0 ug/dL Normal 84.8-378.0 [facility] Comment on above: Order Comment: N Performed By: #### L 700.6800, L501.9520, L500.2500, L100.0100 #### [facility] [address] [place], [place], [address] Testosterone Freeon 10-06-19 25 TESTOSTER FREE 1.1 pg/mL Normal 0.0-4.2 [facility] Comment on above: Result Comment: Perf ormed at: [address] [id number] Radiology Nurse: Erik Holm PhD, Phone: [phone] Performed at: [address] [id number] Radiology Nurse: Lauri Nance MD, Phone: [phone] Performed By: #### L 700.6800, L501.9520, L500.2500, L100.0100 #### [facility] [address] [place], [place], [address] CBC W/Diff, Automatedon 07- Absolute Neut Normal 2.0-7.7 [facility] Comment on above: Order Comment: Order Date: 03/04/24Order Info: 0184-1 - CBCD Result Comment: PT A LREADY HAD COMPLETED ON A PREVIOUS DATE Performed By: #### L 500.4050, L100.0100 ####[facility] [address] [place], [address] HCT Normal 37-47 [facility] Comment on above: Order Comment: Order Date: 03/04/24Order Info: 0184-1 - CBCD Result Comment: PT A LREADY HAD COMPLETED ON A PREVIOUS DATE Performed By: #### L 500.4050, L100.0100 ####[facility] [address] [place], [address] HGB Normal 12.0-15.0 [facility] Comment on above: Order Comment: Order Date: 03/04/24Order Info: 0184-1 - CBCD Result Comment: PT A LREADY HAD COMPLETED ON A PREVIOUS DATE Performed By: #### L 500.4050, L100.0100 ####[facility] [address] [place], [address] MCH Normal 27.0-32.0 [facility] Comment on above: Order Comment: Order Date: 03/04/24Order Info: 0184-1 - CBCD Result Comment: PT A LREADY HAD COMPLETED ON A PREVIOUS DATE Performed By: #### L 500.4050, L100.0100 ####[facility] [address] [place], [address] MCHC Normal 32-36 [facility] Comment on above: Order Comment: Order Date: 03/04/24Order Info: 0184-1 - CBCD Result Comment: PT A LREADY HAD COMPLETED ON A PREVIOUS DATE Performed By: #### L 500.4050, L100.0100 ####[facility] [address] [place], [address] MCV Normal 81-99 [facility] Comment on above: Order Comment: Order Date: 03/04/24Order Info: 0184-1 - CBCD Result Comment: PT A LREADY HAD COMPLETED ON A PREVIOUS DATE Performed By: #### L 500.4050, L100.0100 ####[facility] [address] [place], [address] NEUT% Normal 47-70 [facility] Comment on above: Order Comment: Order Date: 03/04/24Order Info: 0184-1 - CBCD Result Comment: PT A LREADY HAD COMPLETED ON A PREVIOUS DATE Performed By: #### L 500.4050, L100.0100 ####[facility] [address] [place], [address] PLT Normal 150-450 [facility] Comment on above: Order Comment: Order Date: 03/04/24Order Info: 0184-1 - CBCD Result Comment: PT A LREADY HAD COMPLETED ON A PREVIOUS DATE Performed By: #### L 500.4050, L100.0100 ####[facility] [address] [place], [address] RBC Normal 4.2-5.4 [facility] Comment on above: Order Comment: Order Date: 03/04/24Order Info: 0184-1 - CBCD Result Comment: PT A LREADY HAD COMPLETED ON A PREVIOUS DATE Performed By: #### L 500.4050, L100.0100 ####[facility] [address] [place], [address] RDW CV Normal 11.6-14.6 [facility] Comment on above: Order Comment: Order Date: 03/04/24Order Info: 0184-1 - CBCD Result Comment: PT A LREADY HAD COMPLETED ON A PREVIOUS DATE Performed By: #### L 500.4050, L100.0100 ####[facility] [address] [place], [address] RDW SD Normal 35.1-43.9 [facility] Comment on above: Order Comment: Order Date: 03/04/24Order Info: 0184-1 - CBCD Result Comment: PT A LREADY HAD COMPLETED ON A PREVIOUS DATE Performed By: #### L 500.4050, L100.0100 ####[facility] [address] [place], [address] WBC Normal 4.4-11.0 [facility] Comment on above: Order Comment: Order Date: 03/04/24Order Info: 0184-1 - CBCD Result Comment: PT A LREADY HAD COMPLETED ON A PREVIOUS DATE Performed By: #### L 500.4050, L100.0100 ####[facility] [address] [place], [address] Comprehensive Metabolic Prof ilon 10-03-2024 ALB Normal 3.5-5.0 [facility] Comment on above: Order Comment: Order Date: 03/04/24Order Info: 0786-1 - CMPOrder Info: 3016-3 - TSH Result Comment: PT A LREADY HAD COMPLETED ON A PREVIOUS DATE Performed By: #### L 500.4050, L100.0100 ####[facility] [address] [place], [address] ALK PHOS Normal 35-104 [facility] Comment on above: Order Comment: Order Date: 03/04/24Order Info: 0786-1 - CMPOrder Info: 3016-3 - TSH Result Comment: PT A LREADY HAD COMPLETED ON A PREVIOUS DATE Performed By: #### L 500.4050, L100.0100 ####[facility] [address] [place], [address] ALT Normal <=34 [facility] Comment on above: Order Comment: Order Date: 03/04/24Order Info: 0786-1 - CMPOrder Info: 3016-3 - TSH Result Comment: PT A LREADY HAD COMPLETED ON A PREVIOUS DATE Performed By: #### L 500.4050, L100.0100 ####[facility] [address] [place], [address] AST Normal <=31 [facility] Comment on above: Order Comment: Order Date: 03/04/24Order Info: 0786-1 - CMPOrder Info: 3016-3 - TSH Result Comment: PT A LREADY HAD COMPLETED ON A PREVIOUS DATE Performed By: #### L 500.4050, L100.0100 ####[facility] [address] [place], [address] BUN Normal 4-19 [facility] Comment on above: Order Comment: Order Date: 03/04/24Order Info: 0786-1 - CMPOrder Info: 3016-3 - TSH Result Comment: PT A LREADY HAD COMPLETED ON A PREVIOUS DATE Performed By: #### L 500.4050, L100.0100 ####[facility] [address] [place], [address] BUN/CRE Normal 10-20 [facility] Comment on above: Order Comment: Order Date: 03/04/24Order Info: 785-1 - CMPOrder Info: 3016-3 - TSH Result Comment: PT A LREADY HAD COMPLETED ON A PREVIOUS DATE Performed By: #### L 500.4050, L100.0100 ####[facility] [address] [place], [address] Calcium Normal 7.6-11.0 [facility] Comment on above: Order Comment: Order Date: 03/04/24Order Info: 86-1 - CMPOrder Info: 3016-3 - TSH Result Comment: PT A LREADY HAD COMPLETED ON A PREVIOUS DATE Performed By: #### L 500.4050, L100.0100 ####[facility] [address] [place], [address] CL Normal 98-108 [facility] Comment on above: Order Comment: Order Date: 03/04/24Order Info: 0786-1 - CMPOrder Info: 3016-3 - TSH Result Comment: PT A LREADY HAD COMPLETED ON A PREVIOUS DATE Performed By: #### L 500.4050, L100.0100 ####[facility] [address] [place], [address] CO2 Normal 21.0-32.0 [facility] Comment on above: Order Comment: Order Date: 03/04/24Order Info: 86-1 - CMPOrder Info: 3016-3 - TSH Result Comment: PT A LREADY HAD COMPLETED ON A PREVIOUS DATE Performed By: #### L 500.4050, L100.0100 ####[facility] [address] [place], [address] CREAT,SERUM Normal 0.70-1.20 [facility] Comment on above: Order Comment: Order Date: 03/04/24Order Info: 785- - CMPOrder Info: 6-3 - TSH Result Comment: PT A LREADY HAD COMPLETED ON A PREVIOUS DATE Performed By: #### L 500.4050, L100.0100 ####[facility] [address] [place], [address] eGFR Normal >60 [facility] Comment on above: Order Comment: Order Date: 03/04/24Order Info: 785-1 - CMPOrder Info: 3016-3 - TSH Result Comment: PT A LREADY HAD COMPLETED ON A PREVIOUS DATE Performed By: #### L 500.4050, L100.0100 ####[facility] [address] [place], [address] GAP Normal 5-15 [facility] Comment on above: Order Comment: Order Date: 03/04/24Order Info: 785-1 - CMPOrder Info: 3016-3 - TSH Result Comment: PT A LREADY HAD COMPLETED ON A PREVIOUS DATE Performed By: #### L 500.4050, L100.0100 ####[facility] [address] [place], [address] GLU Normal 70-99 [facility] Comment on above: Order Comment: Order Date: 03/04/24Order Info: 86-1 - CMPOrder Info: 3016-3 - TSH Result Comment: PT A LREADY HAD COMPLETED ON A PREVIOUS DATE Performed By: #### L 500.4050, L100.0100 ####[facility] [address] [place], [address] Potassium Normal 3.3-5.1 [facility] Comment on above: Order Comment: Order Date: 03/04/24Order Info: 86-1 - CMPOrder Info: 3016-3 - TSH Result Comment: PT A LREADY HAD COMPLETED ON A PREVIOUS DATE Performed By: #### L 500.4050, L100.0100 ####[facility] [address] [place], [address] T BILI Normal 0.00-1.30 [facility] Comment on above: Order Comment: Order Date: 03/04/24Order Info: 785-1 - CMPOrder Info: 3016-3 - TSH Result Comment: PT A LREADY HAD COMPLETED ON A PREVIOUS DATE Performed By: #### L 500.4050, L100.0100 ####[facility] [address] [place], [address] T PROT Normal 5.9-8.4 [facility] Comment on above: Order Comment: Order Date: 03/04/24Order Info: 785-1 - CMPOrder Info: 3016-3 - TSH Result Comment: PT A LREADY HAD COMPLETED ON A PREVIOUS DATE Performed By: #### L 500.4050, L100.0100 ####[facility] [address] [place], [address] Comprehensive Metabolic Profil Normal 133-145 [facility] Comment on above: Order Comment: Order Date: 03/04/24Order Info: 86-1 - CMPOrder Info: 3016-3 - TSH Result Comment: PT A LREADY HAD COMPLETED ON A PREVIOUS DATE Performed By: #### L 500.4050, L100.0100 ####[facility] [address] [place], [address] L509.3001on 10-03-2024 Testosterone [Mass/Vol] 13.00 ng/dL Normal [facility] Comment on above: Performed By: #### L 700.6800, L501.9520, L500.2500, L100.0100 #### [facility] [address] [place], [address] Laboratory - Chemistry and C hemistry - challengeOrdered By: Sangita Jean on 10-03-2024 Testosterone [Mass/Vol] 13.00 ng/dL [facility] Serum or plasma 17-hydroxypr ogesterone measurement (mass/volume)Ordered By: Sangita Jean on 10-03-2024 17-Hydroxyprogesterone [Mass/Vol] 19 ng/dL . [facility] Comment on above: Adult Female Follicu lar 15 - 70 Luteal 35 - 290Performed at: [facility] [id number] Director: Lauri Nance MD, Phone: [phone] Serum or plasma free testost erone measurement (mass/volume)Ordered By: Sangita Jean on 10-03-2024 Testosterone Free [Mass/Vol] 1.1 pg/mL 0.0-4.2 [facility] Comment on above: Performed at: [address] [id number] Director: Erik Holm PhD, Phone: [phone] at: [facility] [id number] Director: Lauri Nance MD, Phone: [phone] TSH DL <= 0.005 mIU/L QnOrde red By: Aretha Best on 10-03-2024 TSH Qn 0.905 uIU/mL 0.300-4.200 [facility] Thyroid Stim Hormone (TSH)on 10-03-2024 TSH 0.905 uIU/mL Normal 0.300-4.200 [facility] Comment on above: Order Comment: Order Date: 05/31/24Order Info: 3016-3 - TSH Performed By: #### L 700.6804, L501.2983, L500.2500, L100.0100 #### [facility] [address] [place], [address] [employer] Office Visit Reporton 09-12-2024 [employer] Office Visit Report [facility]'s [address], [address] [place] [address] OFFICE VISIT Date of Service: 09/12/24 MR#: [id number] Acct: [id number] Name: XOCHILT CADET Rep #: [id number] : 1995 Provider: Dr. Sangita valencia MD Age/Sex: 29/F Location: [facility] Status: Signed Intake Vital Signs 09/01/24 11:40 09/12/24 13:02 Height 5 ft 8 in 5 ft 8 in Weight: 181 lb BMI 27.5 BP 120/72 Intake Visit Reasons: 1 wk F/U Fishery Biologist Required: No Is patient in pain?: No [...] Bth Weight Gen Labor Lgth Anest[facility] Provider FOB 09/01/24 spontaneous ROS Const Constitutional: [...] and non-tender (more content not included)... Normal [facility] Serum human chorionic gonado tropin detection for pregnancyOrdered By: Sangita Jean on 09-12-2024 HCG ( test) Ql 5 mIU/mL <9 [facility] Comment on above: Gestational Age0.2-1 Week: 5-50 mIU/mL1-2 Weeks: 50-500 mIU/mL2-3 Weeks: 100-5000 mIU/mL3-4 Weeks: 500-10,000 mIU/mL4-5 Weeks:1000-50,000 mIU/mL5-6 Weeks: 10,000-100,000 mIU/mL6-8 Weeks: 15,000-200,000 mIU/mL2-3 Months:10,000-100,000 mIU/mL hCG Titer Quant., Serumon HCG QUANT. 5 mIU/mL Normal <9 non-preg [facility] Comment on above: Result Comment: Gest ational Age 0.2-1 Week: 5-50 mIU/mL 1-2 Weeks: 50-500 mIU/mL 2-3 Weeks: 100-5000 mIU/mL 3-4 Weeks: 500-10,000 mIU/mL 4-5 Weeks:1000-50,000 mIU/mL 5-6 Weeks: 10,000-100,000 mIU/mL 6-8 Weeks: 15,000-200,000 mIU/mL 2-3 Months:10,000-100,000 mIU/mL Performed By: #### L 700.6800, L501.9535, L500.2500, L100.0100 #### [facility] [address] [place], [address] [employer] Attacher Office Visit Reporton 09-01-2024 Gripper Attacher Office Visit Report [facility]'s [facility] [address], [address] [place] [address] OFFICE VISIT Date of Service: 09/01/24 MR#: [id number] Acct: [id number] Name: XOCHILT CADET Rep #: [id number] : 1995 Provider: Dr. Sangita valencia MD Age/Sex: 29/F Location: [facility] Status: Signed Intake Vital Signs 08/29/24 15:51 09/01/24 11:38 09/01/24 11:40 Height 5 ft 8 in 5 ft 8 in 5 ft 8 in Weight: 186 lb 8 oz 187 lb 4 oz BMI 28.3 28.4 BP 130/77 H 114/74 Intake Visit Reasons: f/u on US, HCG level per Fishery Biologist Required: No Is patient in pain?: No [...] menopausal: No Patient : No : No [facility] Medical History (Updated 09/01/24 @ 15:54 by [...] acute distress and well developed Orientation: alert HENMT Head: normal to inspection and normocephalic Ears: [...] a week (more content not included)... Normal [facility] T4 Free Directon 09-01-2024 T4 FREE DIRECT 1.40 ng/dL Normal 0.76-1.46 [facility] Comment on above: Order Comment: ADD O N TO 08/31/24 BLOODWORK Performed By: #### L 506.0400 ####[facility] [address] [place], [place], [address] Transvaginal w/Preg USon Transvaginal w/Preg US [facility] Imaging Services [address] [place], [place] [address] Transvaginal w/Preg US MR#: [id number] Acct: [id number] Name: XOCHILT CADET Rep #: [id number] : 1995 F 29 From: Jeremi [place] MD PCP: Dr. Aretha Best MD Status: [facility] CLI Study: Transvaginal w/Preg US Date of Exam: 09/01/24 Exam# [id number] Ordering Dr: Sangita Jean EXAM: US Pelvis [...] following serial beta HCG level. Reading Location: [facility] CC: Dr. Aretha Best MD; Dr. Sangita Jean MD American History Teacher: Signed Normal [facility] Serum human chorionic gonado tropin detection for pregnancyOrdered By: Sangita Jean on 08-31-2024 HCG ( test) Ql 449 mIU/mL High <9 [facility] Comment on above: Gestational Age0.2-1 Week: 5-50 mIU/mL1-2 Weeks: 50-500 mIU/mL2-3 Weeks: 100-5000 mIU/mL3-4 Weeks: 500-10,000 mIU/mL4-5 Weeks:1000-50,000 mIU/mL5-6 Weeks: 10,000-100,000 mIU/mL6-8 Weeks: 15,000-200,000 mIU/mL2-3 Months:10,000-100,000 mIU/mL T4 freeOrdered By: Aretha simms on 08-31-2024 Free T4 [Mass/Vol] 1.40 ng/dL 0.76-1.46 [facility] TSH DL <= 0.005 mIU/L QnOrde red By: Aretha Best on 08-31-2024 TSH Qn 7.510 uIU/mL High 0.300-4.200 [facility] Thyroid Stim Hormone (TSH)on 08-31-2024 TSH 7.510 uIU/mL High 0.300-4.200 [facility] Comment on above: Order Comment: SEND TO Order Date: 08/23/24Order Info: 3016-3 - TSH Performed By: #### L 700.6800, L501.9520, L500.2500, L100.0100 #### [facility] Laboratory [address] [place], [address] hCG Titer Quant., Serumon HCG QUANT. 449 mIU/mL High <9 non-preg [facility] Comment on above: Result Comment: Gest ational Age 0.2-1 Week: 5-50 mIU/mL 1-2 Weeks: 50-500 mIU/mL 2-3 Weeks: 100-5000 mIU/mL 3-4 Weeks: 500-10,000 mIU/mL 4-5 Weeks:1000-50,000 mIU/mL 5-6 Weeks: 10,000-100,000 mIU/mL 6-8 Weeks: 15,000-200,000 mIU/mL 2-3 Months:10,000-100,000 mIU/mL Performed By: #### L 700.6800, L501.9520, L500.2500, L100.0100 #### [facility] [address] [place], [address] Gri[employer] Attacher Office Visit Reporton 08-29-2024 Gripper Attacher Office Visit Report [facility]'s [address], [address] [place] [address] OFFICE VISIT Date of Service: 08/29/24 MR#: [id number] Acct: [id number] Name: XOCHILT CADET Rep #: [id number] : 1995 Provider: Dr. Sangita valencia MD Age/Sex: 29/F Location: [facility] Status: Signed Intake Vital Signs 08/25/24 15:16 08/27/24 16:18 08/29/24 15:51 Height 5 ft 8 in 5 ft 8 in 5 ft 8 in Weight: 186 lb 8 oz BMI 28.3 BP 130/77 H Intake Visit Reasons: ER FU per Fishery Biologist Required: No Is patient in pain?: No [...] home: Yes additional social history: - Carlos [facility] ER FU per Details: XOCHILT CADET is [...] Vagina U (more content not included)... Normal [facility] Serum human chorionic gonado tropin detection for pregnancyOrdered By: Sangita Jean on 08-29-2024 HCG ( test) Ql 510 mIU/mL High <9 [facility] Comment on above: Gestational Age0.2-1 Week: 5-50 mIU/mL1-2 Weeks: 50-500 mIU/mL2-3 Weeks: 100-5000 mIU/mL3-4 Weeks: 500-10,000 mIU/mL4-5 Weeks:1000-50,000 mIU/mL5-6 Weeks: 10,000-100,000 mIU/mL6-8 Weeks: 15,000-200,000 mIU/mL2-3 Months:10,000-100,000 mIU/mL hCG Titer Quant., Serumon HCG QUANT. 510 mIU/mL High <9 non-preg [facility] Comment on above: Result Comment: Gest ational Age 0.2-1 Week: 5-50 mIU/mL 1-2 Weeks: 50-500 mIU/mL 2-3 Weeks: 100-5000 mIU/mL 3-4 Weeks: 500-10,000 mIU/mL 4-5 Weeks:1000-50,000 mIU/mL 5-6 Weeks: 10,000-100,000 mIU/mL 6-8 Weeks: 15,000-200,000 mIU/mL 2-3 Months:10,000-100,000 mIU/mL Performed By: #### L 700.8000 #### [facility] Laboratory [address] [facility] [place], [address] Emergency Department Summary on 08-27-2024 Emergency Department Summary [facility] Medical Records Department [address] [place] [address] Emergency Department Summary 08/27/24 MR#: [id number] Acct: [id number] Name: XOCHILT CADET Rep #: [id number] : 1995 29 From: Porter Baeza DO PCP: Dr. Aretha Best MD Status:DEP ER Location: ED HPI HPI - Female History of Present Illness Chief Complaint: Informant: patient and spouse/S.O. Narrative Narrative: 29-year-old female presenting to the emergency room with a chief complaint of possible ectopic . Patient follows with Dr. Jeremi Chapman from [facility]. Patient has had positive outpatient test. [...] reported fevers. This is her first . [facility] Medical History Contraceptive management Deviated nasal septum [...] CVA tender (more content not included)... Normal [facility] Serum human chorionic gonado tropin detection for pregnancyOrdered By: Sangita Jean on 08-27-2024 HCG ( test) Ql 493 mIU/mL High <9 [facility] Comment on above: Gestational Age0.2-1 Week: 5-50 mIU/mL1-2 Weeks: 50-500 mIU/mL2-3 Weeks: 100-5000 mIU/mL3-4 Weeks: 500-10,000 mIU/mL4-5 Weeks:1000-50,000 mIU/mL5-6 Weeks: 10,000-100,000 mIU/mL6-8 Weeks: 15,000-200,000 mIU/mL2-3 Months:10,000-100,000 mIU/mL Transvaginal w/Preg USon Transvaginal w/Preg US [facility] Imaging Services [address] [place] [address] Transvaginal w/Preg US MR#: [id number] Acct: [id number] Name: XOCHILT CADET Rep #: [id number] : 1995 F 29 From: Rick Blake MD PCP: Dr. Aretha Best MD Status: REG ER Study: Transvaginal w/Preg US Date of Exam: 08/27/24 Exam# [id number] Ordering Dr: Porter Baeza DO PROCEDURE: TRANSVAGINAL [...] ovaries. Possible right corpus luteum. Reading Location: [id number] CC: Dr. Aretha Best MD; Dr. Porter Baeza DO American History Teacher: Signed Normal [facility] hCG Titer Quant., Serumon HCG QUANT. 493 mIU/mL High <9 non-preg [facility] Comment on above: Result Comment: Gest ational Age 0.2-1 Week: 5-50 mIU/mL 1-2 Weeks: 50-500 mIU/mL 2-3 Weeks: 100-5000 mIU/mL 3-4 Weeks: 500-10,000 mIU/mL 4-5 Weeks:1000-50,000 mIU/mL 5-6 Weeks: 10,000-100,000 mIU/mL 6-8 Weeks: 15,000-200,000 mIU/mL 2-3 Months:10,000-100,000 mIU/mL Performed By: #### L 700.8000 #### [facility] [address] [place], [address] Absolute lymphocyte countOrd ered By: Sangita Jean on 08-25-2024 Lymphocytes Auto (Unsp spec) [#/Vol] 2.65 10*3/uL 0.83-4.51 [facility] Absolute neutrophil countOrd ered By: Sangita Jean on 08-25-2024 Neutrophils (Bld) [#/Vol] 9.1 10*3/uL High 2.0-7.7 [facility] Anion gap in Serum or Plasma Ordered By: Sangita Jean on 08-25-2024 Anion gap [Moles/Vol] 11 mmol/L 5-15 [facility] Automated lymphocyte count a s percentage of total leukocytesOrdered By: Sangita Jean on 08-25-2024 Lymphocytes/100 WBC Auto (Unsp spec) 20.8 % 19-41 [facility] BUN/creatinine ratioOrdered By: Sangita Jean on 08-25-2024 Urea nitrogen/Creatinine [Mass ratio] 10.8 mg/mg 10-20 [facility] Basophil percentageOrdered B y: Sangita Jean on 08-25-2024 Basophils/100 WBC (Bld) 0.5 % 0-1 [facility] Bilirubin, totalOrdered By: Sangita Jean on 08-25-2024 Bilirubin [Mass/Vol] 0.56 mg/dL 0.00-1.30 [facility] CBC W/Diff, Automatedon 07-29 Absolute Lymph 2.65 X10 3/uL Normal 0.83-4.51 [facility] Comment on above: Performed By: #### L 700.6800, L501.9520, L500.2500, L100.0100 #### [facility] Laboratory [address] [place], [address] Absolute Neut 9.1 X10 3/uL High 2.0-7.7 [facility] Comment on above: Performed By: #### L 700.6800, L501.9520, L500.2500, L100.0100 #### [facility] Laboratory [address] [place], [address] Basophils/100 WBC (Bld) 0.5 % Normal 0-1 [facility] Comment on above: Performed By: #### L 700.6800, L501.9520, L500.2500, L100.0100 #### [facility] [address] [place], [address] Eosinophils/100 WBC (Bld) 0.5 % Normal 0-5 [facility] Comment on above: Performed By: #### L 700.6800, L501.9520, L500.2500, L100.0100 #### [facility] [address] [place], [address] Erythrocyte distribution width (RBC) [Ratio] 11.8 % Normal 11.6-14.6 [facility] Comment on above: Performed By: #### L 700.6800, L501.9520, L500.2500, L100.0100 #### [facility] [address] [place], [address] Hematocrit (Bld) [Volume fraction] 41.0 % Normal 37-47 [facility] Comment on above: Performed By: #### L 700.6800, L501.9520, L500.2500, L100.0100 #### [facility] [address] [place], [address] Hemoglobin (Bld) [Mass/Vol] 14.4 g/dL Normal 12.0-15.0 [facility] Comment on above: Performed By: #### L 700.6800, L501.9520, L500.2500, L100.0100 #### [facility] [address] [place], [address] IG% 0.500 Normal 0.0-0.9 [facility] Comment on above: Result Comment: IG% - Immature Granulocytes (promyelocytes, myelocytes and metamyelocytes) > 1% indicates that a LEFT SHIFT is Present. Performed By: #### L 700.6800, L501.9520, L500.2500, L100.0100 #### [facility] [address] [place], [address] Lymphocytes/100 WBC (Bld) 20.8 % Normal 19-41 [facility] Comment on above: Performed By: #### L 700.6800, L501.9520, L500.2500, L100.0100 #### [facility] [address] [place], [address] MCH (RBC) [Entitic mass] 30.6 pg Normal 27.0-32.0 [facility] Comment on above: Performed By: #### L 700.6800, L501.9520, L500.2500, L100.0100 #### [facility] [address] [place], [address] MCHC (RBC) [Mass/Vol] 35.1 g/dL Normal 32-36 [facility] Comment on above: Performed By: #### L 700.6800, L501.9520, L500.2500, L100.0100 #### [facility] [address] [place], [address] MCV (RBC) [Entitic vol] 87.2 fL Normal 81-99 [facility] Comment on above: Performed By: #### L 700.6800, L501.9520, L500.2500, L100.0100 #### [facility] [address] [place], [address] Monocytes/100 WBC (Bld) 6.3 % Normal 0-10 [facility] Comment on above: Performed By: #### L 700.6800, L501.9520, L500.2500, L100.0100 #### [facility] [address] [place], [address] Neutrophils/100 WBC (Bld) 71.4 % High 47-70 [facility] Comment on above: Performed By: #### L 700.6800, L501.9520, L500.2500, L100.0100 #### [facility] [address] [place], [address] Nucleated RBC (Bld) [#/Vol] 0 10*3/uL Normal 0-5 [facility] Comment on above: Performed By: #### L 700.6800, L501.9520, L500.2500, L100.0100 #### [facility] [address] [place], [address] Platelet mean volume (Bld) [Entitic vol] 9.1 fL Normal 6.2-12.0 [facility] Comment on above: Performed By: #### L 700.6800, L501.9520, L500.2500, L100.0100 #### [facility] [address] [place], [address] Platelets (Bld) [#/Vol] 355 10*3/uL Normal 150-450 [facility] Comment on above: Performed By: #### L 700.6800, L501.9520, L500.2500, L100.0100 #### [facility] [address] [place], [address] RBC (Bld) [#/Vol] 4.70 10*6/uL Normal 4.2-5.4 [facility] Comment on above: Performed By: #### L 700.6800, L501.9520, L500.2500, L100.0100 #### [facility] [address] [place], [address] RDW SD 38.2 fl Normal 35.1-43.9 [facility] Comment on above: Performed By: #### L 700.6800, L501.9520, L500.2500, L100.0100 #### [facility] [address] [place], [address] WBC (Bld) [#/Vol] 12.8 10*3/uL High 4.4-11.0 [facility] Comment on above: Performed By: #### L 700.6800, L501.9520, L500.2500, L100.0100 #### [facility] [address] [place], [address] Carbon dioxide, total [Moles /volume] in Central venous bloodOrdered By: Sangita Jean on 08-25-2024 CO2 [Moles/Vol] 22.1 mmol/L 21.0-32.0 [facility] Chloride assayOrdered By: Manjinder Jean on 08-25-2024 Chloride [Moles/Vol] 104 mmol/L 98-108 [facility] Comprehensive Metabolic Prof ilon 08-25-2024 Albumin [Mass/Vol] 4.7 g/dL Normal 3.5-5.0 [facility] Comment on above: Performed By: #### L 700.6800, L501.9520, L500.2500, L100.0100 #### [facility] [address] [place], [address] Albumin/Globulin [Mass ratio] 1.7 {ratio} Normal 0.9-2.4 [facility] Comment on above: Performed By: #### L 700.6800, L501.9520, L500.2500, L100.0100 #### [facility] [address] [place], [address] ALK PHOS 62 U/L Normal 35-104 [facility] Comment on above: Performed By: #### L 700.6800, L501.9520, L500.2500, L100.0100 #### [facility] [address] [place], [address] ALT [Catalytic activity/Vol] 11 U/L Normal <=34 [facility] Comment on above: Performed By: #### L 700.6800, L501.9520, L500.2500, L100.0100 #### [facility] [address] [place], [address] AST [Catalytic activity/Vol] 18 U/L Normal <=31 [facility] Comment on above: Performed By: #### L 700.6800, L501.9520, L500.2500, L100.0100 #### [facility] [address] [place], [address] Bilirubin [Mass/Vol] 0.56 mg/dL Normal 0.00-1.30 [facility] Comment on above: Performed By: #### L 700.6800, L501.9520, L500.2500, L100.0100 #### [facility] [address] [place], [address] BUN/CRE 10.8 RATIO Normal 10-20 [facility] Comment on above: Performed By: #### L 700.6800, L501.9520, L500.2500, L100.0100 #### [facility] [address] [place], [address] Calcium [Mass/Vol] 9.4 mg/dL Normal 7.6-11.0 [facility] Comment on above: Performed By: #### L 700.6800, L501.9520, L500.2500, L100.0100 #### [facility] [address] [place], [address] Chloride [Moles/Vol] 104 mmol/L Normal 98-108 [facility] Comment on above: Performed By: #### L 700.6800, L501.9520, L500.2500, L100.0100 #### [facility] [address] [place], [address] CO2 [Moles/Vol] 22.1 mmol/L Normal 21.0-32.0 [facility] Comment on above: Performed By: #### L 700.6800, L501.9520, L500.2500, L100.0100 #### [facility] [address] [place], [address] Creatinine [Mass/Vol] 0.82 mg/dL Normal 0.70-1.20 [facility] Comment on above: Performed By: #### L 700.6800, L501.9520, L500.2500, L100.0100 #### [facility] [address] [place], [address] GAP 11 Normal 5-15 [facility] Comment on above: Performed By: #### L 700.6800, L501.9520, L500.2500, L100.0100 #### [facility] [address] [place], [address] GFR/1.73 sq M.predicted among non-blacks MDRD (S/P/Bld) [Vol rate/Area] 99 mL/min/{1.73_m2} Normal >60 [facility] Comment on above: Result Comment: mL/m in/1.73m2 CKD-EPI Creatinine Equation (2020) Performed By: #### L 700.6800, L501.9520, L500.2500, L100.0100 #### [facility] [address] [place], [address] Globulin (S) [Mass/Vol] 2.8 g/dL Normal 2.2-4.2 [facility] Comment on above: Performed By: #### L 700.6800, L501.9520, L500.2500, L100.0100 #### [facility] [address] [place], [address] Glucose [Mass/Vol] 86 mg/dL Normal 70-99 [facility] Comment on above: Performed By: #### L 700.6800, L501.9520, L500.2500, L100.0100 #### [facility] [address] [place], [address] Potassium [Moles/Vol] 4.0 mmol/L Normal 3.3-5.1 [facility] Comment on above: Performed By: #### L 700.6800, L501.9520, L500.2500, L100.0100 #### [facility] [address] [place], [address] Sodium [Moles/Vol] 137 mmol/L Normal 133-145 [facility] Comment on above: Performed By: #### L 700.6800, L501.9520, L500.2500, L100.0100 #### [facility] [address] [place], [address] T PROT 7.4 g/dL Normal 5.9-8.4 [facility] Comment on above: Performed By: #### L 700.6800, L501.9520, L500.2500, L100.0100 #### [facility] [address] [place], [address] Urea nitrogen [Mass/Vol] 9 mg/dL Normal 4-19 [facility] Comment on above: Performed By: #### L 700.6800, L501.9520, L500.2500, L100.0100 #### [facility] [address] [place], [address] Eosinophil percentageOrdered By: Sangita Jean on 08-25-2024 Eosinophils/100 WBC (Bld) 0.5 % 0-5 [facility] Erythrocyte distribution wid th ratioOrdered By: Sangtia Jean on 08-25-2024 Erythrocyte distribution width (RBC) [Ratio] 11.8 % 11.6-14.6 [facility] Erythrocyte distribution wid th standard deviationOrdered By: Sangita Jean on 08-25-2024 Erythrocyte distribution width (RBC) [Ratio] 38.2 fl 35.1-43.9 [facility] Glomerular filtration rate ( GFR) estimation/1.73 sq m using serum, plasma, or whole bOrdered By: Sangita Jean on 08-25-2024 GFR/1.73 sq M.predicted among non-blacks MDRD (S/P/Bld) [Vol rate/Area] 99 mL/min/{1.73_m2} >60 [facility] Comment on above: mL/min/1.73m2 CKD-EP I Creatinine Equation (2020) Hematocrit Auto (Bld) [Volum e fraction]Ordered By: Sangita Jean on 08-25-2024 Hematocrit (Bld) [Volume fraction] 41.0 % 37-47 [facility] Hemoglobin measurementOrdere d By: Sangita Jean on 08-25-2024 Hemoglobin (Bld) [Mass/Vol] 14.4 g/dL 12.0-15.0 [facility] Immature granulocytes/100 WB C Auto (Bld)Ordered By: Sangita Jean on 08-25-2024 Immature granulocytes/100 WBC (Bld) 0.500 % 0.0-0.9 [facility] Comment on above: IG% - Immature Granu locytes (promyelocytes, myelocytes and metamyelocytes) > 1% indicates that a LEFT SHIFT is Present. Laboratory - Chemistry and C hemistry - challengeOrdered By: Sangita Jean on 08-25-2024 AST [Catalytic activity/Vol] 18 U/L <32 [facility] MCV (mean corpuscular volume ) determinationOrdered By: Sangita Jean on 08-25-2024 MCV (RBC) [Entitic vol] 87.2 fL 81-99 [facility] Mean corpuscular hemoglobin (MCH) determinationOrdered By: Sangita Jean on 08-25-2024 MCH (RBC) [Entitic mass] 30.6 pg 27.0-32.0 [facility] Mean corpuscular hemoglobin concentration (MCHC) determinationOrdered By: Sangita Jean on 08-25-2024 MCHC (RBC) [Mass/Vol] 35.1 g/dL 32-36 [facility] Mean platelet volume determi nationOrdered By: Sangita Jean on 08-25-2024 Platelet mean volume (Bld) [Entitic vol] 9.1 fL 6.2-12.0 [facility] Monocyte percentageOrdered B y: Sangita Jean on 08-25-2024 Monocytes/100 WBC (Bld) 6.3 % 0-10 [facility] Neutrophil percentageOrdered By: Sangita Jean on 08-25-2024 Neutrophils/100 WBC (Bld) 71.4 % High 47-70 [facility] Nucleated red blood cell per centageOrdered By: Sangita Jean on 08-25-2024 Nucleated RBC/100 WBC (Bld) [Ratio] 0 % 0-5 [facility] Gripper Attacher Office Visit Reporton 08-25-2024 Gripper Attacher Office Visit Report [facility]'[address], [address] [place] [address] OFFICE VISIT Date of Service: 08/25/24 MR#: [id number] Acct: [id number] Name: XOCHILT CADET Rep #: [id number] : 1995 Provider: Dr. Sangita valencia MD Age/Sex: 29/F Location: [facility] Status: Signed Intake Vital Signs 08/18/24 09:27 08/25/24 15:16 Height 5 ft 8 in 5 ft 8 in Weight: 186 lb 4 oz BMI 28.3 BP 123/80 H Intake Visit Reasons: fu ER visit, US results Fishery Biologist Required: No Is patient in pain?: Yes [...] menopausal: No [facility] : Yes : [facility] (Updated 08/27/24 @ 11:10 by [...] at home: Yes additional social history: - [facility] ER visit, US results Details: XOCHILT [...] Psych Appearance: (more content not included)... Normal [facility] Platelet countOrdered By: Manjinder Jean on 08-25-2024 Platelets (Bld) [#/Vol] 355 10*3/uL 150-450 [facility] Potassium measurement (mass/ volume)Ordered By: Sangita Jean on 08-25-2024 Potassium (Unsp spec) [Mass/Vol] 4.0 mmol/L 3.3-5.1 [facility] RBC Auto (Bld) [#/Vol]Ordere d By: Sangita Jean on 08-25-2024 RBC (Bld) [#/Vol] 4.70 10*6/uL 4.2-5.4 [facility] Serum creatinine measurement (mass/volume)Ordered By: Sangita Jean on 08-25-2024 Creatinine [Mass/Vol] 0.82 mg/dL 0.70-1.20 [facility] Serum globulin measurementOr dered By: Sangita Jean on 08-25-2024 Globulin (S) [Mass/Vol] 2.8 g/dL 2.2-4.2 [facility] Serum glucose measurement (m ass/volume)Ordered By: Sangita Jean on 08-25-2024 Glucose [Mass/Vol] 86 mg/dL 70-99 [facility] Serum human chorionic gonado tropin detection for pregnancyOrdered By: Sangita Jean on 08-25-2024 HCG ( test) Ql 448 mIU/mL High <9 [facility] Comment on above: Gestational Age0.2-1 Week: 5-50 mIU/mL1-2 Weeks: 50-500 mIU/mL2-3 Weeks: 100-5000 mIU/mL3-4 Weeks: 500-10,000 mIU/mL4-5 Weeks:1000-50,000 mIU/mL5-6 Weeks: 10,000-100,000 mIU/mL6-8 Weeks: 15,000-200,000 mIU/mL2-3 Months:10,000-100,000 mIU/mL Serum or plasma alanine vázquez otransferase (ALT) measurementOrdered By: Sangita Jean on 08-25-2024 ALT [Catalytic activity/Vol] 11 U/L <35 [facility] Serum or plasma albumin no urement (mass/volume)Ordered By: Sangita Jean on 08-25-2024 Albumin [Mass/Vol] 4.7 g/dL 3.5-5.0 [facility] Serum or plasma albumin/glob ulin mass ratioOrdered By: Sangita Jean on 08-25-2024 Albumin/Globulin [Mass ratio] 1.7 {ratio} 0.9-2.4 [facility] Serum or plasma alkaline deon sphatase measurementOrdered By: Sangita Jean on 08-25-2024 ALP [Catalytic activity/Vol] 62 U/L 35-104 [facility] Serum or plasma calcium no urement (mass/volume)Ordered By: Sangita Jena on 08-25-2024 Calcium [Mass/Vol] 9.4 mg/dL 7.6-11.0 [facility] Serum or plasma urea nitroge n measurement (mass/volume)Ordered By: Sangita Jean on 08-25-2024 Urea nitrogen [Mass/Vol] 9 mg/dL 4-19 [facility] Sodium levelOrdered By: Jamil Ellisstuart on 08-25-2024 Sodium [Moles/Vol] 137 mmol/L 133-145 [facility] Total proteinOrdered By: Dion julianna Ted on 08-25-2024 Protein [Mass/Vol] 7.4 g/dL 5.9-8.4 [facility] Transvaginal w/Preg USon Transvaginal w/Preg US [facility] Imaging Services [address] [place], [place] [id number] Transvaginal w/Preg US MR#: [id number] Acct: [id number] Name: XOCHILT CADET Rep #: [id number] : 1995 F 29 From: Pan Johansen MD PCP: Dr. Aretha Best MD Status: REG CLI Study: Transvaginal w/Preg US Date of Exam: 08/25/24 Exam# [id number] Ordering Dr: Sangita Jean PROCEDURE: TRANSVAGINAL W/PREG [...] Aretha Best MD; Dr. Sangita Jean MD American History Teacher: Signed Normal [facility] White blood cell (WBC) count Ordered By: Sangita Jean on 08-25-2024 WBC (Bld) [#/Vol] 12.8 10*3/uL High 4.4-11.0 [facility] hCG Titer Quant., Serumon HCG QUANT. 448 mIU/mL High <9 non-preg [facility] Comment on above: Result Comment: Gest ational Age 0.2-1 Week: 5-50 mIU/mL 1-2 Weeks: 50-500 mIU/mL 2-3 Weeks: 100-5000 mIU/mL 3-4 Weeks: 500-10,000 mIU/mL 4-5 Weeks:1000-50,000 mIU/mL 5-6 Weeks: 10,000-100,000 mIU/mL 6-8 Weeks: 15,000-200,000 mIU/mL 2-3 Months:10,000-100,000 mIU/mL Performed By: #### L 700.6800, L501.9520, L500.2500, L100.0100 #### [facility] [address] [place], [address] Serum human chorionic gonado tropin detection for pregnancyOrdered By: Bess Andujar on 08-22-2024 HCG ( test) Ql 179 mIU/mL High <9 [facility] Comment on above: Gestational Age0.2-1 Week: 5-50 mIU/mL1-2 Weeks: 50-500 mIU/mL2-3 Weeks: 100-5000 mIU/mL3-4 Weeks: 500-10,000 mIU/mL4-5 Weeks:1000-50,000 mIU/mL5-6 Weeks: 10,000-100,000 mIU/mL6-8 Weeks: 15,000-200,000 mIU/mL2-3 Months:10,000-100,000 mIU/mL hCG Titer Quant., Serumon HCG QUANT. 179 mIU/mL [facility]9 [facility] Comment on above: Result Comment: Gest ational Age 0.2-1 Week: 5-50 mIU/mL 1-2 Weeks: 50-500 mIU/mL 2-3 Weeks: 100-5000 mIU/mL 3-4 Weeks: 500-10,000 mIU/mL 4-5 Weeks:1000-50,000 mIU/mL 5-6 Weeks: 10,000-100,000 mIU/mL 6-8 Weeks: 15,000-200,000 mIU/mL 2-3 Months:10,000-100,000 mIU/mL Performed By: #### L 700.6800, L501.9520, L500.2500, L100.0100 #### [facility] [address] [place], [address] Serum human chorionic gonado tropin detection for pregnancyOrdered By: Bess Andujar on 08-20-2024 HCG ( test) Ql 120 mIU/mL High <9 [facility] Comment on above: Gestational Age0.2-1 Week: 5-50 mIU/mL1-2 Weeks: 50-500 mIU/mL2-3 Weeks: 100-5000 mIU/mL3-4 Weeks: 500-10,000 mIU/mL4-5 Weeks:1000-50,000 mIU/mL5-6 Weeks: 10,000-100,000 mIU/mL6-8 Weeks: 15,000-200,000 mIU/mL2-3 Months:10,000-100,000 mIU/mL hCG Titer Quant., Serumon HCG QUANT. 120 mIU/mL High <9 non-preg [facility] Comment on above: Result Comment: Gest ational Age 0.2-1 Week: 5-50 mIU/mL 1-2 Weeks: 50-500 mIU/mL 2-3 Weeks: 100-5000 mIU/mL 3-4 Weeks: 500-10,000 mIU/mL 4-5 Weeks:1000-50,000 mIU/mL 5-6 Weeks: 10,000-100,000 mIU/mL 6-8 Weeks: 15,000-200,000 mIU/mL 2-3 Months:10,000-100,000 mIU/mL Performed By: #### L 700.6800, L501.9520, L500.2500, L100.0100 #### [facility] [address] [place], [place], [id number] Absolute lymphocyte countOrd ered By: Preston Garrett on 08-18-2024 Lymphocytes Auto (Unsp spec) [#/Vol] 2.19 10*3/uL 0.83-4.51 [facility] Absolute neutrophil countOrd ered By: Preston Garrett on 08-18-2024 Neutrophils (Bld) [#/Vol] 5.7 10*3/uL 2.0-7.7 [facility] Automated lymphocyte count a s percentage of total leukocytesOrdered By: Preston Garrett on 08-18-2024 Lymphocytes/100 WBC Auto (Unsp spec) 25.6 % 19-41 [facility] [id number] 08-18-2024 ABO and Rh group Nom (Bld) Blood group B Rh(D) positive Normal [facility] Comment on above: Performed By: #### L 700.6800, L501.9520, L500.2500, L100.0100 #### [facility] [address] [facility] [place], [place], [id number] Basophil percentageOrdered B y: Preston Garrett on 08-18-2024 Basophils/100 WBC (Bld) 0.5 % 0-1 [facility] Bilirubin Test strip Ql (U)O rdered By: Preston Garrett on 08-18-2024 Bilirubin Ql (U) Negative Negative [facility] CBC W/Diff, Automatedon 07-29 Absolute Lymph 2.19 X10 3/uL Normal 0.83-4.51 [facility] Comment on above: Performed By: #### L 700.6800, L501.9520, L500.2500, L100.0100 #### [facility] [address] [place], [address] Absolute Neut 5.7 X10 3/uL Normal 2.0-7.7 [facility] Comment on above: Performed By: #### L 700.6800, L501.9520, L500.2500, L100.0100 #### [facility] [address] [place], [address] Basophils/100 WBC (Bld) 0.5 % Normal 0-1 [facility] Comment on above: Performed By: #### L 700.6800, L501.9520, L500.2500, L100.0100 #### [facility] [address] [place], [address] Eosinophils/100 WBC (Bld) 0.9 % Normal 0-5 [facility] Comment on above: Performed By: #### L 700.6800, L501.9520, L500.2500, L100.0100 #### [facility] [address] [place], [address] Erythrocyte distribution width (RBC) [Ratio] 12.0 % Normal 11.6-14.6 [facility] Comment on above: Performed By: #### L 700.6800, L501.9520, L500.2500, L100.0100 #### [facility] [address] [place], [address] Hematocrit (Bld) [Volume fraction] 39.4 % Normal 37-47 [facility] Comment on above: Performed By: #### L 700.6800, L501.9520, L500.2500, L100.0100 #### [facility] [address] [place], [address] Hemoglobin (Bld) [Mass/Vol] 13.6 g/dL Normal 12.0-15.0 [facility] Comment on above: Performed By: #### L 700.6800, L501.9520, L500.2500, L100.0100 #### [facility] [address] [place], [address] IG% 0.500 Normal 0.0-0.9 [facility] Comment on above: Result Comment: IG% - Immature Granulocytes (promyelocytes, myelocytes and metamyelocytes) > 1% indicates that a LEFT SHIFT is Present. Performed By: #### L 700.6800, L501.9520, L500.2500, L100.0100 #### [facility] [address] [place], [address] Lymphocytes/100 WBC (Bld) 25.6 % Normal 19-41 [facility] Comment on above: Performed By: #### L 700.6800, L501.9520, L500.2500, L100.0100 #### [facility] [address] [place], [address] MCH (RBC) [Entitic mass] 30.4 pg Normal 27.0-32.0 [facility] Comment on above: Performed By: #### L 700.6800, L501.9520, L500.2500, L100.0100 #### [facility] [address] [place], [address] MCHC (RBC) [Mass/Vol] 34.5 g/dL Normal 32-36 [facility] Comment on above: Performed By: #### L 700.6800, L501.9520, L500.2500, L100.0100 #### [facility] [address] [place], [address] MCV (RBC) [Entitic vol] 88.1 fL Normal 81-99 [facility] Comment on above: Performed By: #### L 700.6800, L501.9520, L500.2500, L100.0100 #### [facility] [address] [place], [address] Monocytes/100 WBC (Bld) 6.2 % Normal 0-10 [facility] Comment on above: Performed By: #### L 700.6800, L501.9520, L500.2500, L100.0100 #### [facility] [address] [place], [address] Neutrophils/100 WBC (Bld) 66.3 % Normal 47-70 [facility] Comment on above: Performed By: #### L 700.6800, L501.9520, L500.2500, L100.0100 #### [facility] [address] [place], [address] Nucleated RBC (Bld) [#/Vol] 0 10*3/uL Normal 0-5 [facility] Comment on above: Performed By: #### L 700.6800, L501.9520, L500.2500, L100.0100 #### [facility] [address] [place], [address] Platelet mean volume (Bld) [Entitic vol] 9.4 fL Normal 6.2-12.0 [facility] Comment on above: Performed By: #### L 700.6800, L501.9520, L500.2500, L100.0100 #### [facility] [address] [place], [address] Platelets (Bld) [#/Vol] 310 10*3/uL Normal 150-450 [facility] Comment on above: Performed By: #### L 700.6800, L501.9520, L500.2500, L100.0100 #### [facility] [address] [place], [address] RBC (Bld) [#/Vol] 4.47 10*6/uL Normal 4.2-5.4 [facility] Comment on above: Performed By: #### L 700.6800, L501.9520, L500.2500, L100.0100 #### [facility] [address] [place], [address] RDW SD 38.9 fl Normal 35.1-43.9 [facility] Comment on above: Performed By: #### L 700.6800, L501.9520, L500.2500, L100.0100 #### [facility] [address] [place], [address] WBC (Bld) [#/Vol] 8.6 10*3/uL Normal 4.4-11.0 [facility] Comment on above: Performed By: #### L 700.6800, L501.9520, L500.2500, L100.0100 #### [facility] [address] [place], [address] Emergency Department Summary on 08-18-2024 Emergency Department Summary [facility] Medical Records Department [address] [place] [address] Emergency Department Summary 08/18/24 MR#: [id number] Acct: [id number] Name: XOCHILT CADET Rep #: [id number] : 1995 29 From: Preston Garrett DO [...] the left side. She spoke with her VBA DEVELOPER who advised her to come in and get a ultrasound and labs. Patient's last menstrual period was July 15. Had a positive test yesterday. She is G1, P0. Not anticoagulated. She has had no further vaginal bleeding today. She denies urinary symptoms. [facility] Medical History Contraceptive management Deviated nasal septum [...] inspection of (more content not included)... Normal [facility] Eosinophil percentageOrdered By: Preston Garrett on 08-18-2024 Eosinophils/100 WBC (Bld) 0.9 % 0-5 [facility] Erythrocyte distribution wid th ratioOrdered By: Preston Garrett on 08-18-2024 Erythrocyte distribution width (RBC) [Ratio] 12.0 % 11.6-14.6 [facility] Erythrocyte distribution wid th standard deviationOrdered By: Preston Garrett on 08-18-2024 Erythrocyte distribution width (RBC) [Ratio] 38.9 fl 35.1-43.9 [facility] Hematocrit Auto (Bld) [Volum e fraction]Ordered By: Preston Garrett on 08-18-2024 Hematocrit (Bld) [Volume fraction] 39.4 % 37-47 [facility] Hemoglobin measurementOrdere d By: Preston Garrett on 05-22-2025 Hemoglobin (Bld) [Mass/Vol] 13.6 g/dL 12.0-15.0 [facility] Immature granulocytes/100 WB C Auto (Bld)Ordered By: Preston Garrett on 08-18-2024 Immature granulocytes/100 WBC (Bld) 0.500 % 0.0-0.9 [facility] Comment on above: IG% - Immature Granu locytes (promyelocytes, myelocytes and metamyelocytes) > 1% indicates that a LEFT SHIFT is Present. Ketones Test strip Ql (U)Ord ered By: Preston Garrett on 08-18-2024 Ketones Ql (U) Negative Negative [facility] MCV (mean corpuscular volume ) determinationOrdered By: Preston Garrett on 08-18-2024 MCV (RBC) [Entitic vol] 88.1 fL 81-99 [facility] Mean corpuscular hemoglobin (MCH) determinationOrdered By: Preston Garrett on 08-18-2024 MCH (RBC) [Entitic mass] 30.4 pg 27.0-32.0 [facility] Mean corpuscular hemoglobin concentration (MCHC) determinationOrdered By: Preston Garrett on 08-18-2024 MCHC (RBC) [Mass/Vol] 34.5 g/dL 32-36 [facility] Mean platelet volume determi nationOrdered By: Preston Garrett on 08-18-2024 Platelet mean volume (Bld) [Entitic vol] 9.4 fL 6.2-12.0 [facility] Microscopic analysis of urin e for red blood cells (RBC)Ordered By: Preston Garrett on 08-18-2024 Microscopic analysis of urine for red blood cells (RBC) 0 SEEN /hpf 0-5 [facility] Monocyte percentageOrdered B y: Preston Garrett on 08-18-2024 Monocytes/100 WBC (Bld) 6.2 % 0-10 [facility] Mucus LM Ql (Urine sed)Order ed By: Preston Garrett on 08-18-2024 Mucus Ql (Urine sed) 0 SEEN /hpf [facility] Neutrophil percentageOrdered By: Preston Garrett on 08-18-2024 Neutrophils/100 WBC (Bld) 66.3 % 47-70 [facility] Nitrite Test strip Ql (U)Ord ered By: Luma Gerry on 08-18-2024 Nitrite Ql (U) Negative Negative [facility] Nucleated red blood cell per centageOrdered By: Preston Garrett on 08-18-2024 Nucleated RBC/100 WBC (Bld) [Ratio] 0 % 0-5 [facility] Platelet countOrdered By: Acacia Garrett on 08-18-2024 Platelets (Bld) [#/Vol] 310 10*3/uL 150-450 [facility] Protein Test strip Ql (U)Ord ered By: Luma Gerry on 08-18-2024 Protein Ql (U) 15 mg/dl High Negative [facility] RBC Auto (Bld) [#/Vol]Ordere d By: Preston Garrett on 08-18-2024 RBC (Bld) [#/Vol] 4.47 10*6/uL 4.2-5.4 [facility] Serum human chorionic gonado tropin detection for pregnancyOrdered By: Preston Garrett on 08-18-2024 HCG ( test) Ql 77 mIU/mL High <9 [facility] Comment on above: Gestational Age0.2-1 Week: 5-50 mIU/mL1-2 Weeks: 50-500 mIU/mL2-3 Weeks: 100-5000 mIU/mL3-4 Weeks: 500-10,000 mIU/mL4-5 Weeks:1000-50,000 mIU/mL5-6 Weeks: 10,000-100,000 mIU/mL6-8 Weeks: 15,000-200,000 mIU/mL2-3 Months:10,000-100,000 mIU/mL Squamous epithelial cells de tection in urine sediment by light microscopyOrdered By: Preston Garrett on 08-18-2024 Epithelial cells.squamous LM Ql (Urine sed) 0-5 SEEN /hpf 5-10 [facility] Transvaginal w/Preg USon Transvaginal w/Preg US [facility] Imaging Services [address] [place], [place] [address] Transvaginal w/Preg US MR#: [id number] Acct: [id number] Name: XOCHILT CADET Rep #: [id number] : 1995 F 29 From: Sergei langford MD PCP: Dr. Aretha Best MD Status: REG ER Study: Transvaginal w/Preg US Date of Exam: 08/18/24 Exam# [id number] Ordering Dr: Preston Garrett DO PROCEDURE: TRANSVAGINAL [...] this time. Clinical correlation recommended. Reading Location: [facility] CC: Dr. Aretha Best MD; Dr. Preston Garrett DO American History Teacher: Signed Normal [facility] Urinalysis, Completeon 08-18 EPI,SQUAMOUS 0-5 SEEN Normal 5-10 [facility] Comment on above: Order Comment: CLEAN CATCH Performed By: #### L 400.0001 #### [facility] Laboratory [address] [place], [place], [id number] WBC 0-5 SEEN Normal 0-5 [facility] Comment on above: Order Comment: CLEAN CATCH Performed By: #### L 400.0001 #### [facility] [address] [place], [address] BACTERIA 0 SEEN Normal None Seen [facility] Comment on above: Order Comment: CLEAN CATCH Performed By: #### L 400.0001 #### [facility] [address] [place], [address] Mucus Ql (Urine sed) 0 SEEN Normal [facility] Comment on above: Order Comment: CLEAN CATCH Performed By: #### L 400.0001 #### [facility] [address] [place], [place], [address] RBC 0 SEEN Normal 0-5 [facility] Comment on above: Order Comment: CLEAN CATCH Performed By: #### L 400.0001 #### [facility] Laboratory [address] [place], [place], [address] Urine clarityOrdered By: Luma Garrett on 08-18-2024 Clarity (U) Clear Clear [facility] Urine color determinationOrd ered By: Preston Garrett on 08-18-2024 Color (U) Yellow Yellow [facility] Urine glucose detectionOrder ed By: Preston Garrett on 08-18-2024 Glucose Ql (U) Normal mg/dl Normal [facility] Urine leukocyte esterase det ection by dipstickOrdered By: Preston Garrett on 08-18-2024 Leukocyte esterase Test strip Ql (U) Negative Negative [facility] Urine pHOrdered By: Preston Un gur on 08-18-2024 pH (U) 7.0 [pH] 5.0 - 8.0 [facility] Urine sediment bacteria coun t by microscopy (number/high power field)Ordered By: Preston Garrett on 08-18-2024 Bacteria LM.HPF (Urine sed) [#/Area] 0 /[HPF] None Seen [facility] Urine specific gravity measu rementOrdered By: Preston Garrett on 08-18-2024 Specific gravity (U) [Rel density] 1.005 1.002-1.030 [facility] Urine urobilinogen measureme ntOrdered By: Preston Garrett on 08-18-2024 Urobilinogen Ql (U) Normal mg/dl Normal [facility] White blood cell (WBC) count Ordered By: Preston Garrett on 08-18-2024 WBC (Bld) [#/Vol] 8.6 10*3/uL 4.4-11.0 [facility] White blood cell countOrdere d By: Preston Garrett on 05-22-2025 White blood cell count 0-5 SEEN /hpf 0-5 [facility] hCG Titer Quant., Serumon HCG QUANT. 77 mIU/mL High <9 non-preg [facility] Comment on above: Result Comment: Gest ational Age 0.2-1 Week: 5-50 mIU/mL 1-2 Weeks: 50-500 mIU/mL 2-3 Weeks: 100-5000 mIU/mL 3-4 Weeks: 500-10,000 mIU/mL 4-5 Weeks:1000-50,000 mIU/mL 5-6 Weeks: 10,000-100,000 mIU/mL 6-8 Weeks: 15,000-200,000 mIU/mL 2-3 Months:10,000-100,000 mIU/mL Performed By: #### L 700.6800, L501.9520, L500.2500, L100.0100 #### [facility] [address] [place], [place], [address] US BREAST BILAT COMPLETEon 0 06-23-2024 US BREAST BILAT COMPLETE [address] [address] Patient: XOCHILT CADET Phone#: : 1995 Age: 28 Gender: F Pt. Type: Out Account: [id number] Location: Ordering: NICHOLAS POLLARD Exam Date: 06/23/2024/15:07 Family Phys: Charge Code: [id number] Physician: [place] Order #: [id number] Dose#: PROCEDURE: ULTRASOUND BREAST BILAT COMPARISON: None. [...] Ochoa MD on 06/23/2024 at 19:51 Normal [facility] FT4on 06-20-2024 Free T4 [Mass/Vol] 1.50 ng/dL Normal 0.89-1.76 [facility] Comment on above: Result Comment: No te - New Reference Range in effect 19 Performed By: #### F T4 #### [place] [address] #### TSH #### [address] [address] TSHon 06-20-2024 TSH Qn 3.30 m[IU]/L Normal 0.36-3.74 [facility] Comment on above: Performed By: #### F T4 #### [place] [address] #### TSH #### [address] [address] PAP I-G w/rfx hrHPV-Aptimaon 06-14-2024 ADEQ Comment Normal . [facility] Comment on above: Order Comment: Speci men Comment: [id number] Comment: Source.............Cervix;EndocervixSpecimen Comment: No. of containers..01 ThinPrep Vial Result Comment: Sati sfactory for evaluation. Endocervical and/or squamous metaplastic cells (endocervical component) are present. Performed By: #### L 700.6800, L501.9520, L500.2500, L100.0100 #### [facility] [address] [place], [place], [address] COMM . Normal . [facility] Comment on above: Order Comment: Speci men Comment: [id number] Comment: Source.............Cervix;EndocervixSpecimen Comment: No. of containers..01 ThinPrep Vial Performed By: #### L 700.6800, L501.9520, L500.2500, L100.0100 #### [facility] Laboratory [address] [place], [place], [address] COMMENT Comment Normal . [facility] Comment on above: Order Comment: Speci men Comment: [id number] Comment: Source.............Cervix;EndocervixSpecimen Comment: No. of containers..01 ThinPrep Vial Result Comment: This liquid based ThinPrep(R) pap test was screened with the use of an image guided system. Performed By: #### L 700.6800, L501.9520, L500.2500, L100.0100 #### [facility] [address] [place], [place], [address] DIAG Comment Normal . [facility] Comment on above: Order Comment: Speci men Comment: [id number] Comment: Source.............Cervix;EndocervixSpecimen Comment: No. of containers..01 ThinPrep Vial Result Comment: NEGA TIVE FOR INTRAEPITHELIAL LESION OR MALIGNANCY. Performed By: #### L 700.6800, L501.9520, L500.2500, L100.0100 #### [facility] [address] [place], [place], [address] HPV RFLX Comment Normal . [facility] Comment on above: Order Comment: Speci men Comment: [id number] Comment: Source.............Cervix;EndocervixSpecimen Comment: No. of containers..01 ThinPrep Vial Result Comment: The HPV DNA reflex criteria were not met with this specimen result therefore, no HPV testing was performed. Performed at: [address] [place] [id number] Radiology Nurse: Zuleyma Damon MD, Phone: [phone] Performed By: #### L 700.6800, L501.9520, L500.2500, L100.0100 #### [facility] [address] [place], [place], [address] PAPSMR Comment Normal . [facility] Comment on above: Order Comment: Speci men Comment: [id number] Comment: Source.............Cervix;EndocervixSpecimen Comment: No. of containers..01 ThinPrep Vial Result Comment: The Pap smear is a screening test designed to aid in the detection of premalignant and malignant conditions of the uterine cervix. It is not a diagnostic procedure and should not be used as the sole means of detecting cervical cancer. Both false-positive and false-negative reports do occur. Performed By: #### L 700.6800, L501.9520, L500.2500, L100.0100 #### [facility] [address] [place], [place], [address] PERFORM Comment Normal . [facility] Comment on above: Order Comment: Speci men Comment: [id number] Comment: Source.............Cervix;EndocervixSpecimen Comment: No. of containers..01 ThinPrep Vial Result Comment: Michelle Fairbanks, Honey Blender (ASCP) Performed By: #### L 700.6800, L501.9520, L500.2500, L100.0100 #### [facility] Laboratory [address] [place], [place], [address] Cervical or vagninal specime n microscopic examination by cytology stain (reported asOrdered By: Jeny Garcia on 06-09-2024 Cytology report Cyto stain Doc (Cvx/Vag) Comment . [facility] Comment on above: The Pap smear is a s creening test designed to aid in thedetection of premalignant and malignant conditions of theuterine cervix. It is not a diagnostic procedure andshould not be used as the sole means of detecting cervicalcancer. Both false-positive and false-negative reports dooccur. [place] Cyto stain Nom (C vx/Vag) [ID]Ordered By: Jeny Garcia on 06-09-2024 Pap Smear Performed By Comment . [facility] Comment on above: Michelle Fairbanks, Cyto technologist (ASCP) Cytology report Cyto stain D oc (Cvx/Vag)Ordered By: Jeny Garcia on 06-09-2024 Thin Prep Pap Smear Comment . [facility] Comment on above: The Pap smear is a s creening test designed to aid in thedetection of premalignant and malignant conditions of theuterine cervix. It is not a diagnostic procedure andshould not be used as the sole means of detecting cervicalcancer. Both false-positive and false-negative reports dooccur. Image-guided ThinPrep PapOrd ered By: Jeny Garcia on 06-09-2024 Pap Smear Note Comment . [facility] Comment on above: This liquid based Th inPrep(R) pap test was screened withthe use of an image guided system. Image-guided liquid-based Pa pOrdered By: Jeny Garcia on 06-09-2024 Pap Smear Diagnosis Comment . [facility] Comment on above: NEGATIVE FOR INTRAEP ITHELIAL LESION OR MALIGNANCY. Image-guided liquid-based ce rvical Pap w high-risk HPV+reflex to HPV 16+18Ordered By: Jeny Garcia on 06-09-2024 Human Papillomavirus Screen Comment . [facility] Comment on above: The HPV DNA reflex jame ro were not met with this specimenresult therefore, no HPV testing was performed.Performed at: [address] [place] [id number] Director: Zuleyma Damon MD, Phone: [phone] Laboratory - CytologyOrdered By: Jeny Garcia on 06-09-2024 [place] Cyto stain Nom (Cvx/Vag) [ID] Comment . [facility] Comment on above: Michelle Fairbanks, Cyto technologist (ASCP) Laboratory - Miscellaneous t estsOrdered By: Jeny Garcia on 06-09-2024 Service comment (Unsp spec) [Interp] . . [facility] No Panel InformationOrdered By: Jeny Garcia on 06-09-2024 Pap Smear Specimen Adequacy Comment . [facility] Comment on above: Satisfactory for ara luation. Endocervical and/or squamous metaplasticcells (endocervical component) are present. Gripper Attacher Office Visit Reporton 06-09-2024 Gripper Attacher Office Visit Report [facility] [address], [address] [place] [address] OFFICE VISIT Date of Service: 06/09/24 MR#: [id number] Acct: [id number] Name: XOCHILT CADET Rep #: [id number] : 1995 Provider: IRIS Martin ams Age/Sex: 28/F Location[place] [facility] Status: Signed with Addenda ADDENDUM by IRIS Garcia on 06/15/24 at 0918 Assessment and Plan Assessment and Plan Orders: Orders IUD Removal 06/09/24 Z30.432 - Encounter for removal of intrauterine contraceptive device PAP I-G w/rfx hrHPV-Aptima 06/09/24 Z12.4 - Encounter for screening for malignant neoplasm of cervix CGM Procedure CG Procedure Informed Consent Signed: Yes Removal: IUD [...] 28.0 BP 113/77 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 Normal [facility] Service comment (Unsp spec) [Interp]Ordered By: Jeny Garcia on 06-09-2024 Pap Smear Comment (3) . . [facility] FT4on 05-13-2024 Free T4 [Mass/Vol] 1.26 ng/dL Normal 0.76-1.46 [facility] Comment on above: Performed By: #### F T4 #### [facility] [address] [place] [address] #### TSH #### [facility] [address] [place] [address] LABORATORYOrdered By: SYSTEM SYSTEM on 05-13-2024 Free T4 [Mass/Vol] 1.26 ng/dL Normal 0.76 - 1. 46 ng/dL AO ADM SS T4 [Mass/Vol] 9.6 ug/dL Normal 4.5 - 10.9 mcg/dL [facility] Comment on above: Interpretive Data: * *Note - New Reference Range in effect 19 TSH Qn 0.74 m[IU]/L Normal 0.36 - 3.74 mcIU/mL AO ADM SS T4on 05-13-2024 T4 [Mass/Vol] 9.6 ug/dL Normal 4.5-10.9 [facility] Comment on above: Result Comment: No te - New Reference Range in effect 19 Performed By: #### F T4 #### [place] [address] [address] [place] [address] #### TSH #### [place] [address] [place], [place] [address] TSHon 05-13-2024 TSH Qn 0.74 m[IU]/L Normal 0.36-3.74 [facility] Comment on above: Performed By: #### F T4 #### [address] [address] #### TSH #### [place] [address] [place], [place] [address] Absolute neutrophil countOrd ered By: Pati Rosales on 04-02-2024 Neutrophils (Bld) [#/Vol] 4.4 10*3/uL 2.0-7.7 [facility] Basic Metabolic Profile (BMP )on 04-02-2024 BUN/CRE 9.3 RATIO Low 10-20 [facility] Comment on above: Performed By: #### L 700.6800, L501.9520, L500.2500, L100.0100 #### [facility] [address] [place], [address] CA,Total 9.3 mg/dL Normal 8.5-10.1 [facility] Comment on above: Performed By: #### L 700.6800, L501.9520, L500.2500, L100.0100 #### [facility] [address] [place], [address] Chloride [Moles/Vol] 106 mmol/L Normal 98-107 [facility] Comment on above: Performed By: #### L 700.6800, L501.9520, L500.2500, L100.0100 #### [facility] [address] [place], [address] CO2 [Moles/Vol] 28.0 mmol/L Normal 21.0-32.0 [facility] Comment on above: Performed By: #### L 700.6800, L501.9520, L500.2500, L100.0100 #### [facility] [address] [place], [address] Creatinine [Mass/Vol] 0.96 mg/dL Normal 0.55-1.02 [facility] Comment on above: Result Comment: The validity of the calculated GFR GFRAA in patients over 70 years has not been determined. Clinical correlation is essential. Performed By: #### L 700.6800, L501.9520, L500.2500, L100.0100 #### [facility] [address] [place], [address] ECRCL 100.43 ml/min Normal [facility] Comment on above: Performed By: #### L 700.6800, L501.9520, L500.2500, L100.0100 #### [facility] [address] [place], [address] EST GFR - AA 89 mL/min Normal >60 [facility] Comment on above: Result Comment: Afri can Swedish GFR Calc Performed By: #### L 700.6800, L501.9520, L500.2500, L100.0100 #### [facility] [address] [place], [address] GAP 4 Low 5-15 [facility] Comment on above: Performed By: #### L 700.6800, L501.9520, L500.2500, L100.0100 #### [facility] [address] [place], [address] GFR/1.73 sq M.predicted among non-blacks MDRD (S/P/Bld) [Vol rate/Area] 74 mL/min/{1.73_m2} Normal >60 [facility] Comment on above: Result Comment: Non- GFR Calc Performed By: #### L 700.6800, L501.9520, L500.2500, L100.0100 #### [facility] [address] [place], [address] Glucose [Mass/Vol] 96 mg/dL Normal 74-106 [facility] Comment on above: Performed By: #### L 700.6800, L501.9520, L500.2500, L100.0100 #### [facility] [address] [place], [address] Potassium [Moles/Vol] 3.7 mmol/L Normal 3.5-5.1 [facility] Comment on above: Performed By: #### L 700.6800, L501.9520, L500.2500, L100.0100 #### [facility] [address] [place], [address] Sodium [Moles/Vol] 138 mmol/L Normal 136-145 [facility] Comment on above: Performed By: #### L 700.6800, L501.9520, L500.2500, L100.0100 #### [facility] [address] [place], [address] Urea nitrogen [Mass/Vol] 9 mg/dL Normal 7-18 [facility] Comment on above: Performed By: #### L 700.6800, L501.9520, L500.2500, L100.0100 #### [facility] [address] [place], [address] Basophil percentageOrdered B y: Pati Rosales on 04-02-2024 Basophils/100 WBC (Bld) 0.6 % 0-1 [facility] Beta HCG ( test) Ql Ordered By: Pati Rosales on 04-02-2024 Serum Test, Qualitative Negative [facility] Blood urea nitrogen (BUN)/cr eatinine ratioOrdered By: Pati Rosales on 04-02-2024 Urea nitrogen/Creatinine [Mass ratio] 9.3 mg/mg Low 10-20 [facility] CBC W/Diff, Automatedon Absolute Lymph 1.73 X10 3/uL Normal 0.83-4.51 [facility] Comment on above: Performed By: #### L 700.6800, L501.9520, L500.2500, L100.0100 #### [facility] [address] [place], [address] Absolute Neut 4.4 X10 3/uL Normal 2.0-7.7 [facility] Comment on above: Performed By: #### L 700.6800, L501.9520, L500.2500, L100.0100 #### [facility] [address] [place], [address] Basophils/100 WBC (Bld) 0.6 % Normal 0-1 [facility] Comment on above: Performed By: #### L 700.6800, L501.9520, L500.2500, L100.0100 #### [facility] [address] [place], [address] Eosinophils/100 WBC (Bld) 0.7 % Normal 0-5 [facility] Comment on above: Performed By: #### L 700.6800, L501.9520, L500.2500, L100.0100 #### [facility] [address] [place], [address] Erythrocyte distribution width (RBC) [Ratio] 12.2 % Normal 11.6-14.6 [facility] Comment on above: Performed By: #### L 700.6800, L501.9520, L500.2500, L100.0100 #### [facility] [address] [place], [address] Hematocrit (Bld) [Volume fraction] 38.9 % Normal 37-47 [facility] Comment on above: Performed By: #### L 700.6800, L501.9520, L500.2500, L100.0100 #### [facility] [address] [place], [address] Hemoglobin (Bld) [Mass/Vol] 13.5 g/dL Normal 12.0-15.0 [facility] Comment on above: Performed By: #### L 700.6800, L501.9520, L500.2500, L100.0100 #### [facility] [address] [place], [address] IG% 0.300 Normal 0.0-0.9 [facility] Comment on above: Result Comment: IG% - Immature Granulocytes (promyelocytes, myelocytes and metamyelocytes) > 1% indicates that a LEFT SHIFT is Present. Performed By: #### L 700.6800, L501.9520, L500.2500, L100.0100 #### [facility] [address] [place], [address] Lymphocytes/100 WBC (Bld) 25.7 % Normal 19-41 [facility] Comment on above: Performed By: #### L 700.6800, L501.9520, L500.2500, L100.0100 #### [facility] [address] [place], [address] MCH (RBC) [Entitic mass] 30.3 pg Normal 27.0-32.0 [facility] Comment on above: Performed By: #### L 700.6800, L501.9520, L500.2500, L100.0100 #### [facility] [address] [place], [address] MCHC (RBC) [Mass/Vol] 34.7 g/dL Normal 32-36 [facility] Comment on above: Performed By: #### L 700.6800, L501.9520, L500.2500, L100.0100 #### [facility] [address] [place], [address] MCV (RBC) [Entitic vol] 87.2 fL Normal 81-99 [facility] Comment on above: Performed By: #### L 700.6800, L501.9520, L500.2500, L100.0100 #### [facility] [address] [place], [address] Monocytes/100 WBC (Bld) 6.7 % Normal 0-10 [facility] Comment on above: Performed By: #### L 700.6800, L501.9520, L500.2500, L100.0100 #### [facility] [address] [place], [address] Neutrophils/100 WBC (Bld) 66.0 % Normal 47-70 [facility] Comment on above: Performed By: #### L 700.6800, L501.9520, L500.2500, L100.0100 #### [facility] [address] [place], [address] Nucleated RBC (Bld) [#/Vol] 0 10*3/uL Normal 0-5 [facility] Comment on above: Performed By: #### L 700.6800, L501.9520, L500.2500, L100.0100 #### [facility] [address] [place], [address] Platelet mean volume (Bld) [Entitic vol] 9.4 fL Normal 6.2-12.0 [facility] Comment on above: Performed By: #### L 700.6800, L501.9520, L500.2500, L100.0100 #### [facility] [address] [place], [address] Platelets (Bld) [#/Vol] 311 10*3/uL Normal 150-450 [facility] Comment on above: Performed By: #### L 700.6800, L501.9520, L500.2500, L100.0100 #### [facility] [address] [place], [address] RBC (Bld) [#/Vol] 4.46 10*6/uL Normal 4.2-5.4 [facility] [facility] Comment on above: Performed By: #### L 700.6800, L501.9520, L500.2500, L100.0100 #### [facility] [address] [place], [address] RDW SD 39.2 fl Normal 35.1-43.9 [facility] Comment on above: Performed By: #### L 700.6800, L501.9520, L500.2500, L100.0100 #### [facility] [address] [place], [address] WBC (Bld) [#/Vol] 6.7 10*3/uL Normal 4.4-11.0 [facility] Comment on above: Performed By: #### L 700.6800, L501.9520, L500.2500, L100.0100 #### [facility] [address] [place], [address] Carbon dioxide measurementOr dered By: Pati Rosales on 04-02-2024 CO2 [Moles/Vol] 28.0 mmol/L 21.0-32.0 [facility] Chest PA and Lateralon 04-02 Chest PA and Lateral [facility] Imaging Services [address] [place] [address] Chest PA and Lateral MR#: [id number] Acct: [id number] Name: XOCHILT CADET Rep #: [id number] : 1995 F 28 From: Petey Bermudez MD PCP: Dr. Aretha Best MD Status: DEP ER Study: Chest PA and Lateral Date of Exam: 04/02/24 Exam# [id number] Ordering Dr: Pati Rosales [id number] STUDY: X-RAY CHEST REASON FOR EXAM: Female, [...] examination of the chest. Electronically Signed: Petey Bremudez MD at 15:16 EST , CC: Dr. Aretha Best MD; PAPO Sim American History Teacher: Signed Normal [facility] Chloride measurementOrdered By: Pati Rosales on 04-02-2024 Chloride [Moles/Vol] 106 mmol/L 98-107 [facility] Emergency Department Summary on 04-02-2024 Emergency Department Summary [facility] Medical Records Department [address] [place] [address] Emergency Department Summary 04/02/24 MR#: [id number] Acct: [id number] Name: XOCHILT CADET Rep #: [id number] : 1995 28 From: Cristobal Ron MD [...] chest pain, abdominal pain, nausea, and vomiting. [facility] Medical History Contraceptive management Deviated nasal septum [...] Source Oral (more content not included)... Normal [facility] Eosinophil percentageOrdered By: Pati Rosales on 04-02-2024 Eosinophils/100 WBC (Bld) 0.7 % 0-5 [facility] Erythrocyte distribution wid th ratioOrdered By: Pati Rosales on 04-02-2024 Erythrocyte distribution width (RBC) [Ratio] 12.2 % 11.6-14.6 [facility] Erythrocyte distribution wid th standard deviationOrdered By: Pati Rosales on 04-02-2024 Erythrocyte distribution width (RBC) [Entitic vol] 39.2 fL 35.1-43.9 [facility] Estimated glomerular filtrat ion rate (GFR) AmericanOrdered By: Pati Rosales on 04-02-2024 Estimated GFR (MDRD) Amer 89 mL/min >60 [facility] Comment on above: GFR Calc Estimation of creatinine anaya aranceOrdered By: Pati Rosales on 04-02-2024 Estimated Creatinine Clearance Calc 100.43 ml/min [facility] Glomerular filtration rate ( GFR) estimationOrdered By: Pati Rosales on 04-02-2024 Estimated GFR (MDRD) Non-Af Amer 74 mL/min >60 [facility] Comment on above: Non- GFR Calc Glucose measurementOrdered B y: Pati Rosales on 04-02-2024 Glucose [Mass/Vol] 96 mg/dL 74-106 [facility] Hematocrit Auto (Bld) [Volum e fraction]Ordered By: Pati Rosales on 04-02-2024 Hematocrit (Bld) [Volume fraction] 38.9 % 37-47 [facility] Hemoglobin measurementOrdere d By: Pati Rosales on 04-02-2024 Hemoglobin (Bld) [Mass/Vol] 13.5 g/dL 12.0-15.0 [facility] Immature granulocytes/100 WB C Auto (Bld)Ordered By: Pati Rosales on 04-02-2024 Immature granulocytes/100 WBC (Bld) 0.300 % 0.0-0.9 [facility] Comment on above: IG% - Immature Granu locytes (promyelocytes, myelocytes and metamyelocytes) > 1% indicates that a LEFT SHIFT is Present. Lymphocytes Auto (Unsp spec) [#/Vol]Ordered By: Pati Rosales on 04-02-2024 Lymphocytes (Bld) [#/Vol] 1.73 10*3/uL 0.83-4.51 [facility] Lymphocytes/100 WBC Auto (Un sp spec)Ordered By: Pati Rosales on 04-02-2024 Lymphocytes/100 WBC (Bld) 25.7 % 19-41 [facility] MCV (mean corpuscular volume ) determinationOrdered By: Pati Rosales on 04-02-2024 MCV (RBC) [Entitic vol] 87.2 fL 81-99 [facility] Mean corpuscular hemoglobin (MCH) determinationOrdered By: Pati Rosales on 04-02-2024 MCH (RBC) [Entitic mass] 30.3 pg 27.0-32.0 [facility] Mean corpuscular hemoglobin concentration (MCHC) determinationOrdered By: Pati Rosales on 04-02-2024 MCHC (RBC) [Mass/Vol] 34.7 g/dL 32-36 [facility] Mean platelet volume determi nationOrdered By: Pati Rosales on 04-02-2024 Platelet mean volume (Bld) [Entitic vol] 9.4 fL 6.2-12.0 [facility] Monocyte percentageOrdered B y: Pati Rosales on 04-02-2024 Monocytes/100 WBC (Bld) 6.7 % 0-10 [facility] Neutrophil percentageOrdered By: Pati Rosales on 04-02-2024 Neutrophils/100 WBC (Bld) 66.0 % 47-70 [facility] Nucleated red blood cell per centageOrdered By: Pati Rosales on 04-02-2024 Nucleated RBC/100 WBC (Bld) [Ratio] 0 % 0-5 [facility] Platelet countOrdered By: Maria Elena Rosales on 04-02-2024 Platelets (Bld) [#/Vol] 311 10*3/uL 150-450 [facility] Potassium measurementOrdered By: Pati Rosales on 04-02-2024 Potassium [Moles/Vol] 3.7 mmol/L 3.5-5.1 [facility] ,Serum,hCG Quali.on 04-02-2024 HCG, SERUM QUAL Negative Normal [facility] Comment on above: Performed By: #### L 700.6800, L501.9520, L500.2500, L100.0100 #### [facility] [address] [place], [address] RBC Auto (Bld) [#/Vol]Ordere d By: Pati Rosales on 04-02-2024 RBC (Bld) [#/Vol] 4.46 10*6/uL 4.2-5.4 [facility] Serum anion gap measurementO rdered By: Pati Rosales on 04-02-2024 Anion gap [Moles/Vol] 4 mmol/L Low 5-15 [facility] Serum or plasma calcium no urement (mass/volume)Ordered By: Pati Rosales on 04-02-2024 Calcium [Mass/Vol] 9.3 mg/dL 8.5-10.1 [facility] Serum or plasma creatinine m easurement (mass/volume)Ordered By: Pati Rosales on 04-02-2024 Creatinine [Mass/Vol] 0.96 mg/dL 0.55-1.02 [facility] Comment on above: The validity of the calculated GFR & GFRAA in patients over 70 years has not been determined. Clinical correlation is essential. Serum or plasma urea nitroge n measurement (mass/volume)Ordered By: Pati Rosales on 04-02-2024 Urea nitrogen [Mass/Vol] 9 mg/dL 7-18 [facility] Sodium levelOrdered By: Maik Rosales on 04-02-2024 Sodium [Moles/Vol] 138 mmol/L 136-145 [facility] TSH QnOrdered By: Pati Rosales on 04-02-2024 Thyroid Stimulating Hormone (TSH) 5.640 uIU/mL High 0.358-3.740 [facility] Thyroid Stim Hormone (TSH)on 04-02-2024 TSH 5.640 uIU/mL High 0.358-3.740 [facility] Comment on above: Performed By: #### L 700.6800, L501.9520, L500.2500, L100.0100 #### [facility] [address] [place] [address], [id number] White blood cell (WBC) count Ordered By: Pati Rosales on 04-02-2024 WBC (Bld) [#/Vol] 6.7 10*3/uL 4.4-11.0 [facility] .Auto Diffon 03-07-2024 Basophil, Absolute 0.0 10 3/mcL Normal 0.0-0.2 [facility] Comment on above: Performed By: #### G FR, VIDH, ADIFF, CBC, ANEU, TSH, CMP #### [address] [address] Basophils/100 WBC (Bld) 0.6 % Normal 0.0-2.5 [facility] Comment on above: Performed By: #### G FR, VIDH, ADIFF, CBC, ANEU, TSH, CMP #### [address] [address] Eosinophil, Absolute 0.1 10 3/mcL Normal 0.0-0.7 [facility] Comment on above: Performed By: #### G FR, VIDH, ADIFF, CBC, ANEU, TSH, CMP #### [address] [address] Eosinophils/100 WBC (Bld) 0.8 % Normal 0.0-7.0 [facility] Comment on above: Performed By: #### G FR, VIDH, ADIFF, CBC, ANEU, TSH, CMP #### [address] [address] Lymphocyte, Absolute 2.7 10 3/mcL Normal 0.9-4.3 [facility] Comment on above: Performed By: #### G FR, VIDH, ADIFF, CBC, ANEU, TSH, CMP #### [address] [address] Lymphocytes/100 WBC (Bld) 36.8 % Normal 20.0-40.0 [facility] Comment on above: Performed By: #### G FR, VIDH, ADIFF, CBC, ANEU, TSH, CMP #### [address] [address] Monocyte, Absolute 0.5 10 3/mcL Normal 0.1-1.4 [facility] Comment on above: Performed By: #### G FR, VIDH, ADIFF, CBC, ANEU, TSH, CMP #### [address] [address] Monocytes/100 WBC (Bld) 6.7 % Normal 2.0-13.0 [facility] Comment on above: Performed By: #### G FR, VIDH, ADIFF, CBC, ANEU, TSH, CMP #### [address] [address] Neutrophils/100 WBC (Bld) 55.1 % Normal 50.0-75.0 [facility] Comment on above: Performed By: #### G FR, VIDH, ADIFF, CBC, ANEU, TSH, CMP #### [address] [address] .GFRon 03-07-2024 GFR 87 ml/min/1.73sqm Normal [facility] Comment on above: Result Comment: GFR [...] VIDH, ADIFF, CBC, ANEU, TSH, CMP #### [address] [address] GFR Non- 71 ml/min/1.73sqm Normal [facility] Comment on above: Result Comment: GFR [...] VIDH, ADIFF, CBC, ANEU, TSH, CMP #### [address] [address] .NEUABSon 03-07-2024 Neutrophil, Absolute 4.1 10 3/mcL Normal 2.3-8.1 [facility] Comment on above: Performed By: #### G FR, VIDH, ADIFF, CBC, ANEU, TSH, CMP #### [place] [id number] CBCon 03-07-2024 Erythrocyte distribution width (RBC) [Ratio] 12.7 % Normal 11.5-15.5 [facility] Comment on above: Performed By: #### G FR, VIDH, ADIFF, CBC, ANEU, TSH, CMP #### [place] [address] Hematocrit (Bld) [Volume fraction] 38.5 % Normal 34.0-46.0 [facility] Comment on above: Performed By: #### G FR, VIDH, ADIFF, CBC, ANEU, TSH, CMP #### [place] [address] Hgb 13.1 G/dL Normal 12.0-16.0 [facility] Comment on above: Performed By: #### G FR, VIDH, ADIFF, CBC, ANEU, TSH, CMP #### [address] [address] MCH (RBC) [Entitic mass] 31.0 pg Normal 27.0-33.0 [facility] Comment on above: Performed By: #### G FR, VIDH, ADIFF, CBC, ANEU, TSH, CMP #### [place] [address] MCHC 34.1 G/dL Normal 32.0-36.0 [facility] Comment on above: Performed By: #### G FR, VIDH, ADIFF, CBC, ANEU, TSH, CMP #### [address] [address] MCV (RBC) [Entitic vol] 90.8 fL Normal 80.0-99.0 [facility] Comment on above: Performed By: #### G FR, VIDH, ADIFF, CBC, ANEU, TSH, CMP #### [address] [address] Platelet 326 10 3/mcL Normal 150-450 [facility] Comment on above: Performed By: #### G FR, VIDH, ADIFF, CBC, ANEU, TSH, CMP #### [address] [address] Platelet mean volume (Bld) [Entitic vol] 7.7 fL Normal 6.6-10.5 [facility] Comment on above: Performed By: #### G FR, VIDH, ADIFF, CBC, ANEU, TSH, CMP #### [address] [address] RBC 4.23 10 6/mcL Normal 4.10-5.30 [facility] Comment on above: Performed By: #### G FR, VIDH, ADIFF, CBC, ANEU, TSH, CMP #### [address] [address] WBC 7.4 10 3/mcL Normal 4.5-10.8 [facility] Comment on above: Performed By: #### G FR, VIDH, ADIFF, CBC, ANEU, TSH, CMP #### [address] [address] CMPon 03-07-2024 Albumin Level 4.2 G/dL Normal 3.5-5.0 [facility] Comment on above: Performed By: #### G FR, VIDH, ADIFF, CBC, ANEU, TSH, CMP #### [address] [address] Albumin/Globulin [Mass ratio] 1.4 {ratio} Normal 1.1-2.5 [facility] Comment on above: Performed By: #### G FR, VIDH, ADIFF, CBC, ANEU, TSH, CMP #### [address] [address] ALP [Catalytic activity/Vol] 61 U/L Normal 40-135 [facility] Comment on above: Performed By: #### G FR, VIDH, ADIFF, CBC, ANEU, TSH, CMP #### [place] [address] ALT [Catalytic activity/Vol] 18 U/L Normal 14-59 [facility] Comment on above: Performed By: #### G FR, VIDH, ADIFF, CBC, ANEU, TSH, CMP #### [place] [address] AST [Catalytic activity/Vol] 14 U/L Normal 10-40 [facility] Comment on above: Performed By: #### G FR, VIDH, ADIFF, CBC, ANEU, TSH, CMP #### [place] [address] Bili Total 0.6 mg/dL Normal 0.2-1.0 [facility] Comment on above: Result Comment: Use of this assay is not recommended for patients undergoing treatment with eltrombopag due to the potential for falsely elevated results. Performed By: #### G FR, VIDH, ADIFF, CBC, ANEU, TSH, CMP #### [place] [address] BUN/Creatinine Ratio 7 ratio Normal 7-27 [facility] Comment on above: Performed By: #### G FR, VIDH, ADIFF, CBC, ANEU, TSH, CMP #### [place] [address] Calcium [Mass/Vol] 9.3 mg/dL Normal 8.4-10.2 [facility] Comment on above: Performed By: #### G FR, VIDH, ADIFF, CBC, ANEU, TSH, CMP #### [place] [address] Chloride [Moles/Vol] 101 mmol/L Normal 98-107 [facility] Comment on above: Performed By: #### G FR, VIDH, ADIFF, CBC, ANEU, TSH, CMP #### [place] [id number] CO2 [Moles/Vol] 25 mmol/L Normal 22-29 [facility] Comment on above: Performed By: #### G FR, VIDH, ADIFF, CBC, ANEU, TSH, CMP #### [address] [address] Creatinine [Mass/Vol] 0.94 mg/dL Normal 0.55-1.02 [facility] Comment on above: Result Comment: Test ing performed on Siemens Dimension EXL analyzer using a modified kinetic Sarah technique. Performed By: #### G FR, VIDH, ADIFF, CBC, ANEU, TSH, CMP #### [place] [address] Electrolyte Balance 10.0 mEq/L Normal 4.0-15.0 [facility] Comment on above: Performed By: #### G FR, VIDH, ADIFF, CBC, ANEU, TSH, CMP #### [place] [address] Globulin 2.9 G/dL Normal [facility] Comment on above: Performed By: #### G FR, VIDH, ADIFF, CBC, ANEU, TSH, CMP #### [place] [address] Glucose [Mass/Vol] 88 mg/dL Normal 70-105 [facility] Comment on above: Performed By: #### G FR, VIDH, ADIFF, CBC, ANEU, TSH, CMP #### [place] [address] Potassium [Moles/Vol] 4.0 mmol/L Normal 3.5-5.1 [facility] Comment on above: Performed By: #### G FR, VIDH, ADIFF, CBC, ANEU, TSH, CMP #### [place] [address] Sodium [Moles/Vol] 136 mmol/L Normal 136-145 [facility] Comment on above: Performed By: #### G FR, VIDH, ADIFF, CBC, ANEU, TSH, CMP #### [place] [address] [place], [place] [address] Total Protein 7.1 G/dL Normal 6.4-8.2 [facility] Comment on above: Performed By: #### G FR, VIDH, ADIFF, CBC, ANEU, TSH, CMP #### [place] [address] [place], [place] [address] Urea nitrogen [Mass/Vol] 7 mg/dL Normal 7-18 [facility] Comment on above: Performed By: #### G FR, VIDH, ADIFF, CBC, ANEU, TSH, CMP #### [place] [address] [place], [place] [address] LABORATORYOrdered By: SYSTEM SYSTEM on 03-07-2024 25-hydroxyvitamin [...] 03-07-2024 TSH Qn 1.84 m[IU]/L Normal 0.36-3.74 [facility] Comment on above: Performed By: #### G FR, VIDH, ADIFF, CBC, ANEU, TSH, CMP #### [address] [address] VIon 03-07-2024 Vit. D 25-Hydroxy 40.7 ng/mL Normal [facility] Comment on above: Result Comment: Inte rpretive Values Based on Total 25(OH) Vitamin D: Deficient <20 ng/mL Insufficient 20 - <30 ng/mL Sufficient 30-100 ng/mL Performed By: #### G FR, VIDH, ADIFF, CBC, ANEU, TSH, CMP #### [address] [address] [address] SOFT TISSUE NECK W/ CONTR [employer] [...] 03/04/2024 6:29:16 AM Ordering Provider: ARETHA Sebastian [facility] US SOFT TISSUE MASS OF NECKo [...] Finesse Velez MD Electronically signed By Finesse eVlez MD Dictated Date: 02/03/2024 8:59:48 AM Prelim Date: 02/03/2024 9:03:41 AM Sign Date: 02/03/2024 9:03:41 AM Ordering Provider: ARETHA Sebastian [facility] FT4on 12-02-2023 Free T4 [Mass/Vol] 1.23 ng/dL Normal 0.76-1.46 [facility] ([place]) Comment on above: Performed By: #### F T4, TSH #### [address] [address] TSHon 12-02-2023 TSH Qn 3.54 m[IU]/L Normal 0.36-3.74 [facility] ([place] Comment on above: Performed By: #### F T4, TSH #### [address] [address] GLUon 10-08-2023 Glucose [Mass/Vol] 85 mg/dL Normal 70-110 [facility] ([place] Comment on above: Performed By: #### G TEN, LIPID #### [address] [address] LIPIDon 10-08-2023 Cholesterol [Mass/Vol] 192 mg/dL Normal 50-199 [facility] ([place]) Comment on above: Result Comment: Chol esterol Reference Interval: Less than 200 Desirable 200-239 Borderline high risk 240 and above High risk Performed By: #### G TEN, LIPID #### [address] [address] Cholesterol in HDL [Mass/Vol] 74 mg/dL High 40-59 [facility] ([place] Comment on above: Performed By: #### G TEN, LIPID #### [address] [address] Cholesterol in LDL [Mass/Vol] 106 mg/dL Normal 0-129 [facility] [place] Comment on above: Performed By: #### G TEN, LIPID #### [address] [address] Triglyceride [Mass/Vol] 58 mg/dL Normal 3-149 [facility] [place] Comment on above: Performed By: #### G TEN, LIPID #### [address] [address] FT4on 09-07-2023 Free T4 [Mass/Vol] 1.23 ng/dL Normal 0.76-1.46 [facility] ([place] Comment on above: Performed By: #### T MANJINDER, FT4 #### [place] [address] [address] LABORATORYOrdered By: SYSTEM SYSTEM on 09-07-2023 Free T4 [Mass/Vol] 1.23 ng/dL Normal 0.76 - 1. 46 ng/dL AO ADM SS TSH Qn 0.07 m[IU]/L Low 0.36 - 3.74 mcIU/mL AO ADM SS TSHon 09-07-2023 TSH Qn 0.07 m[IU]/L Low 0.36-3.74 [facility] ([place] Comment on above: Performed By: #### T MANJINDER, FT4 #### [address] [address] LABORATORYOrdered By: SYSTEM SYSTEM on 02-06-2023 T4 [Mass/Vol] 12.5 ug/dL Invalid Interpretation Code 4.5 - 10.9 mcg/dL AH ADM SS Comment on above: Interpretive Data: * *Note - New Reference Range in effect 19 TSH Qn 0.23 m[IU]/L Invalid Interpretation Code 0.36 - 3.74 mcIU/mL AO ADM SS T4on 02-06-2023 T4 [Mass/Vol] 12.5 ug/dL High 4.5-10.9 [facility] Comment on above: Result Comment: No te - New Reference Range in effect 19 Performed By: #### T SH #### [address] [address] #### T4 #### [address] [address] TSHon 02-06-2023 TSH Qn 0.23 m[IU]/L Low 0.36-3.74 [facility] ([place] Comment on above: Performed By: #### T SH #### [address] [address] #### T4 #### [place] [id number] HIV 1+2 Ab IA Qlon 3 HIV 1 and 2 Ab IA.rapid Nom Normal [facility] Comment on above: Order Comment: Speci men Type: BLOOD SPECIMEN Ordering Facility: [facility] Address: [address] [place] [address] Result Comment: Test not indicated. Performed By: #### 3 1201-7 #### [facility] CLIA [id number] [address] [place] [address] [place] HIV 1+2 Ab+HIV1 p24 Ag IA Ql Non-Reactive Normal Nonreactive [facility] Comment on above: Order Comment: Speci men Type: BLOOD SPECIMEN Ordering Facility: [facility] Address: [address] [place] [address] Performed By: #### 3 1201-7 #### [facility] CLIA [id number] [address] [place] [address] [place] HIVINT Normal [facility] Comment on above: Order Comment: Speci men Type: BLOOD SPECIMEN Ordering Facility: [facility] Address: [address] [place] [address] Result Comment: No e vidence of HIV-1 or HIV-2 infection. Should recent infection be suspected, repeat testing may be considered 2-3 weeks after this draw. [place] Rev. Code 3701.243(E): This information has been [...] diagnoses. Performed By: #### 3 1201-7 #### [facility] CLIA [id number] [address] [place] [address] [place] HBV surface Ab Ql (S)on HBV surface Ab Qn (S) 191.08 mIU/mL Normal >=12.00 [facility] Comment on above: Order Comment: Speci men Type: BLOOD SPECIMEN Ordering Facility: [facility] Address: [address] [place] [address] Performed By: #### 5 195-3, 98760-6, 53610-3 #### [facility] CLIA [id number] [address] [place] [address] [place] HBV surface Ab Ser Qlon HBV surface Ab Ql (S) Positive Normal Positive [facility] Comment on above: Order Comment: Speci men Type: BLOOD SPECIMEN Ordering Facility: [facility] Address: [address] [place] [address] Result Comment: Thes e results are consistent with previous exposure and/or immunity to the hepatitis B virus antigen. Performed By: #### 5 195-3, 81668-9, 83479-5 #### [facility] CLIA [id number] [address] [place] [address] OF [facility] HBV surface Ag Ser Qlon HBV surface Ag Ql (S) Negative Normal Negative [facility] Comment on above: Order Comment: Speci men Type: BLOOD SPECIMEN Ordering Facility: [facility] Address: [address] [place] [address] Performed By: #### 5 195-3, 03031-3, 63718-8 #### [facility] CLIA [id number] [address] [place] [address] [place] HCV Ab Ser Qlon 07-28-2022 HCV Ab Ql (S) Negative Normal Negative [facility] Comment on above: Order Comment: Speci men Type: BLOOD SPECIMEN Ordering Facility: [facility] Address: [address] [place] [address] Result Comment: The result suggests no evidence of active infection with Hepatitis C virus. Should recent infection be suspected, repeat testing may be considered 4-6 weeks after this draw. Performed By: #### 5 195-3, 93509-6, 27360-8 #### [facility] CLIA [id number] [address] [place] [address] [place] HBV surface Ab IA Ql (S)on 0 10-16-2021 HBV surface Ag Ql (S) Negative Normal Negative [facility] Comment on above: Order Comment: Speci men Type: BLOOD SPECIMEN Ordering Facility: [facility] Address: [address] [place] [address] Performed By: #### 1 6935-9, 01692-6, 21491-0 #### [facility] CLIA [id number] [address] [place] [address] [place] HBV surface Ab Ser-aCncon HBV surface Ab Qn (S) 166.68 mIU/mL Normal >=12.00 [facility] Comment on above: Order Comment: Speci [facility] Type: BLOOD SPECIMEN Ordering Facility: [facility] Address: [address] [place] [address] Result Comment: Thes e results are consistent with previous exposure and/or immunity to the hepatitis B virus antigen. Performed By: #### 1 6935-9, 72430-0, 55131-3 #### [facility] CLIA [id number] [address] [place] [address] [place] HCV Ab Ser Qlon 10-16-2021 HCV Ab Ql (S) Negative Normal Negative [facility] Comment on above: Order Comment: Speci men Type: BLOOD SPECIMEN Ordering Facility: [facility] Address: [address] [place] [address], [place] [address] Result Comment: The result suggests no evidence of active infection with Hepatitis C virus. Should recent infection be suspected, repeat testing may be considered 4-6 weeks after this draw. Performed By: #### 1 6935-9, 62109-0, 64543-4 #### [facility] CLIA [id number] [address] [place] [address] [place] CBC (INCLUDES DIFF/PLT)on Basophils (Bld) [#/Vol] 0.031 10*3/uL Normal 0-200 [facility] Comment on above: Performed By: #### 6 399, [address] #### [facility] [address], [address] [place] [address] [place]: Sreekanth Kunz MD Basophils/100 WBC (Bld) 0.4 % Normal [facility] Comment on above: Performed By: #### 6 399, [address] #### [facility] [place] [address] [place]: Sreekanth Kunz MD Eosinophils (Bld) [#/Vol] 0.133 10*3/uL Normal 15-500 [facility] Comment on above: Performed By: #### 6 399, 23308 #### [facility] [place] [address] [place]: Sreeaknth Kunz MD Eosinophils/100 WBC (Bld) 1.7 % Normal [facility] Comment on above: Performed By: #### 6 399, 93177 #### [facility] [place] [address] [place]: Sreekanth Kunz MD Erythrocyte distribution width (RBC) [Ratio] 11.8 % Normal 11.0-15.0 [facility] Comment on above: Performed By: #### 6 399, 18751 #### [facility] of [address], [address] [place] [address] [place]: Sreekanth Kunz MD Hematocrit (Bld) [Volume fraction] 38.5 % Normal 35.0-45.0 [facility] Comment on above: Performed By: #### 6 399, 94954 #### [facility] of [address], [address] [place] [address] [place]: Sreekanth Kunz MD Hemoglobin (Bld) [Mass/Vol] 12.9 g/dL Normal 11.7-15.5 [facility] Comment on above: Performed By: #### 6 399, 75702 #### [facility] of [place] [address] [place]: Sreekanth Kunz MD Lymphocytes (Bld) [#/Vol] 2.457 10*3/uL Normal 850-3900 [facility] Comment on above: Performed By: #### 6 399, 83048 #### [facility] of [address], [address] [place] [address] [place]: Sreekanth Kunz MD Lymphocytes/100 WBC (Bld) 31.5 % Normal [facility] Comment on above: Performed By: #### 6 399, 90102 #### [facility] of [place] [address] [place]: Sreekanth Kunz MD MCH (RBC) [Entitic mass] 30.2 pg Normal 27.0-33.0 [facility] Comment on above: Performed By: #### 6 399, 60737 #### [facility] of [place] [address] [place]: Sreekanth Kunz MD MCHC (RBC) [Mass/Vol] 33.5 g/dL Normal 32.0-36.[address] [facility] Comment on above: Performed By: #### 6 399, 77770 #### [facility] of [place] [address] [place]: Sreekanth Kunz MD MCV (RBC) [Entitic vol] 90.2 fL Normal 80.0-100.0 [facility] Comment on above: Performed By: #### 6 399, 82164 #### [facility] of [place] [address] [place]: Sreekanth Kunz MD Monocytes (Bld) [#/Vol] 0.476 10*3/uL Normal 200-950 [facility] Comment on above: Performed By: #### 6 399, 61290 #### [facility] of [place] [address] [place]: Sreekanth Kunz MD Monocytes/100 WBC (Bld) 6.1 % Normal [facility] Comment on above: Performed By: #### 6 399, 78820 #### [facility] [place] [address] [place]: Sreekanth Kunz MD Neutrophils (Bld) [#/Vol] 4.703 10*3/uL Normal 8436-8501 [facility] Comment on above: Performed By: #### 6 399, 48106 #### [facility] of [place] [address] [place]: Sreekanth Kunz MD Neutrophils/100 WBC (Bld) 60.3 % Normal [facility] Comment on above: Performed By: #### 6 399, 89363 #### [facility] of [place] [address] [place]: Sreekanth Kunz MD Platelet mean volume (Bld) [Entitic vol] 9.9 fL Normal 7.5-12.5 [facility] Comment on above: Performed By: #### 6 399, 92521 #### [facility] of [place] [address] [place]: Sreekanth Kunz MD Platelets (Bld) [#/Vol] 359 10*3/uL Normal 140-400 [facility] Comment on above: Performed By: #### 6 399, 10950 #### [facility] of [address] [place] [address] [place]: Sreekanth Kunz MD RBC (Bld) [#/Vol] 4.27 10*6/uL Normal 3.80-5.10 [facility] Comment on above: Performed By: #### 6 399, 09103 #### [facility] of [address], [address] [place] [address] [place]: Sreekanth Kunz MD WBC (Bld) [#/Vol] 7.8 10*3/uL Normal 3.8-10.8 [facility] Comment on above: Performed By: #### 6 399, 15995 #### [facility] of [address], [address] [place] [address] [place]: Sreekanth Kunz MD [facility] METABOL[facility] 09-24-2021 Albumin [Mass/Vol] 4.1 g/dL Normal 3.6-5.1 [facility] Comment on above: Performed By: #### 6 399, 43011 #### [facility] of [address], [address] [place] [address] [place]: Sreekanth Kunz MD Albumin/Globulin [Mass ratio] 1.7 {ratio} Normal 1.0-2.5 [facility] Comment on above: Performed By: #### 6 399, 78970 #### [facility] of [address], [address] [place] [address] [place]: Sreekanth Kunz MD ALP [Catalytic activity/Vol] 56 U/L Normal 31-125 [facility] Comment on above: Performed By: #### 6 399, 79475 #### [facility] of [address], [address] [place] [address] [place]: Sreekanth Kunz MD ALT [Catalytic activity/Vol] 12 U/L Normal 6-29 [facility] Comment on above: Performed By: #### 6 399, 95936 #### [facility] of [address], [address] [place] [address] [place]: Sreekanth Kunz MD AST [Catalytic activity/Vol] 17 U/L Normal 10-30 [facility] Comment on above: Performed By: #### 6 399, 38196 #### [facility] of [address], [address] [place] [address] [place]: Sreekanth Kunz MD Bilirubin [Mass/Vol] 0.6 mg/dL Normal 0.2-1.2 [facility] Comment on above: Performed By: #### 6 399, 39036 #### [facility] of [address], [address] [place] [address] [place]: Sreekanth Kunz MD BUN/CREATININE RATIO NOT APPLICABLE Normal 6-22 [facility] Comment on above: Performed By: #### 6 399, 02826 #### [facility] of [address], [address] [place] [address] [place]: Sreekanth Kunz MD Calcium [Mass/Vol] 9.2 mg/dL Normal 8.6-10.2 [facility] Comment on above: Performed By: #### 6 399, 02178 #### [facility] of [address], [address] [place] [address] [place]: Sreekanth Kunz MD Chloride [Moles/Vol] 104 mmol/L Normal 98-110 [facility] Comment on above: Performed By: #### 6 399, 36867 #### [facility] of [address], [address] [place] [address] [place]: Sreekanth Kunz MD CO2 [Moles/Vol] 29 mmol/L Normal 20-32 [facility] Comment on above: Performed By: #### 6 399, 15650 #### [facility] of [address], [address] [place] [address] [place]: Serekanth Kunz MD Creatinine [Mass/Vol] 0.93 mg/dL Normal 0.50-1.[address] [facility] Comment on above: Performed By: #### 6 399, 78612 #### [facility] of [address], [address] [place] [address] [place]: Sreekanth Kunz MD eGFR NON-AFR. ERITREAN 85 mL/min/1.73m2 Normal > OR = 60 [facility] Comment on above: Performed By: #### 6 399, 96473 #### [facility] of [place] [address] [place]: Sreekanth Kunz MD GFR/1.73 sq M.predicted among blacks MDRD (S/P/Bld) [Vol rate/Area] 99 mL/min/{1.73_m2} Normal > OR = 60 [facility] Comment on above: Performed By: #### 6 399, 22883 #### [facility] [place] [address] [place]: Sreekanth Kunz MD Globulin (S) [Mass/Vol] 2.4 g/dL Normal 1.9-3.7 [facility] Comment on above: Performed By: #### 6 399, 01227 #### [facility] of [place] [address] [place]: Sreekanth Kunz MD Glucose [Mass/Vol] 87 mg/dL Normal 65-99 [facility] Comment on above: Result Comment: Fasting reference interval Performed By: #### 6 399, 42407 #### [facility] [place] [address] [place]: Sreekanth Kunz MD Potassium [Moles/Vol] 4.5 mmol/L Normal 3.5-5.[address] [facility] Comment on above: Performed By: #### 6 399, 49451 #### [facility] of [place] [address] [place]: Sreekanth Kunz MD Protein [Mass/Vol] 6.5 g/dL Normal 6.1-8.1 [facility] Comment on above: Performed By: #### 6 399, 39187 #### [facility] of [place] [address] [place]: Sreekanth Kunz MD Sodium [Moles/Vol] 138 mmol/L Normal 135-146 [facility] Comment on above: Performed By: #### 6 399, 95843 #### [facility] [address] [place] [address], [address] [place]: Sreekanth Kunz MD Urea nitrogen [Mass/Vol] 8 mg/dL Normal 7-25 [facility] Comment on above: Performed By: #### 6 399, 44771 #### [facility] [address], [address] [place]: Sreekanth Kunz MD T3Free SerPl-mCncon 09-25-19 22 Free T3 [Mass/Vol] 5.2 pg/mL High 2.3-4.1 [facility] Comment on above: Order Comment: Speci men Type: BLOOD SPECIMEN Ordering Facility: [facility] Address: [address] [place] [address] Performed By: #### 3 051-0 #### [facility] CLIA [id number] [address] [place] [address] [place] Laboratory - Chemistry and C hemistry - challengeon 09-23-2021 Albumin [Mass/Vol] 4.1 g/dL Normal 3.6 - 5.1 g/dL [employer] Albumin/Globulin [Mass ratio] 1.7 {ratio} Normal 1.0 - 2.5 [employer] ALP [Catalytic activity/Vol] 56 U/L Normal 31 - 125 U/L [employer] ALT [Catalytic activity/Vol] 12 U/L Normal 6 - 29 U/L [employer] AST [Catalytic activity/Vol] 17 U/L Normal 10 - 30 U/L [employer] Bilirubin [Mass/Vol] 0.6 mg/dL Normal 0.2 - 1 .2 mg/dL [employer] Calcium [Mass/Vol] 9.2 mg/dL Normal 8.6 - 10. 2 mg/dL [facility], [facility].; [facility]. Chloride [Moles/Vol] 104 mmol/L Normal 98 - 11 0 mmol/L [facility], [facility]. CO2 [Moles/Vol] 29 mmol/L Normal 20 - 32 mmol/L [facility], [facility].; [facility], [facility] Creatinine [Mass/Vol] 0.93 mg/dL Normal 0.50 - 1.10 mg/dL [facility].; [facility]. GFR/1.73 sq M.predicted among blacks MDRD (S/P/Bld) [Vol rate/Area] 99 mL/min/{1.73_m2} Normal [facility].; [facility]. Glucose [Mass/Vol] 87 mg/dL Normal 65 - 99 mg/dL [facility].; [facility]. Potassium [Moles/Vol] 4.5 mmol/L Normal 3.5 - 5.3 mmol/L [facility] [employer] [employer] [facility].; [facility]. Protein [Mass/Vol] 6.5 g/dL Normal 6.1 - 8.1 g/dL [facility], [facility].; [facility], [facility]. Sodium [Moles/Vol] 138 mmol/L Normal 135 - 146 mmol/L [facility].; [facility], [facility]. Urea nitrogen [Mass/Vol] 8 mg/dL Normal 7 - 25 mg/dL [facility] [employer] [facility].; [facility], [facility]. Laboratory - Hematology and Cell countson 09-23-2021 Basophils (Bld) [#/Vol] 0.031 10*3/uL Normal 0 - 200 {cells/uL} [facility].; [facility]. Basophils/100 WBC (Bld) 0.4 % Normal [facility].; [facility]. Eosinophils (Bld) [#/Vol] 0.133 10*3/uL Normal 15 - 500 {cells/uL} [facility].; [facility] [employer] Eosinophils/100 WBC (Bld) 1.7 % Normal [facility], [facility] Erythrocyte distribution width (RBC) [Ratio] 11.8 % Normal 11.0 - 15.0 % [facility], [facility] Hematocrit (Bld) [Volume fraction] 38.5 % Normal 35.0 - 45.0 % [facility].; [facility] Hemoglobin (Bld) [Mass/Vol] 12.9 g/dL Normal 11.7 - 15.5 g/dL [facility], [facility] Lymphocytes (Bld) [#/Vol] 2.457 10*3/uL Normal 850 - 3900 {cells/uL} [facility].; [facility] Lymphocytes/100 WBC (Bld) 31.5 % Normal [facility].; [facility]. MCH (RBC) [Entitic mass] 30.2 pg Normal 27.0 - 33.0 pg [facility].; [facility]. MCHC (RBC) [Mass/Vol] 33.5 g/dL Normal 32.0 - 36.0 g/dL [facility].; [facility]. MCV (RBC) [Entitic vol] 90.2 fL Normal 80.0 - 100.0 fL [facility].; [facility]. Monocytes (Bld) [#/Vol] 0.476 10*3/uL Normal 200 - 950 {cells/uL} [facility].; [facility]. Monocytes/100 WBC (Bld) 6.1 % Normal [facility].; [facility]. Neutrophils (Bld) [#/Vol] 4.703 10*3/uL Normal 1500 - 7800 {cells/uL} [facility].; [facility]. Neutrophils/100 WBC (Bld) 60.3 % Normal [facility].; [facility]. Platelet mean volume (Bld) [Entitic vol] 9.9 fL Normal 7.5 - 12.5 fL [facility].; [facility] Platelets (Bld) [#/Vol] 359 10*3/uL Normal 140 - 400 [facility]; [facility] RBC (Bld) [#/Vol] 4.27 10*6/uL Normal 3.80 - 5.1 0 {Million/uL} [facility]; [facility], [facility] WBC (Bld) [#/Vol] 7.8 10*3/uL Normal 3.8 - 10.8 [facility]; [facility] No Panel Informationon 09-23 BUN/CREATININE RATIO NOT APPLICABLE Normal 6 - 22 [facility]; [facility] eGFR NON-AFR. ERITREAN 85 Normal [facility]; [facility] GLOBULIN 2.4 Normal 1.9 - 3.7 [facility]; [facility], [facility] Laboratory - Chemistry and C hemistry - challengeon 08-14-2021 Free T3 [Mass/Vol] 3.5 pg/mL Normal 2.3 - 4.1 pg/mL [facility]; [facility], [facility] Free T4 [Mass/Vol] 0.74 ng/dL Abnormal 0.76 - 1. 46 ng/dL [facility]; [facility]. TSH Qn 3.02 m[IU]/L Normal 0.35 - 3.74 {uIU/ml} [facility]; [facility] Laboratory - Chemistry and C hemistry - challengeon 07-02-2021 Free T3 [Mass/Vol] 2.8 pg/mL Normal 2.3 - 4.1 pg/mL [facility]; [facility] Free T4 [Mass/Vol] 0.71 ng/dL Abnormal 0.76 - 1. 46 ng/dL [facility], [facility] TSH Qn 10.95 m[IU]/L Abnormal 0.35 - 3.74 {uIU/ml} [facility]; [facility], [facility] COMPREHENSIVE METABOLIC PANE [facility] 12-19-2021 Albumin [Mass/Vol] 4.5 g/dL Normal 3.6-5.1 [facility] Comment on above: Performed By: #### 1 7306, 899, 866, 96298, 83301, 927 #### [facility] of [place] [address] [place]: Sreekanth Kunz MD Albumin/Globulin [Mass ratio] 1.8 {ratio} Normal 1.0-2.5 [facility] Comment on above: Performed By: #### 1 7306, 899, 866, 64522, 04431, 927 #### [facility] [place] [address] [place]: Sreekanth Kunz MD ALP [Catalytic activity/Vol] 53 U/L Normal 31-125 [facility] Comment on above: Performed By: #### 1 7306, 899, 866, 87106, 49508, 927 #### [facility] of [place] [address] [place]: Sreekanth Kunz MD ALT [Catalytic activity/Vol] 12 U/L Normal 6-29 [facility] Comment on above: Performed By: #### 1 7306, 899, 866, 01178, 80613, 927 #### [facility] [place] [address] [place]: Sreekanth Kunz MD AST [Catalytic activity/Vol] 19 U/L Normal 10-30 [facility] Comment on above: Performed By: #### 1 7306, 899, 866, 84453, 00389, 927 #### [facility] of [place] [address] [place]: Sreekanth Kunz MD Bilirubin [Mass/Vol] 1.1 mg/dL Normal 0.2-1.2 [facility] Comment on above: Performed By: #### 1 7306, 899, 866, 69547, 22145, 927 #### [place] [address] [place]: Sreekanth Kunz MD BUN/CREATININE RATIO NOT APPLICABLE Normal 6-22 [facility] Comment on above: Performed By: #### 1 7306, 899, 866, 92037, 88056, 927 #### [facility] [place] [address] [place]: Sreekanth Kunz MD Calcium [Mass/Vol] 9.4 mg/dL Normal 8.6-10.2 [facility] Comment on above: Performed By: #### 1 7306, 899, 866, 68586, 77074, 927 #### [facility] [place] [address] [place]: Sreekanth Kunz MD Chloride [Moles/Vol] 104 mmol/L Normal 98-110 [facility] Comment on above: Performed By: #### 1 7306, 899, 866, 51451, 25428, 927 #### [facility] [place] [address] [place]: Sreekanth Kunz MD CO2 [Moles/Vol] 26 mmol/L Normal 20-32 [facility] Comment on above: Performed By: #### 1 7306, 899, 866, 84888, 76239, 927 #### [facility] [place] [address] [place]: Sreekanth Kunz MD Creatinine [Mass/Vol] 1.02 mg/dL Normal 0.50-1.10 [facility] Comment on above: Performed By: #### 1 7306, 899, 866, 32049, 60052, 927 #### [facility] [place] [address] [place]: Sreekanth Kunz MD eGFR NON-AFR. ERITREAN 77 mL/min/1.73m2 Normal > OR = 60 [facility] Comment on above: Performed By: #### 1 7306, 899, 866, 28712, 23534, 927 #### [facility] [address], [address] [place] [address] [place]: Sreekanth Kunz MD GFR/1.73 sq M.predicted among blacks MDRD (S/P/Bld) [Vol rate/Area] 89 mL/min/{1.73_m2} Normal > OR = 60 [facility] Comment on above: Performed By: #### 1 7306, 899, 866, 16965, 66315, 927 #### [facility] [address], [address] [place] [address] [place]: Sreekanth Kunz MD Globulin (S) [Mass/Vol] 2.5 g/dL Normal 1.9-3.7 [facility] Comment on above: Performed By: #### 1 7306, 899, 866, 62432, 65255, 927 #### [facility] [place] [address] [place]: Sreekanth Kunz MD Glucose [Mass/Vol] 91 mg/dL Normal 65-99 [facility] Comment on above: Result Comment: Fasting reference interval Performed By: #### 1 7306, 899, 866, 30009, 57594, 927 #### [facility] [place] [address] [place]: Sreekanth Kunz MD Potassium [Moles/Vol] 4.0 mmol/L Normal 3.5-5.3 [facility] Comment on above: Performed By: #### 1 7306, 899, 866, 25037, 52586, 927 #### [facility] [place] [address] [place]: Sreekanth Kunz MD Protein [Mass/Vol] 7.0 g/dL Normal 6.1-8.1 [facility] Comment on above: Performed By: #### 1 7306, 899, 866, 09702, 92234, 927 #### [facility] [place] [address] [place]: Sreekanth Kunz MD Sodium [Moles/Vol] 137 mmol/L Normal 135-146 [facility] Comment on above: Performed By: #### 1 7306, 899, 866, 64395, 62831, 927 #### [facility] [place] [address] [place]: Sreekanth Kunz MD Urea nitrogen [Mass/Vol] 11 mg/dL Normal 7-25 [facility] Comment on above: Performed By: #### 1 7306, 899, 866, 76258, 45371, 927 #### [facility] [place] [address] [place]: Sreekanth Kunz MD T3, FREE 03-17-2021 Free T3 [Mass/Vol] 2.7 pg/mL Normal 2.3-4.2 [facility] Comment on above: Performed By: #### 1 7306, 899, 866, 18461, 49945, 927 #### [facility] [place] [address] [place]: Sreekanth Kunz MD T4, FREEon 03-17-2021 Free T4 [Mass/Vol] 0.9 ng/dL Normal 0.8-1.8 [facility] Comment on above: Performed By: #### 1 7306, 899, 866, 94469, 74832, 927 #### [facility] [place] [address] [place]: Sreekanth Kunz MD TSHon 03-17-2021 TSH Qn 11.31 m[IU]/L High [facility] Comment on above: Result Comment: Refe rence Range > or = 20 Years 0.40-4.50 Ranges First trimester 0.26-2.66 Second trimester 0.55-2.73 Third trimester 0.43-2.91 Performed By: #### 1 7306, 899, 866, 20494, 26228, 927 #### [facility] [place] [address] [place]: Sreekanth Kunz MD VITAMIN B12on 03-17-2021 Cobalamin (Vitamin B12) [Mass/Vol] 577 pg/mL Normal 200-1100 [employer] [facility] Comment on above: Performed By: #### 1 7306, 899, 866, 12785, 77891, 927 #### [facility] [address], [address] [place] [address] [place] [employer]: Sreekanth Kunz MD VITAMIN D,25-OH,TOTAL,IAon 1 05-18-2020 [...] D, (D2,D3), LC/MS/MS is recommended: order code [id number] (patients >2yrs). See Note 1 Note 1 For additional information, please refer to http://education.[employer].Yolto/faq/GWA359 (This link is being provided for informational/ educational purposes only.) Performed By: #### 1 7306, 899, 866, 34994, 15554, 927 #### [facility] [address], [address] [place], [place] [address] [place]: Sreekanth Kunz MD Laboratory - Chemistry and C hemistry - challengeon 03-15-2021 Albumin [Mass/Vol] 4.5 g/dL Normal 3.6 - 5.1 g/dL [facility] Albumin/Globulin [Mass ratio] 1.8 {ratio} Normal 1.0 - 2.5 [facility], [facility].; [facility] ALP [Catalytic activity/Vol] 53 U/L Normal 31 - 125 U/L [facility].; [facility] ALT [Catalytic activity/Vol] 12 U/L Normal 6 - 29 U/L [facility]. AST [Catalytic activity/Vol] 19 U/L Normal 10 - 30 U/L [facility]. Bilirubin [Mass/Vol] 1.1 mg/dL Normal 0.2 - 1 .2 mg/dL [facility], [facility] Calcium [Mass/Vol] 9.4 mg/dL Normal 8.6 - 10. 2 mg/dL [facility]. Chloride [Moles/Vol] 104 mmol/L Normal 98 - 11 0 mmol/L [facility]. CO2 [Moles/Vol] 26 mmol/L Normal 20 - 32 mmol/L [facility], [facility] Cobalamin (Vitamin B12) [Mass/Vol] 577 pg/mL Normal 200 - 1100 pg/mL [facility]. Creatinine [Mass/Vol] 1.02 mg/dL Normal 0.50 - 1.10 mg/dL [facility], [facility]. Free T3 [Mass/Vol] 2.7 pg/mL Normal 2.3 - 4.2 pg/mL [facility], [facility]. Free T4 [Mass/Vol] 0.9 ng/dL Normal 0.8 - 1.8 ng/dL [facility], [facility].; [facility], [facility]. GFR/1.73 sq M.predicted among blacks MDRD (S/P/Bld) [Vol rate/Area] 89 mL/min/{1.73_m2} Normal [facility], [facility].; [facility], [facility]. Glucose [Mass/Vol] 91 mg/dL Normal 65 - 99 mg/dL [facility], [facility]. Potassium [Moles/Vol] 4.0 mmol/L Normal 3.5 - 5.3 mmol/L [facility], [facility].; [facility], [facility] Protein [Mass/Vol] 7.0 g/dL Normal 6.1 - 8.1 g/dL [facility] [employer] [facility].; [facility], [facility] Sodium [Moles/Vol] 137 mmol/L Normal 135 - 146 mmol/L [facility]; [facility], [facility]. TSH Qn 11.31 m[IU]/L Abnormal [facility]; [facility], [facility] Urea nitrogen [Mass/Vol] 11 mg/dL Normal 7 - 25 mg/dL [facility]; [facility] No Panel Informationon 03-15 BUN/CREATININE RATIO NOT APPLICABLE Normal 6 - 22 [facility]; [facility], [facility]. eGFR NON-AFR. ERITREAN 77 Normal [facility]; [facility], [facility]. GLOBULIN 2.5 Normal 1.9 - 3.7 [facility]; [facility], [facility] VITAMIN D,25-OH,TOTAL,IA 27 ng/mL Abnormal 30 - 100 ng/mL [facility]; [facility], [facility]. GC/Chlamydia Amp, Uron 05-09 Chlamydia Amplif, Ur Normal [facility] Comment on above: Result Comment: Nega tive for For screening asymptomatic women, a vaginal swab specimen (APTIMA vaginal swab 364096) is optimal. Urine specimens have reduced sensitivity for Chlamydia trachomatis or Neisseria gonorrhoeae infection in female patients without symptoms. This test was developed and its performance characteristics determined by [facility] [place] ([facility]). It has not been cleared or approved by the FDA. RT [facility] is regulated under CLIA as qualified to perform high complexity testing. This test is used for clinical purposes. It should not be regarded as investigational or for research. Chlamydia For screening asymptomatic women, a vaginal swab specimen (APTIMA vaginal swab 272318) is optimal. Urine specimens have reduced sensitivity for Chlamydia trachomatis or Neisseria gonorrhoeae infection in female patients without symptoms. This test was developed and its performance characteristics determined by [facility] [place] ( [facility]). It has not been cleared or approved by the FDA. [facility] is regulated under CLIA as qualified to perform high complexity testing. This test is used for clinical purposes. It should not be regarded as investigational or for research. trachomatis by For screening asymptomatic women, a vaginal swab specimen (APTIMA vaginal swab 133469) is optimal. Urine specimens have reduced sensitivity for Chlamydia trachomatis or Neisseria gonorrhoeae infection in female patients without symptoms. This test was developed and its performance characteristics determined by [facility] [place] ([facility]). It has not been cleared or approved by the FDA. [facility] is regulated under CLIA as qualified to perform high complexity testing. This test is used for clinical purposes. It should not be regarded as investigational or for research. amplification. For screening asymptomatic women, a vaginal swab specimen (APTIMA vaginal swab 925574) is optimal. Urine specimens have reduced sensitivity for Chlamydia trachomatis or Neisseria gonorrhoeae infection in female patients without symptoms. This test was developed and its performance characteristics determined by [facility] and [facility] [place] ([facility]). It has not been cleared or approved by the FDA. [facility] is regulated under CLIA as qualified to perform high complexity testing. This test is used for clinical purposes. It should not be regarded as investigational or for research. Performed By: #### U GCCT #### [facility] Routine Lab [address] [address] GC Amplification, Ur NGNEG Normal [facility] Comment on above: Performed By: #### U GCCT #### [facility] Routine Lab [address] [address] Laboratory - Chemistry and C hemistry - challengeon 05-07-2020 Bilirubin Ql (U) Negative Normal [employer] [facility] [employer]. Ketones Ql (U) Negative Normal [employer] [facility] [employer] [employer] [facility].; [employer] pH (U) 6.0 [pH] Normal [employer], [facility].; [employer] Specific gravity (U) [Rel density] 1.020 Normal [employer] [facility], [facility].; [employer] Urobilinogen Qn (U) 0.2 mg/dL Normal [facility], [employer].; [facility]. Laboratory - Hematology and Cell countson 05-07-2020 Hemoglobin Ql (U) trace, intact Normal [facility].; [place] [facility]. Laboratory - Specimen inform ationon 05-07-2020 Appearance (U) clear Normal [facility].; [facility]. Color (U) yellow Normal [facility].; [facility]. Laboratory - Urinalysison Glucose Test strip (U) [Mass/Vol] Negative Normal [facility] [employer] [employer] [facility].; [facility]. Leukocyte esterase Test strip Ql (U) Negative Normal [facility] [employer] [employer] [facility].; [facility]. Nitrite Ql (U) Negative Normal [facility] [employer] [employer] [facility].; [facility]. Protein Ql (U) Negative Normal [facility] [employer] [facility].; [facility]. No Panel Informationon 05-07 Chlamydia Amplif, Ur Negative Normal [facility] [employer] [employer] [facility].; [facility]. GC Amplification, Ur Negative Normal [facility] [employer] [facility].; [facility]. Laboratory - Chemistry and C hemistry - challengeon 04-26-2020 Bilirubin Ql (U) Negative Normal [facility] [employer] [employer] [facility].; [facility]. Ketones Ql (U) Negative Normal [facility] [employer] [employer] [facility].; [facility]. pH (U) 6.0 [pH] Normal [facility] [employer] [facility].; [facility]. Specific gravity (U) [Rel density] 1.015 Normal [place] [employer] [facility].; [facility] [employer]. Urobilinogen Qn (U) 0.2 mg/dL Normal [facility] [employer] [facility].;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 Direct result comparisons should only be made within the same method. . Patients receiving more than 5 mg/day of biotin may have interference in test results. A sample should be taken no sooner than eight hours after previous dose. Contact [phone] for additional information. Performed By: #### T 4FRE #### [facility] [address] [place] [address] TRIIODOTHYRONINEon 9 TRIIODOTHYRONINE 97 ng/dL Normal 60 - 200 [facility] Comment on above: Performed By: #### T 3 #### [facility] [address] [place] [address] TSHon 11-23-2018 TSH Qn 1.52 m[IU]/L Normal 0.44 - 3.98 [facility] Comment on above: Result Comment: TSH testing is performed using different testing methodology at [facility] than at other [facility] [place] [facility]. Direct result comparisons should only be made within the same method. . Patients receiving more than 5 mg/day of biotin may have interference in test results. A sample should be taken no sooner than eight hours after previous dose. Contact [phone] for additional information. Performed By: #### T SH2 #### [facility] [address] [place] [address] Vital Signs Date Time Vital Sign Value Performing Clinician Facility 01-27-2025 16:08-0400 Body height 172.72 cm Aretha Best MD Work Phone: [facility] 01-27-2025 16:05-0400 Body mass index (BMI) [Ratio] 29.5 kg/m2 Aretha Best MD Work Phone: [facility] 01-27-2025 16:05-0400 Body weight 88.05 kg Aretha Best MD Work Phone: [facility] 01-27-2025 16:05-0400 Diastolic blood pressure 78 mm[Hg] Aretha Best MD Work Phone: [facility] 01-27-2025 16:05-0400 Systolic blood pressure 124 mm[Hg] Aretha Best MD Work Phone: [facility] 01-17-2025 11:03-0400 Body mass index (BMI) [Ratio] 28.8 kg/m2 Aretha Best MD Work Phone: 5(736)690-474869 [place] [address] 01-17-2025 11:03-0400 Body weight 85.87 kg Aretha Best MD Work Phone: [facility] 01-17-2025 11:03-0400 Diastolic blood pressure 85 mm[Hg] Aretha Best MD Work Phone: [facility] 01-17-2025 11:03-0400 Systolic blood pressure 128 mm[Hg] Aretha Best MD Work Phone: 7(937)247-650869 [place] [address] 12-30-2024 13:29-0400 Body height 172.72 cm Aretha Best MD Work Phone: [facility] 12-30-2024 13:25-0400 Body mass index (BMI) [Ratio] 29 kg/m2 Aretha Best MD Work Phone: [facility] 12-30-2024 13:25-0400 Body weight 86.43 kg Aretha Best MD Work Phone: [facility] 12-30-2024 13:25-0400 Diastolic blood pressure 70 mm[Hg] Aretha Best MD Work Phone: 6(725)467-401769 [place] [address] 12-30-2024 13:25-0400 Systolic blood pressure 104 mm[Hg] Aretha Best MD Work Phone: [facility] 12-27-2024 10:16-0400 Body height 172.72 cm Aretha Best MD Work Phone: [facility] 12-27-2024 10:16-0400 Body mass index (BMI) [Ratio] 28.3 kg/m2 Aretha Best MD Work Phone: 5(452)181-752969 [place] [address] 12-27-2024 10:16-0400 Body weight 84.53 kg Aretha Best MD Work Phone: 8(643)103-823769 [place] [address] 12-27-2024 10:16-0400 Diastolic blood pressure 64 mm[Hg] Aretha Best MD Work Phone: 8(201)975-519929 [address] 12-27-2024 10:16-0400 Systolic blood pressure 100 mm[Hg] Aretha Best MD Work Phone: 9(158)459-147369 [place] [address] 12-19-2024 14:51-0400 Body mass index (BMI) [Ratio] 28.6 kg/m2 Aretha Best MD Work Phone: 3(034)257-213669 [place] [address] 12-19-2024 14:51-0400 Body weight 85.44 kg Aretha Best MD Work Phone: 9(386)553-101069 [place] [address] 12-19-2024 14:51-0400 Diastolic blood pressure 70 mm[Hg] Aretha Best MD Work Phone: 2(726)628-759569 [place] [address] 12-19-2024 14:51-0400 Systolic blood pressure 103 mm[Hg] Aretha Best MD Work Phone: 4(375)086-570469 [place] [address] 09-12-2024 13:02-0400 Body height 172.72 cm Aretha Best MD Work Phone: [facility] 09-12-2024 13:02-0400 Body mass index (BMI) [Ratio] 27.5 kg/m2 Aretha Best MD Work Phone: [facility] 09-12-2024 13:02-0400 Body weight 82.1 kg Aretha Best MD Work Phone: [facility] 09-12-2024 13:02-0400 Diastolic blood pressure 72 mm[Hg] Aretha Best MD Work Phone: [facility] 09-12-2024 13:02-0400 Systolic blood pressure 120 mm[Hg] Aretha Best MD Work Phone: [facility] 09-01-2024 11:40-0400 Body height 172.72 cm Aretha Best MD Work Phone: [facility] 09-01-2024 11:38-0400 Body mass index (BMI) [Ratio] 28.4 kg/m2 Aretha Best MD Work Phone: [facility] 09-01-2024 11:38-0400 Body weight 84.93 kg Aretha Best MD Work Phone: [facility] 09-01-2024 11:38-0400 Diastolic blood pressure 74 mm[Hg] Aretha Best MD Work Phone: [facility] 09-01-2024 11:38-0400 Systolic blood pressure 114 mm[Hg] Aretha Best MD Work Phone: [facility] 08-29-2024 15:51-0400 Body height 172.72 cm Aretha Best MD Work Phone: [facility] 08-29-2024 15:51-0400 Body mass index (BMI) [Ratio] 28.3 kg/m2 Aretha Best MD Work Phone: [facility] 08-29-2024 15:51-0400 Body weight 84.59 kg Aretha Best MD Work Phone: [facility] 08-29-2024 15:51-0400 Diastolic blood pressure 77 mm[Hg] Aretha Best MD Work Phone: [facility] 08-29-2024 15:51-0400 Systolic blood pressure 130 mm[Hg] Aretha Best MD Work Phone: [facility] 08-27-2024 19:53-0400 Body temperature 98.3 [degF] Aretha Best MD Work Phone: [facility] 08-27-2024 19:53-0400 Diastolic blood pressure 77 mm[Hg] Aretha Best MD Work Phone: [facility] 08-27-2024 19:53-0400 Heart rate 68 /min Aretha Best MD Work Phone: [facility] 08-27-2024 19:53-0400 Respiratory rate 16 /min Aretha Best MD Work Phone: [facility] 08-27-2024 19:53-0400 SaO2% (BldA) [Mass fraction] 100 % Aretha Best MD Work Phone: [facility] 08-27-2024 19:53-0400 Systolic blood pressure 122 mm[Hg] Aretha Best MD Work Phone: [facility] 08-27-2024 16:18-0400 Body height 172.72 cm Aretha Best MD Work Phone: [facility] 08-27-2024 16:18-0400 Body mass index (BMI) [Ratio] 28.2 kg/m2 Aretha Best MD Work Phone: 2(870)307-853269 [place] [address] 08-27-2024 16:18-0400 Body weight 84.18 kg Aretha Best MD Work Phone: [facility] 08-25-2024 15:16-0400 Body height 172.72 cm Aretha Best MD Work Phone: [facility] 08-25-2024 15:16-0400 Body mass index (BMI) [Ratio] 28.3 kg/m2 Aretha Best MD Work Phone: [facility] 08-25-2024 15:16-0400 Body weight 84.48 kg Aretha Best MD Work Phone: 9(887)422-214269 [place] [address] 08-25-2024 15:16-0400 Diastolic blood pressure 80 mm[Hg] Aretha Best MD Work Phone: 6(652)316-211357 [place] [address] 08-25-2024 15:16-0400 Systolic blood pressure 123 mm[Hg] Aretha Best MD Work Phone: 3(874)906-557157 [place] [address] 08-18-2024 09:27-0400 Body height 172.72 cm Aretha Best MD Work Phone: 7(427)440-691957 [place] [address] 08-18-2024 09:27-0400 Body mass index (BMI) [Ratio] 28.4 kg/m2 Aretha Best MD Work Phone: 6(215)835-078957 [place] [address] 08-18-2024 09:27-0400 Body temperature 98.1 [degF] Aretha Best MD Work Phone: 8(888)449-022157 [place] [address] 08-18-2024 09:27-0400 Body weight 84.91 kg Aretha Best MD Work Phone: 0(825)563-389657 [place] [address] 08-18-2024 09:27-0400 Diastolic blood pressure 80 mm[Hg] Aretha Best MD Work Phone: 6(855)045-344857 [place] [address] 08-18-2024 09:27-0400 Heart rate 70 /min Aretha Best MD Work Phone: 2(933)576-383557 [place] [address] 08-18-2024 09:27-0400 Respiratory rate 16 /min Aretha Best MD Work Phone: 5(755)967-197657 [place] [address] 08-18-2024 09:27-0400 SaO2% (BldA) [Mass fraction] 100 % Aretha Best MD Work Phone: 7(598)333-769557 [place] [address] 08-18-2024 09:27-0400 Systolic blood pressure 141 mm[Hg] Aretha Best MD Work Phone: [facility] 06-09-2024 15:49-0400 Body height 172.72 cm Aretha Best MD Work Phone: 8(654)367-054657 [place] [address] 06-09-2024 15:47-0400 Body mass index (BMI) [Ratio] 28 kg/m2 Aretha Best MD Work Phone: [facility] 06-09-2024 15:47-0400 Body weight 83.63 kg Aretha Best MD Work Phone: [facility] 06-09-2024 15:47-0400 Diastolic blood pressure 77 mm[Hg] Aretha Best MD Work Phone: [facility] 06-09-2024 15:47-0400 Systolic blood pressure 113 mm[Hg] Aretha Best MD Work Phone: [facility] 04-02-2024 15:00-0500 Body temperature 97.8 [degF] Aretha Best MD Work Phone: 5(022)449-663329 [address] 04-02-2024 15:00-0500 Diastolic blood pressure 76 mm[Hg] Aretha Best MD Work Phone: 0(699)844-186869 [place] [address] 04-02-2024 15:00-0500 Heart rate 69 /min Aretha Best MD Work Phone: [facility] 04-02-2024 15:00-0500 Respiratory rate 16 /min Aretha Best MD Work Phone: [facility] 04-02-2024 15:00-0500 SaO2% (BldA) [Mass fraction] 98 % Aretha Best MD Work Phone: [facility] 04-02-2024 15:00-0500 Systolic blood pressure 118 mm[Hg] Aretha Best MD Work Phone: [facility] 04-02-2024 13:11-0500 Body mass index (BMI) [Ratio] 28.4 kg/m2 Aretha Best MD Work Phone: [facility] 04-02-2024 13:11-0500 Body weight 84.82 kg Aretha Best MD Work Phone: [facility] 03-11-2023 13:09-0500 Body height 175.26 cm Ya Sheth MA [facility] [employer] 03-11-2023 13:09-0500 Body mass index (BMI) [Ratio] 26.73 kg/m2 Ya Sheth MA [facility] 03-11-2023 13:09-0500 Body surface area Derived from formula 1.98 m2 Ya Sheth MA [facility] [employer] 03-11-2023 13:09-0500 Body weight 82.1 kg Ya Sheth MA [facility] [employer] [facility] [employer] 03-11-2023 13:09-0500 Diastolic blood pressure 80 mm[Hg] Ya Sheth MA [employer] [facility] [employer]. Comment on above: Patient Position: Si tting; Cuff Location: Left Arm; Cuff Size: Standard 03-11-2023 13:09-0500 Heart rate 65 /min Ya Sheth MA [facility] [address] [facility]. Comment on above: Pattern: Regular 03-11-2023 13:09-0500 Systolic blood pressure 125 mm[Hg] Ya Sheth MA [facility] [address] [facility].; [facility] [address] [facility]. Comment on above: Patient Position: Si tting; Cuff Location: Left Arm; Cuff Size: Standard 05-15-2022 14:06-0500 Body height 175.26 cm Ya Sheth MA [facility] [employer]. 05-15-2022 14:06-0500 Body mass index (BMI) [Ratio] 31.01 kg/m2 Ya Sheth MA [facility] [facility]. 05-15-2022 14:06-0500 Body surface area Derived from formula 2.11 m2 Ya Sheth MA [facility] [address] [facility].; [employer], [employer]. 05-15-2022 14:06-0500 Body weight 95.26 kg Ya Sheth MA [employer], [employer]. 05-15-2022 14:06-0500 Diastolic blood pressure 68 mm[Hg] Ya Sheth MA [facility] [address] [facility].; [employer]. Comment on above: Patient Position: Si tting; Cuff Location: Left Arm; Cuff Size: Standard 05-15-2022 14:06-0500 Heart rate 66 /min Ya Sheth [facility] [facility]. Comment on above: Pattern: Regular 05-15-2022 14:06-0500 Systolic blood pressure 103 mm[Hg] Ya Sheth MA [facility].; [facility] [facility]. Comment on above: Patient Position: Si tting; Cuff Location: Left Arm; Cuff Size: Standard 02-10-2022 12:27-0500 Body height 175.26 cm Janny Zuñiga RN [facility] [address] [facility]. 02-10-2022 12:27-0500 Body mass index (BMI) [Ratio] 30.27 kg/m2 Janny Zuñiga RN [facility] [employer] [facility].; [facility] [employer]. 02-10-2022 12:27-0500 Body surface area Derived from formula 2.09 m2 Janny Zuñiga RN [facility] [employer] [facility].; [address] [facility]. 02-10-2022 12:27-0500 Body weight 92.99 kg Janny Zuñiga RN [facility] [employer] [facility].; [facility] [address] [facility]. 02-10-2022 12:27-0500 Diastolic blood pressure 61 mm[Hg] Janny Zuñiga RN [facility] [address] [facility]. Comment on above: Patient Position: Si tting; Cuff Location: Left Arm; Cuff Size: Standard 02-10-2022 12:27-0500 Heart rate 64 /min Janny Zuñiga RN [email or web address].; [employer]. Comment on above: Pattern: Regular 02-10-2022 12:27-0500 Systolic blood pressure 94 mm[Hg] Janny Zuñiga RN [facility].; [employer]. Comment on above: Patient Position: Si tting; Cuff Location: Left Arm; Cuff Size: Standard 09-23-2021 14:58-0400 Body height 175.26 cm Tamara Phipps LPN [facility] 09-23-2021 14:58-0400 Body mass index (BMI) [Ratio] 29.98 kg/m2 Tamara Phipps LPN [facility] 09-23-2021 14:58-0400 Body surface area Derived from formula 2.08 m2 Tamara Phipps LPN [facility] 09-23-2021 14:58-0400 Body temperature 98.5 [degF] Tamara Phipps [facility].; [facility], [facility]. Comment on above: Method: Tympanic 09-23-2021 14:58-0400 Body weight 92.08 kg Tamara Phipps LPN [facility] 09-23-2021 14:58-0400 Diastolic blood pressure 66 mm[Hg] Tamara Phipps LPN [facility], [facility]. Comment on above: Patient Position: Si tting; Cuff Location: Left Arm; Cuff Size: Standard 09-23-2021 14:58-0400 Heart rate 78 /min Tamara Phipps LPN [facility], [facility]. Comment on above: Pattern: Regular 09-23-2021 14:58-0400 Systolic blood pressure 99 mm[Hg] [facility], [facility]. Comment on above: Patient Position: Si tting; Cuff Location: Left Arm; Cuff Size: Standard 09-05-2021 15:18-0400 Body height 173.[address] Baldomero Troncoso Work Phone: [facility] Work Phone: 09-05-2021 15:18-0400 Body mass index (BMI) [Ratio] 30.4 kg/m2 Dr. Baldomero Troncoso Work Phone: [facility] Work Phone: 09-05-2021 15:18-0400 Body temperature 98 [degF] Dr. Baldomero Troncoso Work Phone: [facility] Work Phone: 09-05-2021 15:18-0400 Body weight 92.[address] Baldomero Troncoso Work Phone: [facility] Work Phone: 09-05-2021 15:18-0400 Diastolic blood pressure 62 mm[Hg] Dr. Baldomero Troncoso Work Phone: [facility] Work Phone: 09-05-2021 15:18-0400 Heart rate 78 /min Dr. Baldomero Troncoso Work Phone: [facility] Work Phone: 09-05-2021 15:18-0400 Respiratory rate 16 /min Dr. Baldomero Troncoso Work Phone: [facility] Work Phone: 09-05-2021 15:18-0400 SaO2% (BldA) [Mass fraction] 99 % Dr. Baldomero Troncoso Work Phone: [facility] Work Phone: 09-05-2021 15:18-0400 Systolic blood pressure 106 mm[Hg] Dr. Baldomero Troncoso Work Phone: [facility] Work Phone: 03-15-2021 09:02-0500 Body height 175.26 cm Lisandra Olson LPN [facility], [facility].; [facility] 03-15-2021 09:02-0500 Body mass index (BMI) [Ratio] 30.13 kg/m2 Lisandra Olson LPN [facility], [facility].; [facility] 03-15-2021 09:02-0500 Body surface area Derived from formula 2.08 m2 Lisandra Olson LPN [facility], [facility].; [facility] 03-15-2021 09:02-0500 Body weight 92.53 kg Lisandra Olson LPN [facility], [facility].; [facility] 03-15-2021 09:02-0500 Diastolic blood pressure 64 mm[Hg] Lisandra Wesley ZAMBRANO [facility], Inc.; [facility], [employer]. Comment on above: Patient Position: Si tting; Cuff Location: Left Arm; Cuff Size: Standard 03-15-2021 09:02-0500 Heart rate 68 /min Lisandra Olson LPN [facility], [facility].; [place] [employer], [employer]. Comment on above: Pattern: Regular 03-15-2021 09:02-0500 Systolic blood pressure 104 mm[Hg] Lisandra Olson LPN [facility], [facility].; [place] [employer], [employer]. Comment on above: Patient Position: Si tting; Cuff Location: Left Arm; Cuff Size: Standard 11-28-2020 16:41-0400 Body height 175.26 cm Karla Burns LPN [facility], [facility].; [facility], [facility]. 11-28-2020 16:41-0400 Body mass index (BMI) [Ratio] 28.94 kg/m2 Karla Burns [facility], [facility].; [facility], [facility]. 11-28-2020 16:41-0400 Body surface area Derived from formula 2.05 m2 Karla Burns [facility], [facility].; [facility], [facility]. 11-28-2020 16:41-0400 Body weight 88.91 kg Karla Burns LPN [facility], [facility].; [facility], [employer]. 11-28-2020 16:41-0400 Diastolic blood pressure 77 mm[Hg] Karla Burns LPN [facility], [facility].; [place] [employer], [employer]. Comment on above: Patient Position: Si tting; Cuff Location: Left Arm; Cuff Size: Standard 11-28-2020 16:41-0400 Heart rate 70 /min Karla Burns LPN [facility], [facility].; [place] [employer], [employer]. Comment on above: Pattern: Regular 11-28-2020 16:41-0400 Systolic blood pressure 119 mm[Hg] Karla Burns LPN [facility], [facility].; [employer], [employer]. Comment on above: Patient Position: Si tting; Cuff Location: Left Arm; Cuff Size: Standard 11-21-2020 15:130400 Body height 175.26 cm Lisandra Olson LPN [facility]. 11-21-2020 15:130400 Body mass index (BMI) [Ratio] 29.53 kg/m2 Lisandra Olson LPN [facility]. 11-21-2020 15:130400 Body surface area Derived from formula 2.07 m2 Lisandra Olson LPN [facility]. 11-21-2020 15:130400 Body weight 90.72 kg Lisandra Olson LPN [facility]. 11-21-2020 15:130400 Diastolic blood pressure 77 mm[Hg] Lisandra Olson LPN [facility], [employer]. Comment on above: Patient Position: Si tting; Cuff Location: Right Arm; Cuff Size: Standard 11-21-2020 15:13-0400 Heart rate 78 /min Lisandra Olson LPN [facility] [email or web address] [facility]. Comment on above: Pattern: Regular 11-21-2020 15:130400 Systolic blood pressure 110 mm[Hg] Lisandra Olson LPN [facility], [facility]. Comment on above: Patient Position: Si tting; Cuff Location: Right Arm; Cuff Size: Standard 05-07-2020 10:57-0500 Body height 175.26 cm Janny Zuñiga RN [facility] [email or web address] [facility] [employer] [facility]. 05-07-2020 10:57-0500 Body mass index (BMI) [Ratio] 29.53 kg/m2 Janny Zuñiga RN [facility]. 05-07-2020 10:57-0500 Body surface area Derived from formula 2.07 m2 Janny Zuñiga RN [facility], [facility].; [email or web address] [facility] [employer] [facility]. 05-07-2020 10:57-0500 Body temperature 99.1 [degF] Janny Zuiñga RN [facility].; [facility] [facility]. Comment on above: Method: Tympanic 05-07-2020 10:57-0500 Body weight 90.72 kg Janny Zuñiga RN [facility].; [place] [employer]. 05-07-2020 10:57-0500 Diastolic blood pressure 64 mm[Hg] Janny Zuñiga RN [facility].; [place] [facility]. Comment on above: Patient Position: Si tting; Cuff Location: Left Arm; Cuff Size: Standard 05-07-2020 10:57-0500 Heart rate 67 /min Janny Zuñiga RN [facility].; [place] [employer]. Comment on above: Pattern: Regular 05-07-2020 10:57-0500 Systolic blood pressure 98 mm[Hg] Janny Zuñiga RN [facility].; [place] [facility]. Comment on above: Patient Position: Si tting; Cuff Location: Left Arm; Cuff Size: Standard 04-26-2020 08:33-0500 Body temperature 97.7 [degF] Erlinda J Lopez PA-C Work Phone: [place] [facility].; [facility] [address] [facility]. Comment on above: Method: Tympanic 04-26-2020 08:33-0500 Body weight 92.53 kg Erlinda Mike Lopez PA-C Work Phone: [place] [facility].; [facility] [facility]. 04-26-2020 08:33-0500 Diastolic blood pressure 64 mm[Hg] Erlinda J Lopez PA-C Work Phone: [place] [facility].; [address] [facility]. Comment on above: Patient Position: Si tting; Cuff Location: Left Arm; Cuff Size: Standard 04-26-2020 08:33-0500 Heart rate 77 /min Erlinda J Lopez PA-C Work Phone: [facility] [employer] [address] [facility]. Comment on above: Pattern: Regular 04-26-2020 08:33-0500 Systolic blood pressure 111 mm[Hg] Erlinda Lopez PA-C Work Phone: [employer]; [employer]. Comment on above: Patient Position: Si tting; Cuff Location: Left Arm; Cuff Size: Standard 03-29-2020 13:43-0500 Body height 175.26 cm Ni Kacey [employer] Work Phone: [employer]; [employer] Work Phone: 03-29-2020 13:43-0500 Body mass index (BMI) [Ratio] 29.09 kg/m2 INVOLTAy [employer]CH[employer]ICIAN Work Phone: [employer]; [employer] Work Phone: 03-29-2020 13:43-0500 Body surface area Derived from formula 2.05 m2 Ni Kacey [employer] TECHNICIAN Work Phone: [employer]; [employer] Work Phone: 03-29-2020 13:43-0500 Body weight 89.36 kg Ni Kacey [employer]CH[employer]ICIAN Work Phone: [employer]; [employer] Work Phone: 03-29-2020 13:43-0500 Diastolic blood pressure 74 mm[Hg] Ni Kacey [employer]CH[employer]ICIAN Work Phone: [employer]; [employer] Work Phone: Comment on above: Patient Position: Si tting; Cuff Location: Left Arm; Cuff Size: Standard 03-29-2020 13:43-0500 Heart rate 79 /min Ni Kacey [employer]CH[employer]ICIAN Work Phone: [employer]; [employer] Work Phone: Comment on above: Pattern: Regular 03-29-2020 13:43-0500 Systolic blood pressure 110 mm[Hg] Ni Kacey [employer]CHNICIAN Work Phone: [facility], [facility].; [employer], [employer]. Work Phone: Comment on above: Patient Position: Si tting; Cuff Location: Left Arm; Cuff Size: Standard 03-02-2020 13:10-0500 Body weight 89.36 kg Karla Arshadcarmen ZAMBRANO [facility], [facility].; [employer] 03-02-2020 13:10-0500 Diastolic blood pressure 76 mm[Hg] Karla Arshadugg [employer]CHNICIAN [facility], [facility].; [employer], [employer]. Comment on above: Patient Position: Si tting; Cuff Location: Left Arm; Cuff Size: Standard 03-02-2020 13:10-0500 Heart rate 73 /min Karla Arshadcarmen ZAMBRANO [facility], [facility].; [employer] Comment on above: Pattern: Regular 03-02-2020 13:10-0500 Systolic blood pressure 115 mm[Hg] Karla Arshadugg [employer]CH[employer]ICIAN [place] [employer], [facility].; [employer], [employer]. Comment on above: Patient Position: Si tting; Cuff Location: Left Arm; Cuff Size: Standard 02-15-2020 14:51-0500 Body height 175.26 cm Erlinda Lopez PA-C Work Phone: [facility], [employer].; [employer]. 02-15-2020 14:51-0500 Body mass index (BMI) [Ratio] 28.8 kg/m2 Erlinda Lopez PA-C Work Phone: [place] [employer], [employer].; [employer], [facility]. 02-15-2020 14:51-0500 Body surface area Derived from formula 2.04 m2 Erlinda Lopez PA-C Work Phone: [employer], [employer]. 02-15-2020 14:51-0500 Body weight 88.45 kg Erlinda Lopez PA-C Work Phone: [employer], [employer].; [facility] [address] [facility]. 02-15-2020 14:51-0500 Diastolic blood pressure 82 mm[Hg] Erlinda Lopez PA-C Work Phone: [facility] [address] [facility].; [employer]. Comment on above: Patient Position: Si tting; Cuff Location: Left Arm; Cuff Size: Standard 02-15-2020 14:51-0500 Heart rate 82 /min Erlindalennox Lopez PA-C Work Phone: [facility] [employer]. Comment on above: Pattern: Regular 02-15-2020 14:51-0500 Systolic blood pressure 121 mm[Hg] Erlinda Lopez PA-C Work Phone: [employer].; [employer]. Comment on above: Patient Position: Si tting; Cuff Location: Left Arm; Cuff Size: Standard 11-15-2019 08:28-0400 Body height 175.26 cm Janny Zuñiga RN [facility] [employer] [facility].; [employer]. 11-15-2019 08:28-0400 Body mass index (BMI) [Ratio] 28.8 kg/m2 Janny Zuñiga RN [facility] [employer] [facility].; [employer]. 11-15-2019 08:28-0400 Body surface area Derived from formula 2.04 m2 Janny Zuñiga RN [facility] [employer] [facility].; [facility] [address] [facility]. 11-15-2019 08:28-0400 Body weight 88.45 kg Janny Zuñiga RN [facility] [employer] [facility].; [employer] [employer] [facility]. 11-15-2019 08:28-0400 Diastolic blood pressure 75 mm[Hg] Janny Zuñiga RN [facility] [employer] [facility].; [employer]. Comment on above: Patient Position: Si tting; Cuff Location: Right Arm; Cuff Size: Standard 11-15-2019 08:28-0400 Heart rate 70 /min Janny Zuñiga RN [place] [facility].; [employer]. Comment on above: Pattern: Regular 11-15-2019 08:28-0400 Systolic blood pressure 108 mm[Hg] Janny Zuñiga RN [place] [facility].; [facility] Comment on above: Patient Position: Si tting; Cuff Location: Right Arm; Cuff Size: Standard 06-22-2019 13:01-0400 Body Temperature 98.6 [degF] [facility] [employer] Work Phone: 06-22-2019 13:01-0400 Body weight 83.92 kg [facility] [employer] Work Phone: 06-22-2019 13:01-0400 BP Diastolic 70 mm[Hg] [facility] [employer] Work Phone: 06-22-2019 13:01-0400 BP Systolic 102 mm[Hg] [facility] [employer] Work Phone: 06-22-2019 13:01-0400 Pulse (Heart Rate) 68 /min [facility] [employer] Work Phone: 03-03-2019 22:49-0500 BMI (Body Mass Index) 26.58 kg/m2 [facility] [place] 03-03-2019 22:49-0500 Body Temperature 98.29 [degF] [facility] [place] 03-03-2019 22:49-0500 Body weight 81.65 kg [facility] , [place] 03-03-2019 22:49-0500 BP Diastolic 81 mm[Hg] [facility] , [place] 03-03-2019 22:49-0500 BP Systolic 134 mm[Hg] [facility] , [place] 03-03-2019 22:49-0500 Height 175.3 cm [facility] , [place] 03-03-2019 22:49-0500 Pulse (Heart Rate) 81 /min [facility], [place] 03-03-2019 22:49-0500 Pulse Oximetry 97 % [place], [place] 03-03-2019 22:49-0500 Respiratory Rate 18 /min [facility], [place] 02-18-2019 23:06-0500 BP Diastolic 78 mm[Hg] [facility] , [place] 02-18-2019 23:06-0500 BP Systolic 127 mm[Hg] [facility] , [place] 02-18-2019 23:06-0500 Pulse (Heart Rate) 83 /min [facility], [place] 02-18-2019 23:06-0500 Pulse Oximetry 100 % C[facility] , [place] 02-18-2019 23:06-0500 Respiratory Rate 16 /min C[facility]ar [facility], [place] 02-18-2019 22:00-0500 BMI (Body Mass Index) 26.58 kg/m2 C[facility], [place] 02-18-2019 22:00-0500 Body Temperature 98.6 [degF] César [facility], [place] 02-18-2019 22:00-0500 Body [facility] [place] 02-18-2019 22:00-0500 Height 175.3 cm [place] NEGATED: Highlighted [id number] 10:52-0400 BMI (Body Mass Index) 28.9 kg/m2 [facility] Work Phone: NEGATED: Highlighted [id number] 10:52-0400 Body weight 88.45 kg [facility] Work Phone: NEGATED: Highlighted [id number] 10:52-0400 Body weight 89 kg Isabella [facility] Work Phone: NEGATED: Highlighted [id number] 10:52-0400 BP Diastolic 70 mm[Hg] [facility] Work Phone: NEGATED: Highlighted [id number] 10:52-0400 BP Systolic 102 mm[Hg] [facility] Work Phone: NEGATED: Highlighted [id number] 10:52-0400 Heart rate 2+ [facility] Work Phone: NEGATED: Highlighted [id number] 10:52-0400 Height 175.26 cm [facility]abella [facility] Work Phone: NEGATED: Highlighted [id number] 10:52-0400 Height 175 cm [facility] Work Phone: NEGATED: Highlighted [id number] 10:52-0400 Pulse (Heart Rate) 73 /min [facility]abella Jul[facility] Work Phone: Encounters Encounter Date Encounter Type Care Provider Facility Start: 01-27-2025 End: 01-27-2025 ambulatory Sangita Jean [place] Start: 01-17-2025 End: 01-17-[address] Nina Rivera DO -[facility] Work Phone: Start: 01-17-2025 End: 01-17-2025 ambulatory Aretha Best Facility[place] [place] Start: 01-17-2025 End: 01-17-2025 ambulatory Sangita Jean Facility:[facility] Start: 01-16-2025 End: 01-16-[address] iNna Rivera DO -[facility] Work Phone: Start: 01-16-2025 End: 01-16-2025 ambulatory Aretha Nasir Facility:[facility] Start: 01-11-2025 End: 01-11-[address] Sangita Jean MD -Laboratory Work Phone: Start: 01-11-2025 End: 01-11-2025 ambulatory Sangita Jean Facility:[facility] Start: 12-30-2024 End: 12-30-[address] Sangita Jean MD -Laboratory Specimen Work Phone: Start: 12-30-2024 End: 12-30-[address] Nina Rivera DO -[facility] Work Phone: Start: 12-30-2024 End: 12-30-2024 ambulatory Aretha Best MD Work Phone: -[facility] Start: 12-30-2024 End: 12-30-2024 ambulatory Sangita Jean Facility:[facility] Start: 12-27-2024 End: 12-27-[address] Sangita Jean MD -[facility] Work Phone: Start: 12-27-2024 End: 12-27-2024 ambulatory Aretha Best MD Work Phone: -[facility] Start: 12-19-2024 End: 12-19-2024 ambulatory Aretha Best MD Work Phone: -Laboratory Specimen Start: 12-19-2024 End: 12-19-2024 Patient encounter procedure Paty Reynolds NP-C -Laboratory Specimen Work Phone: Start: 12-19-2024 End: 12-19-2024 Patient encounter procedure Paty Reynolds NP-Jame -[facility] Work Phone: Start: 12-19-2024 End: 12-19-2024 ambulatory Aretha Best MD Work Phone: -[facility] Start: 12-19-2024 End: 12-19-2024 ambulatory Aretha Best Facility:[facility] Start: 12-08-2024 End: 12-08-2024 ambulatory Aretha Best MD Work Phone: -[facility] Start: 12-08-2024 End: 12-08-[address] Sangita Jean MD -[facility] Start: 12-08-2024 End: 12-08-2024 ambulatory Chalnarendra Best Facility:[facility] Start: 12-06-2024 End: 12-06-2024 ambulatory Aretha Best MD Work Phone: -[facility] Start: 12-06-2024 End: 12-06-[address] Sangita eJan MD -Lab [facility] Start: 12-06-2024 End: 12-06-2024 ambulatory Chalnarendra Best Facility:[facility] Start: 11-08-2024 End: 11-08-2024 ambulatory Aretha Best MD Work Phone: -Laboratory Start: 11-08-2024 End: 11-08-[address] Aretha Best MD -Laboratory Work Phone: Start: 11-08-2024 End: 11-08-2024 ambulatory Aretha Best Facility:[facility] Start: 10-03-2024 End: 10-03-2024 eber Best MD Work Phone: -Laboratory Start: 10-03-2024 End: 10-03-[address] Sangita Jean MD -Laboratory Work Phone: Start: 10-03-2024 End: 10-03-2024 ambulatory Chalon Nasir Facility:[facility] Start: 09-18-2024 End: 09-22-2024 ambulatory ARETHA BEST MD Facility:A Start: 09-18-2024 End: 09-22-2024 Encounter for other general examination ARETHA BEST MD Facility:A Start: 09-12-2024 End: 09-12-[address] Sangita Jean MD -[facility] Work Phone: Start: 09-12-2024 End: 09-12-2024 ambulatory Aretha Best MD Work Phone: [facility] Work Phone: Start: 09-12-2024 End: 09-12-2024 ambulatory Chalon Nasir Facility:[facility] Start: 09-01-2024 End: 09-01-2024 ambulatory Aretha Best MD Work Phone: [facility] [employer] [facility] Work Phone: Start: 09-01-2024 End: 09-01-[address] Sangita Jean MD -[facility] Work Phone: Start: 08-31-2024 End: 09-01-2024 ambulatory Aretha Best MD Work Phone: [facility] Work Phone: Start: 08-31-2024 End: 08-31-[address] Sangita Jean MD -Laboratory Work Phone: Start: 08-31-2024 End: 08-31-[facility] Start: 08-29-2024 End: 08-29-[address] Sangita Jean MD -[facility] Work Phone: Start: 08-29-2024 End: 08-29-2024 ambulatory Aretha Best MD Work Phone: [facility] Work Phone: Start: 08-29-2024 End: 08-29-2024 ambulatory Aretha Best MD Work Phone: [facility] Work Phone: Start: 08-29-2024 End: 08-29-[address] Sangita Jean MD -Laboratory Work Phone: Start: 08-29-2024 End: 08-29-2024 ambulatory Chalon Nasir Facility:[facility] Start: 08-27-2024 End: 08-27-2024 Emergency department patient visit Aretha Best MD Work Phone: -Emergency Department Work Phone: Start: 08-27-2024 End: 08-27-2024 ambulatory Aretha Best MD Work Phone: [facility] Work Phone: Start: 08-27-2024 End: 08-27-[address] Sangita Jean MD -Laboratory Work Phone: Start: 08-27-2024 End: 08-27-2024 ambulatory Aretha Best Facility:[facility] Start: 08-25-2024 End: 08-25-[address] Sangita Jean MD -[facility] Work Phone: Start: 08-25-2024 End: 08-25-2024 ambulatory Aretha Best MD Work Phone: [facility] Work Phone: Start: 08-25-2024 End: 08-25-2024 ambulatory Aretha Best MD Work Phone: [facility] Work Phone: Start: 08-25-2024 End: 08-25-[address] Sangita Jean MD -[facility] Work Phone: Start: 08-25-2024 End: 08-25-2024 ambulatory Sangita Jean Facility:[facility] Start: 08-22-2024 End: 08-22-2024 ambulatory Aretha Best MD Work Phone: [facility] Work Phone: Start: 08-22-2024 End: 08-22-2024 Patient encounter procedure Bess Con CNM -Laboratory Work Phone: Start: 08-22-2024 End: 08-22-[facility] Start: 08-20-2024 End: 08-20-2024 ambulatory Aretha Best MD Work Phone: [facility] Work Phone: Start: 08-20-2024 End: 08-20-2024 Patient encounter procedure Bess Con CNM -Laboratory Work Phone: Start: 08-20-2024 End: 08-20-2024 ambulatory Bess Andujar Facility:[facility] Start: 08-18-2024 End: 08-18-2024 Emergency department patient visit Dr. Preston Garrett DO -Emergency Department Work Phone: Start: 06-23-2024 End: 06-23-2024 ambulatory NICHOLAS POLLARD Ever [facility] Start: 06-20-2024 End: 06-20-2024 ambulatory ARETHA BEST MD [facility] Start: 06-17-2024 ambulatory Aretha Best Facility:[facility] Start: 06-09-2024 End: 06-09-2024 ambulatory Aretha Best MD Work Phone: [facility] Work Phone: Start: 06-09-2024 End: 06-09-2024 Patient encounter procedure Jeny Garcia CNM -Laboratory, Specimen Work Phone: Start: 06-09-2024 Encounter for gynecological examination (general) (routine) without abnormal findings Jeny Garcia [facility] Start: 06-09-2024 End: 06-09-2024 Patient encounter procedure Jeny Garcia CNM -[facility] Work Phone: Start: 06-09-2024 End: 06-09-2024 Patient encounter status Jeny Garcia CNM [facility] Start: 06-09-2024 End: 06-09-2024 ambulatory Aretha Best [facility] Start: 06-09-2024 End: 06-09-2024 ambulatory Aretha Best Facility:[facility] Start: 05-13-2024 End: 05-13-2024 ambulatory BALDOMERO TRONCOSO MD Facility[facility] Start: 05-13-2024 End: 05-13-2024 Patient encounter procedure BALDOMERO TRONCOSO MD [facility] Start: 04-02-2024 End: 04-02-2024 Emergency department patient visit Dr. Cristobal Ron MD -Emergency Department Work Phone: Start: 03-19-2024 ambulatory Aretha Best Facility:[facility] Start: 03-07-2024 End: 03-07-2024 ambulatory ARETHA BEST MD [facility] Start: 03-07-2024 End: 03-07-2024 Patient encounter procedure ARETHA BEST MD [facility] Start: 03-03-2024 End: 03-03-2024 ambulatory ARETHA BEST MD [facility] Start: 03-03-2024 End: 03-03-2024 Patient encounter procedure ARETHA BEST MD [facility] Start: 03-01-2024 ambulatory ARETHA BEST MD Facility :D Start: 02-01-2024 End: 02-01-2024 ambulatory ARETHA BEST MD [facility] Start: 02-01-2024 End: 02-01-2024 Patient encounter procedure ARETHA BEST MD [facility] Start: 12-01-2023 End: 12-01-2023 ambulatory BALDOMERO TRONCOSO MD Facility:[facility] Start: 12-01-2023 End: 12-01-2023 Patient encounter procedure BALDOMERO TRONCOSO MD [facility] Start: 09-07-2023 End: 09-07-2023 ambulatory ERLINDA LOPEZ PA-C Facility:[facility] Start: 09-07-2023 End: 09-07-2023 Patient encounter procedure BALDOMERO TRONCOSO MD [facility] Start: 06-16-2023 Patient encounter procedure Aretha Best MD Work Phone: [facility] Start: 03-11-2023 End: 03-11-2023 Office outpatient visit 15 minutes Erlinda Lopez PA-C Work Phone: [facility] Start: 02-06-2023 End: 02-06-2023 ambulatory STACEY DAVIS AUDIO/VISUAL OPERATOR-C Facility:[facility] Start: 02-06-2023 End: 02-06-2023 Patient encounter procedure STACEY DAVIS AUDIO/VISUAL OPERATOR-C [facility] Start: 05-15-2022 End: 05-15-2022 Periodic preventive med est patient 18-39 yrs Erlinda Lopez [facility]-C [facility] Start: 05-15-2022 End: 05-15-2022 Physical examination Erlinda Lopez PA-C Work Phone: [employer] Start: 02-10-2022 End: 02-10-2022 Office outpatient visit 15 minutes Erlinda Lopez PA-C [facility] Phone[facility] Start: 12-09-2021 End: 12-09-[address] Baldomero Troncoso Work Phone: [facility] Work Phone: Start: 12-09-2021 End: 12-09-[address] Baldomero Troncoso Work Phone: [facility]-Laboratory, Specimen Start: 09-23-2021 End: 09-23-2021 Office outpatient visit 15 minutes Erlinda Lopez PA-C [facility] Start: 09-05-2021 End: 09-05-[address] Baldomero Troncoso Work Phone: [facility] Start: 08-14-2021 End: 08-14-2021 Orders Erlinda Lopez PA-C Work Phone: [employer] Start: 07-18-2021 End: 07-18-2021 Medication Erlinda Lopez PA-C Work Phone: [employer] Start: 07-03-2021 End: 07-03-2021 Medication Erlinda Loepz PA-C Work Phone: [employer] Start: 07-01-2021 End: 07-01-2021 Patient encounter procedure Erlinda Lopez PA-C Work Phone: [employer] Start: 06-12-2021 End: 06-12-2021 Medication Erlinda Lopez PA-C Work Phone: [employer] Start: 03-15-2021 End: 03-15-2021 Office outpatient visit 25 minutes Erlinda Lopez PA-C Work Phone: [employer] Start: 12-05-2020 End: 12-05-2020 Orders Erlinda Lopez PA-C Work Phone: [employer] Start: 11-28-2020 End: 11-28-2020 Office outpatient visit 5 minutes Erlinda Lopez PA-C Work Phone: [employer] Start: 11-21-2020 End: 11-21-2020 Office outpatient visit 15 minutes Erlinda Lopez PA-C Work Phone: [employer] Start: 05-07-2020 End: 05-07-2020 Office outpatient visit 15 minutes Erlinda Lopez PA-C Work Phone: [employer] Start: 05-03-2020 End: 05-03-2020 Medication Erlinda Lopez PA-C Work Phone: [employer] Start: 04-26-2020 End: 04-26-2020 Office outpatient visit 15 minutes Erlinda Lopez PA-C Work Phone: [employer] Start: 04-17-2020 End: 04-17-2020 Medication Erlinda Lopez PA-C Work Phone: [employer] Start: 03-29-2020 End: 03-29-2020 Patient encounter procedure Erlinda Lopez PA-C Work Phone: [employer] Start: 03-28-2020 End: 03-28-2020 Historical Summary Erlinda Lopez PA-C Work Phone: [employer] Start: 03-02-2020 End: 03-02-2020 Office outpatient visit 15 minutes Erlinda Lopez PA-C Work Phone: [employer] Start: 02-17-2020 End: 02-17-2020 Medication Erlinda Lopez PA-C Work Phone: [employer] Start: 02-15-2020 End: 02-15-2020 Procedure Erlinda Lopez PA-C Work Phone: [employer] Start: 12-02-2019 End: 12-02-2019 Medication Erlinda Lopez PA-C Work Phone: [employer] Start: 11-18-2019 End: 11-18-2019 Orders Erlinda Lopez PA-C Work Phone: [employer] Start: 11-15-2019 End: 11-15-2019 Initial preventive medicine new pt age 18-39yrs Erlinda Lopez PA-C Work Phone: [employer] Start: 11-15-2019 End: 11-15-2019 Patient encounter status Erlinda Lopez PA-C Work Phone: [employer] Start: 09-05-2019 Patient encounter procedure Michelle Prieto MD -[facility] Work Phone: Start: 06-22-2019 Patient encounter procedure [facility] Work Phone: Start: 06-02-2019 Patient encounter procedure [facility] Work Phone: Start: 05-10-2019 Patient encounter procedure [facility] Work Phone: Start: 05-06-2019 Patient encounter procedure [facility] Work Phone: Start: 04-08-2019 Patient encounter procedure [facility] Work Phone: Start: 03-03-2019 End: 03-03-2019 Emergency department patient visit César Escalera Work Phone: [facility] Comment on above: Acute cystitis with hematuria (Primary Dx) Start: 03-01-2019 Patient encounter procedure [facility] Work Phone: Start: 02-18-2019 End: 02-18-2019 Emergency department patient visit César Escalera Work Phone: [facility] Comment on above: UTI (urinary tract i nfection), uncomplicated (Primary Dx) Start: 11-26-2018 End: 11-26-2018 Patient encounter procedure Jeremi Baker MD Work Phone: [facility] Work Phone: Start: 11-24-2018 Patient encounter procedure [facility] [employer] Work Phone: Start: 10-09-2017 Patient encounter procedure [facility] [employer] Work Phone: Start: 08-12-2017 Patient encounter procedure [facility] [employer] Work Phone: Patient encounter status Michelle Prieto MD -[facility] Work Phone: Physical examination Ya Sheth MA [facility] Procedures Date Procedure Procedure Detail Performing Clinician Start: 01-17-2025 Gram stain microscopy C edwina Best MD Work Phone: Start: 01-17-2025 Source specific culture Aretha Best MD Work Phone: Start: 01-17-2025 Procedure Aretha burks MD Work Phone: Start: 01-16-2025 US scan of thyroid Verna Best MD Work Phone: Start: 01-11-2025 Hepatitis C antibody measurement Aretha Best MD Work Phone: Comment on above: Reactive: Presumptiv e evidence of antibodies to HCV. Follow CDC recommendations for supplemental testing.Non-Reactive: Antibodies to HCV were not detected; does not exclude the possibility of exposure to HCVReactive Results are presumptive evidence of antibodies to HCV. Follow CDC recommendations for supplemental testing.Order confirmation testing: HCV Quant by PCR testing - HCVPCR #[id number] Non Reactive: < 0.8 Equivocal: >/= 0.8 to < 1.0 Reactive: >/= 1.0The CDC requires that a reactive/equivocal HCV antibody result be sent out for confirmation. HCV Quant by PCR testing. Start: 01-11-2025 Procedure Aretha burks MD Work Phone: Comment on above: Test Ordered: [id number] TSH Receptor Antibody (TBII)TSH Receptor Antibody (TBII) <0.3 U/L ES Reference Range: .Reference Range:Antibody Titer:<1.0 U/L = Negative1.1 - 1.5 U/L = Equivocal>1.5 U/L = PositivePerformed at: [facility] [employer] [address] [id number] Director: Luis Lee MD, Phone: [phone] at: [facility] [id number] Director: Erik Holm PhD, Phone: [phone] Start: 01-11-2025 Rubella IgG measurement Aretha Best MD Work Phone: Comment on above: Antibody Result: Int erpretationNon-Reactive: Non- ImmuneReactive: ImmuneThe following results were obtained with the [employer] Rubella IgG assay. Results from assays of other manufacturers cannot be used interchangeably. Start: 01-11-2025 Serologic test for syphilis Aretha Best MD Work Phone: Start: 12-30-2024 Urine culture Aretha simms MD Work Phone: Start: 12-19-2024 Gram stain microscopy C edwina Best MD Work Phone: Start: 12-19-2024 Source specific culture Aretha Best MD Work Phone: Start: 10-03-2024 Dehydroepiandrostero ne sulfate level Aretha [...] therefore, no HPV testing was performed.Performed at: [address] [id number] Director: Zuleyma Damon MD, Phone: [phone] Start: 04-02-2024 X-ray of chest, PA a nd lateral views Aretha Best MD Work Phone: Start: 12-05-2020 End: 12-07-2020 Us pelvic nonobstetric image dcmtn limited/f/u Crystal K Uptain CNM Work Phone: Comment on above: ensure IUD in place Start: 02-15-2020 End: 02-15-2020 Insertion intrauterine device iud Crystal K Uptain CNM Work Phone: Start: 11-15-2019 End: 11-15-2019 Depression screening Erlinda Loepz PA-C Work Phone: Start: 11-15-2019 End: 11-15-2019 [...] repair Ya Sheth MA Comment on above: [facility] Start: 03-30-2016 End: 03-30-2016 Tonsillectomy Ya Sheth MA Comment on above: [facility] Ya Manzano Comment on above: Septic Ankle Drained -[facility] 2004 History of Ankle Surgery Juvenal Prieto History of Oral Surgery Hailey Prieto Oral Surgery Ya Sheth MA Comment on above: Gum Graft 2015, W[facility] Teeth 2013 NEGATED: Highlighted rowStart: 11-26-2018 End: 11-26-2018 Documentation of current medications Isabella Costa At Plan of Treatment Date Care Activity Detail Author Start: 01-27-2025 End: 01-27-2025 Patient encounter procedure Anxiety and depression -[facility] Work Phone: Start: 12-27-2024 Chlamydia deoxyribonucleic acid detection [facility] Start: 12-27-2024 Hepatitis C antibody measurement [facility] Start: 12-27-2024 Procedure [facility] Start: 12-27-2024 Rubella IgG measurement [facility] Start: 12-27-2024 Serologic test for syphilis [facility] Start: 12-27-2024 T4 free measurement [facility] Start: 12-27-2024 Thyroid stimulating hormone measurement [facility] Start: 12-27-2024 [facility] Start: 12-27-2024 End: 12-27-2024 Patient encounter procedure Anxiety and depression -[facility] Work Phone: Start: 09-12-2024 Choriogonadotropin ( test) [Presence] in Serum or Plasma [facility] Start: 08-27-2024 [facility] Start: 04-02-2024 End: 04-02-2024 [facility] Start: 05-15-2022 Lipid panel LIPID PANEL ([id number]) Start: 15-May-2022 14:16-05:00 [employer] Start: 05-15-2022 Comprehensive metabolic panel CMP w/ GFR* ([id number]) Start: 15-May-2022 14:15-05:00 [employer] Start: 09-23-2021 Ova&parasites direct smears concentration & id OVA & PARASITES ([id number]) Start: 23-Sep-2021 15:14-04:00 [employer]; [employer] Work Phone: Start: 09-23-2021 Iaad ia mult step method nos each organism Clostridium difficile Toxin/GDH with Reflex to PCR ([id number]) Start: 23-Sep-2021 15:13-04:00 [employer] Start: 09-23-2021 Cul bact stool aerobic addl pathogens&id ea Yers[facility] Culture Start: 23-Sep-2021 15:13-04:00 [employer] Start: 09-23-2021 Cul bact stool aerobic isol salmonella&shigell [facility] CULTURE-STOOL Start: 23-Sep-2021 15:13-04:00 [employer]; [employer] Start: 09-23-2021 Iaad ia giardia Giardia Antigen Start: 23-Sep-2021 15:13-04:00 [employer]; [employer] Start: 11-28-2018 Influenza vaccination Flu vaccine (#1) [place], [place] Start: 11-26-2018 End: 11-26-2018 Appointment Appointment [facility] Work Phone: Start: 1996 Creatinine monitoring Creatinine monitoring [place], [place] Start: 1996 Potassium monitoring Potassium monitoring [place], [place] 17-Hydroxyprogestero ne [Mass/volume] in Serum or Plasma [facility] End: 03-03-2019 Bacteria identified Cx Nom (U) Urine Culture Microbiology STAT One Time for 1 Occurrences starting 03/03/2019 until 03/03/2019 [place], [place] Comment on above: One Time for 1 Occurrences starting 07/2018 until 03/03/2019 Bacteria identified Cx Nom (U) U rine Culture Microbiology STAT 03/03/2019 10:57 PM EST [place], [place] CBC W Auto Different ial panel - Blood [facility] Choriogonadotropin ( test) [Presence] in Serum or Plasma [facility] Choriogonadotropin ( test) [Presence] in Serum or Plasma [facility] Dehydroepiandrostero ne sulfate (DHEA-S) [Mass/volume] in Serum or Plasma [facility] Patient Education [facility] Work Phone: Patient referral [facility] Work Phone: T4 free measurement [facility] Work Phone: T4 free measurement [facility] Testosterone Free [Mass/volume] in Serum or Plasma [facility] Thyroid stimulating hormone measurement [facility] Work Phone: Transvaginal obstetr ic ultrasonography [facility] Triiodothyronine, fr ee measurement [facility] Work Phone: [place] Thyroid gland [facility] Immunizations Immunization Date Immunization Notes Care Provider Silvio bocanegra 12-28-2021 influenza, injectabl e, quadrivalent, contains preservative Erlinda Lopez PA-C Work Phone: [facility] Comment on above: given at workplace 10-18-2014 meningococcal polysaccharide (groups A, C, Y and W-135) diphtheria toxoid conjugate vaccine (MCV4P); Translations: [Meningo (Menactra)] [facility] [employer] [facility]; [facility] [employer] [facility] 01-20-2014 influenza virus vacc ine, live, attenuated, for intranasal use; Translations: [FluMist LIQD] [facility] [employer] Work Phone: 08-31-2013 tetanus toxoid, redu rajiv diphtheria toxoid, and acellular pertussis vaccine, adsorbed [facility] [employer] [facility]; [facility] [employer] [facility] 08-31-2013 typhoid vaccine, lv e, oral Erlinda Lopez PA-C Work Phone: [facility] [employer] [facility]; [facility] [employer] [facility] 08-31-2013 typhoid capsular polysaccharide vaccine [facility] Work Phone: 01-01-2013 influenza, live, intranasal, quadrivalent [facility] [employer] Work Phone: 02-06-2012 influenza, live, intranasal, quadrivalent [facility] Work Phone: 12-14-2010 influenza, live, intranasal, quadrivalent [facility] Work Phone: 03-01-2010 influenza, live, intranasal, quadrivalent [facility] Work Phone: 12-30-2008 influenza, live, intranasal, quadrivalent [facility] Work Phone: 05-12-2008 hepatitis A vaccine, pediatric/adolescent dosage, 2 dose schedule [facility]; [facility] 05-12-2008 human papilloma viru s vaccine, quadrivalent [facility] Work Phone: 05-12-2008 Human Papillomavirus 9-valent vaccine Erlinda Lopez PA-C Work Phone: [facility]; [facility] 05-12-2008 varicella virus vaccine [facility]; [facility] 01-05-2008 human papilloma viru s vaccine, quadrivalent [facility] Work Phone: 01-05-2008 Human Papillomavirus 9-valent vaccine Erlinda Lopez PA-C Work Phone: [facility] 10-14-2007 hepatitis A vaccine, pediatric/adolescent dosage, 2 dose schedule [facility]; [facility] 10-14-2007 human papilloma viru s vaccine, quadrivalent [facility] Work Phone: 10-14-2007 Human Papillomavirus 9-valent vaccine Erlinda Lopez PA-C Work Phone: [facility]; [facility] 10-14-2007 meningococcal polysaccharide (groups A, C, Y and W-135) diphtheria toxoid conjugate vaccine (MCV4P) [facility]; [facility] 10-14-2007 tetanus toxoid, redu rajiv diphtheria toxoid, and acellular pertussis vaccine, adsorbed [facility]; [facility] 08-11-2001 measles, mumps and rubella virus vaccine [facility]; [facility] 08-11-2001 poliovirus vaccine, inactivated [facility]; [facility] 08-08-2001 diphtheria, tetanus toxoids and acellular pertussis vaccine Erlinda Lopez PA-C Work Phone: [facility]; [facility] 08-08-2001 diphtheria, tetanus toxoids and pertussis vaccine [facility] Work Phone: 02-09-1998 diphtheria, tetanus toxoids and acellular pertussis vaccine Erlinda Lopez PA-C Work Phone: [facility]; [facility] 02-09-1998 diphtheria, tetanus toxoids and pertussis vaccine [facility] Work Phone: 11-10-1997 measles, mumps and rubella virus vaccine [facility]; [facility] 08-09-1997 poliovirus vaccine, inactivated [facility] 08-09-1997 varicella virus vaccine [facility]; [facility] 05-23-1997 hepatitis B vaccine, pediatric or pediatric/adolescent dosage [facility]; [facility] 03-06-1997 diphtheria, tetanus toxoids and acellular pertussis vaccine Erlinda Lopez PA-C Work Phone: [facility]; [facility] 03-06-1997 diphtheria, tetanus toxoids and pertussis vaccine [facility] Work Phone: 01-02-1997 diphtheria, tetanus toxoids and acellular pertussis vaccine Erlinda Lopez PA-C Work Phone: [facility]; [facility] 01-02-1997 diphtheria, tetanus toxoids and pertussis vaccine [facility] Work Phone: 01-02-1997 poliovirus vaccine, inactivated [facility] 1996 diphtheria, tetanus toxoids and acellular pertussis vaccine Erlinda Lopez PA-C Work Phone: [facility] 1996 diphtheria, tetanus toxoids and pertussis vaccine [facility] Work Phone: 1996 poliovirus vaccine, inactivated [facility] 1996 hepatitis B vaccine, pediatric or pediatric/adolescent dosage [facility] 1996 hepatitis B vaccine, pediatric or pediatric/adolescent dosage [facility].; [facility] Emergency Payers Date Payer Category Payer Unknown [id number] 2024 Unknown [id number] 2024 Self-pay [id number] 2023 Unknown [id number] 1996 Unknown [id number] 2.16.8 40.1.986257.3.579.2. 1996 Unknown [id number] 2.16.8 40.1.702875.3.579.2. 1996 Unknown [id number] 2.16.8 40.1.708039.3.579.2. 1996 Unknown [id number] 2.16.8 40.1.274593.3.579.2. 1996 Unknown [id number] 2.16.8 40.1.759101.3.579.2. 1996 Unknown [id number] 2.16.8 40.1.695994.3.579.2 1996 Unknown [id number] 2.16.8 40.1.326491.3.579.2.627 1996 Unknown [id number] 2.16.8 40.1.010376.3.579.2.627 1996 Unknown [id number] 2.16.8 40.1.710564.3.579.2.627 1996 Unknown [id number] 2.16.8 40.1.142175.3.579.2.627 1996 Unknown [id number] 2.16.8 40.1.607584.3.579.2.651 1996 Unknown [id number] 2.16. 840.1.645445.3.579.2.627 Private Health Insurance [id number] Unknown [employer] Unknown [id number] 2.16.8 40.1.063737.3.579.2.462 Unknown [id number] 2.16.8 40.1.188067.3.579.2.462 Unknown [id number] 2.16.8 40.1.624848.3.579.2.462 Unknown [id number] 2.16.8 40.1.911219.3.579.2.462 Unknown [id number] 2.16.8 40.1.317203.3.579.2.462 Unknown [id number] 2.16.8 40.1.303274.3.579.2.462 Unknown [id number] 2.16.8 40.1.472244.3.579.2.462 Unknown [id number] 2.16.8 40.1.988555.3.579.2.462 Unknown [id number] 2.16.8 40.1.501478.3.579.2.462 Unknown [id number] 2.16.8 40.1.297957.3.579.2.462 Unknown [id number] 2.16.8 40.1.779065.3.579.2.462 Unknown [id number] 2.16.8 40.1.937213.3.579.2.462 Unknown [id number] 2.16.8 40.1.560202.3.579.2.462 Unknown [id number] 2.16.8 40.1.259375.3.579.2.462 Unknown [id number] 2.16.8 40.1.889473.3.579.2.462 Unknown [id number] 2.16.8 40.1.188720.3.579.2.462 Unknown [id number] 2.16.8 40.1.286114.3.579.2.462 Unknown [id number] 2.16.8 40.1.488990.3.579.2.462 Unknown [id number] 2.16.8 40.1.611183.3.579.2.462 Unknown [id number] 2.16.8 40.1.857678.3.579.2.462 Unknown [id number] 2.16.8 40.1.243192.3.579.2.462 Unknown [id number] 2.16.8 40.1.257717.3.579.2.462 Unknown [id number] 2.16.8 40.1.011780.3.579.2.462 Unknown [id number] 2.16.8 40.1.621076.3.579.2.462 Unknown [id number] 2.16.8 40.1.626523.3.579.2.462 Unknown [id number] 2.16.8 40.1.488429.3.579.2.462 Unknown [id number] 2.16.8 40.1.468165.3.579.2.462 Unknown [id number] 2.16.8 40.1.309686.3.579.2.462 Unknown [id number] 2.16.8 40.1.887362.3.579.2.462 Unknown [id number] 2.16.8 40.1.284253.3.579.2.462 Unknown [id number] 2.16.8 40.1.083897.3.579.2.462 Unknown [id number] 2.16.8 40.1.566790.3.579.2.462 Unknown [id number] 2.16.8 40.1.796213.3.579.2.462 Social History Date Type Detail Facility Start: 02-18-2019 End: 12-27-2024 Tobacco smoking status NHIS Never smoker [facility] Sex Assigned At Not on file [place], [place] Start: 11-26-2018 End: 11-26-2018 Assertion Unknown if ever smoked [facility] Work Phone: Start: 1995 Sex Assigned At Female [facility] Tobacco smoking status [facility] Alcohol Use Alcohol Use [facility] Tobacco Use: Tobacco Use: ; N ever smoker. [email or web address] Start: 02-06-2023 End: 06-20-2024 Sex Female (finding) [facility] Patient currentl y [facility] NEGATED: Highlighted rowStart: 11-26-2018 End: 11-26-2018 How many days of moderate to strenuous exercise, like a brisk walk, did you do in the last 7 days? How many days of moderate to strenuous exercise, like a brisk walk, did you do in the last 7 days? [facility] Work Phone: NEGATED: Highlighted row - - [facility] Work Phone: Functional Status Date Assessment Result Facility NEGATED: Highlighted row Functional performance Functional status health issues are not documented [facility] Work Phone: Mental Status Date Assessment Result Facility 04-02-2024 Cognitive function Voice/Name [facility] Work Phone: NEGATED: Highlighted row Cognitive function [Interpretation] Cognitive status health issues are not documented Disease [facility] Work Phone: Clinical Notes 12-01-2023 to 01-17-2025 Note Date & Type Note Facility 01-17-2025 Progress note [facility] 12-19-2024 Evaluation note Diagnosis Onset Date Resolution Bleeding in early acute December 19, 2024 2:49pm Early stage of resolved December 19, 2024 2:49pm Vaginal discharge resolved 2024 2:49pm Anxiety and depression acute Se ptember 2024 8:52am History of miscarriage, currently acute November 8:52am acute November 8:52am Supervision of high-risk acute December 27, 2024 8:52am Varicose vein of leg acute Nov emb2024 8:52am Anxiety and depression acute Oc tob2024 1:20pm Bleeding in early acute December 30 1:20pm History of miscarriage, currently acute December 30, 2024 1:20pm Polycystic ovaries acute Octobe r 2024 1:20pm acute December 30, 025 1:20pm Supervision of high-risk acute December 30 1:20pm Varicose vein of leg acute 2024 1:20pm 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 December 30, 2024 1:20pm Early stage of resolved December 30, 2024 1:20pm Vaginal discharge resolved December 30, 2024 1:20pm Anxiety and depression acute Oc tober 2024 11:01am Bleeding in early acute January 17 11:01am History of miscarriage, currently acute January 17, 2025 11:01am Polycystic ovaries acute Octobe r 2024 11:01am acute January 17, 2025 11:01am Supervision of high-risk acute January 17 11:01am Varicose vein of leg acute Octo 2024 11:01am 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 January 17, 2025 11:01am Early stage of resolved January 17, 2025 11:01am Vaginal discharge resolved January 17, 2025 11:01am Anxiety and depression acute Oc tober 2024 3:42pm Bleeding in early acute January 27 3:42pm History of miscarriage, currently acute January 27, 2025 3:42pm Polycystic ovaries acute Octobe r 2024 3:42pm acute January 27, 2025 3:42pm Supervision of high-risk acute January 27 3:42pm Varicose vein of leg acute Octo yuan 2024 3:42pm 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 January 27, 2025 3:42pm Vaginal discharge resolved January 27, 2025 3:42pm [facility] Work Phone: 1(251) 280-269309-22-2025 Progress [facility] [address] [place] [address], [address] [place] [address] OFFICE VISIT Date of Service: 12/19/24 MR#: [id number] Acct: [id number] Name: XOCHILT CADET Rep #: [id number] : 1995 Provider: RUPINDER Reynolds Age/Sex: 29/F Location: [facility] Status: Signed Intake Vital Signs 09/12/24 13:02 12/13/24 11:04 12/19/24 14:51 Height 5 ft 8 in 5 ft 8 in 5 ft 8 in Weight: 188 lb 6 oz BMI 28.6 BP 103/70 Intake Visit Reasons: OB Yellow/green vaginal discharge Fishery Biologist Required: No Is patient in pain?: No Allergies No Known Allergies Allergy (Verified 12/19/24 14:54) Medications ?Medication ?Instructions ?Recorded ?Confirmed ?Type multivitamin no.47-iron fum 27 1 cap PO DAILY 08/25/24 12/19/24 History mg-folate no.1 1 mg-dha 300 mg capsule (PNV-DHA) levothyroxine 137 mcg capsule 137 mcg PO QDAY 09/12/24 12/19/24 History Is last menstrual period known: Yes Last Menstrual Period: 10/31/24 Post menopausal: No Patient : Yes : No Control Method: none PFSH Medical History (Updated 12/19/24 @ 15:58 by Paty Reynolds AUDIO/VISUAL OPERATOR, RUPINDER) Missed Complete Contraceptive management Deviated nasal septum Hypothyroidism due [...] Yes additional social history: - Carlos HPI OB Yellow/green vaginal discharge Details: XOCHILT CADET is a 29 year old who presents for increased yellow discharge without odor or irritation. She is early , about 7 weeks. NOB appt is 12/30/24. She had spotting a couple of weeks agoand had normal rising quant HCGs. She again had spotting on 12/16/24, small amount. No intercourse. She did have a miscarriage in August 2024 and very nervous about this. Female Reproductive History Last Menstrual Period: 10/31/24 History 1 Elective abortions Hx Para 0 Spontaneous abortions 1 Hx # Term Pregnancies Ectopic pregnancies Hx # Pregnancies Multiple births # of living children Past Pregnancies Del. Date Name GA/Weeks Outcome Route Bth Weight Gen Labor Lgth Anesthesia Del Locatn Provider FOB 09/01/24 spontaneous ROS Const Constitutional: Reports system reviewed and no additional complaints, except as documented Eyes Eyes: Reports system reviewed and no additional complaints, except as documented GI GI: Denies abdominal pain or change in bowel habits : Reports as per HPI Exam Const General: cooperative and no acute distress Orientation: oriented x3 General: bladder normal to palpation External Female Exam: normal external appearance and normal appearance of the urethra Urethra: normal appearance of the urethra Speculum Exam - Vagina: normal appearance of the vagina, abnormal vaginal discharge yellow; not boody, no lesions and nontender Speculum Exam - Cervix: normal appearance of the cervix and closed Bimanual Exam- Vagina & Uterus: normal bimanual exam, uterine size normal, bladder normal to palpation, uterine shape normal, uterine mobility normal and non-tender Bimanual Exam- Adnexa, other: normal adnexae, no masses and non-tender Coding Level of Care Code Off vis,est,level 3 Diagnoses Early stage of Z34.90 Vaginal discharge N89.8 Bleeding in early O20.9 Assessment and Plan Assessment and Plan (1) Early stage of : Status: Acute Comment: 6w4d per brief US 12/19/24 (2) Vaginal discharge: Status: Acute Comment: GCC and com vag culture pending (3) Bleeding in early : Status: Acute Orders: Orders Culture, Genital Comprehensive Today N89.8 - Other specified noninflammatory disorders of vagina Chlamydia/GC BAYLEE aptima Today N89.8 - Other specified noninflammatory disordersof vagina Plan Brief TV US per Dr Jean confirms FHT Comp vaginal culture and GCC-call positive RTO prn, NOB 12/30/24 12/19/24 1600 s AUDIO/VISUAL OPERATOR AUDIO/VISUAL OPERATOR-C> Date _ Paty Reynolds AUDIO/VISUAL OPERATOR AUDIO/VISUAL OPERATOR-C Cosigner Signature: Date (if applicable) CC: ~ [facility] [id number] Progress note Author Paty Reynolds [facility] Services Note Date/Time December 19, 2024 3:46pm [facility] [address], [address] [place] [address] OFFICE VISIT Date of Service: 12/19/24 MR#: [id number] Acct: [id number] Name: XOCHILT CADET Rep #: [id number] : 1995 Provider: RUPINDER Reynolds Age/Sex: 29/F Location: [facility] Status: Signed Intake Vital Signs 09/12/24 13:02 12/13/24 11:04 12/19/24 14:51 Height 5 ft 8 in 5 ft 8 in 5 ft 8 in Weight: 188 lb 6 oz BMI 28.6 BP 103/70 Intake Visit Reasons: OB Yellow/green vaginal discharge Fishery Biologist Required: No Is patient in pain?: No Allergies No Known Allergies Allergy (Verified 12/19/24 14:54) Medications ?Medication ?Instructions ?Recorded ?Confirmed ?Type multivitamin no.47-iron fum 27 1 cap PO DAILY 08/25/24 12/19/24 History mg-folate no.1 1 mg-dha 300 mg capsule (PNV-DHA) levothyroxine 137 mcg capsule 137 mcg PO QDAY 09/12/24 12/19/24 History Is last menstrual period known: Yes Last Menstrual Period: 10/31/24 Post menopausal: No Patient : Yes : No Control Method: none PFSH Medical History (Updated 12/19/24 @ 15:58 by Paty Reynolds NP, RUPINDER) Missed Complete Contraceptive management Deviated nasal septum Hypothyroidism due [...] Yes additional social history: - Carlos HPI OB Yellow/green vaginal discharge Details: XOCHILT CADET is a 29 year old who presents for increased yellow discharge without odor or irritation. She is early , about 7 weeks. NOB appt is 12/30/24. She had spotting a couple of weeks ago and had normal rising quant HCGs. She again had spotting on 12/16/24, small amount. No intercourse. She did have a miscarriage in August 2024 and very nervous about this. Female Reproductive History Last Menstrual Period: 10/31/24 History 1 Elective abortions Hx Para 0 Spontaneous abortions 1 Hx # Term Pregnancies Ectopic pregnancies Hx # Pregnancies Multiple births # of living children Past Pregnancies Del. Date Name GA/Weeks Outcome Route Bth Weight Infant Gen Labor Lgth Anesthesia Del Locatn Provider FOB 09/01/24 spontaneous ROS Const Constitutional: Reports system reviewed and no additional complaints, except as documented Eyes Eyes: Reports system reviewed and no additional complaints, except as documented GI GI: Denies abdominal pain or change in bowel habits : Reports as per HPI Exam Const General: cooperative and no acute distress Orientation: oriented x3 General: bladder normal to palpation External Female Exam: normal external appearance and normal appearance of the urethra Urethra: normal appearance of the urethra Speculum Exam - Vagina: normal appearance of the vagina, abnormal vaginal discharge yellow; not boody, no lesions and nontender Speculum Exam - Cervix: normal appearance of the cervix and closed Bimanual Exam- Vagina & Uterus: normal bimanual exam, uterine size normal, bladder normal to palpation, uterine shape normal, uterine mobility normal and non- tender Bimanual Exam- Adnexa, other: normal adnexae, no masses and non-tender Coding Level of Care Code Off vis,est,level 3 Diagnoses Early stage of Z34.90 Vaginal discharge N89.8 Bleeding in early O20.9 Assessment and Plan Assessment and Plan (1) Early stage of : Status: Acute Comment: 6w4d per brief US 12/19/24 (2) Vaginal discharge: Status: Acute Comment: GCC and com vag culture pending (3) Bleeding in early : Status: Acute Orders: Orders Culture, Genital Comprehensive Today N89.8 - Other specified noninflammatory disorders of vagina Chlamydia/GC BAYLEE aptima Today N89.8 - Other specified noninflammatory disordersof vagina Plan Brief TV US per Dr Jean confirms FHT Comp vaginal culture and GCC-call positive RTO prn, NOB 12/30/24 12/19/24 1600 <Electronically signed by Paty huertas AUDIO/VISUAL OPERATOR AUDIO/VISUAL OPERATOR-C> Date _ Paty Reynolds AUDIO/VISUAL OPERATOR AUDIO/VISUAL OPERATOR-C Cosigner Signature: Date (if applicable) CC: ~ [facility] Work Phone: 1(202) 362-158106-16-2025 Progress note Author Sangita Jean [facility] Note Date/Time September 12, 2024 1:22 pm [facility] [address], [address] [place] [address] OFFICE VISIT Date of Service: 09/12/24 MR#: [id number] Acct: [id number] Name: XOCHILT CADET Rep #: [id number] : 1995 Provider: Dr. 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 Jamil Jean MD Age/Sex: 29/F Location: [facility] Status: Signed Intake Vital Signs 09/01/24 11:40 09/12/24 13:02 Height 5 ft 8 in 5 ft 8 in Weight: 181 lb BMI 27.5 BP 120/72 Intake Visit Reasons: 1 wk F/U Fishery Biologist Required: No Is patient in pain?: No Allergies No Known Allergies Allergy (Verified 09/12/24 13:05) Medications ?Medication ?Instructions ?Recorded ?Confirmed ?Type multivitamin no.47-iron fum 27 1 cap PO DAILY 08/25/24 09/12/24 History mg-folate no.1 1 mg-dha 300 mg capsule (PNV-DHA) levothyroxine 137 mcg capsule 137 mcg PO QDAY 09/12/24 09/12/24 History Post menopausal: No Patient : No : No [facility] Medical History Contraceptive management Deviated nasal septum [...] Date Name GA/Weeks Outcome Route Bth Weight Infant Gen Labor Lgth Anesthesia [facility] Provider FOB 09/01/24 spontaneous ROS Const Constitutional: [...] Cosigner Signature: Date (if applicable) CC: ~ [facility]06-05-2025 Evaluation note* Diagnosis Onset Date Resolution Status Admit Date Missed inactive September 01, 2024 11:17am Polycystic ovaries acute August 282024 12:47pm Complete inactive September 122024 12:47pm Bleeding in early acute December 19, 2024 2:49pm Early stage of acute December 19, 2024 2:49pm Vaginal discharge acute Septemb er 2024 2:49pm Anxiety and depression acute Se ptember 2024 8:52am History of miscarriage, currently acute November 8:52am acute November 8:52am Supervision of high-risk acute December 27, 2024 8:52am Varicose vein of leg acute Nov ember 2024 8:52am [facility] Work Phone: 1(459) 301-850406-05-2025 Radiology Diagnostic study note [facility] Imaging Services [address] [place] [address] Transvaginal w/Preg US MR#: [id number] Acct: [id number] Name: XOCHILT CADET Rep #: [id number] : 1995 F 29 From: Adela Tipton MD PCP: Dr. Aretha Best MD Status: REG CL I Study:Transvaginal w/Preg US Date of Exam: 09/01/24 Exam# [id number] Ordering Dr: Sangita Root MD EXAM: US [...] following serial beta HCG level. Reading Location: [facility] CC: Dr. Aretha Best MD; Dr. Sangita Jean MD ~ American History Teacher: Signed [facility]06-02-2025 Evaluation note* Diagnosis Onset Date Resolution Status Admit Date , threatened resolved August 29, 2024 3:42pm Missed inactive September 01, 2024 11:17am Polycystic ovaries acute August 282024 12:47pm Complete inactive September 122024 12:47pm Bleeding in early acute December 19, 2024 2:49pm Early stage of acute December 19, 2024 2:49pm Vaginal discharge acute Novemb 2024 2:49pm Anxiety and depression acute Se pt2024 8:52am History of miscarriage, currently acute November 8:52am acute November 8:52am Supervision of high-risk acute December 27, 2024 8:52am Varicose vein of leg acute Nov 8:52am [facility] Services Work Phone: 1(303) 123-267705-31-2025 Radiology Diagnostic study note [facility] Imaging Services [address] [place] [address] Transvaginal w/Preg US MR#: [id number] Acct: [id number] Name: XOCHILT CADET Rep #: [id number] : 1995 F 29 From: Tom Blake MD PCP: Dr. Aretha Best MD Status: REG ER Study:Transvaginal w/Preg US Date of Exam: 08/27/24 Exam# [id number] Ordering Dr: Aunja Baeza DO PROCEDURE: TRANSVAGINAL W/PREG US 08/27/2024 [...] ovaries. Possible right corpus luteum. Reading Location: [id number] CC: Dr. Aretha Best MD; Dr. Porter Baeza, DO ~ American History Teacher: Signed [facility]05-29-2025 Evaluation note* Diagnosis Onset Date Resolution Status Admit Date , threatened resolved August 25, 2024 3:14pm , threatened resolved August 29, 2024 3:42pm Missed acute September 01, 2024 11:17am Complete acute September 122024 12:47pm Polycystic ovaries acute August 282024 12:47pm [facility] Work Phone: 1(296) 543-528305-29-2025 Radiology Diagnostic study note [facility] Imaging Services [address] [place] [address] Transvaginal w/Preg US MR#: [id number] Acct: [id number] Name: XOCHILT CADET Rep #: [id number] : 1995 F 29 From: Juan Johansen MD PCP: Dr. Aretha Best MD Status: REG CL I Study:Transvaginal w/Preg US Date of Exam: 08/25/24 Exam# [id number] Ordering Dr: Sangita Root MD PROCEDURE: TRANSVAGINAL [...] the ovaries with and withoutcontrast. Reading Location: [facility] CC: Dr. Aretha Best MD; Dr. Sangita Jean MD ~ American History Teacher: Signed [facility]03-13-2025 NotePap Smear Specimen AdequacyMarch 2024 11:59pmComment.Satisfactory for evaluation. Endocervical and/or squamous metaplasticcells (endocervical component)are present.[facility] INTERFACED A#[id number] Clinic Lutheran HospitalComment on above:Satisfactory for evaluation. Endocervical and/or squamous metaplasticcells (endocervical component)are present.06-09-2024 Evaluation note* Diagnosis Onset Date Resolution Status Admit Date Encounter for routine gynecological examination noneactive June 09, 2024 3:37pm [facility] Work Phone: 1(191) 210-158203-13-2025 Evaluation note* Diagnosis Onset Date Resolution Status Admit Date Encounter for routine gynecological examination noneactive June 09, 2024 3:37pm , threatened acute August 25, 2024 3:14pm [facility] Work Phone: 1(202) 547-972603-13-2025 Evaluation note* Diagnosis Onset Date Resolution Status Admit Date Encounter for routine gynecological examination noneactive June 09, 2024 3:37pm , threatened acute August 25, 2024 3:14pm , threatened acute August 29, 2024 3:42pm [facility] Work Phone: 1(854) 367-358503-13-2025 Evaluation note* Diagnosis Onset Date Resolution Status Admit Date Encounter for routine gynecological examination noneactive June 09, 2024 3:37pm , threatened resolved August 25, 2024 3:14pm , threatened resolved August 29, 2024 3:42pm Missed acute September 01, 2024 11:17am [facility] Work Phone: 1(817) 864-543603-13-2025 Evaluation note* Diagnosis Onset Date Resolution Status Admit Date Encounter for routine gynecological examination noneactive June 09, 2024 3:37pm , threatened resolved August 25, 2024 3:14pm , threatened resolved August 29, 2024 3:42pm Missed acute September 01, 2024 11:17am Complete acute September 122024 12:47pm Polycystic ovaries acute August 282024 12:47pm [facility] Work Phone: 1(317) 227-856709-03-2024 Evaluation + Plan note Diagnostic Tests Pending * Free T4 12/01/23 * Thyroid Stimulating Hormone 12/01/23 [facility] Evaluation + Plan note No data available for this section [facility] Evaluation note* Diagnosis Onset Date Resolution Status 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 acute [facility] Work Phone: Hospital Discharge instructions No data available for this section [facility] Instructions* Name Dates Details Instructions not documented [facility] Work Phone: Progress note No data available for this section [facility] [address] [place] [address] OFFICE VISIT Date of Service: 12/27/24 MR#: [id number] Acct: [id number] Patient: XOCHILT CADET Rep #: [id number] : 1995 Provider: Dr. Jamil Jean MD Age/Sex: 29/F Location: [facility] Status: Signed Intake Vital Signs 12/13/24 11:04 12/19/24 14:51 12/27/24 10:16 Height 5 ft 8 in 5 ft 8 in 5 ft 8 in Weight: 188 lb 6 oz 186 lb 6 oz BMI 28.6 28.3 BP 103/70 100/64 Blood Pressure Location Rt brachial Position Sitting Intake Visit Reasons: PNOB Vitals & Education Chief Complaint: new Fishery Biologist Required: No Is patient in pain?: No Allergies No Known Allergies Allergy (Verified 12/27/24 10:18) Medications ?Medication ?Instructions ?Recorded ?Confirmed ?Type multivitamin no.47-iron fum 27 1 cap PO DAILY 08/25/24 12/27/24 History mg-folate no.1 1 mg-dha 300 mg capsule (PNV-DHA) levothyroxine 137 mcg capsule 137 mcg PO QDAY 09/12/24 12/27/24 History Is last menstrual period known: Yes Last menstrual period: 10/31/24 Post menopausal: No Patient : Yes Nurse's Note: Pt here for secondary amenorrhea. Vitals WNL. PNOB questions completed. Problem list, allergies, and medications updated. First trimester ACOG education completed. Assessment and Plan Assessment and Plan (1) History of miscarriage, currently : Status: Acute (2) Supervision of high-risk : Status: Acute Comment: , EARNEST 08/07/25, Carlos (3) : Status: Acute Comment: elects NIPT with Gender & carrier testing (4) Varicose vein of leg: Status: Acute Comment: behind right knee (5) Anxiety and depression: Status: Acute Orders: Orders CBC W/Diff, Automated Today O09.90 - Supervision of high risk , unspecified, unspecified trimester Type & Screen Today O09.90 - Supervision of high risk , unspecified, unspecified trimester Rubella IgG Today O09.90 - Supervision of high risk , unspecified, unspecified trimester Hepatitis C Antibody Today O09.90 - Supervision of high risk , unspecified, unspecified trimester Hepatitis B Surface Antigen Today O09.90 - Supervision of high risk , unspecified, unspecified trimester Culture, Urine Today O09.90 - Supervision of high risk , unspecified, unspecified trimester Syphilis Antibodies Today O09.90 - Supervision of high risk , unspecified, unspecified trimester Chlamydia/GC BAYLEE aptima Today O09.90 - Supervision of high risk , unspecified, unspecifiedtrimester HIV Today O09.90 - Supervision of high risk , unspecified, unspecifiedtrimester Thyroid Stim Hormone (TSH) Today O09.90 - Supervision of high risk , unspecified, unspecified trimester Free T4 Today O09.90 - Supervision of high risk , unspecified, unspecified trimester [facility] Misc. Today O09.90 - Supervision of high risk , unspecified, unspecified trimester RACHEL Today O09.90 - Supervision of high risk , unspecified, unspecified trimester 12/27/24 1602 james GUZMAN> Date _ Sangita Jean MD Cosign Signature: Date (if applicable) CC: ~ [facility] Author Sangita Jean [facility] Note Date/Time December 27, 2024 4:02pm [facility] [address] [place] [address] OFFICE VISIT Date of Service: 12/27/24 MR#: [id number] Acct: [id number] Patient: XOCHILT CADET Rep #: [id number] : 1995 Provider: Dr. Jamil Jean MD Age/Sex: 29/F Location: [facility] Status: Signed Intake Vital Signs 12/13/24 11:04 12/19/24 14:51 12/27/24 10:16 Height 5 ft 8 in 5 ft 8 in 5 ft 8 in Weight: 188 lb 6 oz 186 lb 6 oz BMI 28.6 28.3 BP 103/70 100/64 Blood Pressure Location Rt brachial Position Sitting Intake Visit Reasons: PNOB Vitals & Education Chief Complaint: new Fishery Biologist Required: No Is patient in pain?: No Allergies No Known Allergies Allergy (Verified 12/27/24 10:18) Medications ?Medication ?Instructions ?Recorded ?Confirmed ?Type multivitamin no.47-iron fum 27 1 cap PO DAILY 08/25/24 12/27/24 History mg-folate no.1 1 mg-dha 300 mg capsule (PNV-DHA) levothyroxine 137 mcg capsule 137 mcg PO QDAY 09/12/24 12/27/24 History Is last menstrual period known: Yes Last menstrual period: 10/31/24 Post menopausal: No Patient : Yes Nurse's Note: Pt here for secondary amenorrhea. Vitals WNL. PNOB questions completed. Problem list, allergies, and medications updated. First trimester ACOG education completed. Assessment and Plan Assessment and Plan (1) History of miscarriage, currently : Status: Acute (2) Supervision of high-risk : Status: Acute Comment: , EARNEST 08/07/25, Carlos (3) : Status: Acute Comment: elects NIPT with Gender & carrier testing (4) Varicose vein of leg: Status: Acute Comment: behind right knee (5) Anxiety and depression: Status: Acute Orders: Orders CBC W/Diff, Automated Today O09.90 - Supervision of high risk , unspecified, unspecified trimester Type & Screen Today O09.90 - Supervision of high risk , unspecified, unspecified trimester Rubella IgG Today O09.90 - Supervision of high risk , unspecified, unspecified trimester Hepatitis C Antibody Today O09.90 - Supervision of high risk , unspecified, unspecified trimester Hepatitis B Surface Antigen Today O09.90 - Supervision of high risk , unspecified, unspecified trimester Culture, Urine Today O09.90 - Supervision of high risk , unspecified, unspecified trimester Syphilis Antibodies Today O09.90 - Supervision of high risk , unspecified, unspecified trimester Chlamydia/GC BAYLEE aptima Today O09.90 - Supervision of high risk , unspecified, unspecified trimester HIV Today O09.90 - Supervision of high risk , unspecified, unspecifiedtrimester Thyroid Stim Hormone (TSH) Today O09.90 - Supervision of high risk , unspecified, unspecified trimester Free T4 Today O09.90 - Supervision of high risk , unspecified, unspecified trimester [facility] Misc. Today O0990 - Supervision of high risk , unspecified, unspecified trimester RACHEL Today O09.90 - Supervision of high risk , unspecified, unspecified trimester 12/27/24 1602 <Electronically signed by Sangita ramirez MD> Date _ Sangita Jean MD Cosigner Signature: Date (if applicable) CC: ~ [facility] Work Phone: Progress note Author Nina Joshi [facility] Note Date/Time January 17, 2025 1 2:41pm [facility] [address], [address] [place] [address] OFFICE VISIT Date of Service: 01/17/25 MR#: [id number] Acct: [id number] Name: XOCHILT CADET Rep #: [id number] : 1995 Provider: Dr. Jojo Rivera DO Age/Sex: 29/F Location: [facility] Status: Signed Intake Vital Signs 12/30/24 13:29 01/17/25 11:03 01/17/25 11:03 Height 5 ft 8 in 5 ft 8 in 5 ft 8 in Weight: 189 lb 5 oz BMI 28.8 BP 128/85 H Intake Visit Reasons: 11w, spotting per Fishery Biologist Required: No Is patient in pain?: No Allergies No Known Allergies Allergy (Verified 01/17/25 11:03) Medications ?Medication ?Instructions ?Recorded ?Confirmed ?Type multivitamin no.47-iron fum 27 1 cap PO DAILY 08/25/24 01/17/25 History mg-folate no.1 1 mg-dha 300 mg capsule (PNV-DHA) promethazine 12.5 mg tablet 12.5 mg PO Q6H PRN nausea and 12/30/24 01/17/25 Rx vomiting #30 tabs levothyroxine 150 mcg tablet 150 mcg PO QDAY #90 tabs 01/13/25 01/17/25 Rx (Unithroid) metronidazole 0.75 % (37.5 mg/5 1 appful vaginal QDAY 5 days #70 01/17/25 01/17/25 Rx gram) vaginal gel grams Last Menstrual Period: 10/31/24 Zika: Zika virus screening: Negative : No PFSH PFSH Medical History Missed Complete Contraceptive management Deviated nasal septum 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 Seasonal allergies Surgical History History of nasal surgery Hx of tonsillectomy History of wisdom tooth extraction History of [...] occupation: [employer] pets and animals: Yes (Avoid litterbox) pets and animals: cat(s) and dog(s) history of recent travel: No sexually active: Yes Smoking Status: Never smoker alcohol intake: current alcohol intake frequency: holidays/special occasions only Alcohol type: beer details: not while substance use type: does not use well-balanced diet: daily or most days caffeine: No eating out: rarely or never during the past year weight has: remained stable what type of physical activity do you participate in: walking frequency: daily duration: 30-45 minutes/day ann/buddhist: Moravian seatbelt use: always do you feel safe at home: Yes 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 Date Name GA/Weeks Outcome Route Bth Weight Infant Gen Labor Lgth Anesthesia Del Locatn Provider FOB 09/01/24 5 spontaneous HPI 11w, spotting per SM Details: XOCHILT CADET is a 29 year old who presents for routine OB visit. OB Visit EARNEST Calculator Estimated Delivery Date Method Current WG Current Estimate 08/07/25 LMP (Certain) 11w 1d Other Estimates 08/11/25 Ultrasound #1 10w 4d Expected Delivery Route/Plan Labor Preferences- CB/BF classes: [] labor support person: [] labor intervention preferences: [] pain management options preferred: [] cut cord/dad catch: [] : [] PP control planned: [] discussed possible routes of delivery and associated risks: [] special requests: [] Specific Issue/Plans Covid status: [] Flu vaccine: [] Tdap vaccine: [] Rhogam: [] LARC form signed: [] Problem list reviewed and updated with the most current plan of care details and appropriate orders placed. Relevant counseling for the gestational age provided. Continue routine care and follow up unless otherwise noted in visit notes/problem list details Initial Weight: Not Recorded Date -?-?-?-?-?-?-?-?-?-?-?-?- EGA Weight BP Urine Prot -?-?-?-?-?-?-?-?-?-?-?-?- Glucose FHR FuHt Pres Dilation -?-?-?-?-?-?-?-?-?-?-?-?- Effaced St Visit Note 12/30/24 -?-?-?-?-?-?-?-?-?-?-?-?- 8w 4d 190 lb 9 oz 104/70 -?-?-?-?-?-?-?-?-?-?-?-?- 167 -?-?-?-?-?-?-?-?-?-?-?-?- JV- CRL consiste nt with LMP. desires nipt. going to [facility] and will do this when returns. thyroid feels a little enlarged on left side. thyroid scan ordered. 01/17/25 -?-?-?-?-?-?-?-?-?-?-?-?- 11w 1d 189 lb 5 oz 128/85 Nega tive -?-?-?-?-?-?-?-?-?-?-?-?- Negative 160 -?-?-?-?-?-?-?-?-?-?-?-?- JV- patient has ongoing spotting with BM and intercourse (x1) on exam she has a thick yellow/green discharge that may represent BV. The cervix bleeds easily with touch of a sterile q-tip. Culture collected. starting metrogel vaginal. ultrasound reasssuring. ACOG First Trimester First Trimester: Desire for , Alcohol, Tobacco Cessation, Illicit/Recreational Drug/Substance Use, Intimate Partner Violence, Barriers to care, Unstable Housing, Communication Barriers, Environmental/Work Hazards, Anticipated Course of Care, Toxoplasmosis Precations, Use of Any medications, Sexual activity, Exercise, Dental Care, Sauna/Hot tub use, Seat Belt use, Childbirth classes/Hospital facilities, Travel, Indications for Ultrasound and Screening for Aneuploidy; Discussed Results POC Urinalysis 2 Dip (Clinic) Office Urine Glucose Negative Last Edit by Ivonne David on 01/17/25 11: 11 Office Urine Protein Negative Last Edit by Ivonne David on 01/17/25 11: 11 Coding Level of Care Code OB Routine Diagnoses History of miscarriage, currently O09.299 Supervision of high-risk O09.90 11 weeks gestation of Z3A.11 Weeks of gestation: 11 weeks Varicose vein of leg I83.90 Anxiety and depression F41.9; F32.A Bleeding in early O20.9 Vaginal discharge N89.8 Early stage of Z34.90 Polycystic ovaries E28.2 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 E03.8; E06.3 Assessment and Plan Assessment and Plan (1) History of miscarriage, currently : Status: Acute (2) Supervision of high-risk : Status: Acute Comment: , EARNEST 08/07/25, Carlos (3) : Status: Acute Qualifiers: Weeks of gestation: 11 weeks Qualified Code(s): Z3A.11 - 11 weeks gestation of Comment: elects NIPT with Gender & carrier testing (4) Varicose vein of leg: Status: Acute Comment: behind right knee (5) Anxiety and depression: Status: Acute (6) Bleeding in early : Status: Acute (7) Vaginal discharge: Status: Acute Comment: GCC and com vag culture pending (8) Early stage of : Status: Acute Comment: 6w4d per brief US 12/19/24 (9) Polycystic ovaries: Status: Acute Comment: seen on US, unclear if post IUD effects of if PCOS, labs ordered for next months (10) 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: Status: Chronic Comment: levothyroxine, TSH elevated-repeat 4-6 weeks. Orders: Orders POC Urinalysis 2 Dip (Clinic) Today Culture, Genital Comprehensive Today O20.9 - Hemorrhage in early , unspecified Medications: New metronidazole 0.75%(37.5mg/5gram) 1 appful vaginal QDAY 70 grams 0RF 5 days 01/17/25 1633 <Electronically signed by Nina Skelton DO> Date _ Nina Rivera DO Cosigner Signature: Date (if applicable) CC: ~ [facility] Work Phone: Reason for referral (narrative)No reason for referral information availableWCleveland [facility] Work Phone: Summary Purpose Family History Grandmother Name Dates Details Family history of [...] Hypothyroidism Status:Active Comments:Mother. Father. Grandparents Advance Directives Advance Directive Response Recorded Date/ Time Living Will No April 02 2:50pm Do you have a Healthcare Power of Weigher Operator? No April 02, 2024 2:50pm Advance Directive Response Recorded Date/ Time Do you have a Healthcare Power of Weigher Operator? No August 18, 2024 9:32am Advance Directive Response Recorded Date/ Time Do you have a Healthcare Power of Weigher Operator? No August 18, 2024 9:32am Do you have a Healthcare Power of Weigher Operator? No August 27, 2024 4:30pm Hospital Course [...] Everywhere. * UTI (Urinary Tract Infection): Female (Tajik) documented in this encounter* Attachments The following attachments cannot be sent through Care Everywhere. 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 3:3 7pm vag August 18, 2024 9:25a m INT LAB ORDERS August 20, 2024 7:55a m E ORDER August 22, 2024 8:11a m SPOTTING IN EARLY August 25 9:55am fu ER visit, US results August 25, 2024 3 :14pm Chief Complaint Admit Date 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, 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 3:3 7pm vag August [...] 3:14 pm Chief Complaint Admit Date 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, 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 3:3 7pm vag August [...] 3:42p m Chief Complaint Admit Date 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, 2024 3:3 7pm vag August 18, 2024 9:25a m INT LAB ORDERS August 20, 2024 7:55a m E ORDER August 22, 2024 8:11a m SPOTTING IN EARLY August 25 9:55am fu ER visit, US results August 25, 2024 3 :14pm HCG LEVEL August 27, 2024 12:31 pm August 27, 2024 4:17p m ER FU per August 29, 2024 3:42p m INT LABS August 31, 2024 8:53a m VIABILITY September 01, 2024 10:39 am f/u on US, HCG level per September 01 11:17am Reason for Visit Admit [...] 11:17 am Chief Complaint Admit Date 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, 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 3:3 7pm vag August [...] 12:4 7pm Chief Complaint Admit Date 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, 2024 3:3 7pm vag August [...] 2024 12:4 7pm Chief Complaint Admit Date ER FU per SM August 29, 2024 3:42p m INT LABS August 31, 2024 8:53a m VIABILITY September 01, 2024 10:39 am f/u on US, HCG level per SM September 01 11:17am 1 wk F/U September 12, 2024 12:4 7pm INT LABS TWO DRS October 03, 2024 8:06a m EORDER November 08, 2024 8: 35am OB Yellow/green vaginal discharge Septem yuan 2024 2:49pm PNOB Vitals & Education December 27, 2024 8:52am Reason for Visit Admit Date , threatened August 29, 2024 3:42 pm Missed September 01, 2024 11:17 am Polycystic ovaries September 12, 2024 12:4 7pm Complete September 12, 2024 12:4 7pm Bleeding in early December 192024 2:49pm Early stage of December 19, 2024 2:49pm Vaginal discharge December 19, 2024 2:49pm Anxiety and depression December 27, 2 025 8:52am History of miscarriage, currently pregna nt December 27, 2024 8:52am December 27, 2024 8:52am Supervision of high-risk [facility] 2024 8:52am Varicose vein of leg December 27 8:52am Chief Complaint Admit Date INT LABS August 31, 2024 8:53a m VIABILITY September 01, 2024 10:39 am f/u on US, HCG level per September 01 11:17am 1 wk F/U September 12, 2024 12:4 7pm INT LABS TWO DRS October 03, 2024 8:06a m EORDER November 08, 2024 8: 35am OB Yellow/green vaginal discharge Septem yuan 2024 2:49pm PNOB Vitals & Education December 27, 2024 8:52am Reason for Visit Admit Date Missed September 01, 2024 11:17 am Polycystic ovaries September 12, 2024 12:4 7pm Complete September 12, 2024 12:4 7pm Bleeding in early December 192024 2:49pm Early stage of December 19, 2024 2:49pm Vaginal discharge December 19, 2024 2:49pm Anxiety and depression December 27 025 8:52am History of miscarriage, currently pregna nt December 27, 2024 8:52am December 27, 2024 8:52am Supervision of high-risk [facility]2024 8:52am Varicose vein of leg December 27 8:52am Chief Complaint Admit Date VIABILITY September 01, 2024 10:39 am f/u on US, HCG level per September 01 11:17am 1 wk F/U September 12, 2024 12:4 7pm INT LABS TWO VIANEY October 03, 2024 8:06a m EORDER November 08, 2024 8: 35am OB Yellow/green vaginal discharge Septem 2024 2:49pm PNOB Vitals & Education December 27, 2024 8:52am *EST* NOB LMP 8/4, EARNEST 08/07December 30, 2024 1:20pm Chief Complaint Admit Date EORDER November 08, 2024 8: 35am OB Yellow/green vaginal discharge Septem 2024 2:49pm PNOB Vitals & Education December 27, 2024 8:52am *EST* NOB LMP 8, EARNEST 08/07December 30, 2024 1:20pm E ORDERS/NEED ORDER FROM DR BEST January 11, 2025 8:35am Other specified hypothyroidism December 292024 12:52pm 11w, spotting per SM January 17, 2025 11:01am 12w 4d ob January 27, 2025 3 :42pm Reason for Visit Admit Date Bleeding in early December 192024 2:49pm Early stage of December 19, 2024 2:49pm Vaginal discharge December 19, 2024 2:49pm Anxiety and depression December 27, 025 8:52am History of miscarriage, currently pregna nt December 27, 2024 8:52am December 27, 2024 8:52am Supervision of high-risk Jovanye mber 2024 8:52am Varicose vein of leg December 27 8:52am Anxiety and depression December 30, 2024 1:20pm Bleeding in early December 30, 2024 1:20pm History of miscarriage, currently pregna nt December 30, 2024 1:20pm Polycystic ovaries December 30, 2024 1: 20pm December 30, 2024 1: 20pm Supervision of high-risk Octob er 2024 1:20pm Varicose vein of leg December 30, 2024 1 :20pm Hypothyroidism due to Yvonne's thyroi ditis December 30, 2024 1:20pm Early stage of December 30 1:20pm Vaginal discharge December 30, 2024 1: 20pm Anxiety and depression January 17 11:01am Bleeding in early December 11:01am History of miscarriage, currently pregna nt January 17, 2025 11:01am Polycystic ovaries January 17, 2025 1 1:01am January 17, 2025 1 1:01am Supervision of high-risk Octob er 2024 11:01am Varicose vein of leg January 17, 2025 11:01am Hypothyroidism due to Yvonne's thyroi ditis January 17, 2025 11:01am Early stage of January 17, 025 11:01am Vaginal discharge January 17, 2025 1 1:01am Anxiety and depression January 27 3:42pm Bleeding in early December 3:42pm History of miscarriage, currently pregna nt January 27, 2025 3:42pm Polycystic ovaries January 27, 2025 3 :42pm January 27, 2025 3 :42pm Supervision of high-risk Octob er 2024 3:42pm Varicose vein of leg January 27, 2025 3:42pm Hypothyroidism due to Yvonne's thyroi ditis January 27, 2025 3:42pm Vaginal discharge January 27, 2025 3 :42pm Additional Source Comments INFORMATION SOURCE (unrecogn ized section and content) DATE CREATED AUTHOR 01/12/2019 [facility] DATE CREATED AUTHOR AUTHOR'S ORGANIZ ATION 03/07/2019 [facility] DATE CREATED AUTHOR AUTHOR'S ORGANIZ ATION 09/05/2019 [facility] DATE CREATED AUTHOR AUTHOR'S ORGANIZ ATION 09/05/2019 [facility] DATE CREATED AUTHOR AUTHOR'S ORGANIZ ATION 02/28/2020 [facility] DATE CREATED AUTHOR AUTHOR'S ORGANIZ ATION 05/11/2020 [facility] DATE CREATED AUTHOR AUTHOR'S ORGANIZ ATION 09/24/2021 [facility] DATE CREATED AUTHOR AUTHOR'S ORGANIZ ATION 09/21/2022 [facility] DATE CREATED AUTHOR AUTHOR'S ORGANIZ ATION 12/03/2023 [facility] ([place] DATE CREATED AUTHOR AUTHOR'S ORGANIZ ATION 03/03/2024 [facility] DATE CREATED AUTHOR AUTHOR'S ORGANIZ ATION 06/21/2024 [facility] DATE CREATED AUTHOR AUTHOR'S ORGANIZ ATION 06/25/2024 [facility] DATE CREATED AUTHOR AUTHOR'S ORGANIZ ATION 10/08/2024 [facility] DATE CREATED AUTHOR AUTHOR'S ORGANIZ ATION 01/27/2025 [facility] Reason for Visit (unrecogniz ed section and content) Reason Comments Dysuria Urinary Frequency Urinary Tract Infection Reason Comments Urinary Tract Infection Reason For Visit Description Start Date Follow-up by complaint Preliminary reason f or visit data, not yet signed by the author as of right knee pain Goals (unrecognized section and content) Type Care Experience Labor Preferences-CB /BF classes: []labor support person: []labor intervention preferences: []pain management options preferred: []cut cord/dad catch: []: []PP control planned: []discussed possible routes of delivery and associated risks: []special requests: [] Patient Care team informatio n (unrecognized section [...] Team Status: Inactive Member Role/Relationship Status Jasvir eBst MD Primary Care Provider Active St art: [...] 29, 2024 End: August 29, 2024 Dr. Sanigta Jean MD Attending Provider Active Start: August [...] 2024 Team Status: Inactive Member Role/Relationship Status aJsvir Best MD Primary Care Provider Active St [...] November 08, 2024 End: November 08, 2024 Team Status: Active Member Role/Relationship Status Jasvir Best MD Primary care physician Active Team Status: Inactive Member Role/Relationship Status Jasvir Best MD Primary care physician Active S tart: August 29, 2024 End: August 29, 2024 Dr. Sangita Jean MD Attending physician Active Start: August 29, 2024 End: August 29, 2024 Dr. Sangita Jean MD Referring Provider Active Start: August 29, 2024 End: August 29, 2024 Team Status: Inactive Member Role/Relationship Status Jasvir Best MD Primary care physician Active S tart: August 29, 2024 End: August 29, 2024 Aretha Best MD Referring Provider Active Start : August 29, 2024 End: August 29, 2024 Dr. Sangita Jean MD Attending physician Active Start: August 29, 2024 End: August 29, 2024 Team Status: Inactive Member Role/Relationship Status Jasvir Best MD Primary care physician Active S tart: August 31, 2024 End: August 31, 2024 Dr. Sangita Jean MD Attending physician Active Start: August 31, 2024 End: August 31, 2024 Dr. Sangita Jean MD Referring Provider Active Start: August 31, 2024 End: August 31, 2024 Team Status: Inactive Member Role/Relationship Status Jasvir Best MD Primary care physician Active S tart: September 01, 2024 End: September 01, 2024 Dr. Sangita Jean MD Attending physician Active Start: September 01, 2024 End: September 01, 2024 Dr. Sangita Jean MD Referring Provider Active Start: September 01, 2024 End: September 01, 2024 Team Status: Inactive Member Role/Relationship Status Jasvir Best MD Primary care physician Active S tart: September 01, 2024 End: September 01, 2024 Aretha Best MD Referring Provider Active Start : September 01, 2024 End: September 01, 2024 Dr. Sangita Jean MD Attending physician Active Start: September 01, 2024 End: September 01, 2024 Team Status: Inactive Member Role/Relationship Status Jasvir Best MD Primary care physician Active S tart: September 12, 2024 End: September 12, 2024 Aretha Best MD Referring Provider Active Start : September 12, 2024 End: September 12, 2024 Dr. Sangita Jean MD Attending physician Active Start: September 12, 2024 End: September 12, 2024 Team Status: Inactive Member Role/Relationship Status Jasvir Best MD Primary care physician Active S tart: September 12, 2024 End: September 12, 2024 Dr. Sangita Jean MD Attending physician Active Start: September 12, 2024 End: September 12, 2024 Dr. Sangita Jean MD Referring Provider Active Start: September 12, 2024 End: September 12, 2024 Team Status: Inactive Member Role/Relationship Status Jasvir Best MD Primary care physician Active S tart: October 03, 2024 End: October 03, 2024 Dr. Sangita Jean MD Attending physician Active Start: October 03, 2024 End: October 03, 2024 Dr. Sangita Jean MD Referring Provider Active Start: October 03, 2024 End: October 03, 2024 Team Status: Inactive Member Role/Relationship Status Jasvir Best MD Primary care physician Active S tart: November 08, 2024 End: November 08, 2024 Aretha Best MD Attending physician Active Star t: November 08, 2024 End: November 08, 2024 Aretha Best MD Referring Provider Active Start : November 08, 2024 End: November 08, 2024 Team Status: Inactive Member Role/Relationship Status Jasvir Best MD Primary care physician Active S tart: December 06, 2024 End: December 06, 2024 Dr. Sangita Jean MD Attending physician Active Start: December 06, 2024 End: December 06, 2024 Dr. Sangita Jean MD Referring Provider Active Start: December 06, 2024 End: December 06, 2024 Team Status: Inactive Member Role/Relationship Status Jasvir Best MD Primary care physician Active S tart: December 08, 2024 End: December 08, 2024 Dr. Sangita Jean MD Attending physician Active Start: December 08, 2024 End: December 08, 2024 Dr. Sangita Jean MD Referring Provider Active Start: December 08, 2024 End: December 08, 2024 Team Status: Inactive Member Role/Relationship Status Jasvir Best MD Primary care physician Active S tart: December 19, 2024 End: December 19, 2024 Aretha Best MD Referring Provider Active Start : December 19, 2024 End: December 19, 2024 Paty Reynolds NP, AUDIO/VISUAL OPERATOR-C Attending physician Active Start: December 19, 2024 End: December 19, 2024 Team Status: Active Member Role/Relationship Status Jasvir Best MD Primary care physician Active S tart: December 19, 2024 Paty Reynolds AUDIO/VISUAL OPERATOR, AUDIO/VISUAL OPERATOR-C Attending physician Active Start: December 19, 2024 Paty Reynolds AUDIO/VISUAL OPERATOR, AUDIO/VISUAL OPERATOR-C Referring Provider Active Start: December 19, 2024 Team Status: Inactive Member Role/Relationship Status Jasvir Best MD Primary care physician Active S tart: December 27, 2024 End: December 27, 2024 Aretha Best MD Referring Provider Active Start : December 27, 2024 End: December 27, 2024 Dr. Sangita Jean MD Attending physician Active Start: December 27, 2024 End: December 27, 2024 Team Status: Inactive Member Role/Relationship Status Jasvir Best MD Primary care physician Active S tart: August 31, 2024 End: August 31, 2024 Dr. Sangita Jean MD Attending physician Active Start: August 31, 2024 End: August 31, 2024 Dr. Sangita Jean MD Referring Provider Active Start: August 31, 2024 End: August 31, 2024 Team Status: Inactive Member Role/Relationship Status Jasvir Best MD Primary care physician Active S tart: September 01, 2024 End: September 01, 2024 Dr. Sangita Jean MD Attending physician Active Start: September 01, 2024 End: September 01, 2024 Dr. Sangita Jean MD Referring Provider Active Start: September 01, 2024 End: September 01, 2024 Team Status: Inactive Member Role/Relationship Status Jasvir Best MD Primary care physician Active S tart: September 01, 2024 End: September 01, 2024 Aretha Best MD Referring Provider Active Start : September 01, 2024 End: September 01, 2024 Dr. Sangita Jean MD Attending physician Active Start: September 01, 2024 End: September 01, 2024 Team Status: Inactive Member Role/Relationship Status Jasvir Best MD Primary care physician Active S tart: September 12, 2024 End: September 12, 2024 Aretha Best MD Referring Provider Active Start : September 12, 2024 End: September 12, 2024 Dr. Sangita Jean MD Attending physician Active Start: September 12, 2024 End: September 12, 2024 Team Status: Inactive Member Role/Relationship Status Jasvir Best MD Primary care physician Active S tart: September 12, 2024 End: September 12, 2024 Dr. Sangita Jean MD Attending physician Active Start: September 12, 2024 End: September 12, 2024 Dr. Sangita Jean MD Referring Provider Active Start: September 12, 2024 End: September 12, 2024 Team Status: Inactive Member Role/Relationship Status Jasvir Best MD Primary care physician Active S tart: October 03, 2024 End: October 03, 2024 Dr. Sangita Jean MD Attending physician Active Start: October 03, 2024 End: October 03, 2024 Dr. Sangita Jean MD Referring Provider Active Start: October 03, 2024 End: October 03, 2024 Team Status: Inactive Member Role/Relationship Status Jasvir Best MD Primary care physician Active S tart: November 08, 2024 End: November 08, 2024 Aretha Best MD Attending physician Active Star t: November 08, 2024 End: November 08, 2024 Aretha Best MD Referring Provider Active Start : November 08, 2024 End: November 08, 2024 Team Status: Inactive Member Role/Relationship Status Jasvir Best MD Primary care physician Active S tart: December 06, 2024 End: December 06, 2024 Dr. Sangita Jean MD Attending physician Active Start: December 06, 2024 End: December 06, 2024 Dr. Sangita Jean MD Referring Provider Active Start: December 06, 2024 End: December 06, 2024 Team Status: Inactive Member Role/Relationship Status Jasvir Best MD Primary care physician Active S tart: December 08, 2024 End: December 08, 2024 Dr. Sangita Jean MD Attending physician Active Start: December 08, 2024 End: December 08, 2024 Dr. Sangita Jean MD Referring Provider Active Start: December 08, 2024 End: December 08, 2024 Team Status: Inactive Member Role/Relationship Status Jasvir Best MD Primary care physician Active S tart: December 19, 2024 End: December 19, 2024 Aretha Best MD Referring Provider Active Start : December 19, 2024 End: December 19, 2024 Paty Reynolds AUDIO/VISUAL OPERATOR, AUDIO/VISUAL OPERATOR-C Attending physician Active Start: December 19, 2024 End: December 19, 2024 Team Status: Active Member Role/Relationship Status Jasvir Best MD Primary care physician Active S tart: December 19, 2024 Paty Reynolds AUDIO/VISUAL OPERATOR, AUDIO/VISUAL OPERATOR-C Attending physician Active Start: December 19, 2024 Paty Reynolds AUDIO/VISUAL OPERATOR, AUDIO/VISUAL OPERATOR-C Referring Provider Active Start: December 19, 2024 Team Status: Inactive Member Role/Relationship Status Jasvir Best MD Primary care physician Active S tart: December 27, 2024 End: December 27, 2024 Aretha Best MD Referring Provider Active Start : December 27, 2024 End: December 27, 2024 Dr. Sangita Jean MD Attending physician Active Start: December 27, 2024 End: December 27, 2024 Team Status: Inactive Member Role/Relationship Status Jasvir Best MD Primary care physician Active S tart: December 19, 2024 End: December 19, 2024 Paty Reynolds AUDIO/VISUAL OPERATOR, AUDIO/VISUAL OPERATOR-C Attending physician Active Start: December 19, 2024 End: December 19, 2024 Paty Reynolds AUDIO/VISUAL OPERATOR, AUDIO/VISUAL OPERATOR-C Referring Provider Active Start: December 19, 2024 End: December 19, 2024 Team Status: Inactive Member Role/Relationship Status Jasvir Best MD Primary care physician Active S tart: September 01, 2024 End: September 01, 2024 Dr. Sangita Jean MD Attending physician Active Start: September 01, 2024 End: September 01, 2024 Dr. Sangita Jean MD Referring Provider Active Start: September 01, 2024 End: September 01, 2024 Team Status: Inactive Member Role/Relationship Status Jasvir Best MD Primary care physician Active S tart: September 01, 2024 End: September 01, 2024 Aretha Best MD Referring Provider Active Start : September 01, 2024 End: September 01, 2024 Dr. Sangita Jean MD Attending physician Active Start: September 01, 2024 End: September 01, 2024 Team Status: Inactive Member Role/Relationship Status Jasvir Best MD Primary care physician Active S tart: September 12, 2024 End: September 12, 2024 Aretha Best MD Referring Provider Active Start : September 12, 2024 End: September 12, 2024 Dr. Sangita Jean MD Attending physician Active Start: September 12, 2024 End: September 12, 2024 Team Status: Inactive Member Role/Relationship Status Jasvir Best MD Primary care physician Active S tart: September 12, 2024 End: September 12, 2024 Dr. Sangita Jean MD Attending physician Active Start: September 12, 2024 End: September 12, 2024 Dr. Sangita Jean MD Referring Provider Active Start: September 12, 2024 End: September 12, 2024 Team Status: Inactive Member Role/Relationship Status Jasvir Best MD Primary care physician Active S tart: October 03, 2024 End: October 03, 2024 Dr. Sangita Jean MD Attending physician Active Start: October 03, 2024 End: October 03, 2024 Dr. Sangita Jean MD Referring Provider Active Start: October 03, 2024 End: October 03, 2024 Team Status: Inactive Member Role/Relationship Status Jasvir Best MD Primary care physician Active S tart: November 08, 2024 End: November 08, 2024 Aretha Best MD Attending physician Active Star t: November 08, 2024 End: November 08, 2024 Aretha Best MD Referring Provider Active Start : November 08, 2024 End: November 08, 2024 Team Status: Inactive Member Role/Relationship Status Jasvir Best MD Primary care physician Active S tart: December 06, 2024 End: December 06, 2024 Dr. Sangita Jean MD Attending physician Active Start: December 06, 2024 End: December 06, 2024 Dr. Sangita Jean MD Referring Provider Active Start: December 06, 2024 End: December 06, 2024 Team Status: Inactive Member Role/Relationship Status Jasvir Best MD Primary care physician Active S tart: December 08, 2024 End: December 08, 2024 Dr. Sangita Jean MD Attending physician Active Start: December 08, 2024 End: December 08, 2024 Dr. Sangita Jean MD Referring Provider Active Start: December 08, 2024 End: December 08, 2024 Team Status: Inactive Member Role/Relationship Status Jasvir Best MD Primary care physician Active S tart: December 19, 2024 End: December 19, 2024 Aretha Best MD Referring Provider Active Start : December 19, 2024 End: December 19, 2024 Paty Reynolds AUDIO/VISUAL OPERATOR, AUDIO/VISUAL OPERATOR-C Attending physician Active Start: December 19, 2024 End: December 19, 2024 Team Status: Inactive Member Role/Relationship Status Jasvir Best MD Primary care physician Active S tart: December 19, 2024 End: December 19, 2024 Paty Reynolds AUDIO/VISUAL OPERATOR, AUDIO/VISUAL OPERATOR-C Attending physician Active Start: December 19, 2024 End: December 19, 2024 Paty Reynolds AUDIO/VISUAL OPERATOR, AUDIO/VISUAL OPERATOR-C Referring Provider Active Start: December 19, 2024 End: December 19, 2024 Team Status: Inactive Member Role/Relationship Status Jasvir Best MD Primary care physician Active S tart: December 27, 2024 End: December 27, 2024 Aretha Best MD Referring Provider Active Start : December 27, 2024 End: December 27, 2024 Dr. Sangita Jean MD Attending physician Active Start: December 27, 2024 End: December 27, 2024 Team Status: Inactive Member Role/Relationship Status Jasvir Best MD Primary care physician Active S tart: December 30, 2024 End: December 30, 2024 Aretha Best MD Referring Provider Active Start : December 30, 2024 End: December 30, 2024 Dr. Nina Rivera DO Attending physician Acti ve Start: December 30, 2024 End: December 30, 2024 Team Status: Inactive Member Role/Relationship Status Jasvir Best MD Primary care physician Active S tart: November 08, 2024 End: November 08, 2024 Aretha Best MD Attending physician Active Star t: November 08, 2024 End: November 08, 2024 Aretha Best MD Referring Provider Active Start : November 08, 2024 End: November 08, 2024 Team Status: Inactive Member Role/Relationship Status Jasvir Best MD Primary care physician Active S tart: December 06, 2024 End: December 06, 2024 Dr. Sangita Jean MD Attending physician Active Start: December 06, 2024 End: December 06, 2024 Dr. Sangita Jean MD Referring Provider Active Start: December 06, 2024 End: December 06, 2024 Team Status: Inactive Member Role/Relationship Status Jasvir Best MD Primary care physician Active S tart: December 08, 2024 End: December 08, 2024 Dr. Sangita Jean MD Attending physician Active Start: December 08, 2024 End: December 08, 2024 Dr. Sangita Jean MD Referring Provider Active Start: December 08, 2024 End: December 08, 2024 Team Status: Inactive Member Role/Relationship Status Jasvir Best MD Primary care physician Active S tart: December 19, 2024 End: December 19, 2024 Aretha Best MD Referring Provider Active Start : December 19, 2024 End: December 19, 2024 Paty Reynolds AUDIO/VISUAL OPERATOR, AUDIO/VISUAL OPERATOR-C Attending physician Active Start: December 19, 2024 End: December 19, 2024 Team Status: Inactive Member Role/Relationship Status Jasvir Best MD Primary care physician Active S tart: December 19, 2024 End: December 19, 2024 Paty Reynolds AUDIO/VISUAL OPERATOR, AUDIO/VISUAL OPERATOR-C Attending physician Active Start: December 19, 2024 End: December 19, 2024 Paty Reynolds AUDIO/VISUAL OPERATOR, AUDIO/VISUAL OPERATOR-C Referring Provider Active Start: December 19, 2024 End: December 19, 2024 Team Status: Inactive Member Role/Relationship Status Jasvir Best MD Primary care physician Active S tart: December 27, 2024 End: December 27, 2024 Aretha Best MD Referring Provider Active Start : December 27, 2024 End: December 27, 2024 Dr. Sangita Jean MD Attending physician Active Start: December 27, 2024 End: December 27, 2024 Team Status: Inactive Member Role/Relationship Status Jasvir Best MD Primary care physician Active S tart: December 30, 2024 End: December 30, 2024 Aretha Best MD Referring Provider Active Start : December 30, 2024 End: December 30, 2024 Dr. Nina Rivera DO Attending physician Acti ve Start: December 30, 2024 End: December 30, 2024 Team Status: Inactive Member Role/Relationship Status Jasvir Best MD Primary care physician Active S tart: December 30, 2024 End: December 30, 2024 Dr. Sangita Jean MD Attending physician Active Start: December 30, 2024 End: December 30, 2024 Dr. Sangita Jean MD Referring Provider Active Start: December 30, 2024 End: December 30, 2024 Team Status: Inactive Member Role/Relationship Status Jasvir Best MD Primary care physician Active S tart: January 11, 2025 End: January 11, 2025 Dr. Sangita Jean MD Attending physician Active Start: January 11, 2025 End: January 11, 2025 Dr. Sangita Jean MD Referring Provider Active Start: January 11, 2025 End: January 11, 2025 Team Status: Inactive Member Role/Relationship Status Jasvir Best MD Primary care physician Active S tart: January 16, 2025 End: January 16, 2025 Dr. Nina Rievra DO Attending physician Acti ve Start: January 16, 2025 End: January 16, 2025 Dr. Nina Rivera DO Referring Provider Activ e Start: January 16, 2025 End: January 16, 2025 Team Status: Inactive Member Role/Relationship Status Jasvir Best MD Primary care physician Active S tart: January 17, 2025 End: January 17, 2025 Aretha Best MD Referring Provider Active Start : January 17, 2025 End: January 17, 2025 Dr. Nina Rivera DO Attending physician Acti ve Start: January 17, 2025 End: January 17, 2025 Team Status: Inactive Member Role/Relationship Status Jasvir Best MD Primary care physician Active S tart: January 17, 2025 End: January 17, 2025 Dr. Sangita Jean MD Attending physician Active Start: January 17, 2025 End: January 17, 2025 Dr. Sangita Jean MD Referring Provider Active Start: January 17, 2025 End: January 17, 2025 Team Status: Inactive Member Role/Relationship Status Dates Aretha Best MD Primary care physician Active S tart: January 27, 2025 End: January 27, 2025 Aretha Best MD Referring Provider Active Start : January 27, 2025 End: January 27, 2025 Dr. Sangita Jean MD Attending physician Active Start: January 27, 2025 End: January 27, 2025 FOR RECORDS PERTAINING TO PATIENTS WHO ARE [...] BE BASED ON THE PRIMARY CLINICAL RECORDS. [employer] [facility]. provides no warranty or guarantee of the accuracy or completeness of information in this document.
== END | disposition home or self-care (01) ==
LOC: LAB 10:01
PROVIDERS: Obstetrics & Gynecology; PCP Family Medicine; Referring Provider Internal Medicine Endocrinology, Diabetes & Metabolism; Visit Provider Internal Medicine Endocrinology, Diabetes & Metabolism
DX: R79.89 Other specified abnormal findings of blood chemistry (principal); E03.8 Other specified hypothyroidism; E06.3 Autoimmune thyroiditis
CPT/HCPCS: 36415; 84443